=== PATIENT | male | born 1955 | race Caucasian/White ===

== ENCOUNTER 2022-07-05 11:23 | Outpatient (CLI) | payer MEDICARE, BC, SELFPAY | END 2022-07-05 11:24 | disposition home or self-care (01) | PROVIDERS: PCP Family Medicine; Visit Provider Family Medicine | DX: Z00.00 Encounter for general adult medical examination without abnormal findings (principal); E78.5 Hyperlipidemia, unspecified; E66.01 Morbid (severe) obesity due to excess calories; I10 Essential (primary) hypertension; I73.9 Peripheral vascular disease, unspecified; Z86.39 Personal history of other endocrine, nutritional and metabolic disease | CPT/HCPCS: 80053; 80061; 82043; 82306; 82570; 82607; 84153 ==

== ENCOUNTER 2022-07-08 10:19 | Inpatient (IN) | payer BC, MEDICARE, SELFPAY ==
[2022-07-08] VITALS (32 sets, daily range): BP systolic 74–146; BP diastolic 32–101; PULSE 98–122; RESP 20–30; TEMP 35.9–37.9; O2SAT 88–95; BMI 48.8; BMI 51.2
--- NOTE | 2022-07-08 10:34 | ED_ITS ---
HPI - General Adult General Time Seen by Provider: 10:43 Date Seen: 07/08/22 Chief complaint: Extremity Pain/Injury, Lower Stated complaint: Infection in R leg Time Seen by Provider: 07/08/22 10:34 Source: patient, family, RN notes reviewed and old records reviewed Mode of arrival: ambulatory Limitations: no limitations History of Present Illness HPI narrative: Patient is a 67-year-old male brought in by family member with concern right lower extremity swelling and pain. He also has had some respiratory symptoms recently. On Sunday of this past week, today is Sunday, he started feeling like he was getting the flu. By that he meant that he got some chest congestion low-grade fevers and achy. He has had diminished appetite but no nausea vomiting or diarrhea. He does have underlying COPD and feels like it may be a bit exacerbated. He feels when he takes his inhalers he has maybe just not breathing as good as usually would. He has had some sputum production but nothing more than baseline. Over last couple days his right lower extremity has become significantly more swollen, red and painful. He states that is twice the size it normally is. They are wondering about infection in his leg. He does take an aspirin but no other blood thinners. Others in the household have had similar respiratory symptoms. He did do a home COVID test within this illness and was negative. Related Data Home Medications Medication Instructions Recorded Confirmed albuterol sulfate 90 mcg/actuation 2 puff inhalation Q4H PRN 04/21/22 07/08/22 aerosol inhaler ipratropium 0.5 mg-albuterol 3 mg 3 ml inhalation Q6H PRN 04/21/22 07/08/22 (2.5 mg base)/3 mL nebulization soln aspirin 81 mg tablet,delayed 81 mg PO DAILY 05/01/22 07/08/22 release fluticasone fur. 200 mcg-umeclid 1 inh inhalation DAILY 06/12/22 07/08/22 62.5 mcg-vilant 25 mcg inhalat.powder (Trelegy Ellipta) furosemide 40 mg tablet 40 mg PO DAILY 06/12/22 07/08/22 metoprolol succinate 25 mg 25 mg PO DAILY 06/12/22 07/08/22 tablet,extended release 24 hr omeprazole 40 mg capsule,delayed 40 mg PO DAILY 06/12/22 07/08/22 release rosuvastatin 40 mg tablet 40 mg PO DAILY 07/08/22 07/08/22 Previous Rx's Medication Instructions Recorded montelukast 10 mg tablet 10 mg PO QHS #90 tabs 05/01/22 cilostazol 100 mg tablet 100 mg PO BID #180 tabs 07/05/22 doxycycline hyclate 100 mg tablet 100 mg PO BID 7 days #14 tabs 07/05/22 semaglutide 0.25 mg or 0.5 mg (2 0.25 mg (0.2 mL) subcut QWEEK 4 07/07/22 mg/1.5 mL) subcutaneous pen weeks #0.8 mL injector (Dejamor) Allergies Allergy/AdvReac Type Severity Reaction Status Date / Time No Known Drug Allergies Allergy Verified 07/05/22 10:42 Review of Systems Status of ROS: Reports: 10 or more systems reviewed and unremarkable except as noted in History and below [facility] Medical History (Updated 07/09/22 @ 12:06 by Lisandro Correa MD) Bilateral lumbar radiculopathy Cellulitis of right leg (~02/2016) Clostridium difficile colitis (~2017) COPD (chronic obstructive pulmonary disease) Diverticulosis Dyslipidemia Elevated C-reactive protein (CRP) GERD (gastroesophageal reflux disease) H/O myocardial infarction, greater than 8 weeks History of methamphetamine abuse History of vitamin D deficiency Hx of acute renal failure Hx of colonic polyp Hx of deep venous thrombosis Lower GI bleed (~05/2020) Lymphedema Morbidly obese Obstructive sleep apnea hypopnea, severe PAD (peripheral artery disease) Peripheral vascular disease of extremity with claudication Postoperative anemia Prediabetes Presence of stent in coronary artery in patient with coronary artery disease Primary hypertension Spinal stenosis of lumbar region with neurogenic claudication Surgical History (Updated 07/08/22 @ 15:15 by Bree Moreno MD) Femur fracture, right H/O angioplasty (12/07/11) H/O coronary angioplasty (~11/2011) Hip fracture Hx of colonoscopy Hx of esophagogastroduodenoscopy Previous back surgery (10/03/18) S/P insertion of iliac artery stent (06/06/21) Family History (Updated 07/08/22 @ 15:16 by Bree Moreno MD) Maternal Grandfather Heart disease Mother Heart disease Father Myocardial infarction Heart disease Maternal Grandmother Diabetes Cancer of kidney Social History (Updated 07/08/22 @ 17:03 by Bree Moreno MD) Narrative: . 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 Quit tobacco use in july 2015. EtOH 2-3 beers 3 times a week, more in the summer. Denies recreational drugs. 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 He had meth for a few years because he had so many things going on at work and he was renovating a house and felt like there were just not enough hours in the day. Full code, does not want prison life support. Highest level of school completed/degree received: GED or equivalent Smoking Status: Former smoker What tobacco products do you use: cigarettes Smoking packs per day: 0.5 Smoking cigarettes per day: 10.0 Years smoked: 42 Smoking pack-years: 21.00 Smoking quit date/years: <= 15 years ago Do you use any of these nicotine containing products: None Nicotine containing products detail: quit 7 years ago Second hand tobacco smoke exposure: Yes How often do you have a drink containing alcohol: 2-3 times a week Alcohol type: beer How many standard drinks containing alcohol do you have on a typical day: 1 or 2 How often do you have six or more drinks on one occasion: Never AUDIT-C Alcohol total score: 3 Non-prescribed substance use: denies use Caffeine: Yes (3-4 cups daily) Little interest or pleasure in doing things: not at all Feeling down, depressed, or hopeless: not at all service: Yes Exam Const: Vital Signs, click to edit/add: Vital Signs - 24 hr 07/08/22 13:30 07/08/22 13:36 07/08/22 13:38 Temperature Pulse Rate 115 H 112 H 112 H Pulse Rate [Pulse Oximeter] Respiratory Rate Blood Pressure 74/61 L 108/84 Blood Pressure [Le ft Arm] Pulse Oximetry 91 93 94 Oxygen Delivery Me thod Oxygen Flow Rate 07/08/22 14:00 07/08/22 14:01 07/08/22 14:56 Temperature 97.2 F L Pulse Rate 114 H 112 H Pulse Rate [Pulse Oximeter] 122 H Respiratory Rate 30 H Blood Pressure 127/60 Blood Pressure [Le ft Arm] 133/95 H Pulse Oximetry 93 95 95 Oxygen Delivery Me thod Nasal Cannula Oxygen Flow Rate 2 07/08/22 15:28 07/08/22 16:00 Temperature 100.3 F H Pulse Rate Pulse Rate [Pulse Oximeter] 112 H Respiratory Rate 22 30 H Blood Pressure Blood Pressure [Le ft Arm] 140/80 H Pulse Oximetry 92 92 Oxygen Delivery Me thod Nasal Cannula Room Air Oxygen Flow Rate 2 Documenting provider has reviewed patient's vital signs: yes Common normals: oriented x3 General appearance: cooperative, comfortable, disheveled and frail appearing Nutritional appearance: obese Orientation/consciousness: Yes awake, Yes oriented to person, Yes oriented to place and Yes oriented to time HENMT: Common normals: normocephalic, head/scalp atraumatic, hearing grossly normal bilaterally and external ears normal Head and scalp: normocephalic and atraumatic External ear: external ears normal Other: Oral mucosa is dry. Note his initial blood pressure in triage was 87 systolic but recheck as soon as he is in his bed in the ER, systolic was 147 without any intervention. Eye: Common normals: PERRL, EOMs intact bilaterally, conjunctivae normal and no scleral icterus Conjunctiva: conjunctiva(e) normal Pupil: PERRL Neck & C-Spine: Common normals: full ROM, no lymphadenopathy, supple, no meningeal signs and thyroid normal Thyroid: thyroid normal Other: Neck is thick, has a zhong, difficult to assess JVD. Resp: Common normals: normal respiratory effort, no retractions, no use of accessory muscles and clear to auscultation bilaterally Auscultation: clear to auscultation bilaterally Other: Does not overall seem tachypneic but is really only able to speak in phrases. Cardio: Common normals: regular rate, regular rhythm, S1 normal heart sound, S2 normal heart sound, no gallops, no clicks and no murmurs Rate: regular rate Rhythm: regular rhythm Heart sounds: S1 normal and S2 normal GI: Common normals: Normal to inspection, nondistended, normoactive bowel sounds present, soft to palpation, non-tender, no hepatosplenomegaly and no masses Palpation: soft and no hepatosplenomegaly Extremity: Other: Has thickened left lower extremity/edema without any erythema. His right lower extremity is confluency red and about twice the size of his left leg. It is grossly enlarged in the calf and edematous. This extremity feels warm as well. Neuro: Common normals: oriented x3, moves all extremities and no focal motor deficits Sensorium/orientation: awake, oriented to person, oriented to place and oriented to time Meningeal signs: no meningeal signs Course Course Hospital Course: We have a patient reporting a respiratory illness with underlying COPD and worsening right lower extremity swelling and pain. We need to consider COVID and other respiratory pathogens, COPD exacerbation, pneumonia, cardiopulmonary possibilities. Thromboembolic disease is also a possibility here. I am going to ultrasound his calf but will still get a D-dimer. Clinically, even if his D- dimer were normal, looking at this leg would still feel that we need to ultrasound it. Will watch his blood pressures closely. We need to consider the possibility of a sepsis like illness. I am not sure if that was just in Rho knee us 1 time blood pressure but will watch him closely. He will be on cardiac monitoring and pulse oximetry. Will get 2 blood cultures and a full complement of labs. Reevaluation(s) Reevaluation #1: Dr. Forbes did check on the patient for me, patient's troponin was elevated at 10. She ascertained that he had had an episode of left shoulder pain 2 days ago. With his prior episode of ischemic disease requiring cardiac stenting, had bilateral shoulder pain. Patient has no pain in his shoulder or chest currently. She did do a subsequent lab order for a troponin to see where was trending. Time: 12:25 Reevaluation #2: Ordered vancomycin and Ancef for this patient. His Doppler is negative in his legs for venous thrombo embolic disease. He most certainly has cellulitis. He is meeting criteria for sepsis. I have ordered subsequent fluids. Given his COPD and underlying cardiac condition, do think we need to proceed cautiously with him and monitor him closely. Fluid overload could be quite detrimental for him. Besides his initial 500 mL fluid bolus, I have ordered a subsequent L of fluids. Will re-evaluate him before ordering further fluids. Time: 12:37 Consultations Consultation #1: Spoke with Cardiology on-call Dr. Goldsmith at [facility]. With a stability of the troponin and patient being asymptomatic, he thought patient could stay here and have an echo tomorrow and trend troponins. With recurrent symptomatology, concern for escalation of ischemic disease, contact them for potential transfer. Time: 13:44 Consultation #2: Spoke with our hospitalist Dr. Correa. He does accept this patient. In review of the case, he would want to get a chest CT PE protocol and have subsequently ordered it. Time: 13:50 Vital Signs Vital signs: Initial Vital Signs Temperature 96.6 F L 07/08/22 10:22 Temperature Source Temporal Artery Scan 07/08/22 10:22 Pulse Rate 117 H 07/08/22 10:22 Respiratory Rate 26 H 07/08/22 10:22 Blood Pressure 87/32 L 07/08/22 10:22 Blood Pressure Mean 50 07/08/22 10:22 Blood Pressure Position Supine 07/08/22 10:22 Pulse Oximetry 92 07/08/22 10:22 Oxygen Delivery Method 07/08/22 10:22 Vital Signs Temperature 96.6 F L 07/08/22 10:22 Pulse Rate 117 H 07/08/22 10:22 Respiratory Rate 26 H 07/08/22 10:22 Blood Pressure 87/32 L 07/08/22 10:22 Pulse Oximetry 92 07/08/22 10:22 Oxygen Delivery Method 07/08/22 10:22 Temperature 98.7 F 07/09/22 11:00 Pulse Rate 96 07/09/22 11:00 Respiratory Rate 20 07/09/22 08:30 Blood Pressure 142/83 H 07/09/22 11:00 Pulse Oximetry 89 07/09/22 11:00 Oxygen Delivery Method 07/09/22 11:00 Oxygen Flow Rate 2.5 07/09/22 11:00 Medical Decision Making Lab Data Lab results reviewed: Yes I reviewed the patient's lab results Labs: Lab Results 07/08/22 07/08/22 07/08/22 Range/Units 10:50 10:50 10:50 WBC 14.87 H (4.50-11.00) K/uL RBC 4.69 (4.30-5.90) m/uL Hgb 12.8 L (13.5-17.5) gm/dL Hct 40.2 (37.0-53.0) % MCV 86 (80-100) fL MCH 27 (26-34) pg MCHC 32 (32-36) gm/dL RDW Coeff of Dinora 15.7 H (11.5-15.5) % Plt Count 248 (140-440) K/uL Neut % (Auto) 91.4 H (42.0-72.0) % Lymph % (Auto) 4.6 L (20-44) % [place] % (Auto) 3.5 (0.0-11.0) % Eos % (Auto) 0.0 (0.0-7.0) % Baso % (Auto) 0.1 (0.0-3.0) % Neut # (Auto) 13.60 H (1.7-7.0) K/uL Lymph # (Auto) 0.70 L (0.90-2.90) K/uL [place] # (Auto) 0.50 (0.00-0.90) K/UL Eos # (Auto) 0.00 (0.00-0.50) K/uL Baso # (Auto) 0.00 (0.00-0.30) K/uL ESR 72 H (2-15) mm/hr D-Dimer Quant (PE/DVT) 3.02 H (0.00-0.50) ug/ml VBG pH (7.32-7.43) VBG pCO2 (40-50) mmHG VBG pO2 (25-47) mmHG VBG HCO3 (21-28) mmol/L Sodium (135-149) mmol/L Potassium (3.6-5.1) mmol/L Chloride (96-114) mmol/L Carbon Dioxide (20-32) mmol/L BUN (7-30) mg/dL Creatinine (0.5-1.5) mg/dL Estimated Creat Clear Estimated GFR ml/min Glucose (60-115) mg/dL Lactate (0.5-1.9) mmol/L Calcium (8.4-10.6) mg/dL Total Bilirubin (0.1-1.5) mg/dL AST (12-35) U/L ALT (4-50) U/L Alkaline Phosphatase (40-150) U/L Troponin I (0.01-0.04) ng/mL C-Reactive Protein (0.5-1.0) mg/dL NT-Pro-B Natriuret Pep pg/mL Total Protein (6.0-8.3) g/dL Albumin (3.3-5.0) g/dL Procalcitonin (<0.50) ng/mL SARS-CoV-2 (PCR) (Negative) Influenza Type A (PCR) (Negative) Influenza Type B (PCR) (Negative) RSV (PCR) (Negative) POC Troponin I (0.01-0.04) ng/ml 07/08/22 07/08/22 07/08/22 Range/Units 10:50 10:50 10:50 WBC (4.50-11.00) K/uL RBC (4.30-5.90) m/uL Hgb (13.5-17.5) gm/dL Hct (37.0-53.0) % MCV (80-100) fL MCH (26-34) pg MCHC (32-36) gm/dL RDW Coeff of Dinora (11.5-15.5) % Plt Count (140-440) K/uL Neut % (Auto) (42.0-72.0) % Lymph % (Auto) (20-44) % [place] % (Auto) (0.0-11.0) % Eos % (Auto) (0.0-7.0) % Baso % (Auto) (0.0-3.0) % Neut # (Auto) (1.7-7.0) K/uL Lymph # (Auto) (0.90-2.90) K/uL [place] # (Auto) (0.00-0.90) K/UL Eos # (Auto) (0.00-0.50) K/uL Baso # (Auto) (0.00-0.30) K/uL ESR (2-15) mm/hr D-Dimer Quant (PE/DVT) (0.00-0.50) ug/ml VBG pH (7.32-7.43) VBG pCO2 (40-50) mmHG VBG pO2 (25-47) mmHG VBG HCO3 (21-28) mmol/L Sodium 134 L (135-149) mmol/L Potassium 3.9 (3.6-5.1) mmol/L Chloride 97 (96-114) mmol/L Carbon Dioxide 29 (20-32) mmol/L BUN 20 (7-30) mg/dL Creatinine 1.3 (0.5-1.5) mg/dL Estimated Creat Clear 55.37 Estimated GFR 59 ml/min Glucose 198 H (60-115) mg/dL Lactate (0.5-1.9) mmol/L Calcium 8.3 L (8.4-10.6) mg/dL Total Bilirubin 1.2 (0.1-1.5) mg/dL AST 97 H (12-35) U/L ALT 35 (4-50) U/L Alkaline Phosphatase 78 (40-150) U/L Troponin I 10.80 H* (0.01-0.04) ng/mL C-Reactive Protein 40.1 H (0.5-1.0) mg/dL NT-Pro-B Natriuret Pep 2790 pg/mL Total Protein 7.4 (6.0-8.3) g/dL Albumin 3.7 (3.3-5.0) g/dL Procalcitonin 17.80 H (<0.50) ng/mL SARS-CoV-2 (PCR) Negative SARS-CoV-2 (Negative) Influenza Type A (PCR) Negative PCR FLU A (Negative) Influenza Type B (PCR) Negative PCR FLU B (Negative) RSV (PCR) Negative PCR RSV (Negative) POC Troponin I (0.01-0.04) ng/ml 07/08/22 07/08/22 07/08/22 Range/Units 10:50 12:25 15:52 WBC (4.50-11.00) K/uL RBC (4.30-5.90) m/uL Hgb (13.5-17.5) gm/dL Hct (37.0-53.0) % MCV (80-100) fL MCH (26-34) pg MCHC (32-36) gm/dL RDW Coeff of Dinora (11.5-15.5) % Plt Count (140-440) K/uL Neut % (Auto) (42.0-72.0) % Lymph % (Auto) (20-44) % [place] % (Auto) (0.0-11.0) % Eos % (Auto) (0.0-7.0) % Baso % (Auto) (0.0-3.0) % Neut # (Auto) (1.7-7.0) K/uL Lymph # (Auto) (0.90-2.90) K/uL [place] # (Auto) (0.00-0.90) K/UL Eos # (Auto) (0.00-0.50) K/uL Baso # (Auto) (0.00-0.30) K/uL ESR (2-15) mm/hr D-Dimer Quant (PE/DVT) (0.00-0.50) ug/ml VBG pH 7.321 (7.32-7.43) VBG pCO2 56 H (40-50) mmHG VBG pO2 21.1 L (25-47) mmHG VBG HCO3 29 H (21-28) mmol/L Sodium (135-149) mmol/L Potassium (3.6-5.1) mmol/L Chloride (96-114) mmol/L Carbon Dioxide (20-32) mmol/L BUN (7-30) mg/dL Creatinine (0.5-1.5) mg/dL Estimated Creat Clear Estimated GFR ml/min Glucose (60-115) mg/dL Lactate 3.4 H (0.5-1.9) mmol/L Calcium (8.4-10.6) mg/dL Total Bilirubin (0.1-1.5) mg/dL AST (12-35) U/L ALT (4-50) U/L Alkaline Phosphatase (40-150) U/L Troponin I 9.72 H* (0.01-0.04) ng/mL C-Reactive Protein (0.5-1.0) mg/dL NT-Pro-B Natriuret Pep pg/mL Total Protein (6.0-8.3) g/dL Albumin (3.3-5.0) g/dL Procalcitonin (<0.50) ng/mL SARS-CoV-2 (PCR) (Negative) Influenza Type A (PCR) (Negative) Influenza Type B (PCR) (Negative) RSV (PCR) (Negative) POC Troponin I 9.25 H (0.01-0.04) ng/ml 07/08/22 Range/Units 15:52 WBC (4.50-11.00) K/uL RBC (4.30-5.90) m/uL Hgb (13.5-17.5) gm/dL Hct (37.0-53.0) % MCV (80-100) fL MCH (26-34) pg MCHC (32-36) gm/dL RDW Coeff of Dinora (11.5-15.5) % Plt Count (140-440) K/uL Neut % (Auto) (42.0-72.0) % Lymph % (Auto) (20-44) % [place] % (Auto) (0.0-11.0) % Eos % (Auto) (0.0-7.0) % Baso % (Auto) (0.0-3.0) % Neut # (Auto) (1.7-7.0) K/uL Lymph # (Auto) (0.90-2.90) K/uL [place] # (Auto) (0.00-0.90) K/UL Eos # (Auto) (0.00-0.50) K/uL Baso # (Auto) (0.00-0.30) K/uL ESR (2-15) mm/hr D-Dimer Quant (PE/DVT) (0.00-0.50) ug/ml VBG pH (7.32-7.43) VBG pCO2 (40-50) mmHG VBG pO2 (25-47) mmHG VBG HCO3 (21-28) mmol/L Sodium (135-149) mmol/L Potassium (3.6-5.1) mmol/L Chloride (96-114) mmol/L Carbon Dioxide (20-32) mmol/L BUN (7-30) mg/dL Creatinine (0.5-1.5) mg/dL Estimated Creat Clear Estimated GFR ml/min Glucose (60-115) mg/dL Lactate 1.7 (0.5-1.9) mmol/L Calcium (8.4-10.6) mg/dL Total Bilirubin (0.1-1.5) mg/dL AST (12-35) U/L ALT (4-50) U/L Alkaline Phosphatase (40-150) U/L Troponin I (0.01-0.04) ng/mL C-Reactive Protein (0.5-1.0) mg/dL NT-Pro-B Natriuret Pep pg/mL Total Protein (6.0-8.3) g/dL Albumin (3.3-5.0) g/dL Procalcitonin (<0.50) ng/mL SARS-CoV-2 (PCR) (Negative) Influenza Type A (PCR) (Negative) Influenza Type B (PCR) (Negative) RSV (PCR) (Negative) POC Troponin I (0.01-0.04) ng/ml Imaging Data Chest x-ray: Attestation: I have reviewed the pertinent imaging results. Radiologist's impression: Patient: [facility] Facility:?[facility] Patient ID:?[id number] Site Patient ID:?[id number]. Site :?[id number] Study:?XRay Chest 1 VIEW PORTABLE-07/08/2022 11:59:02 AM Ordering Physician:Viola Rodrigez Final Report: INDICATION: Cough with fever. TECHNIQUE: Chest 1 view. COMPARISON: 21 April 2022 FINDINGS: Cardiovascular and mediastinum: Heart size and vasculature are normal in caliber and appearance. Mediastinum is within normal limits. Lungs and pleural space: Lungs are clear. No sign of infiltrate or mass. No sign of pleural effusion. No pneumothorax. Bones and soft tissues: No significant findings. IMPRESSION: Unremarkable chest. Dictated by Drew Greene MD @ 07/08/2022 12:39:13 PM (Electronic Signature) Venous US: Attestation: I have reviewed the pertinent imaging results. Radiologist's impression: Patient: [facility] Facility:?[facility] Patient ID:?[id number] Site Patient ID:?[id number]. Site :?[id number] Study:?US Extremity Right lower leg venous-07/08/2022 11:57:30 AM Ordering Physician:Viola Rodrigez Final Report: CLINICAL HISTORY: Right leg swelling with pain and redness. TECHNIQUE: A compression venous ultrasound exam was performed of the right lower extremity using pierson-scale imaging, color Doppler and spectral Doppler analysis. Limitation in image quality due to body habitus. FINDINGS: Sonographic imaging of the right lower extremity demonstrates normal compressibility and color Doppler venous blood flow within the common femoral vein, deep femoral vein, and the proximal greater saphenous vein. Within the thigh, the femoral vein is patent and compressible. At a lower level, the popliteal and posterior tibial veins also show normal compressibility and color Doppler venous blood flow. Limited imaging of the contralateral groin demonstrates a normal spectral waveform and color Doppler venous blood flow within the left common femoral vein. IMPRESSION: Normal venous ultrasound exam. No evidence of deep vein thrombosis within the right lower extremity. Limitation of image quality and diagnostic sensitivity due to body habitus. Dictated by Drew Greene MD @ 07/08/2022 12:37:17 PM (Electronic Signature) ECG Data Attestation: I personally reviewed and interpreted this ECG as follows: (Sinus tachycardia, 111 beats per minute, PVCs. Q-waves inferiorly. No acute ST segment changes indicative of active ischemia.) Prior ECG tracings: not available for review
--- NOTE | 2022-07-08 10:41 | CRLHL7_ITS ---
For Patients: As a result of the Cures Act, medical imaging exams and procedure reports are released immediately into your electronic medical record. You may view this report before your referring provider. If you have questions, please contact your health care provider. INDICATION: Cough with fever. TECHNIQUE: Chest 1 view. COMPARISON: 21 April 2022 FINDINGS: Cardiovascular and mediastinum: Heart size and vasculature are normal in caliber and appearance. Mediastinum is within normal limits. Lungs and pleural space: Lungs are clear. No sign of infiltrate or mass. No sign of pleural effusion. No pneumothorax. Bones and soft tissues: No significant findings. IMPRESSION: Unremarkable chest. Dictated by Drew Greene MD @ 07/08/2022 12:39:13 PM (Electronically Signed)
--- NOTE | 2022-07-08 10:44 | CRLHL7_ITS ---
For Patients: As a result of the Cures Act, medical imaging exams and procedure reports are released immediately into your electronic medical record. You may view this report before your referring provider. If you have questions, please contact your health care provider. CLINICAL HISTORY: Right leg swelling with pain and redness. TECHNIQUE: A compression venous ultrasound exam was performed of the right lower extremity using pierson-scale imaging, color Doppler and spectral Doppler analysis. Limitation in image quality due to body habitus. FINDINGS: Sonographic imaging of the right lower extremity demonstrates normal compressibility and color Doppler venous blood flow within the common femoral vein, deep femoral vein, and the proximal greater saphenous vein. Within the thigh, the femoral vein is patent and compressible. At a lower level, the popliteal and posterior tibial veins also show normal compressibility and color Doppler venous blood flow. Limited imaging of the contralateral groin demonstrates a normal spectral waveform and color Doppler venous blood flow within the left common femoral vein. IMPRESSION: Normal venous ultrasound exam. No evidence of deep vein thrombosis within the right lower extremity. Limitation of image quality and diagnostic sensitivity due to body habitus. Dictated by Drew Greene MD @ 07/08/2022 12:37:17 PM (Electronically Signed)
[2022-07-08 10:59] LABS: HCO3 VBG 29 mmol/L (21-28); Lactate* 3.4 mmol/L (0.5-1.9); PCO2 VBG 56 mmHG (40-50); PO2 VBG 21.1 mmHG (25-47); pH VBG 7.321 (7.32-7.43)
[2022-07-08 11:01] LABS: Basophils Percent Auto 0.1 % (0.0-3.0); Hematocrit 40.2 % (37.0-53.0); Hemoglobin* 12.8 gm/dL (13.5-17.5); Immature Granulocytes Pct Auto 0.4 %; Lymphocytes Percent Auto 4.6 % (20-44); Mean Corpuscular HGB Conc 32 gm/dL (32-36); Mean Corpuscular Hemoglobin 27 pg (26-34); Mean Corpuscular Volume 86 fL (80-100); Monocytes Percent Auto 3.5 % (0.0-11.0); Neutrophils Percent Auto 91.4 % (42.0-72.0); Platelet Count* 248 K/uL (140-440); RDW Coefficient of Variation % 15.7 % (11.5-15.5); Red Blood Count 4.69 m/uL (4.30-5.90); White Blood Count* 14.87 K/uL (4.50-11.00)
[2022-07-08 11:07] LABS: Slide Review Reflex No
[2022-07-08 11:17] LABS: Albumin* 3.7 g/dL (3.3-5.0); Chloride* 97 mmol/L (96-114); Sodium* 134 mmol/L (135-149)
[2022-07-08 11:18] LABS: Potassium* 3.9 mmol/L (3.6-5.1)
[2022-07-08 11:20] LABS: Alkaline Phosphatase* 78 U/L (40-150); Aspartate Amino Transferase* 97 U/L (12-35); Bilirubin Total* 1.2 mg/dL (0.1-1.5); Carbon Dioxide* 29 mmol/L (20-32); Creatinine* 1.3 mg/dL (0.5-1.5); Est. Creatinine Clearance* 55.37; Estimated Glomerular Filt Rate 59 ml/min; Total Protein* 7.4 g/dL (6.0-8.3)
[2022-07-08 11:21] LABS: Alanine Aminotransferase* 35 U/L (4-50); Blood Urea Nitrogen* 20 mg/dL (7-30); Calcium* 8.3 mg/dL (8.4-10.6); Glucose* 198 mg/dL (60-115)
[2022-07-08 11:27] LABS: D Dimer Quantitative* 3.02 ug/ml (0.00-0.50)
[2022-07-08] MEDS: 0.9 % SODIUM CHLORIDE 500 ML 500 ML IV (11:36)
[2022-07-08 11:41] LABS: PCR FLU A Negative PCR FLU A (Negative); PCR FLU B Negative PCR FLU B (Negative); PCR RSV Negative PCR RSV (Negative)
[2022-07-08 11:44] LABS: SARS PCR* Negative SARS-CoV-2 (Negative)
[2022-07-08 11:45] LABS: NT Pro B Type NatriureticPept* 2790 pg/mL
[2022-07-08 11:55] LABS: Erythrocyte SedimentationRate* 72 mm/hr (2-15)
[2022-07-08 12:11] LABS: C Reactive Protein* 40.1 mg/dL (0.5-1.0)
--- NOTE | 2022-07-08 12:14 | PC.NURSE ---
pt denies chest pain, does report shortness of breath that has increased over the last 1-2 days
[2022-07-08] MEDS: 0.9 % SODIUM CHLORIDE 1000 ml 1,000 ML IV (12:40)
[2022-07-08 12:46] LABS: Troponin, Point-of-Care* 9.25 ng/ml (0.01-0.04)
[2022-07-08] MEDS: CEFAZOLIN 2 GM in 0.9 % SODIUM CHLORIDE Mini-bag 100 ML IVPB ×2 (13:24→20:34)
--- NOTE | 2022-07-08 13:56 | CRLHL7_ITS ---
For Patients: As a result of the Century Cures Act, medical imaging exams and procedure reports are released immediately into your electronic medical record. You may view this report before your referring provider. If you have questions, please contact your health care provider. Indication: Tachycardia Comparison: None available Technique: Contiguous axial images were obtained from the neck base through the upper abdomen following the uncomplicated administration of intravenous of mL IV . Findings: Inadequate contrast bolus without obvious evidence of central pulmonary embolism. Unable to evaluate the segmental and subsegmental pulmonary arteries due to motion artifact, and opacification. Low lung volumes and motion also markedly limits evaluation of lung parenchyma. There are some areas of atelectasis in bilateral lower lobes, with linear posterior opacities and volume loss. Mild emphysema, upper lobe predominant. No focal area of airspace consolidation. Central airways appear patent. No chest adenopathy. Atherosclerotic disease. No thoracic aortic aneurysm. Coronary artery calcification. No pericardial effusion. No pleural effusion or pneumothorax. No obvious adenopathy in the neck base. The thyroid appears unremarkable. In the visualized upper abdomen the adrenal glands appear unremarkable. The spleen is normal in size. Hepatic steatosis and hepatomegaly. No aggressive appearing osseous lesion. Impression: 1. Inadequate contrast bolus without obvious evidence of central pulmonary embolism. 2. Mild emphysema, and areas of atelectasis, with low lung volumes. 3. Coronary artery calcification. 4. Hepatic steatosis and hepatomegaly. Please note that all CT scans at this facility use dose modulation, iterative reconstruction, and/or weight-based dosing when appropriate to reduce radiation dose to as low as reasonably achievable. Dictated by Yaron Ospina MD @ 07/08/2022 3:30:07 PM (Electronically Signed)
--- NOTE | 2022-07-08 15:26 | PM.IMHP1 ---
Hospitalist- H&P: HPI History of Present Illness Time Seen by Provider: 15:27 Date Seen: 07/08/22 Chief complaint: Infection in R leg Narrative: Ajith Warren is a 67 year old male with a complicated PMH including CAD, CHANTEL requiring temporary dialysis, and chronic right lower extremity lymphedema who presented through the emergency department today for right lower extremity pain and swelling. Ajith has had several episodes right lower extremity cellulitis and has chronic lymphedema of that leg for which he wears compression stockings. He knows he is supposed to elevate his legs, but is unable to do so due to orthopnea. On Sunday he used the hot tub at [address], which he usually does once or twice a week. He usually wears his compression stockings 24 hours a day 7 days a week, and when he saw Dr. Roth on Sunday, he says she told him that he should take them off to wash them once in a while. He took them off after seeing her on Sunday and did not put them on that night. He noticed some swelling Sunday evening and I am morning on his right lower extremity was painful and red. He noticed increased pain with walking. By night he felt generally unwell. He noticed that the redness was creeping up his leg. It had started on the lateral side of his right foot and up into both sides of his calf, but was up to his thigh Th night. He felt very feverish, chilled, having cold sweats, and then developed left shoulder pain. It was reminiscent of the pain he had with a myocardial infarction several years ago when he felt like his shoulders were pulling back trying to had each other from behind. He was just sitting in a chair resting when all of this came on. He had no chest pain or chest discomfort and denies any shortness of breath at that time. He went to bed, but it was very hard to sleep because of the left shoulder pain and he does not think he got any sleep that night. By Sunday morning he was still having left shoulder pain, but it slowly resolved by midmorning. His right lower extremity continued to get more red and painful. Today his breathing was difficult. His is not with him today because she is home sick with flu-like symptoms. His son, Kobi, and granddaughter, Crystal, or there when I 1st arrived to this patient's room, and left shortly after a introduced myself. In reviewing medications with him, he seemed very unsure about what he is actually taking. I read to him from a list that have been updated by Dr. Roth a few days ago, but there were several of them that he says he does not take at all, and he had said he took Ozempic, but when I asked him what day of the week he took that, he said what you mean? I told him it was an injectable medication and he said he does not take injectables. He also does not know the time of day he takes least 3 of his medications. Says he either takes them in the morning or night, but basically sets them all out in a pillbox and takes half of in the morning and half of them at night. He also occasionally takes his 's OxyContin and does not know the dose of that. He tells me he was recently prescribed the doxycycline that it says was picked up by him at the pharmacy on 07/05/2022 by a dye room helper, and it was supposed to be used as a rescue medicine for COPD exacerbations, but his started taking it for a tooth infection. I spoke with Ajith's , Tracy, around 5:30 p.m.. She had asked that I call to give her an update. She notes that he usually gets delirium when septic. We discussed sepsis, antibiotics, cellulitis, NSTEMI, acute kidney injury, and medications. She said that he usually knows his medications very well and thinks that mild delirium is causing him to not be able to give accurate information about his medications. She said that he was recently prescribed Olzempic for pre diabetes and had not started it yet. Review of Systems Status of ROS: Reports: 10 or more systems reviewed and unremarkable except as noted in History and below [facility] Medical History (Updated 07/08/22 @ 17:57 by Bree Moreno MD) Bilateral lumbar radiculopathy Cellulitis of right leg (~02/2016) Clostridium difficile colitis (~2018) COPD (chronic obstructive pulmonary disease) Diverticulosis Dyslipidemia Elevated C-reactive protein (CRP) GERD (gastroesophageal reflux disease) H/O myocardial infarction, greater than 8 weeks History of methamphetamine abuse History of vitamin D deficiency Hx of acute renal failure Hx of colonic polyp Hx of deep venous thrombosis Lower GI bleed (~05/2020) Lymphedema Morbidly obese Obstructive sleep apnea hypopnea, severe PAD (peripheral artery disease) Peripheral vascular disease of extremity with claudication Postoperative anemia Prediabetes Presence of stent in coronary artery in patient with coronary artery disease Primary hypertension Spinal stenosis of lumbar region with neurogenic claudication Surgical History (Updated 07/08/22 @ 15:15 by Bree Moreno MD) Femur fracture, right H/O angioplasty (12/07/11) H/O coronary angioplasty (~11/2011) Hip fracture Hx of colonoscopy Hx of esophagogastroduodenoscopy Previous back surgery (10/03/18) S/P insertion of iliac artery stent (06/06/21) Family History (Updated 07/08/22 @ 15:16 by Bree Moreno MD) Maternal Grandfather Heart disease Mother Heart disease Father Myocardial infarction Heart disease Maternal Grandmother Diabetes Cancer of kidney Social History (Updated 07/08/22 @ 17:03 by Bree Moreno MD) Narrative: . 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 Quit tobacco use in july 2015. EtOH 2-3 beers 3 times a week, more in the summer. Denies recreational drugs. 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 He had meth for a few years because he had so many things going on at work and he was renovating a house and felt like there were just not enough hours in the day. Full code, does not want manager long term care life support. Highest level of school completed/degree received: GED or equivalent Smoking Status: Former smoker What tobacco products do you use: cigarettes Smoking packs per day: 0.5 Smoking cigarettes per day: 10.0 Years smoked: 42 Smoking pack-years: 21.00 Smoking quit date/years: <= 15 years ago Do you use any of these nicotine containing products: None Nicotine containing products detail: quit 7 years ago Second hand tobacco smoke exposure: Yes How often do you have a drink containing alcohol: 2-3 times a week Alcohol type: beer How many standard drinks containing alcohol do you have on a typical day: 1 or 2 How often do you have six or more drinks on one occasion: Never AUDIT-C Alcohol total score: 3 Non-prescribed substance use: denies use Caffeine: Yes (3-4 cups daily) Little interest or pleasure in doing things: not at all Feeling down, depressed, or hopeless: not at all service: Yes Meds Home Medications and Allergies Home Medications Medication Instructions Recorded Confirmed Type albuterol sulfate 90 mcg/actuation 2 puff inhalation Q4H PRN 04/21/22 07/08/22 History aerosol inhaler ipratropium 0.5 mg-albuterol 3 mg 3 ml inhalation Q6H PRN 04/21/22 07/08/22 History (2.5 mg base)/3 mL nebulization soln aspirin 81 mg tablet,delayed 81 mg PO DAILY 05/01/22 07/08/22 History release fluticasone fur. 200 mcg-umeclid 1 inh inhalation DAILY 06/12/22 07/08/22 History 62.5 mcg-vilant 25 mcg inhalat.powder (Trelegy Ellipta) furosemide 40 mg tablet 40 mg PO DAILY 06/12/22 07/08/22 History metoprolol succinate 25 mg 25 mg PO DAILY 06/12/22 07/08/22 History tablet,extended release 24 hr omeprazole 40 mg capsule,delayed 40 mg PO DAILY 06/12/22 07/08/22 History release rosuvastatin 40 mg tablet 40 mg PO DAILY 07/08/22 07/08/22 History Home Medication Comments: Not very knowledgeable about medicines. He says he puts them into a weekly pill box himself. Also please see HPI. Allergies Allergy/AdvReac Type Severity Reaction Status Date / Time No Known Drug Allergies Allergy Verified 07/05/22 10:42 Exam Narrative: Exam Narrative: General: No acute distress. Mild respiratory distress, occasionally heaving breaths and speaking in short sentences. Awake alert oriented x3. Morbidly obese. Sitting in the chair with legs on the floor. HEENT: Normocephalic atraumatic, pupils equally round and reactive to light and accommodation. Oropharynx clear. Mucous membranes are dry. No cervical lymphadenopathy, thyromegaly or carotid bruits. Cardiovascular: Regular rate and rhythm. No murmurs, gallops, or rubs. Chest: Poor and shallow inspiratory efforts. Diminished breath sounds at bases. No crackles or wheezes. Abdomen: Bowel sounds present. Soft, nondistended, nontender. No hepatosplenomegaly or masses. Extremities: Massive right lower extremity edema with erythema encompassing entire lower part of the right lower extremity from above the knee down and the medial half of the inner thigh ending just before the groin. There was only 1 small area of serous drainage from the middle anterior reynolds. No other open areas or ulceration. No bruising or abrasions or signs of injury or abscess. Genitourinary: Normal male genitalia with no erythema or edema. Skin: As above. No other rashes noted. Const: Vital Signs, click to edit/add: Vital Signs - 24 hr 07/08/22 10:22 07/08/22 11:13 07/08/22 11:15 Temperature 96.6 F L Pulse Rate 117 H 117 H Pulse Rate [Pulse Oximeter] 117 H Respiratory Rate 26 H Blood Pressure 139/61 Blood Pressure [Le ft Arm] Blood Pressure [Ri ght Forearm] 87/32 L Pulse Oximetry 92 95 95 Oxygen Delivery Me thod Room Air Oxygen Flow Rate 07/08/22 11:30 07/08/22 11:32 07/08/22 12:00 Temperature Pulse Rate 117 H 115 H 112 H Pulse Rate [Pulse Oximeter] Respiratory Rate Blood Pressure 128/101 H Blood Pressure [Le ft Arm] Blood Pressure [Ri ght Forearm] Pulse Oximetry 93 93 92 Oxygen Delivery Me thod Oxygen Flow Rate 07/08/22 12:02 07/08/22 12:11 07/08/22 12:30 Temperature Pulse Rate 114 H 113 H 112 H Pulse Rate [Pulse Oximeter] Respiratory Rate Blood Pressure 97/81 91/58 L Blood Pressure [Le ft Arm] Blood Pressure [Ri ght Forearm] Pulse Oximetry 91 93 92 Oxygen Delivery Me thod Oxygen Flow Rate 07/08/22 12:31 07/08/22 13:00 07/08/22 13:02 Temperature Pulse Rate 113 H 112 H 111 H Pulse Rate [Pulse Oximeter] Respiratory Rate Blood Pressure 117/69 106/75 Blood Pressure [Le ft Arm] Blood Pressure [Ri ght Forearm] Pulse Oximetry 93 95 92 Oxygen Delivery Me thod Oxygen Flow Rate 07/08/22 13:30 07/08/22 13:36 07/08/22 13:38 Temperature Pulse Rate 115 H 112 H 112 H Pulse Rate [Pulse Oximeter] Respiratory Rate Blood Pressure 74/61 L 108/84 Blood Pressure [Le ft Arm] Blood Pressure [Ri ght Forearm] Pulse Oximetry 91 93 94 Oxygen Delivery Me thod Oxygen Flow Rate 07/08/22 14:00 07/08/22 14:01 07/08/22 14:56 Temperature 97.2 F L Pulse Rate 114 H 112 H Pulse Rate [Pulse Oximeter] 122 H Respiratory Rate 30 H Blood Pressure 127/60 Blood Pressure [Le ft Arm] 133/95 H Blood Pressure [Ri ght Forearm] Pulse Oximetry 93 95 95 Oxygen Delivery Me thod Nasal Cannula Oxygen Flow Rate 2 Documenting provider has reviewed patient's vital signs: yes Common normals: no apparent distress, oriented x3, no limitations, healthy appearing, alert and well nourished General appearance: cooperative and comfortable; not in distress Orientation/consciousness: Yes awake, Yes oriented to person, Yes oriented to place and Yes oriented to time HENMT: Common normals: normocephalic, head/scalp atraumatic, hearing grossly normal bilaterally, TM's normal bilaterally, external nose normal and nasal mucous membranes and turbinates normal Head and scalp: normal to inspection, normocephalic and atraumatic Nose: external nose normal and nasal mucous membranes and turbinates normal Tympanic membrane: TM's normal bilaterally Mouth: oral and palatal mucosa normal Throat: posterior oropharynx normal Eye: Common normals: PERRL and EOMs intact bilaterally General eye: normal appearance of both eyes Pupil: PERRL Neck & C-Spine: Common normals: full ROM, no lymphadenopathy and supple Resp: Common normals: normal respiratory effort, no use of accessory muscles and clear to auscultation bilaterally Effort & inspection: able to speak in complete sentences; no respiratory distress Auscultation: clear to auscultation bilaterally; no crackles and no wheezes Cardio: Common normals: regular rate, regular rhythm, S1 normal heart sound, S2 normal heart sound, no gallops, no murmurs and peripheral pulses 2+ throughout Rate: regular rate Rhythm: regular rhythm Heart sounds: S1 normal and S2 normal Peripheral pulses: pulses 2+ throughout GI: Common normals: Normal to inspection, nondistended, normoactive bowel sounds present, soft to palpation and non-tender Palpation: soft Extremity: Common normals: normal to inspection, full ROM and normal capillary refill Neuro: Common normals: oriented x3, CN's II-XII intact bilaterally, moves all extremities, no focal motor deficits and no sensory deficits noted Sensorium/orientation: awake, alert, oriented to person, oriented to place and oriented to time Speech: speech normal Gait (neuro): normal gait Motor exam: strength 5/5 throughout Psych: Common normals: mental status grossly normal, thought process normal, speech normal and activity/motor behavior normal Appearance: grossly normal Attitude: calm Speech: normal speech Thought process: normal thought process Thought content: normal thought content Attention/concentration: attention grossly intact Memory/cognition: memory grossly intact Insight: insight good Judgement: judgment good Skin: Common normals: no rashes or lesions noted General skin exam: no rashes or lesions noted Hospitalist - H&P: Result Labs Labs: Short CBC 07/08/22 Range/Units 10:50 WBC 14.87 H (4.50-11.00) K/uL Hgb 12.8 L (13.5-17.5) gm/dL Hct 40.2 (37.0-53.0) % Plt Count 248 (140-440) K/uL BMP 07/08/22 10:50 Sodium 134 L Potassium 3.9 Chloride 97 Carbon Dioxide 29 BUN 20 Creatinine 1.3 Glucose 198 H Calcium 8.3 L Cardiac Enzymes 07/08/22 Range/Units 10:50 Troponin I 10.80 H* (0.01-0.04) ng/mL Liver Function 07/08/22 Range/Units 10:50 Total Bilirubin 1.2 (0.1-1.5) mg/dL AST 97 H (12-35) U/L ALT 35 (4-50) U/L Alkaline Phosphatase 78 (40-150) U/L Albumin 3.7 (3.3-5.0) g/dL Ordering Physician: Rain Leigh M.D. Date of Service: 07/08/22 Procedure(s): XR chest 1V portable Accession Number(s): [id number] cc: Rain Leigh M.D.; Qiana Roth D.O.~ For Patients: As a result of the Century Cures Act, medical imaging exams and procedure reports are released immediately into your electronic medical record. You may view this report before your referring provider. If you have questions, please contact your health care provider. INDICATION: Cough with fever. TECHNIQUE: Chest 1 view. COMPARISON: 21 April 2022 FINDINGS: Cardiovascular and mediastinum: Heart size and vasculature are normal in caliber and appearance. Mediastinum is within normal limits. Lungs and pleural space: Lungs are clear. No sign of infiltrate or mass. No sign of pleural effusion. No pneumothorax. Bones and soft tissues: No significant findings. IMPRESSION: Unremarkable chest. Dictated by Drew Greene MD @ 07/08/2022 12:39:13 PM (Electronically Signed) Ordering Physician: Rain Leigh M.D. Date of Service: 07/08/22 Procedure(s): US venous LE RT Accession Number(s): [id number] cc: Rain Leigh M.D.; Qiana Roth D.O.~ For Patients: As a result of the Cures Act, medical imaging exams and procedure reports are released immediately into your electronic medical record. You may view this report before your referring provider. If you have questions, please contact your health care provider. CLINICAL HISTORY: Right leg swelling with pain and redness. TECHNIQUE: A compression venous ultrasound exam was performed of the right lower extremity using pierson-scale imaging, color Doppler and spectral Doppler analysis. Limitation in image quality due to body habitus. FINDINGS: Sonographic imaging of the right lower extremity demonstrates normal compressibility and color Doppler venous blood flow within the common femoral vein, deep femoral vein, and the proximal greater saphenous vein. Within the thigh, the femoral vein is patent and compressible. At a lower level, the popliteal and posterior tibial veins also show normal compressibility and color Doppler venous blood flow. Limited imaging of the contralateral groin demonstrates a normal spectral waveform and color Doppler venous blood flow within the left common femoral vein. IMPRESSION: Normal venous ultrasound exam. No evidence of deep vein thrombosis within the right lower extremity. Limitation of image quality and diagnostic sensitivity due to body habitus. Dictated by Drew Greene MD @ 07/08/2022 12:37:17 PM (Electronically Signed) Ordering Physician: Rain Leigh M.D. Date of Service: 07/08/22 Procedure(s): CT angio chest PE protocol Accession Number(s): [id number] cc: Rain Leigh M.D.; Qiana Roth D.O.~ For Patients: As a result of the Century Cures Act, medical imaging exams and procedure reports are released immediately into your electronic medical record. You may view this report before your referring provider. If you have questions, please contact your health care provider. Indication: Tachycardia Comparison: None available Technique: Contiguous axial images were obtained from the neck base through the upper abdomen following the uncomplicated administration of intravenous of mL IV . Findings: Inadequate contrast bolus without obvious evidence of central pulmonary embolism. Unable to evaluate the segmental and subsegmental pulmonary arteries due to motion artifact, and opacification. Low lung volumes and motion also markedly limits evaluation of lung parenchyma. There are some areas of atelectasis in bilateral lower lobes, with linear posterior opacities and volume loss. Mild emphysema, upper lobe predominant. No focal area of airspace consolidation. Central airways appear patent. No chest adenopathy. Atherosclerotic disease. No thoracic aortic aneurysm. Coronary artery calcification. No pericardial effusion. No pleural effusion or pneumothorax. No obvious adenopathy in the neck base. The thyroid appears unremarkable. In the visualized upper abdomen the adrenal glands appear unremarkable. The spleen is normal in size. Hepatic steatosis and hepatomegaly. No aggressive appearing osseous lesion. Impression: 1. Inadequate contrast bolus without obvious evidence of central pulmonary embolism. 2. Mild emphysema, and areas of atelectasis, with low lung volumes. 3. Coronary artery calcification. 4. Hepatic steatosis and hepatomegaly. Please note that all CT scans at this facility use dose modulation, iterative reconstruction, and/or weight-based dosing when appropriate to reduce radiation dose to as low as reasonably achievable. Dictated by Yaron Ospina MD @ 07/08/2022 3:30:07 PM (Electronically Signed) 07/08/2022 11:48 a.m. EKG: Sinus tachycardia with frequent PVCs. 111 beats per minute. Inferior infarct, age undetermined. Cannot rule out anterior infarct, age undetermined. Assessment and Plan Assessment and plan (1) Cellulitis of right lower extremity: Status: Acute (2) NSTEMI (non-ST elevated myocardial infarction): Problem comment: - peak trop on presentation, 10.8, suspect demand ischemia due to sepsis. - h/o PA in 2012, 2 stents Status: Acute (3) Acute kidney injury: Problem comment: Cr 1.3. Baseline 0.9. - h/o CHANTEL requiring dialysis after sepsis and treatment with antibiotics in 2018. Status: Acute (4) COPD (chronic obstructive pulmonary disease): Status: Chronic (5) Morbidly obese: Status: Acute (6) Obstructive sleep apnea hypopnea, severe: Problem comment: On CPAP 08/14/2021 AHI- 125 Status: Acute (7) Noncompliance with medications: Problem comment: Reports taking 's oxycontin and allowing her to take his doxycycline. Unclear, but also may be noncompliant with other prescribed medications. Status: Acute (8) Acute hypoxemic respiratory failure: Status: Acute Plan This is a 67-year-old male who has a right lower extremity cellulitis causing septic shock. He is no longer hypotensive. This and the elevated lactate have resolved. His heart rate remains mildly elevated, in sinus tachycardia. I have admitted him to the CCU and he had blood cultures drawn in the emergency department. He was given Ancef and vancomycin. He has no risk factors for MRSA since he has no recent hospitalizations, but does have a risk of severe acute kidney injury and a history of C difficile, so I think starting him on Ancef alone is adequate. Again he has already gotten 1 dose of vancomycin and if he is not looking better by tomorrow, this could be continued. Since his condition has improved and he is no longer hypotensive, I do not think he needs broad-spectrum antibiotics or one-to-one nursing care at this time. He was given IV fluids in the emergency department and I will hold off on further IV fluids since his lactate has normalized and I think he has likely been in heart failure exacerbation over the last month or so. I have held his metoprolol due to hypotension upon presentation and Lasix due to acute kidney injury and hypotension upon presentation, but if hypotension remains resolved and acute kidney injury improves, these could be restarted tomorrow. It is possible he is in acute kidney injury due to volume overload/cardiorenal syndrome, but at this point I think it is safer to assume this was secondary to sepsis and to treat as such. With regards to the non STEMI, I think this was likely demand ischemia secondary to sepsis. It likely happened night into Sunday morning as his troponin is trending downward. Doctor Perez spoke with a principal systems architect who recommended medical management. I will continue his daily baby aspirin. Metoprolol is on hold as above. Continue rosuvastatin. Have ordered p.r.n. oxycodone for pain control. Due to history of C diff, I will also order lactobacillus prophylactically. I have asked PT and OT to consult and I would like OT to do a [place] when he is no longer at risk for delirium. CT chest is negative for central PE. Ultrasound of lower extremity was negative for DVT. I will treat him as high risk for VTE, but I do not think he needs therapeutic treatment for a PE. I think his acute hypoxemic respiratory failure is likely multifactorial secondary to volume overload, obesity hypoventilation syndrome, COPD, and obstructive sleep apnea. When he is no longer septic, diurese. I spoke with Ajith about medication noncompliance and have recommended to him that he stop using in sharing medications with his .
--- NOTE | 2022-07-08 15:30 | RESP.RT ---
Patient up in chair, appears comfortable, on Nasal Cannula 2 Lpm, SaO2 92%, breathing regular/easy. Patient states SOB with any activity. Bilateral breath sound diminished, more so in both bases, no wheezing or grunting noted. Patient has COPD-Chronic mucopurulent Bronchitis, Home Respiratory medications of Albuterol, Trelegy Ellipta, DuoNeb. Patient has Home CPAP, has been non-compliant X 6 months, but wants to start using again. Son will bring it in this evening, Oxygen bleed in port in room to be used with Home CPAP if needed. Goal maintain SaO2 >90% keeping patient comfortable with breathing.
[2022-07-08 15:56] LABS: Lactate* 1.7 mmol/L (0.5-1.9)
[2022-07-08] MEDS: OXYCODONE 5 MG TABLET PO ×2 (16:03→20:29)
[2022-07-08 16:29] LABS: Troponin I* 9.72 ng/mL (0.01-0.04)
[2022-07-08] MEDS: LACTOBACILLUS ACIDOPHILUS 1 TABLET 1 TAB PO (18:31)
[2022-07-08] MEDS: ACETAMINOPHEN 325 MG TABLET 650 MG PO (18:31)
[2022-07-08] MEDS: ENOXAPARIN 30 MG/0.3ML INJ SUBCUT (18:31)
--- NOTE | 2022-07-08 18:37 | PC.NURSE ---
Admission-- Pleasant and cooperative, alert and oriented patient was admitted to CCU this afternoon. VSS, though pt is mildly hypertensive, tachycardic with HR in 110's and tachypneic with RR from 24-30. Highest temp this shift 100.3F and pt was given Tylenol per standing orders. O2 sats maintained >88% on 2-4L per n.c. while awake. Sats noted to drop as low as 80% on CPAP. O2 was bled in. Pt c/o pain which he rated as high as 8 out of 10 in right leg that appears well managed with Oxycodone. Pt SOB at rest, but increased with exertion. Unable to lie flat. Accessory muscles and abdominal breathing noted. LS diminished with faint expiratory wheezes noted. He c/o an occasional dry cough. Telemetry shows sinus tachycardia. 2-3+ pitting edema noted in bilateral LE, increased on right side. RLE also reddened and warm to touch. He denied nausea and tolerated a heart healthy diet, though ate only 25% and stated appetite was poor. Blood sugar 143. He voided 600ml of clear, straw colored urine. Family was at bedside and appear loving and supportive. Report to CARLOS EDUARDO Burnham.
[2022-07-08] MEDS: 0.9 % SODIUM CHLORIDE 250 ml IV (20:34)
[2022-07-08] MEDS: SODIUM CHLORIDE 0.9 % (FLUSH) 10 ML SYRINGE 5 ML IVF (20:38)
[2022-07-09] VITALS (15 sets, daily range): BP systolic 121–148; BP diastolic 66–112; PULSE 89–107; RESP 16–20; TEMP 36.2–37.5; O2SAT 88–92
[2022-07-09] MEDS: OXYCODONE 5 MG TABLET PO ×3 (04:04→13:45)
[2022-07-09] MEDS: CEFAZOLIN 2 GM in 0.9 % SODIUM CHLORIDE Mini-bag 100 ML IVPB ×3 (04:25→20:18)
--- NOTE | 2022-07-09 04:51 | PC.NURSE ---
[id number] pt pleasant and cooperative during shift, Vitally stable. maintains O2 sats 82-92% using home CPAP with 1-2LPM O2. Denies sob at rest but visibly sob with activity. Used urinal while standing at bedside, did not tolerate ambulating due to increased pain to RLE, pain controlled with prn medication. RLE elevated during shift, erythema outlined, edematous and warm to touch.
[2022-07-09] MEDS: ENOXAPARIN 30 MG/0.3ML INJ SUBCUT ×2 (07:08→17:40)
[2022-07-09 07:10] LABS: Basophils Percent Auto 0.1 % (0.0-3.0); Eosinophils Percent Auto 0.2 % (0.0-7.0); Hematocrit 37.8 % (37.0-53.0); Hemoglobin* 11.9 gm/dL (13.5-17.5); Immature Granulocytes Pct Auto 0.2 %; Lymphocytes Percent Auto 3.8 % (20-44); Mean Corpuscular HGB Conc 32 gm/dL (32-36); Mean Corpuscular Hemoglobin 27 pg (26-34); Mean Corpuscular Volume 87 fL (80-100); Monocytes Percent Auto 3.5 % (0.0-11.0); Neutrophils Percent Auto 92.2 % (42.0-72.0); Platelet Count* 225 K/uL (140-440); Red Blood Count 4.37 m/uL (4.30-5.90); White Blood Count* 12.36 K/uL (4.50-11.00)
[2022-07-09 07:11] LABS: Albumin* 3.4 g/dL (3.3-5.0); Chloride* 96 mmol/L (96-114)
[2022-07-09 07:12] LABS: Potassium* 3.7 mmol/L (3.6-5.1); Sodium* 131 mmol/L (135-149)
[2022-07-09 07:13] LABS: Slide Review Reflex No
[2022-07-09 07:14] LABS: Carbon Dioxide* 29 mmol/L (20-32); Creatinine* 1.1 mg/dL (0.5-1.5); Est. Creatinine Clearance* 65.44; Estimated Glomerular Filt Rate 73 ml/min
[2022-07-09 07:15] LABS: Alanine Aminotransferase* 28 U/L (4-50); Alkaline Phosphatase* 91 U/L (40-150); Aspartate Amino Transferase* 58 U/L (12-35); Bilirubin Total* 0.6 mg/dL (0.1-1.5); Blood Urea Nitrogen* 14 mg/dL (7-30); Calcium* 7.9 mg/dL (8.4-10.6); Glucose* 150 mg/dL (60-115)
[2022-07-09 07:47] LABS: C Reactive Protein* 38.2 mg/dL (0.5-1.0)
[2022-07-09] MEDS: ACETAMINOPHEN 325 MG TABLET 650 MG PO ×3 (08:03→23:21)
[2022-07-09 08:23] LABS: Troponin I* 6.11 ng/mL (0.01-0.04)
[2022-07-09 08:31] LABS: Magnesium* 2.1 mg/dL (1.5-2.6)
[2022-07-09] MEDS: ROSUVASTATIN CALCIUM 10 MG TABLET 40 MG PO (08:40)
[2022-07-09] MEDS: POTASSIUM CHLORIDE 10 MEQ CAPSULE ER 20 MEQ PO (08:40)
[2022-07-09] MEDS: OMEPRAZOLE 20 MG CAPSULE DR 40 MG PO (08:41)
[2022-07-09] MEDS: LACTOBACILLUS ACIDOPHILUS 1 TABLET 1 TAB PO ×3 (08:41→17:40)
[2022-07-09] MEDS: FUROSEMIDE 40 MG TABLET PO (08:41)
[2022-07-09] MEDS: ASPIRIN 81 MG TABLET EC PO (08:41)
[2022-07-09] MEDS: METOPROLOL SUCCINATE (XL) 25 MG TAB PO (08:41)
[2022-07-09] MEDS: Fluticasone-Umeclidin-Vilanter [Trelegy Ellipta] 200-62.5-25 mcg IH (09:10)
[2022-07-09] MEDS: cilostazoL 100 MG TABLET PO ×2 (10:01→20:19)
--- NOTE | 2022-07-09 10:29 | RESP.RT ---
Patient up to chair, appears comfortable, on Nasal cannula 2 Lpm, SaO2 92%, breathing regular/easy. BBS very fine crackles note all barrera, diminished all barrera, slightly more so in bases, patient is taking shallow breathes. Patient rested over night on Home Auto-CPAP with full face Mask interface, 1-2 Lpm Oxygen bleed in to maintain SaO2 >90%. Patient stated no issues during night with CPAP.
--- NOTE | 2022-07-09 10:32 | P.IMPN_ITS ---
Progress Note: A&P Assessment and plan (1) Sepsis: Problem details: Hypotensive and tachycardiac on presentation to the emergency department. Initially it was unclear whether this was sepsis from infection or related to his acute coronary syndrome. He responded well to fluid resuscitation and is now most likely this was sepsis from infection. Status: Acute (2) Cellulitis of right lower extremity: Problem details: Severe cellulitis in the context of chronic lymphedema. Ancef Status: Acute (3) NSTEMI (non-ST elevated myocardial infarction): Problem details: Likely had a non STEMI about 2 days prior to admission when he had shoulder pain. Status: Acute (4) Acute kidney injury: Problem details: Cr 1.3. Baseline 0.9. - h/o CHANTEL requiring dialysis after sepsis and treatment with antibiotics in 201 8. Status: Acute (5) COPD (chronic obstructive pulmonary disease): Status: Chronic (6) Morbidly obese: Status: Acute (7) Obstructive sleep apnea hypopnea, severe: Problem details: On CPAP. Non compliant with CPAP at home 08/14/2021 AHI- 125 Status: Acute (8) Noncompliance with medications: Problem details: Reports taking 's oxycontin and allowing her to take his doxycycline. Unclear, but also may be noncompliant with other prescribed medications. Also noncompliant with CPAP Status: Acute (9) Acute hypoxemic respiratory failure: Problem details: Multifactorial including sepsis, acute coronary syndrome, COPD, untreated sleep apnea. Also had elevated CO2/CO2 retention. Caution with oxygen supplementation Status: Acute (10) CO2 retention: Problem details: PCO2 56 with normal pH suggests chronic hypoventilation. Status: Acute (11) Hx of deep venous thrombosis: Problem details: Negative of DVT ultrasound on admission. Status: Acute (12) PAD (peripheral artery disease): Problem details: 12/07/2011 left SFA stent grafting for claudication via combined femoral and popliteal approach 05/17/2016 Drug eluting balloon angioplasty of right SFA stenosis and right TP trunk occlusion. Post intervention SOPHIE 0.84 with duplex evidence of uncorrected aortoiliac occlusive disease. No claudication symptoms post intervention. Status: Acute (13) Lymphedema: Problem details: Chronic. 10/02/2018. w/cellulitis. most recent infection led to ARF and temporary dialysis which has resolved. Resume compression and elevation Status: Acute Plan Patient has responded well to treatment for sepsis and cellulitis with antibiotics and fluids. He remains hypoxic her requiring oxygen. Troponin is trending down suggesting subacute event, 2-3 days ago, non STEMI. Echo is pending. Will transfer from CCU to floor care. Ongoing monitoring and management of multi-system disease Time Spent With Patient Total time spent: Total time spent today is 50 minutes in critical care evaluation and management Subjective Date Seen: 07/09/22 Interval history: 67-year-old male admitted to the CCU with several days of right leg pain and swelling and dyspnea. Approximately 2 days prior to admission he also had left shoulder pain. At the time of admission he was found to be septic with severe left leg cellulitis. He had a markedly elevated troponin which was going down consistent with suspected history of an acute OR 2 days prior to admission. Time of admission he was hypotensive and tachycardic but responded well to fluid bolus. His shoulder pain, anginal equivalent, is gone. He has not any chest pain. He thinks his fever is better. His breathing is improved. Still requiring supplemental oxygen. Vital signs are otherwise normal. Patient has CPAP for severe sleep apnea. He has not been consistently using at home but did use it last night. He has a history of heart failure, coronary artery disease, peripheral vascular disease, COPD. He has been relatively noncompliant with his medications at home. He shares his medications with his . Exam Narrative: Exam Narrative: He is alert and appears in no obvious distress. Respirations with decreased breath sounds but no marked wheezing. Fair air exchange in all lung barrera. No consolidation. Cardiovascular: S1, S2, regular rate and rhythm. Abdomen: Bowel sounds active. Abdomen is soft without tenderness or mass. Right lower extremity with massive edema and erythema. Skin changes consistent with chronic lymphedema. He is tender to touch over his entire right calf Left lower extremity with moderate lymphedema but no erythema. He has diminished but intact pedal pulses. Feet are warm to touch. Const: Vital Signs, click to edit/add: Vital Signs - 24 hr 07/08/22 11:13 07/08/22 11:15 07/08/22 11:30 Temperature Pulse Rate 117 H 117 H 117 H Pulse Rate [Pulse Oximeter] Respiratory Rate Blood Pressure 139/61 Blood Pressure [Le ft Arm] Pulse Oximetry 95 95 93 Oxygen Delivery Me thod Oxygen Flow Rate 07/08/22 11:32 07/08/22 12:00 07/08/22 12:02 Temperature Pulse Rate 115 H 112 H 114 H Pulse Rate [Pulse Oximeter] Respiratory Rate Blood Pressure 128/101 H 97/81 Blood Pressure [Le ft Arm] Pulse Oximetry 93 92 91 Oxygen Delivery Me thod Oxygen Flow Rate 07/08/22 12:11 07/08/22 12:30 07/08/22 12:31 Temperature Pulse Rate 113 H 112 H 113 H Pulse Rate [Pulse Oximeter] Respiratory Rate Blood Pressure 91/58 L 117/69 Blood Pressure [Le ft Arm] Pulse Oximetry 93 92 93 Oxygen Delivery Me thod Oxygen Flow Rate 07/08/22 13:00 07/08/22 13:02 07/08/22 13:30 Temperature Pulse Rate 112 H 111 H 115 H Pulse Rate [Pulse Oximeter] Respiratory Rate Blood Pressure 106/75 Blood Pressure [Le ft Arm] Pulse Oximetry 95 92 91 Oxygen Delivery Me thod Oxygen Flow Rate 07/08/22 13:36 07/08/22 13:38 07/08/22 14:00 Temperature Pulse Rate 112 H 112 H 114 H Pulse Rate [Pulse Oximeter] Respiratory Rate Blood Pressure 74/61 L 108/84 Blood Pressure [Le ft Arm] Pulse Oximetry 93 94 93 Oxygen Delivery Me thod Oxygen Flow Rate 07/08/22 14:01 07/08/22 14:56 07/08/22 10:50 Temperature 97.2 F L Pulse Rate 112 H Pulse Rate [Pulse Oximeter] 122 H Respiratory Rate 30 H Blood Pressure 127/60 Blood Pressure [Le ft Arm] 133/95 H Pulse Oximetry 95 95 92 Oxygen Delivery Me thod Nasal Cannula Oxygen Flow Rate 2 07/08/22 15:28 07/08/22 16:09 07/08/22 16:00 Temperature 100.3 F H Pulse Rate Pulse Rate [Pulse Oximeter] 112 H Respiratory Rate 22 30 H Blood Pressure Blood Pressure [Le ft Arm] 140/80 H Pulse Oximetry 92 92 92 Oxygen Delivery Me thod Nasal Cannula Room Air Oxygen Flow Rate 2 07/08/22 16:57 07/08/22 17:16 07/08/22 18:31 Temperature 100.3 F H Pulse Rate 111 H Pulse Rate [Pulse Oximeter] Respiratory Rate 30 H Blood Pressure Blood Pressure [Le ft Arm] Pulse Oximetry 89 Oxygen Delivery Me thod Nasal Cannula Oxygen Flow Rate 3 07/08/22 18:00 07/08/22 19:00 07/08/22 19:57 Temperature 100.3 F H 98.8 F Pulse Rate Pulse Rate [Pulse Oximeter] 111 H 101 H 100 Respiratory Rate 24 24 24 Blood Pressure Blood Pressure [Le ft Arm] 146/71 H 146/62 H Pulse Oximetry 88 91 Oxygen Delivery Me thod Nasal Cannula CPAP Oxygen Flow Rate 3 4 07/08/22 21:38 07/08/22 21:49 07/08/22 21:49 Temperature 98.3 F Pulse Rate Pulse Rate [Pulse Oximeter] 98 Respiratory Rate 20 20 20 Blood Pressure Blood Pressure [Le ft Arm] 137/75 Pulse Oximetry 92 92 Oxygen Delivery Me thod Nasal Cannula Nasal Cannula Oxygen Flow Rate 2 2 07/08/22 23:00 07/08/22 23:58 07/09/22 01:52 Temperature 97.0 F L 97.2 F L Pulse Rate 104 H Pulse Rate [Pulse Oximeter] 102 H 100 Respiratory Rate 20 16 Blood Pressure Blood Pressure [Le ft Arm] 139/65 136/66 Pulse Oximetry 94 92 Oxygen Delivery Me thod CPAP CPAP Oxygen Flow Rate 2 1 07/09/22 03:00 07/09/22 04:00 07/09/22 05:38 Temperature 98.3 F 98.1 F Pulse Rate Pulse Rate [Pulse Oximeter] 100 97 Respiratory Rate 16 20 20 Blood Pressure Blood Pressure [Le ft Arm] 121/75 148/67 H Pulse Oximetry 90 91 Oxygen Delivery Me thod CPAP CPAP Oxygen Flow Rate 1 2 07/09/22 07:27 07/09/22 07:00 07/09/22 08:00 Temperature 99.5 F 99.5 F Pulse Rate Pulse Rate [Pulse Oximeter] 107 H 107 H Respiratory Rate 18 18 18 Blood Pressure Blood Pressure [Le ft Arm] 123/76 123/76 Pulse Oximetry 92 88 92 Oxygen Delivery Me thod Nasal Cannula Nasal Cannula Nasal Cannula Oxygen Flow Rate 2.5 2.5 2.5 07/09/22 07:00 Temperature Pulse Rate 104 H Pulse Rate [Pulse Oximeter] Respiratory Rate Blood Pressure Blood Pressure [Le ft Arm] Pulse Oximetry Oxygen Delivery Me thod Oxygen Flow Rate Documenting provider has reviewed patient's vital signs: yes Labs Labs: Laboratory Results - last 24 hr 07/08/22 07/08/22 07/08/22 10:50 10:50 10:50 WBC 14.87 H RBC 4.69 Hgb 12.8 L Hct 40.2 MCV 86 MCH 27 MCHC 32 RDW Coeff of [place] 15.7 H Plt Count 248 Neut % (Auto) 91.4 H Lymph % (Auto) 4.6 L [place] % (Auto) 3.5 Eos % (Auto) 0.0 Baso % (Auto) 0.1 Neut # (Auto) 13.60 H Lymph # (Auto) 0.70 L [place] # (Auto) 0.50 Eos # (Auto) 0.00 Baso # (Auto) 0.00 ESR 72 H D-Dimer Quant (PE/DVT) 3.02 H VBG pH VBG pCO2 VBG pO2 VBG HCO3 Sodium Potassium Chloride Carbon Dioxide BUN Creatinine Estimated Creat Clear Estimated GFR Glucose Lactate Calcium Magnesium Total Bilirubin AST ALT Alkaline Phosphatase Troponin I C-Reactive Protein NT-Pro-B Natriuret Pep Total Protein Albumin Procalcitonin SARS-CoV-2 (PCR) Influenza Type A (PCR) Influenza Type B (PCR) RSV (PCR) POC Troponin I 07/08/22 07/08/22 07/08/22 10:50 10:50 10:50 WBC RBC Hgb Hct MCV MCH MCHC RDW Coeff of [place] Plt Count Neut % (Auto) Lymph % (Auto) [place] % (Auto) Eos % (Auto) Baso % (Auto) Neut # (Auto) Lymph # (Auto) [place] # (Auto) Eos # (Auto) Baso # (Auto) ESR D-Dimer Quant (PE/DVT) VBG pH VBG pCO2 VBG pO2 VBG HCO3 Sodium 134 L Potassium 3.9 Chloride 97 Carbon Dioxide 29 BUN 20 Creatinine 1.3 Estimated Creat Clear 55.37 Estimated GFR 59 Glucose 198 H Lactate Calcium 8.3 L Magnesium Total Bilirubin 1.2 AST 97 H ALT 35 Alkaline Phosphatase 78 Troponin I 10.80 H* C-Reactive Protein 40.1 H NT-Pro-B Natriuret Pep 2790 Total Protein 7.4 Albumin 3.7 Procalcitonin 17.80 H SARS-CoV-2 (PCR) Negative SARS-CoV-2 Influenza Type A (PCR) Negative PCR FLU A Influenza Type B (PCR) Negative PCR FLU B RSV (PCR) Negative PCR RSV POC Troponin I 07/08/22 07/08/22 07/08/22 10:50 12:25 15:52 WBC RBC Hgb Hct MCV MCH MCHC RDW Coeff of [place] Plt Count Neut % (Auto) Lymph % (Auto) [place] % (Auto) Eos % (Auto) Baso % (Auto) Neut # (Auto) Lymph # (Auto) [place] # (Auto) Eos # (Auto) Baso # (Auto) ESR D-Dimer Quant (PE/DVT) VBG pH 7.321 VBG pCO2 56 H VBG pO2 21.1 L VBG HCO3 29 H Sodium Potassium Chloride Carbon Dioxide BUN Creatinine Estimated Creat Clear Estimated GFR Glucose Lactate 3.4 H Calcium Magnesium Total Bilirubin AST ALT Alkaline Phosphatase Troponin I 9.72 H* C-Reactive Protein NT-Pro-B Natriuret Pep Total Protein Albumin Procalcitonin SARS-CoV-2 (PCR) Influenza Type A (PCR) Influenza Type B (PCR) RSV (PCR) POC Troponin I 9.25 H 07/08/22 07/09/22 07/09/22 15:52 06:15 06:15 WBC 12.36 H RBC 4.37 Hgb 11.9 L Hct 37.8 MCV 87 MCH 27 MCHC 32 RDW Coeff of [place] 16.0 H Plt Count 225 Neut % (Auto) 92.2 H Lymph % (Auto) 3.8 L [place] % (Auto) 3.5 Eos % (Auto) 0.2 Baso % (Auto) 0.1 Neut # (Auto) 11.40 H Lymph # (Auto) 0.50 L [place] # (Auto) 0.40 Eos # (Auto) 0.00 Baso # (Auto) 0.00 ESR D-Dimer Quant (PE/DVT) VBG pH VBG pCO2 VBG pO2 VBG HCO3 Sodium 131 L Potassium 3.7 Chloride 96 Carbon Dioxide 29 BUN 14 Creatinine 1.1 Estimated Creat Clear 65.44 Estimated GFR 73 Glucose 150 H Lactate 1.7 Calcium 7.9 L Magnesium 2.1 Total Bilirubin 0.6 AST 58 H ALT 28 Alkaline Phosphatase 91 Troponin I 6.11 H* C-Reactive Protein 38.2 H NT-Pro-B Natriuret Pep Total Protein 7.0 Albumin 3.4 Procalcitonin 11.60 H SARS-CoV-2 (PCR) Influenza Type A (PCR) Influenza Type B (PCR) RSV (PCR) POC Troponin I
[2022-07-09] MEDS: PERFLUTREN LIPID MICROSPHERES 2 ML VIAL IV (10:59)
[2022-07-09] MEDS: SODIUM CHLORIDE 0.9 % (FLUSH) 10 ML SYRINGE 5 ML IVF ×2 (10:59→20:20)
--- NOTE | 2022-07-09 12:05 | PC.NURSE ---
Pt currently napping on biapap.
--- NOTE | 2022-07-09 18:40 | PC.NURSE ---
End of shift-- Very pleasant and cooperative, alert and oriented patient. VSS and pt is afebrile. SPO2 maintained >88% on 3L per n.c. while awake and CPAP with 3L bled in while sleeping. Pain appears well managed with Tylenol and Oxycodone. RLE remains chronically edematous, and acutely reddened and warm to touch within previously drawn boundary, but does appear to be mildly improved. 3+ pitting edema on RLE and 2+ pitting edema on LLE. YANG bandage applied to RLE and Wilfrid stocking on LLE. Fine crackles auscultated in posterior right base of lungs and occasional inspiratory rhonchi noted that clears with coughing. LS otherwise CTA. He denied nausea and tolerated a heart healthy diet without difficulty. BS 140s. He was up to the chair and bathroom with SBA and tolerated it fair. Pt does become SOB with exertion. Son was at bedside this evening and appears loving and supportive.
[2022-07-09] MEDS: 0.9 % SODIUM CHLORIDE 250 ml IV (20:57)
[2022-07-10] VITALS (8 sets, daily range): BP systolic 116–174; BP diastolic 56–95; PULSE 84–106; RESP 18–20; TEMP 36.5–37.6; O2SAT 88–91
[2022-07-10] MEDS: CEFAZOLIN 2 GM in 0.9 % SODIUM CHLORIDE Mini-bag 100 ML IVPB ×3 (04:34→20:28)
[2022-07-10] MEDS: OXYCODONE 5 MG TABLET PO ×3 (04:51→20:29)
--- NOTE | 2022-07-10 05:05 | PC.NURSE ---
Shift 23-07: Pt alert, able to make needs known. Up to bedside w/ SBA and walker to use urinal. Rating pain to R leg 4-7/10, taking PRN Tylenol Q6h and trying to limit Oxycodone for breakthrough pain only. R thigh with only patchy redness now, where as below the knee remains bright red, swollen, and [id number]. Tele reads SR w/ BBB. Afebrile.
[2022-07-10] MEDS: ENOXAPARIN 30 MG/0.3ML INJ SUBCUT ×2 (06:33→17:37)
[2022-07-10] MEDS: OMEPRAZOLE 20 MG CAPSULE DR 40 MG PO (06:34)
[2022-07-10] MEDS: ACETAMINOPHEN 325 MG TABLET 650 MG PO ×3 (06:34→20:29)
[2022-07-10 07:22] LABS: HCO3 VBG 30 mmol/L (21-28); PCO2 VBG 54 mmHG (40-50); PO2 VBG 39.9 mmHG (25-47)
[2022-07-10 07:24] LABS: Basophils Absolute Auto 0.04 K/uL (0.00-0.30); Basophils Percent Auto 0.4 % (0.0-3.0); Eosinophils Absolute Auto 0.06 K/uL (0.00-0.50); Eosinophils Percent Auto 0.6 % (0.0-7.0); Hematocrit 38.7 % (37.0-53.0); Hemoglobin* 12.3 gm/dL (13.5-17.5); Immature Granulocytes Abs Auto 0.05 K/uL (0.00-0.30); Immature Granulocytes Pct Auto 0.5 %; Mean Corpuscular HGB Conc 32 gm/dL (32-36); Mean Corpuscular Hemoglobin 27 pg (26-34); Mean Corpuscular Volume 85 fL (80-100); Monocytes Percent Auto 5.6 % (0.0-11.0); Neutrophils Percent Auto 87.9 % (42.0-72.0); Platelet Count* 122 K/uL (140-440); RDW Coefficient of Variation % 15.7 % (11.5-15.5); Red Blood Count 4.53 m/uL (4.30-5.90); White Blood Count* 10.37 K/uL (4.50-11.00)
[2022-07-10 07:28] LABS: Slide Review Reflex No
[2022-07-10 07:43] LABS: Chloride* 96 mmol/L (96-114)
[2022-07-10 07:44] LABS: Potassium* 3.5 mmol/L (3.6-5.1); Sodium* 130 mmol/L (135-149)
[2022-07-10 07:46] LABS: Est. Creatinine Clearance* 71.99; Estimated Glomerular Filt Rate 81 ml/min
[2022-07-10 07:47] LABS: Blood Urea Nitrogen* 13 mg/dL (7-30); Calcium* 7.9 mg/dL (8.4-10.6); Carbon Dioxide* 31 mmol/L (20-32); Glucose* 163 mg/dL (60-115)
[2022-07-10 08:14] LABS: C Reactive Protein* 33.7 mg/dL (0.5-1.0)
[2022-07-10] MEDS: LACTOBACILLUS ACIDOPHILUS 1 TABLET 1 TAB PO ×3 (08:27→17:37)
[2022-07-10] MEDS: ASPIRIN 81 MG TABLET EC PO (08:27)
[2022-07-10] MEDS: cilostazoL 100 MG TABLET PO ×2 (08:27→20:30)
[2022-07-10] MEDS: FUROSEMIDE 40 MG TABLET PO (08:27)
[2022-07-10] MEDS: METOPROLOL SUCCINATE (XL) 25 MG TAB PO (08:27)
[2022-07-10] MEDS: POTASSIUM CHLORIDE 10 MEQ CAPSULE ER 20 MEQ PO (08:28)
[2022-07-10] MEDS: ROSUVASTATIN CALCIUM 10 MG TABLET 40 MG PO (08:28)
[2022-07-10] MEDS: Fluticasone-Umeclidin-Vilanter [Trelegy Ellipta] 200-62.5-25 mcg IH (08:28)
[2022-07-10] MEDS: SODIUM CHLORIDE 0.9 % (FLUSH) 10 ML SYRINGE 5 ML IVF ×2 (08:29→20:29)
[2022-07-10] MEDS: POTASSIUM BICARB 25 MEQ EFFERVESCENT TAB PO (11:06)
--- NOTE | 2022-07-10 13:12 | PM.IMPN1 ---
Progress Note: A&P Assessment and plan (1) Sepsis: Problem details: Hypotensive and tachycardiac on presentation to the emergency department. Initially it was unclear whether this was sepsis from infection or related to his acute coronary syndrome. He responded well to fluid resuscitation and is now most likely this was sepsis from infection. Status: Acute (2) Cellulitis of right lower extremity: Problem details: Severe cellulitis in the context of chronic lymphedema. Ancef. Slowly improving Status: Acute (3) NSTEMI (non-ST elevated myocardial infarction): Problem details: Likely had a non STEMI about 2 days prior to admission when he had shoulder pain. No ongoing symptoms. Status: Acute (4) Acute kidney injury: Problem details: Cr 1.3. Baseline 0.9. Continue supportive care and close monitoring. - h/o CHANTEL requiring dialysis after sepsis and treatment with antibiotics in 2018. Status: Acute (5) COPD (chronic obstructive pulmonary disease): Problem details: Continues to be mildly hypoxic. Does not have severe evidence of obstruction such as wheezing or marked decreased breath sounds Status: Chronic (6) Morbidly obese: Status: Acute (7) Obstructive sleep apnea hypopnea, severe: Problem details: On CPAP. Non compliant with CPAP at home. Using CPAP here with some success 08/14/2021 AHI- 125 Status: Acute (8) Noncompliance with medications: Problem details: Reports taking 's oxycontin and allowing her to take his doxycycline. Unclear, but also may be noncompliant with other prescribed medications. Also noncompliant with CPAP Status: Acute (9) Acute hypoxemic respiratory failure: Problem details: Multifactorial including sepsis, acute coronary syndrome, COPD, untreated sleep apnea. Also had elevated CO2/CO2 retention. Caution with oxygen supplementation Status: Acute (10) CO2 retention: Problem details: PCO2 56 with normal pH suggests chronic hypoventilation. Status: Acute (11) Hx of deep venous thrombosis: Problem details: Negative of DVT ultrasound on admission. Continue VT prophylaxis with enoxaparin Status: Acute (12) PAD (peripheral artery disease): Problem details: 12/07/2011 left SFA stent grafting for claudication via combined femoral and popliteal approach 05/17/2016 Drug eluting balloon angioplasty of right SFA stenosis and right TP trunk occlusion. Post intervention SOPHIE 0.84 with duplex evidence of uncorrected aortoiliac occlusive disease. No claudication symptoms post intervention. Status: Acute (13) Lymphedema: Problem details: Chronic. 10/02/2018. w/cellulitis. most recent infection led to ARF and temporary dialysis which has resolved. Resume compression and elevation Status: Acute Plan Continue in hospital for treatment of leg cellulitis. Continue supplemental oxygen and assessing respiratory status. Like him to wean off oxygen before discharge though may need chronic home O2. Optimally this would improve if he continues to use his CPAP as recommended Time Spent With Patient Total time spent: Total time spent today is 40 minutes, 30 minutes in coordination of care discussing with patient and other providers management of hypoxia, coronary disease, leg cellulitis, disabilities, sleep apnea Subjective Date Seen: 07/10/22 Interval history: 67-year-old male seen in followup of hospitalization for sepsis due to right leg cellulitis and acute CA. patient reports feeling a little better today. Feels like his breathing is better. He has been off oxygen for therapy and his maintain his O2 sats in the upper 80s and low 90s. He had a good breakfast. He reports ambulating on his right leg is still very painful but getting a little better. Exam Narrative: Exam Narrative: He is alert and appears in no distress. Mood and affect are bright. He is oriented to his circumstances. Respirations are clear to auscultation. Cardiovascular: S1, S2, regular rate and rhythm. No murmur gallop or rub. Abdomen: Bowel sounds active. Abdomen is soft without tenderness or mass. Abdomen is protuberant. Right lower extremity with massive edema and erythema which he is modestly improved on his right thigh. Left lower extremity with moderate edema and no erythema. Const: Vital Signs, click to edit/add: Vital Signs - 24 hr 07/09/22 15:00 07/09/22 15:00 07/09/22 15:00 Temperature 97.8 F Pulse Rate 91 Pulse Rate [Pulse Oximeter] 90 Respiratory Rate 20 20 Blood Pressure [Le ft Arm] 140/111 H Pulse Oximetry 88 90 Oxygen Delivery Me thod Nasal Cannula Nasal Cannula Oxygen Flow Rate 2.5 07/09/22 16:09 07/09/22 16:30 07/09/22 19:00 Temperature 97.3 F L Pulse Rate Pulse Rate [Pulse Oximeter] 90 94 Respiratory Rate 20 20 Blood Pressure [Le ft Arm] 148/96 H Pulse Oximetry 90 91 Oxygen Delivery Me thod Nasal Cannula Oxygen Flow Rate 3 07/09/22 23:00 07/10/22 00:00 07/10/22 04:30 Temperature 97.7 F 98.4 F Pulse Rate Pulse Rate [Pulse Oximeter] 94 90 Respiratory Rate 20 20 Blood Pressure [Le ft Arm] 136/112 H 116/67 Pulse Oximetry 90 90 91 Oxygen Delivery Me thod CPAP Nasal Cannula Oxygen Flow Rate 3 3 07/10/22 07:00 07/10/22 07:00 07/10/22 07:00 Temperature 97.7 F Pulse Rate Pulse Rate [Pulse Oximeter] 91 91 Respiratory Rate 20 20 20 Blood Pressure [Le ft Arm] 136/84 Pulse Oximetry 90 90 Oxygen Delivery Me thod Nasal Cannula Nasal Cannula Oxygen Flow Rate 3 3 07/10/22 07:00 07/10/22 11:00 Temperature 98.1 F Pulse Rate 84 Pulse Rate [Pulse Oximeter] 84 Respiratory Rate 18 Blood Pressure [Le ft Arm] 139/95 H Pulse Oximetry 91 Oxygen Delivery Me thod Nasal Cannula Oxygen Flow Rate 3 Documenting provider has reviewed patient's vital signs: yes Labs Labs: Laboratory Results - last 24 hr 07/10/22 07/10/22 07/10/22 06:42 07:04 07:04 WBC 10.37 RBC 4.53 Hgb 12.3 L Hct 38.7 MCV 85 MCH 27 MCHC 32 RDW Coeff of [place] 15.7 H Plt Count 122 L Neut % (Auto) 87.9 H Lymph % (Auto) 5.0 L [place] % (Auto) 5.6 Eos % (Auto) 0.6 Baso % (Auto) 0.4 Neut # (Auto) 9.10 H Lymph # (Auto) 0.50 L [place] # (Auto) 0.60 Eos # (Auto) 0.06 Baso # (Auto) 0.04 VBG pH 7.350 VBG pCO2 54 H VBG pO2 39.9 VBG HCO3 30 H Sodium 130 L Potassium 3.5 L Chloride 96 Carbon Dioxide 31 BUN 13 Creatinine 1.0 Estimated Creat Clear 71.99 Estimated GFR 81 Glucose 163 H Calcium 7.9 L C-Reactive Protein 33.7 H
[2022-07-10] MEDS: 0.9 % SODIUM CHLORIDE 250 ml IV (20:29)
--- NOTE | 2022-07-10 22:41 | PC.NURSE ---
End of Shift: Patient pleasant and cooperative. Temp max 99.7. Rating pain in right lower extremity 4-8/10 and PRN Oxycodone and Tylenol given x1. Right leg continues to be bright red, warm and swollen, elevated on pillows. Receding slightly from outline on thigh. Up to bedside to use urinal with SBA. Heart rate increased to 110-120 with activity, Updated MD. O2 sats 88-91% on 2L NC while awake. Tolerating regular diet with no nausea.
[2022-07-11] VITALS (12 sets, daily range): BP systolic 126–161; BP diastolic 60–68; PULSE 86–102; RESP 12–22; TEMP 36.4–38.2; O2SAT 85–95
[2022-07-11] MEDS: OXYCODONE 5 MG TABLET PO ×2 (03:09→17:44)
[2022-07-11] MEDS: CEFAZOLIN 2 GM in 0.9 % SODIUM CHLORIDE Mini-bag 100 ML IVPB ×3 (04:10→20:31)
[2022-07-11] MEDS: SODIUM CHLORIDE 0.9 % (FLUSH) 10 ML SYRINGE 5 ML IVF ×3 (04:11→20:32)
[2022-07-11] MEDS: ACETAMINOPHEN 325 MG TABLET 650 MG PO (04:15)
[2022-07-11 04:39] LABS: HCO3 VBG 34 mmol/L (21-28); PCO2 VBG 57 mmHG (40-50); PO2 VBG 46.9 mmHG (25-47); pH VBG 7.377 (7.32-7.43)
[2022-07-11 04:42] LABS: Basophils Absolute Auto 0.07 K/uL (0.00-0.30); Basophils Percent Auto 0.8 % (0.0-3.0); Eosinophils Absolute Auto 0.08 K/uL (0.00-0.50); Eosinophils Percent Auto 0.9 % (0.0-7.0); Hematocrit 33.4 % (37.0-53.0); Hemoglobin* 10.5 gm/dL (13.5-17.5); Immature Granulocytes Abs Auto 0.05 K/uL (0.00-0.30); Immature Granulocytes Pct Auto 0.6 %; Lymphocytes Percent Auto 6.7 % (20-44); Mean Corpuscular HGB Conc 31 gm/dL (32-36); Mean Corpuscular Hemoglobin 27 pg (26-34); Mean Corpuscular Volume 86 fL (80-100); Monocytes Percent Auto 6.9 % (0.0-11.0); Neutrophils Percent Auto 84.1 % (42.0-72.0); Platelet Count* 257 K/uL (140-440); RDW Coefficient of Variation % 15.7 % (11.5-15.5); White Blood Count* 8.99 K/uL (4.50-11.00)
[2022-07-11 04:43] LABS: Slide Review Reflex No
[2022-07-11 04:55] LABS: Chloride* 96 mmol/L (96-114); Potassium* 3.3 mmol/L (3.6-5.1); Sodium* 133 mmol/L (135-149)
[2022-07-11 04:58] LABS: Est. Creatinine Clearance* 71.99; Estimated Glomerular Filt Rate 81 ml/min
[2022-07-11 04:59] LABS: Blood Urea Nitrogen* 10 mg/dL (7-30); Calcium* 7.6 mg/dL (8.4-10.6); Carbon Dioxide* 35 mmol/L (20-32); Glucose* 156 mg/dL (60-115)
[2022-07-11 05:13] LABS: C Reactive Protein* 24.9 mg/dL (0.5-1.0)
--- NOTE | 2022-07-11 05:30 | PC.NURSE ---
[id number] Pt did not sleep well during night, c/o RLE and lower back pain, prn medication administered,repositioned pt and placed pillow behind back, minimal relief. Pt O2 sats fluctating between 77-89% entire night, did not tolerate cpap during night, placed on 2 LPM NC fo rmajority of night. Pt high temp 100.8, prn tylenol administered. Pt appears uncomfortable, said he was SOB at beginning of shift but resolved as night progressed, lung sounds clear but diminished, denies chest pain, shoulder pain or headache.
[2022-07-11] MEDS: OMEPRAZOLE 20 MG CAPSULE DR 40 MG PO (06:16)
[2022-07-11] MEDS: ENOXAPARIN 30 MG/0.3ML INJ SUBCUT ×2 (06:16→17:44)
--- NOTE | 2022-07-11 06:48 | CRLHL7_ITS ---
For Patients: As a result of the Century Cures Act, medical imaging exams and procedure reports are released immediately into your electronic medical record. You may view this report before your referring provider. If you have questions, please contact your health care provider. Indication: Hypoxia. Technique: Chest 1 view. Comparison: 07/08/2022. Findings/Impression: Cardiovascular and mediastinum: Heart size and vasculature are normal in caliber and appearance. Lungs and pleural space: Lungs are clear. No sign of infiltrate or mass. No sign of pleural effusion. No pneumothorax. No specific finding to explain hypoxia. Bones and soft tissues: No acute findings. Dictated by Amauri Murcia MD @ 07/11/2022 7:39:22 AM (Electronically Signed)
[2022-07-11] MEDS: LACTOBACILLUS ACIDOPHILUS 1 TABLET 1 TAB PO ×3 (08:11→17:44)
[2022-07-11] MEDS: METOPROLOL SUCCINATE (XL) 25 MG TAB PO (09:01)
[2022-07-11] MEDS: FUROSEMIDE 40 MG TABLET PO (09:02)
[2022-07-11] MEDS: ROSUVASTATIN CALCIUM 10 MG TABLET 40 MG PO (09:02)
[2022-07-11] MEDS: ASPIRIN 81 MG TABLET EC PO (09:02)
[2022-07-11] MEDS: cilostazoL 100 MG TABLET PO ×2 (09:03→20:31)
[2022-07-11] MEDS: POTASSIUM CHLORIDE 10 MEQ CAPSULE ER 20 MEQ PO (09:03)
[2022-07-11] MEDS: Fluticasone-Umeclidin-Vilanter [Trelegy Ellipta] 200-62.5-25 mcg IH (09:05)
--- NOTE | 2022-07-11 11:07 | PM.IMPN1 ---
Progress Note: A&P Assessment and plan (1) Sepsis: Problem details: Hypotensive and tachycardiac on presentation to the emergency department. Initially it was unclear whether this was sepsis from infection or related to his acute coronary syndrome. He responded well to fluid resuscitation and it appears he had sepsis from infection, now resolved. Status: Acute (2) Cellulitis of right lower extremity: Problem details: Severe cellulitis in the context of chronic lymphedema. Ancef. Slowly improving Status: Acute (3) NSTEMI (non-ST elevated myocardial infarction): Problem details: Likely had a non STEMI about 2 days prior to admission when he had shoulder pain. No ongoing symptoms. Status: Acute (4) Acute kidney injury: Problem details: Cr 1.0. Baseline 0.9. Continue supportive care and close monitoring. - h/o CHANTEL requiring dialysis after sepsis and treatment with antibiotics in 2018. Status: Acute (5) COPD (chronic obstructive pulmonary disease): Problem details: Continues to be mildly hypoxic. Does not have severe evidence of obstruction such as wheezing or marked decreased breath sounds. Status: Chronic (6) Morbidly obese: Status: Acute (7) Obstructive sleep apnea hypopnea, severe: Problem details: On CPAP. Non compliant with CPAP at home. Using CPAP here with some difficulties. 08/14/2021 AHI- 125 Status: Acute (8) Noncompliance with medications: Problem details: Reports taking 's oxycontin and allowing her to take his doxycycline. Unclear, but also may be noncompliant with other prescribed medications. Also noncompliant with CPAP Status: Acute (9) Acute hypoxemic respiratory failure: Problem details: Multifactorial including sepsis, acute coronary syndrome, COPD, untreated sleep apnea. Also had elevated CO2/CO2 retention. Caution with oxygen supplementation Status: Acute (10) CO2 retention: Problem details: PCO2 56 with normal pH suggests chronic hypoventilation. Status: Acute (11) Hx of deep venous thrombosis: Problem details: Negative of DVT ultrasound on admission. Continue VT prophylaxis with enoxaparin Status: Acute (12) PAD (peripheral artery disease): Problem details: 12/07/2011 left SFA stent grafting for claudication via combined femoral and popliteal approach 05/17/2016 Drug eluting balloon angioplasty of right SFA stenosis and right TP trunk occlusion. Post intervention SOPHIE 0.84 with duplex evidence of uncorrected aortoiliac occlusive disease. No claudication symptoms post intervention. Status: Acute (13) Lymphedema: Problem details: Chronic. 10/02/2018. w/cellulitis. most recent infection led to ARF and temporary dialysis which has resolved. Resume compression and elevation Status: Acute (14) Hypokalemia: Problem details: Replace and monitor. Status: Acute Plan Continue hospital treatment with IV antibiotics for cellulitis and sepsis, and ongoing respiratory evaluation and treatment for respiratory failure with hypoxia and hypoventilation. Time Spent With Patient Total time spent: Total time spent today is 40 minutes, 30 minutes in coordination of care and discussing with patient and other providers management of cellulitis and respiratory failure Subjective Date Seen: 07/11/22 Interval history: 67-year-old male seen in followup of hospitalization for sepsis from right lower extremity cellulitis, non STEMI, hypoxic and hypercarbic respiratory failure. Patient reports that he had some trouble last night with his CPAP. Did not consistent use during the night and even with supplemental oxygen flowing into his CPAP his O2 sats dropped into the 70s. He was placed on simple nasal cannula with 2 L per nasal cannula and his O2 sats were in the 80s for much of the night. He was not dyspneic with this. He has not had chest pain or significant coughing. He has not had any fever. His right leg continues to bother him quite a bit. It is difficult to walk on it. Exam Narrative: Exam Narrative: He is alert and appears in no distress. Oropharynx with small airway. Significant facial hair noted with regard to his CPAP mask. Respirations are clear to auscultation without wheezing rales or rhonchi. He has fair air exchange all lung barrera. No prolonged expiratory phase. Cardiovascular: S1, S2, regular rate and rhythm. No murmur gallop or rub. Abdomen: Bowel sounds active. Abdomen is soft without tenderness. Right lower extremity with massive lymphedema. His erythema is somewhat less intense and receding a little bit from his right thigh and proximal right leg. Intact pedal pulses. Good peripheral perfusion. Const: Vital Signs, click to edit/add: Vital Signs - 24 hr 07/10/22 15:00 07/10/22 15:00 07/10/22 15:00 Temperature 99.0 F Pulse Rate Pulse Rate [Pulse Oximeter] 91 91 Respiratory Rate 20 20 Blood Pressure [Le ft Arm] 127/56 L Pulse Oximetry 90 90 Oxygen Delivery Me thod Nasal Cannula Nasal Cannula Oxygen Flow Rate 2 2 07/10/22 15:00 07/10/22 19:00 07/10/22 21:00 Temperature 99.3 F 99.7 F H Pulse Rate 94 Pulse Rate [Pulse Oximeter] 102 H 106 H Respiratory Rate 20 Blood Pressure [Le ft Arm] 174/57 H 131/56 L Pulse Oximetry 91 Oxygen Delivery Me thod Nasal Cannula Oxygen Flow Rate 2 07/10/22 23:00 07/10/22 23:00 07/10/22 23:00 Temperature Pulse Rate 100 Pulse Rate [Pulse Oximeter] 100 Respiratory Rate 20 20 Blood Pressure [Le ft Arm] Pulse Oximetry 88 Oxygen Delivery Me thod CPAP Oxygen Flow Rate 2 07/10/22 23:00 07/11/22 00:00 07/11/22 04:15 Temperature 99.5 F 100.8 F H Pulse Rate Pulse Rate [Pulse Oximeter] 100 Respiratory Rate 20 Blood Pressure [Le ft Arm] 138/87 Pulse Oximetry 89 85 L Oxygen Delivery Me thod CPAP Oxygen Flow Rate 2 07/11/22 03:00 07/11/22 06:15 07/11/22 07:00 Temperature 100.8 F H 98.3 F Pulse Rate 89 Pulse Rate [Pulse Oximeter] 102 H Respiratory Rate 22 Blood Pressure [Le ft Arm] 138/62 Pulse Oximetry 85 L Oxygen Delivery Me thod Nasal Cannula Oxygen Flow Rate 2 07/11/22 07:00 07/11/22 08:00 07/11/22 08:00 Temperature 97.8 F Pulse Rate Pulse Rate [Pulse Oximeter] 92 Respiratory Rate 18 18 18 Blood Pressure [Le ft Arm] 138/68 Pulse Oximetry 90 90 Oxygen Delivery Me thod Nasal Cannula Nasal Cannula Oxygen Flow Rate 2 2 Documenting provider has reviewed patient's vital signs: yes Labs Labs: Laboratory Results - last 24 hr 07/11/22 07/11/22 07/11/22 04:35 04:35 04:35 WBC 8.99 RBC 3.90 L Hgb 10.5 L Hct 33.4 L MCV 86 MCH 27 MCHC 31 L RDW Coeff of Dinora 15.7 H Plt Count 257 Neut % (Auto) 84.1 H Lymph % (Auto) 6.[address] [place] % (Auto) 6.9 Eos % (Auto) 0.9 Baso % (Auto) 0.8 Neut # (Auto) 7.60 H Lymph # (Auto) 0.[address] [place] # (Auto) 0.60 Eos # (Auto) 0.08 Baso # (Auto) 0.07 VBG pH 7.377 VBG pCO2 57 H VBG pO2 46.9 VBG HCO3 34 H Sodium 133 L Potassium 3.3 L Chloride 96 Carbon Dioxide 35 H BUN 10 Creatinine 1.0 Estimated Creat Clear 71.99 Estimated GFR 81 Glucose 156 H Calcium 7.6 L C-Reactive Protein 24.9 H
[2022-07-11] MEDS: POTASSIUM BICARB 25 MEQ EFFERVESCENT TAB 50 MEQ PO (12:21)
--- NOTE | 2022-07-11 13:52 | PC.NURSE ---
End of Shift: Patient A&Ox3. Has reported no pain. R leg is bright pink and descending from original marking. Positive edema BLE. Patient complains of SOB. Respirations and O2 sats WNL. On 2L of O2. RT in to assess patient today. This am patient had dark drown with blood tinged sputum. MD aware. Encouraging patient to wear CPAP at rest and at HS.
--- NOTE | 2022-07-11 15:57 | RESP.RT ---
Worked with pt today on CPAP compliance. I'm afraid this is going to be an ongoing concern. Reviewed PT's sleep study from July 2021. Study had a good titration to 16cwp to minimize events, however he required a lot of attention during the night, which we are seeing at this time. Reviewed all of our concerns with him, and he does agree, however has a barrier for each of them. Attempted to mitigate them all, but in the end he removes mask after a period of time. Of note he does sleep straight up in a chair at home.
--- NOTE | 2022-07-11 18:15 | PC.NURSE ---
PATIENT PLEASANT AND COOPERATIVE, UP TO SIDE OF BED/CHAIR WITH MINIMAL ASSISTANCE, PATIENT ENCOURAGED TO WEAR CPAP WITH SLEEP AND DURING THE NIGHT, PATIENT VERBALIZED UNDERSTANDING, OXYGEN ON 2L VIA NC KEEPING SATS 88% AND GREATER, PATIENT EXPRESSED FEELING LESS SOB WITH ACTIVITY THIS AFTERNOON, OFFERED STOOL SOFTENER PATIENT DECLINED, ENCOURAGED PATIENT TO EAT MEALS, PATIENT EATING MINIMAL FOOD OR NOT ORDERING MEALS YOUR FOOD JUST DOES NOT TASTE GOOD, TELE SHOWING NSR WITH 1 DEGREE BLOCK, YANG WRAP TO RIGHT LE AND ZAID TO LEFT LE, REDNESS TO RIGHT LE THAT IS RECEDING FORM PREVIOUS OUTLINE.
[2022-07-11] MEDS: 0.9 % SODIUM CHLORIDE 250 ml IV (20:34)
[2022-07-12] VITALS (12 sets, daily range): BP systolic 133–157; BP diastolic 56–99; PULSE 85–100; RESP 12–24; TEMP 36.1–36.7; O2SAT 88–95
[2022-07-12] MEDS: OXYCODONE 5 MG TABLET PO ×3 (01:47→21:15)
--- NOTE | 2022-07-12 05:41 | PC.NURSE ---
Patient is alert and oriented x 4, keeping SATS above 88 remains challenging otherwise vital signs are stable. Patient remains on 2L O2 via O2 mask or CPAP, frequent reminders to wear either one are necessary as the patient forgets to put them on. Rated pain at 9/10 around 0100, gave 10mg of Oxycodone and patient fell asleep following that. Maurisio bandage removed from right leg with cellulitis and left leg ZAID was removed per protocol for around an hour, then both were reapplied. Right leg remains edematous, red in color and quite firm when palpated.
[2022-07-12 06:51] LABS: Basophils Absolute Auto 0.21 K/uL (0.00-0.30); Basophils Percent Auto 2.4 % (0.0-3.0); Eosinophils Absolute Auto 0.21 K/uL (0.00-0.50); Eosinophils Percent Auto 2.4 % (0.0-7.0); HCO3 VBG 35 mmol/L (21-28); Hematocrit 35.1 % (37.0-53.0); Hemoglobin* 11.1 gm/dL (13.5-17.5); Immature Granulocytes Abs Auto 0.12 K/uL (0.00-0.30); Immature Granulocytes Pct Auto 1.4 %; Lymphocytes Percent Auto 12.8 % (20-44); Mean Corpuscular HGB Conc 32 gm/dL (32-36); Mean Corpuscular Hemoglobin 27 pg (26-34); Mean Corpuscular Volume 86 fL (80-100); Monocytes Percent Auto 8.4 % (0.0-11.0); Neutrophils Percent Auto 72.6 % (42.0-72.0); PCO2 VBG 47 mmHG (40-50); PO2 VBG 51.9 mmHG (25-47); Platelet Count* 329 K/uL (140-440); RDW Coefficient of Variation % 15.8 % (11.5-15.5); Red Blood Count 4.07 m/uL (4.30-5.90); White Blood Count* 8.67 K/uL (4.50-11.00); pH VBG 7.483 (7.32-7.43)
[2022-07-12 07:27] LABS: Chloride* 94 mmol/L (96-114); Sodium* 131 mmol/L (135-149)
[2022-07-12 07:28] LABS: Potassium* 3.6 mmol/L (3.6-5.1)
[2022-07-12 07:30] LABS: Creatinine* 0.8 mg/dL (0.5-1.5); Est. Creatinine Clearance* 71.99; Estimated Glomerular Filt Rate 96 ml/min
[2022-07-12 07:31] LABS: Blood Urea Nitrogen* 9 mg/dL (7-30); Carbon Dioxide* 34 mmol/L (20-32); Glucose* 117 mg/dL (60-115)
[2022-07-12 07:46] LABS: Slide Review Reflex Yes
[2022-07-12 07:47] LABS: Slide Review Acceptable Review (Acceptable)
[2022-07-12 07:51] LABS: C Reactive Protein* 24.4 mg/dL (0.5-1.0)
[2022-07-12] MEDS: ENOXAPARIN 30 MG/0.3ML INJ SUBCUT ×2 (08:01→18:16)
[2022-07-12] MEDS: CEFAZOLIN 2 GM in 0.9 % SODIUM CHLORIDE Mini-bag 100 ML IVPB ×2 (08:02→16:56)
[2022-07-12] MEDS: LACTOBACILLUS ACIDOPHILUS 1 TABLET 1 TAB PO ×3 (08:17→18:16)
[2022-07-12] MEDS: OMEPRAZOLE 20 MG CAPSULE DR 40 MG PO (08:18)
[2022-07-12] MEDS: polyethylene glycoL 3350 17 GM PACK PO (08:18)
[2022-07-12] MEDS: ROSUVASTATIN CALCIUM 10 MG TABLET 40 MG PO (08:49)
[2022-07-12] MEDS: ASPIRIN 81 MG TABLET EC PO (08:49)
[2022-07-12] MEDS: SENNOSIDES 1 TAB TABLET 2 TAB PO ×2 (08:50→20:32)
[2022-07-12] MEDS: METOPROLOL SUCCINATE (XL) 25 MG TAB PO ×2 (08:50→11:18)
[2022-07-12] MEDS: POTASSIUM CHLORIDE 10 MEQ CAPSULE ER 20 MEQ PO ×2 (08:51→18:15)
[2022-07-12] MEDS: FUROSEMIDE 40 MG TABLET PO ×2 (08:51→14:10)
[2022-07-12] MEDS: cilostazoL 100 MG TABLET PO ×2 (08:52→20:33)
[2022-07-12] MEDS: Fluticasone-Umeclidin-Vilanter [Trelegy Ellipta] 200-62.5-25 mcg IH (08:53)
[2022-07-12] MEDS: SODIUM CHLORIDE 0.9 % (FLUSH) 10 ML SYRINGE 5 ML IVF ×2 (08:54→20:33)
--- NOTE | 2022-07-12 10:44 | P.IMPN_ITS ---
Progress Note: A&P Assessment and plan (1) Sepsis: Problem details: Hypotensive and tachycardiac on presentation to the emergency department. Initially it was unclear whether this was sepsis from infection or related to his acute coronary syndrome. He responded well to fluid resuscitation and it appears he had sepsis from infection, now resolved. Status: Acute (2) Cellulitis of right lower extremity: Problem details: Severe cellulitis in the context of chronic lymphedema. Ancef. Slowly improving Status: Acute (3) NSTEMI (non-ST elevated myocardial infarction): Problem details: Likely had a non STEMI about 2 days prior to admission when he had shoulder pain. No ongoing symptoms. Previously known coronary disease. Continue aspirin, statin, beta-val. Status: Acute (4) Acute kidney injury: Problem details: Cr 1.0. Baseline 0.9. Continue supportive care and close monitoring. - h/o CHANTEL requiring dialysis after sepsis and treatment with antibiotics in 2018. Status: Acute (5) COPD (chronic obstructive pulmonary disease): Problem details: Continues to be mildly hypoxic. Does not have severe evidence of obstruction such as wheezing or marked decreased breath sounds. Status: Chronic (6) Morbidly obese: Status: Acute (7) Obstructive sleep apnea hypopnea, severe: Problem details: On CPAP. Non compliant with CPAP at home. Using CPAP here with some difficulties. 08/14/2021 AHI- 125 Status: Acute (8) Noncompliance with medications: Problem details: Reports taking 's oxycontin and allowing her to take his doxycycline. Unclear, but also may be noncompliant with other prescribed medications. Also noncompliant with CPAP Status: Acute (9) Acute hypoxemic respiratory failure: Problem details: Multifactorial including sepsis, acute coronary syndrome, COPD, untreated sleep apnea. Also had elevated CO2/CO2 retention. Caution with oxygen supplementation Status: Acute (10) CO2 retention: Problem details: PCO2 56 with normal pH suggests chronic hypoventilation. Status: Acute (11) Hx of deep venous thrombosis: Problem details: Negative of DVT ultrasound on admission. Continue VT prophylaxis with enoxaparin Status: Acute (12) PAD (peripheral artery disease): Problem details: 12/07/2011 left SFA stent grafting for claudication via combined femoral and popliteal approach 05/17/2016 Drug eluting balloon angioplasty of right SFA stenosis and right TP trunk occlusion. Post intervention SOPHIE 0.84 with duplex evidence of uncorrected aortoiliac occlusive disease. No claudication symptoms post intervention. Status: Acute (13) Lymphedema: Problem details: Chronic. 10/02/2018. w/cellulitis. most recent infection led to ARF and temporary dialysis which has resolved. Resume compression and elevation Status: Acute (14) Hypokalemia: Problem details: Replace and monitor. Status: Acute Subjective Date Seen: 07/12/22 Interval history: 67-year-old male seen in followup of hospitalization for sepsis from right lower extremity cellulitis, non STEMI, hypoxic and hypercarbic respiratory failure. Patient continues to have some trouble with CPAP using it only part of the night. He was not dyspneic with this. His O2 sats have been commonly in the upper 80s even with CPAP. Still requiring supplemental oxygen while awake during the day to maintain O2 sats at 90%. He has not had chest pain or significant coughing. He has not had any fever. His right leg continues to bother him quite a bit. It is difficult to walk on it. Requiring some pain medication for this. He has not had a bowel movement since admission. Exam Narrative: Exam Narrative: He is alert and appears in no distress. He is oriented to his circumstances. Respirations are clear to auscultation. No wheezing. Cardiovascular: S1, S2, regular rate and rhythm. Abdomen: Bowel sounds active. Abdomen is soft without tenderness. Right lower extremity shows modest improvement in the erythema in his thigh as well as in his right leg. Right calf is still quite tender to touch. No obvious abscess. No open skin lesions. Const: Vital Signs, click to edit/add: Vital Signs - 24 hr 07/11/22 12:00 07/11/22 15:00 07/11/22 15:00 Temperature 98.5 F 98.1 F Pulse Rate Pulse Rate [Pulse Oximeter] 100 100 Respiratory Rate 18 18 18 Blood Pressure [Le ft Arm] 161/65 H 161/65 H Pulse Oximetry 92 92 92 Oxygen Delivery Me thod Nasal Cannula Nasal Cannula Nasal Cannula Oxygen Flow Rate 2 2 2 07/11/22 16:00 07/11/22 16:00 07/11/22 19:30 Temperature 97.7 F Pulse Rate 91 Pulse Rate [Pulse Oximeter] 100 86 Respiratory Rate 18 12 Blood Pressure [Le ft Arm] 155/61 H Pulse Oximetry 92 Oxygen Delivery Me thod CPAP Oxygen Flow Rate 07/11/22 22:20 07/11/22 22:24 07/11/22 22:34 Temperature 97.6 F Pulse Rate Pulse Rate [Pulse Oximeter] 97 Respiratory Rate 12 16 Blood Pressure [Le ft Arm] 126/60 Pulse Oximetry 95 Oxygen Delivery Me thod CPAP CPAP Oxygen Flow Rate 07/12/22 00:14 07/12/22 03:42 07/12/22 05:20 Temperature 97 F L Pulse Rate Pulse Rate [Pulse Oximeter] 85 Respiratory Rate 12 16 Blood Pressure [Le ft Arm] 133/82 Pulse Oximetry 95 89 Oxygen Delivery Me thod CPAP Oxygen Flow Rate 2 07/12/22 08:06 07/12/22 08:00 07/12/22 08:00 Temperature 98.1 F Pulse Rate 90 Pulse Rate [Pulse Oximeter] 95 Respiratory Rate 24 24 Blood Pressure [Le ft Arm] 153/66 H Pulse Oximetry 93 90 Oxygen Delivery Me thod Aerosol Mask OxyMask Oxygen Flow Rate 2 2 Labs Labs: Laboratory Results - last 24 hr 07/12/22 07/12/22 07/12/22 06:28 06:28 06:28 WBC 8.67 RBC 4.07 L Hgb 11.1 L Hct 35.1 L MCV 86 MCH 27 MCHC 32 RDW Coeff of Dinora 15.8 H Plt Count 329 Neut % (Auto) 72.6 H Lymph % (Auto) 12.8 L [place] % (Auto) 8.4 Eos % (Auto) 2.4 Baso % (Auto) 2.4 Neut # (Auto) 6.30 Lymph # (Auto) 1.10 [place] # (Auto) 0.70 Eos # (Auto) 0.21 Baso # (Auto) 0.21 Diff Slide Review Acceptable Review VBG pH 7.483 H VBG pCO2 47 VBG pO2 51.9 H VBG HCO3 35 H Sodium 131 L Potassium 3.6 Chloride 94 L Carbon Dioxide 34 H BUN 9 Creatinine 0.8 Estimated Creat Clear 71.99 Estimated GFR 96 Glucose 117 H Calcium 8.0 L C-Reactive Protein 24.4 H
--- NOTE | 2022-07-12 18:31 | PC.NURSE ---
shift note: pt up sba/walker. pt refused ambulation today due to rt l/e pain. pt rating rt l/e pain 7-8. pt's rt l/e red and hot to touch. mid reynolds on rt l/e dry patch noted. belkis wrap applied to rt l/e for 3+ pitting edema. unable to palpate rt foot PP due to edema. ice applied to back of rt knee for comfort. increased redness noted to back of rt thigh this afternoon compared to this a.m. LS very dim. pt requires 2 L pnc O2to keep sats >90%. Pt denies c.p or pressure. tele sinus rhythm. IV dc'd intact rt hand.
[2022-07-13] VITALS (10 sets, daily range): BP systolic 126–152; BP diastolic 59–81; PULSE 83–107; RESP 12–22; TEMP 36.4–37.1; O2SAT 89–91
[2022-07-13] MEDS: CEFAZOLIN 2 GM in 0.9 % SODIUM CHLORIDE Mini-bag 100 ML IVPB ×2 (00:04→08:11)
[2022-07-13] MEDS: 0.9 % SODIUM CHLORIDE 250 ml IV (00:05)
[2022-07-13] MEDS: OXYCODONE 5 MG TABLET PO ×3 (05:36→18:06)
[2022-07-13] MEDS: ENOXAPARIN 30 MG/0.3ML INJ SUBCUT ×2 (05:37→18:07)
--- NOTE | 2022-07-13 05:58 | PC.NURSE ---
Patient is alert and oriented x3, remains on 1.5-2L O2 via OxyMask or CPAP, vital signs stable with exception of O2. BLLE's both unwrapped/free of TEDS for 2 hours, then re-wrapped, RLE less edematous but remains very red. Patient did have a large BM late evening 07/12, soft-formed. Following BM lyndon-care completed, of note were large open sores on inner thighs, several were bleeding. Complained of 10/10 pain early childhood services coordinator, 10mg Oxy given at 0550.
[2022-07-13] MEDS: OMEPRAZOLE 20 MG CAPSULE DR 40 MG PO (06:41)
[2022-07-13 07:00] LABS: HCO3 VBG 36 mmol/L (21-28); PCO2 VBG 54 mmHG (40-50); PO2 VBG 52.4 mmHG (25-47); pH VBG 7.436 (7.32-7.43)
[2022-07-13 07:45] LABS: Chloride* 93 mmol/L (96-114); Potassium* 3.5 mmol/L (3.6-5.1); Sodium* 134 mmol/L (135-149)
[2022-07-13 07:48] LABS: Blood Urea Nitrogen* 9 mg/dL (7-30); Carbon Dioxide* 36 mmol/L (20-32); Creatinine* 0.8 mg/dL (0.5-1.5); Est. Creatinine Clearance* 71.99; Estimated Glomerular Filt Rate 96 ml/min; Glucose* 134 mg/dL (60-115)
[2022-07-13 07:49] LABS: Magnesium* 2.3 mg/dL (1.5-2.6)
[2022-07-13 07:56] LABS: Basophils Percent Auto 1.1 % (0.0-3.0); Eosinophils Absolute Auto 0.17 K/uL (0.00-0.50); Eosinophils Percent Auto 1.8 % (0.0-7.0); Hemoglobin* 11.4 gm/dL (13.5-17.5); Immature Granulocytes Abs Auto 0.17 K/uL (0.00-0.30); Immature Granulocytes Pct Auto 1.8 %; Lymphocytes Percent Auto 10.8 % (20-44); Mean Corpuscular HGB Conc 31 gm/dL (32-36); Mean Corpuscular Hemoglobin 27 pg (26-34); Mean Corpuscular Volume 87 fL (80-100); Monocytes Percent Auto 7.7 % (0.0-11.0); Neutrophils Percent Auto 76.8 % (42.0-72.0); Platelet Count* 415 K/uL (140-440); RDW Coefficient of Variation % 15.8 % (11.5-15.5); Red Blood Count 4.25 m/uL (4.30-5.90); White Blood Count* 9.19 K/uL (4.50-11.00)
[2022-07-13 08:00] LABS: Slide Review Reflex No
[2022-07-13] MEDS: LACTOBACILLUS ACIDOPHILUS 1 TABLET 1 TAB PO ×3 (08:08→18:06)
[2022-07-13] MEDS: POTASSIUM CHLORIDE 10 MEQ CAPSULE ER 20 MEQ PO ×3 (08:08→18:07)
[2022-07-13] MEDS: FUROSEMIDE 40 MG TABLET PO ×2 (08:09→15:13)
[2022-07-13] MEDS: METOPROLOL SUCCINATE (XL) 50 MG TAB PO (09:32)
[2022-07-13] MEDS: cilostazoL 100 MG TABLET PO ×2 (09:32→20:27)
[2022-07-13] MEDS: ASPIRIN 81 MG TABLET EC PO (09:33)
[2022-07-13] MEDS: ROSUVASTATIN CALCIUM 10 MG TABLET 40 MG PO (09:33)
[2022-07-13] MEDS: SENNOSIDES 1 TAB TABLET 2 TAB PO (09:34)
[2022-07-13] MEDS: Fluticasone-Umeclidin-Vilanter [Trelegy Ellipta] 200-62.5-25 mcg IH (09:35)
--- NOTE | 2022-07-13 11:05 | NUTR.NU ---
RDN with nutrition screen related to diet education. Patient admitted to hospital for leg infection, sepsis and Nonstemi, currently on a heart healthy diet. RDN visited with patient whom reports following a heart healthy diet at home. RDN offered heart healthy diet education, however patient declined saying he has multiple resources at home regarding this diet. He did accept diet educational materials on heart healthy diet. RDN's contact information was provided and patient was encouraged to call with questions. He had no questions or concerns at this time.
--- NOTE | 2022-07-13 13:01 | PM.IMPN1 ---
Progress Note: A&P Assessment and plan (1) Sepsis: Problem details: Hypotensive and tachycardiac on presentation to the emergency department. Initially it was unclear whether this was sepsis from infection or related to his acute coronary syndrome. He responded well to fluid resuscitation and it appears he had sepsis from infection, now resolved. Status: Acute (2) Cellulitis of right lower extremity: Problem details: Severe cellulitis in the context of chronic lymphedema. Slowly improving. He has had 5 days of Ancef with mild improvements. Going to switch to vancomycin due to the finding of blisters with cloudy fluid/abscess on his calf. Still more likely to be a strep species but will treat for MRSA as well. Status: Acute (3) NSTEMI (non-ST elevated myocardial infarction): Problem details: Likely had a non STEMI about 2 days prior to admission when he had shoulder pain. No ongoing symptoms. Previously known coronary disease. Continue aspirin, statin, beta-val. Status: Acute (4) Acute kidney injury: Problem details: Cr 1.0. Baseline 0.9. Continue supportive care and close monitoring. - h/o CHANTEL requiring dialysis after sepsis and treatment with antibiotics in 2018. Status: Acute (5) COPD (chronic obstructive pulmonary disease): Problem details: Continues to be mildly hypoxic. Does not have severe evidence of obstruction such as wheezing or marked decreased breath sounds. Status: Chronic (6) Morbidly obese: Status: Acute (7) Obstructive sleep apnea hypopnea, severe: Problem details: On CPAP. Non compliant with CPAP at home. Using CPAP here with some difficulties. 08/14/2021 AHI- 125 Status: Acute (8) Noncompliance with medications: Problem details: Reports taking 's oxycontin and allowing her to take his doxycycline. Unclear, but also may be noncompliant with other prescribed medications. Also noncompliant with CPAP Status: Acute (9) Acute hypoxemic respiratory failure: Problem details: Multifactorial including sepsis, acute coronary syndrome, COPD, untreated sleep apnea. Also had elevated CO2/CO2 retention. Caution with oxygen supplementation. Oxygen requirements are gradually decreasing Status: Acute (10) CO2 retention: Problem details: PCO2 56 with normal pH suggests chronic hypoventilation. Status: Acute (11) Hx of deep venous thrombosis: Problem details: Negative of DVT ultrasound on admission. Continue VT prophylaxis with enoxaparin Status: Acute (12) PAD (peripheral artery disease): Problem details: 12/07/2011 left SFA stent grafting for claudication via combined femoral and popliteal approach 05/17/2016 Drug eluting balloon angioplasty of right SFA stenosis and right TP trunk occlusion. Post intervention SOPHIE 0.84 with duplex evidence of uncorrected aortoiliac occlusive disease. No claudication symptoms post intervention. Status: Acute (13) Lymphedema: Problem details: Chronic. Resume compression and elevation. Status: Acute (14) Hypokalemia: Problem details: Replace and monitor. Status: Acute Plan Continue in hospital with IV antibiotics pending significant clinical improvement in his cellulitis as well as resolution of his hypoxia. Time Spent With Patient Total time spent: Total time spent today is 25 minutes, 20 minutes in coordination care and discussing with patient other providers ongoing management of hypoxia and leg cellulitis Subjective Date Seen: 07/13/22 Interval history: 67-year-old male seen in followup of hospitalization for sepsis from right lower extremity cellulitis, non STEMI, hypoxic and hypercarbic respiratory failure. Patient continues to have some trouble with CPAP, using it only part of the night. His O2 sats have been commonly in the upper 80s even with CPAP. He is not dyspneic. Still requiring supplemental oxygen while awake during the day to maintain O2 sats at 90%. Now down to 1 L per OxyMask. He has not had chest pain or significant coughing. He has not had any fever. His right leg continues to bother him quite a bit. It is difficult to walk on it. Requiring some pain medication for this. He has not had a bowel movement yesterday and today Exam Narrative: Exam Narrative: He is alert and appears in no distress. He is oriented to his circumstances. Respirations are clear to auscultation. Cardiovascular: S1, S2, regular rate and rhythm. Abdomen: Bowel sounds active. Abdomen is soft without tenderness. Lower extremities examined. Left lower extremity is normal with minimal edema. Right lower extremity has improved but still fairly severe lymphedema with acute and chronic findings and cellulitis with erythema now mostly below the knee but still some erythema on the posterior medial thigh. At about the distal 1/3 to 1/4 of his reynolds on the right he has a several cm area of subcutaneous blister with cloudy fluid. Similar finding on the posterior aspect of his calf is well. Today this can be palpated for fluctuance. It was less prominently present yesterday Const: Vital Signs, click to edit/add: Vital Signs - 24 hr 07/12/22 15:00 07/12/22 15:00 07/12/22 15:00 Temperature 98 F Pulse Rate 94 Pulse Rate [Pulse Oximeter] 100 Respiratory Rate 22 22 Blood Pressure [Le ft Arm] 143/77 H Pulse Oximetry 91 91 Oxygen Delivery Me thod OxyMask OxyMask Oxygen Flow Rate 2 2 07/12/22 19:00 07/12/22 22:06 07/12/22 22:10 Temperature 98 F Pulse Rate 91 Pulse Rate [Pulse Oximeter] 91 Respiratory Rate 12 12 Blood Pressure [Le ft Arm] 157/62 H Pulse Oximetry 93 93 Oxygen Delivery Me thod OxyMask OxyMask Oxygen Flow Rate 1.5 1.5 07/12/22 23:32 07/12/22 23:34 07/13/22 00:18 Temperature 97.8 F Pulse Rate 89 Pulse Rate [Pulse Oximeter] 87 Respiratory Rate 12 Blood Pressure [Le ft Arm] 134/56 L Pulse Oximetry 90 90 Oxygen Delivery Me thod OxyMask Oxygen Flow Rate 1.5 07/13/22 03:25 07/13/22 07:00 07/13/22 07:00 Temperature 97.5 F L Pulse Rate 90 Pulse Rate [Pulse Oximeter] 89 Respiratory Rate 12 22 Blood Pressure [Le ft Arm] 138/81 Pulse Oximetry 91 91 Oxygen Delivery Me thod CPAP OxyMask Oxygen Flow Rate 1.5 2 07/13/22 08:00 Temperature 97.8 F Pulse Rate Pulse Rate [Pulse Oximeter] 107 H Respiratory Rate 22 Blood Pressure [Le ft Arm] 145/66 H Pulse Oximetry 91 Oxygen Delivery Me thod OxyMask Oxygen Flow Rate 2 Documenting provider has reviewed patient's vital signs: yes Labs Labs: Laboratory Results - last 24 hr 07/13/22 06:45 WBC 9.19 RBC 4.25 L Hgb 11.4 L Hct 37.0 MCV 87 MCH 27 MCHC 31 L RDW Coeff of [place]ora 15.8 H Plt Count 415 Neut % (Auto) 76.8 H Lymph % (Auto) 10.8 L [place] % (Auto) 7.7 Eos % (Auto) 1.8 Baso % (Auto) 1.1 Neut # (Auto) 7.10 H Lymph # (Auto) 1.00 [place] # (Auto) 0.70 Eos # (Auto) 0.17 Baso # (Auto) 0.10 VBG pH 7.436 H VBG pCO2 54 H VBG pO2 52.4 H VBG HCO3 36 H Sodium 134 L Potassium 3.5 L Chloride 93 L Carbon Dioxide 36 H BUN 9 Creatinine 0.8 Estimated Creat Clear 71.99 Estimated GFR 96 Glucose 134 H Calcium 8.0 L Magnesium 2.3
--- NOTE | 2022-07-13 19:08 | PC.NURSE ---
shift note: pt up sba/walker. pt using urinal throughout the day indept. inner thighs bilat with open areas. mepilex applied to both sites. Rt l/e with continued redness and warmth. No change area covered by cellulitis. PP faint in rt foot; difficult to palpate due to edema in top of rt foot. Pt received oxycodone 10 mg x2 for 11/30 rt l/e pain. Ice brandy also applied for comfort on rt l/e. Pt states the food is terrible here. Pt encouraged to add protein in meal selections. Pt blood sugars monitored. IV restarted in Lt wrist. LS clr. pt on 1L per oxymask to keep sats > 89%.
--- NOTE | 2022-07-13 20:14 | PC.NURSE ---
07/13 HS BG was 170. Notified. Pt drinking 2 Regular Coke's. RN tried Diabetes Instruction with sugar, reenforcement needed. Pt does not wish to comply. No further action taken
[2022-07-13] MEDS: SODIUM CHLORIDE 0.9 % (FLUSH) 10 ML SYRINGE 5 ML IVF (20:27)
[2022-07-13] MEDS: ACETAMINOPHEN 325 MG TABLET 650 MG PO (20:28)
[2022-07-14] VITALS (7 sets, daily range): BP systolic 129–150; BP diastolic 59–70; PULSE 77–99; RESP 18–20; TEMP 36.1–36.6; O2SAT 87–95
[2022-07-14] MEDS: SODIUM CHLORIDE 0.9 % (FLUSH) 10 ML SYRINGE 5 ML IVF ×3 (00:19→20:14)
[2022-07-14] MEDS: OXYCODONE 5 MG TABLET PO ×3 (00:23→19:05)
[2022-07-14] MEDS: OMEPRAZOLE 20 MG CAPSULE DR 40 MG PO (06:34)
[2022-07-14] MEDS: ENOXAPARIN 30 MG/0.3ML INJ SUBCUT ×2 (06:35→18:21)
[2022-07-14 06:41] LABS: Basophils Absolute Auto 0.05 K/uL (0.00-0.30); Basophils Percent Auto 0.6 % (0.0-3.0); Eosinophils Absolute Auto 0.14 K/uL (0.00-0.50); Eosinophils Percent Auto 1.7 % (0.0-7.0); Hemoglobin* 11.5 gm/dL (13.5-17.5); Immature Granulocytes Abs Auto 0.22 K/uL (0.00-0.30); Immature Granulocytes Pct Auto 2.6 %; Lymphocytes Percent Auto 13.1 % (20-44); Mean Corpuscular HGB Conc 31 gm/dL (32-36); Mean Corpuscular Hemoglobin 27 pg (26-34); Mean Corpuscular Volume 87 fL (80-100); Monocytes Percent Auto 8.4 % (0.0-11.0); Neutrophils Percent Auto 73.6 % (42.0-72.0); Platelet Count* 503 K/uL (140-440); Red Blood Count 4.26 m/uL (4.30-5.90); White Blood Count* 8.32 K/uL (4.50-11.00)
[2022-07-14 06:50] LABS: Slide Review Reflex No
[2022-07-14 07:07] LABS: Chloride* 93 mmol/L (96-114); Potassium* 3.7 mmol/L (3.6-5.1); Sodium* 133 mmol/L (135-149)
[2022-07-14 07:10] LABS: Blood Urea Nitrogen* 10 mg/dL (7-30); Carbon Dioxide* 35 mmol/L (20-32); Creatinine* 0.8 mg/dL (0.5-1.5); Est. Creatinine Clearance* 71.99; Estimated Glomerular Filt Rate 96 ml/min
[2022-07-14 07:11] LABS: Calcium* 7.8 mg/dL (8.4-10.6); Glucose* 126 mg/dL (60-115)
[2022-07-14 07:26] LABS: C Reactive Protein* 18.5 mg/dL (0.5-1.0)
--- NOTE | 2022-07-14 07:45 | PC.NURSE ---
END OF SHIFT NOTE: PT PLEASANT AND COOPERATIVE. DENIES CP, SOB, N/V. AMBULATES WITH WALKER WITHIN ROOM. VSS ON CPAP WITH 2L O2 BLED INTO MACHINE; SPO2 @HIGH 80'S AND LOW 90'S; AFEBRILE. RIGHT LEG WRAPPED WITH YANG BANDAGE AND ELEVATED WITH PILLOWS. ICE PACK TO RIGHT CALF PER PT REQUEST. PT RATED RIGHT LEG/ANKLE PAIN 8/10 WITH RELIEF FROM OXYCODONE. CALL LIGHT WITHIN PT?S REACH.?
[2022-07-14] MEDS: POTASSIUM CHLORIDE 10 MEQ CAPSULE ER 20 MEQ PO ×3 (08:35→18:21)
[2022-07-14] MEDS: LACTOBACILLUS ACIDOPHILUS 1 TABLET 1 TAB PO ×3 (08:36→18:21)
[2022-07-14] MEDS: SENNOSIDES 1 TAB TABLET 2 TAB PO ×2 (08:36→20:13)
[2022-07-14] MEDS: ROSUVASTATIN CALCIUM 10 MG TABLET 40 MG PO (08:36)
[2022-07-14] MEDS: FUROSEMIDE 40 MG TABLET PO ×2 (08:37→14:06)
[2022-07-14] MEDS: ASPIRIN 81 MG TABLET EC PO (08:37)
[2022-07-14] MEDS: METOPROLOL SUCCINATE (XL) 50 MG TAB PO (08:37)
[2022-07-14] MEDS: Fluticasone-Umeclidin-Vilanter [Trelegy Ellipta] 200-62.5-25 mcg IH (08:38)
[2022-07-14] MEDS: cilostazoL 100 MG TABLET PO ×2 (09:52→20:13)
[2022-07-14] MEDS: ACETAMINOPHEN 325 MG TABLET 650 MG PO (10:27)
[2022-07-14] MEDS: 0.9 % SODIUM CHLORIDE 250 ml IV (12:32)
--- NOTE | 2022-07-14 12:53 | PM.IMPN1 ---
Progress Note: A&P Assessment and plan (1) Sepsis: Problem details: Hypotensive and tachycardiac on presentation to the emergency department. Initially it was unclear whether this was sepsis from infection or related to his acute coronary syndrome. He responded well to fluid resuscitation and it appears he had sepsis from infection. Infection persists but signs and symptoms of sepsis have resolved Status: Acute (2) Cellulitis of right lower extremity: Problem details: Severe cellulitis in the context of chronic lymphedema. Slowly improving. He has had 5 days of Ancef with mild improvements. Switch to vancomycin due to the finding of blisters with cloudy fluid/abscess on his calf. Still more likely to be a strep species but will treat for MRSA as well. Continued slow improvement. Consider imaging with MRI of the leg if not continuing to improve leg cellulitis over the next few days. Status: Acute (3) NSTEMI (non-ST elevated myocardial infarction): Problem details: Likely had a non STEMI about 2 days prior to admission when he had shoulder pain. No ongoing symptoms. Previously known coronary disease. Continue aspirin, statin, beta-val. Status: Acute (4) Acute kidney injury: Problem details: Cr 1.0. Baseline 0.9. Continue supportive care and close monitoring, especially on vancomycin. - h/o CHANTEL requiring dialysis after sepsis and treatment with antibiotics in 2018. Status: Acute (5) COPD (chronic obstructive pulmonary disease): Problem details: Continues to be mildly hypoxic. Does not have severe evidence of obstruction such as wheezing or marked decreased breath sounds. Status: Chronic (6) Morbidly obese: Status: Acute (7) Obstructive sleep apnea hypopnea, severe: Problem details: On CPAP. Non compliant with CPAP at home. Using CPAP here with some difficulties. 08/14/2021 AHI- 125 Status: Acute (8) Noncompliance with medications: Problem details: Reports taking 's oxycontin and allowing her to take his doxycycline. Unclear, but also may be noncompliant with other prescribed medications. Also noncompliant with CPAP Status: Acute (9) Acute hypoxemic respiratory failure: Problem details: Appears to have chronic hypoxic and hypercarbic respiratory failure, now worse but improving in the hospital Status: Acute (10) CO2 retention: Problem details: PCO2 56 with normal pH suggests chronic hypoventilation. Status: Acute (11) Hx of deep venous thrombosis: Problem details: Negative of DVT ultrasound on admission. Continue VT prophylaxis with enoxaparin Status: Acute (12) PAD (peripheral artery disease): Problem details: 12/07/2011 left SFA stent grafting for claudication via combined femoral and popliteal approach 05/17/2016 Drug eluting balloon angioplasty of right SFA stenosis and right TP trunk occlusion. Post intervention SOPHIE 0.84 with duplex evidence of uncorrected aortoiliac occlusive disease. No claudication symptoms post intervention. Status: Acute (13) Lymphedema: Problem details: Chronic. Resume compression and elevation. Status: Acute (14) Hypokalemia: Problem details: Replace and monitor. Status: Acute Plan Continue in hospital for antibiotic treatment of leg cellulitis. When clearly improved can be discharged home with outpatient oral antibiotics. At this point appears to need outpatient oxygen as well as CPAP. Time Spent With Patient Total time spent: Total time spent today is 40 minutes, 25 minutes in coordination of care and discussing with patient and other providers management of hypoxic and hypercarbic respiratory failure and leg cellulitis. Subjective Date Seen: 07/14/22 Interval history: 67-year-old male seen in followup of hospitalization for sepsis from right lower extremity cellulitis, non STEMI, hypoxic and hypercarbic respiratory failure. Patient continues to have some trouble with CPAP, using it only part of the night. He feels like his sleep is a little better. His O2 sats have been commonly in the upper 80s even with CPAP. He is not dyspneic at rest when he is hypoxic but he is dyspneic with any activity.. Still requiring supplemental oxygen while awake during the day to maintain O2 sats at 90%. He does not have any chest pain or cough. No orthopnea or fever. His appetite is good. His bowels are working. No abdominal pain. His right leg continues to bother him quite a bit. It is difficult to walk on it. Requiring some pain medication for this. Exam Narrative: Exam Narrative: He is alert and appears in no distress. Mood and affect are bright. Breathing is unlabored on with OxyMask. Respirations are clear to auscultation without wheezing rales or rhonchi. He has somewhat diminished breath sounds. Cardiovascular: S1, S2, regular rate and rhythm. No murmur gallop or rub. Distant heart sounds. Abdomen: Bowel sounds active. Abdomen is soft without tenderness or mass. Lower extremities notable for still moderate lymphedema the right lower extremity with moderate erythema. The erythema continues to be improving modestly day today. He has minimal erythema on his posterior right thigh and almost none on his anterior right thigh. He has circumferential erythema of the right leg below the knee. Cloudy blisters are present posterior and anteriorly over the distal calf. No significant drainage. He has tenderness over his calf with palpation. Left lower extremity is normal. Const: Vital Signs, click to edit/add: Vital Signs - 24 hr 07/13/22 15:00 07/13/22 15:00 07/13/22 18:11 Temperature 98 F Pulse Rate 95 Pulse Rate [Pulse Oximeter] 94 Respiratory Rate 20 20 Blood Pressure [Le ft Arm] 146/78 H Pulse Oximetry 91 89 Oxygen Delivery Me thod OxyMask OxyMask Oxygen Flow Rate 1 1 07/13/22 19:20 07/13/22 20:28 07/13/22 21:55 Temperature 98.8 F 98.8 F Pulse Rate Pulse Rate [Pulse Oximeter] 99 99 Respiratory Rate 16 20 Blood Pressure [Le ft Arm] 126/59 L Pulse Oximetry 90 Oxygen Delivery Me thod OxyMask Oxygen Flow Rate 2 07/14/22 00:00 07/14/22 00:00 07/14/22 00:00 Temperature 97.0 F L Pulse Rate 77 Pulse Rate [Pulse Oximeter] 87 Respiratory Rate 20 20 Blood Pressure [Le ft Arm] 147/70 H Pulse Oximetry 87 L 87 L Oxygen Delivery Me thod Room Air CPAP Room Air CPAP Oxygen Flow Rate 2 2 07/14/22 00:00 07/14/22 03:00 07/14/22 00:00 Temperature Pulse Rate Pulse Rate [Pulse Oximeter] 87 87 Respiratory Rate 18 20 Blood Pressure [Le ft Arm] Pulse Oximetry 87 L 89 Oxygen Delivery Me thod CPAP Oxygen Flow Rate 2 07/14/22 07:00 07/14/22 08:30 07/14/22 12:00 Temperature 97.7 F 97.8 F Pulse Rate Pulse Rate [Pulse Oximeter] 97 99 Respiratory Rate 18 18 Blood Pressure [Le ft Arm] 129/65 140/59 H Pulse Oximetry 92 92 95 Oxygen Delivery Me thod OxyMask OxyMask OxyMask Oxygen Flow Rate 2 2 2 Documenting provider has reviewed patient's vital signs: yes Labs Labs: Laboratory Results - last 24 hr 07/14/22 06:09 WBC 8.32 RBC 4.26 L Hgb 11.5 L Hct 37.0 MCV 87 MCH 27 MCHC 31 L RDW Coeff of Dinora 16.0 H Plt Count 503 H Neut % (Auto) 73.6 H Lymph % (Auto) 13.1 L Lynn % (Auto) 8.4 Eos % (Auto) 1.7 Baso % (Auto) 0.6 Neut # (Auto) 6.10 Lymph # (Auto) 1.10 Lynn # (Auto) 0.70 Eos # (Auto) 0.14 Baso # (Auto) 0.05 Sodium 133 L Potassium 3.7 Chloride 93 L Carbon Dioxide 35 H BUN 10 Creatinine 0.8 Estimated Creat Clear 71.99 Estimated GFR 96 Glucose 126 H Calcium 7.8 L C-Reactive Protein 18.5 H
--- NOTE | 2022-07-14 15:23 | PC.NURSE ---
End of Shift: A&O with O2 sats staying in the high 80s on 2L oxymask. Complained of 8/10 pain. PRN oxycodone was given with no relief. PRN Tylenol was given. Pain relief with repositioning per pt. Course crackles heard at bilateral bases. Pt noncompliant with diet. brings fast food in for pt. Ambulated from bed to chair with 1A. Needs encouragement with ambulation. Educated importance of elevated leg in chair and bed. YANG wrap to right leg, ZAID to left leg removed while in bed resting for 1H. Mepilex to inner R thigh intact, technical writer and editor did not remove it to assess skin. R leg redness receding from secondary marking placed 07/12. Per pt swelling has decreases in R leg but still unable to wear home support hose. Resting in bed.
--- NOTE | 2022-07-14 17:13 | PC.NURSE ---
Pt alert and oriented. Pt vss. Pt encouraged to walk, Pt refused. Pt refused to order supper but has a sub sandwich in fridge which he wants to eat later and will call for.
--- NOTE | 2022-07-14 18:27 | PC.NURSE ---
Pt walked around room with assist of one.
[2022-07-15] VITALS (7 sets, daily range): BP systolic 103–152; BP diastolic 60–76; PULSE 82–98; RESP 14–20; TEMP 35.9–36.3; O2SAT 90–98
[2022-07-15] MEDS: OXYCODONE 5 MG TABLET PO ×3 (00:18→16:18)
[2022-07-15] MEDS: OMEPRAZOLE 20 MG CAPSULE DR 40 MG PO (06:27)
[2022-07-15] MEDS: ENOXAPARIN 30 MG/0.3ML INJ SUBCUT ×2 (06:27→18:05)
--- NOTE | 2022-07-15 06:38 | PC.NURSE ---
Shift note: The pt has been c/o right leg pain- the pain has been managed with PRN Oxycodone ; redness to the right leg has been remained in the outline area. The pt was using CPAP with 2L of oxygen bleeding in to it; with spo2 in the 90s when sleeping and 2L of oxygen via OxyMask when awake . The pt has been denying chest pain and other acute distress throughout the night.
[2022-07-15 06:50] LABS: C Reactive Protein* 7.2 mg/dL (0.5-1.0)
--- NOTE | 2022-07-15 08:29 | PM.IMPN1 ---
Progress Note: A&P Assessment and plan (1) Cellulitis of right lower extremity: Problem details: Severe cellulitis in the context of chronic lymphedema. Improving nicely with the switch to Vanc. Has had 4 2gram doses. will check trough before next dose. likely will need 1-2 more days and then switch to oral. continue elevation, wraps. Status: Acute (2) Acute hypoxemic respiratory failure: Problem details: likely multifactorial: severe COPD, untreated DALILA at a baseline then septic with cellulitis; all improving now. still hypoxic requiring 2L will likely need home O2. Status: Acute (3) CO2 retention: Problem details: PCO2 50's with normal pH suggests chronic hypoventilation. Status: Acute (4) Lymphedema: Problem details: Chronic. Resume compression and elevation. Status: Acute (5) NSTEMI (non-ST elevated myocardial infarction): Problem details: Likely had a non STEMI about 2 days prior to admission when he had shoulder pain. No ongoing symptoms. Previously known coronary disease. Continue aspirin, statin, beta-val. Status: Acute (6) Sepsis: Problem details: Hypotensive and tachycardiac on presentation to the emergency department. Initially it was unclear whether this was sepsis from infection or related to his acute coronary syndrome. He responded well to fluid resuscitation and it appears he had sepsis from infection. Infection persists but signs and symptoms of sepsis have resolved Status: Acute (7) Noncompliance with medications: Problem details: Reports taking 's oxycontin and allowing her to take his doxycycline. Unclear, but also may be noncompliant with other prescribed medications. Also noncompliant with CPAP Status: Acute (8) COPD (chronic obstructive pulmonary disease): Problem details: Continues to be mildly hypoxic. Does not have severe evidence of obstruction such as wheezing or marked decreased breath sounds. Status: Chronic (9) Primary hypertension: Status: Acute (10) Morbidly obese: Status: Acute (11) Obstructive sleep apnea hypopnea, severe: Problem details: On CPAP. Non compliant with CPAP at home. Using CPAP here with better effort and compliance. 08/14/2021 AHI- 125 Status: Acute Subjective Date Seen: 07/15/22 Interval history: Daily Progress Note - Hospital Medicine #: 8 CC: right lower leg cellulitis; sepsis, NSTEMI OVERNIGHT UPDATES FROM STAFF & MED, LAB, IMAGING UPDATES -much better night. slept well with CPAP most of the night. -his subjective assessment of his right leg is much improved and seems in good spirits this am. Vitals reviewed. Blood pressure has come down overnight from 152/60 to 103/61. Pulse is 87. Respirations 20. Pulse ox 97% on 2 L. -did use CPAP most of the night. CBC not redrawn today. Hemoglobin, white blood cell count were all stable yesterday. VBG not recheck this morning Chemistries not rechecked this morning. C reactive protein is coming down nicely from 18.5 yesterday to 7.2 this morning I reviewed the troponin downtrending results from earlier in this hospitalization. I reviewed the echocardiogram. And I also reviewed the chest x-ray all done previously to my assumption of the service. Blood cultures finalized 5 days, negative. Echo completed on 07/09 shows a normal EF. Borderline wall thickness of the left ventricle. Limited exam secondary to body habitus. Mild dilated ascending aorta. 4.0 cm Objective: alert, copperative. Vitals: see above Lungs: Clear. no significant wheezes. Cardiac: S1S2. right lower extremity: Both LE appear chronically edematous with lymphedema. Closer inspection of the right LE - one taught blister on calf; otherwise these have resolved. thickened epidermis with stasis changes noted. erythema has retracted from original lines. Disposition/Potential discharge - Likely to return to previous living situation. Total time is 35 minutes with greater than 50% spent in counseling and coordination of care. Exam Const: Vital Signs, click to edit/add: Vital Signs - 24 hr 07/14/22 08:30 07/14/22 12:00 07/14/22 15:30 Temperature 97.7 F 97.8 F Pulse Rate [Pulse Oximeter] 97 99 Respiratory Rate 18 18 Blood Pressure [Le ft Arm] 129/65 140/59 H Pulse Oximetry 92 95 92 Oxygen Delivery Me thod OxyMask OxyMask Oxygen Flow Rate 2 2 07/14/22 15:30 07/14/22 15:30 07/14/22 15:30 Temperature 97.2 F L Pulse Rate [Pulse Oximeter] 86 86 Respiratory Rate 20 20 20 Blood Pressure [Le ft Arm] 148/65 H Pulse Oximetry 92 92 Oxygen Delivery Me thod OxyMask OxyMask Oxygen Flow Rate 2 2 07/14/22 20:00 07/15/22 01:28 07/15/22 01:28 Temperature 97.9 F Pulse Rate [Pulse Oximeter] 94 91 Respiratory Rate 20 20 Blood Pressure [Le ft Arm] 150/70 H Pulse Oximetry 90 90 Oxygen Delivery Me thod OxyMask Oxygen Flow Rate 2 07/15/22 01:28 07/15/22 01:28 07/15/22 05:00 Temperature 97.2 F L 97.2 F L Pulse Rate [Pulse Oximeter] 98 87 Respiratory Rate 20 20 20 Blood Pressure [Le ft Arm] 152/60 H 103/61 Pulse Oximetry 91 98 97 Oxygen Delivery Me thod CPAP CPAP CPAP Oxygen Flow Rate 2 2 2 Labs Labs: Laboratory Results - last 24 hr 07/15/22 05:45 C-Reactive Protein 7.2 H
[2022-07-15] MEDS: Fluticasone-Umeclidin-Vilanter [Trelegy Ellipta] 200-62.5-25 mcg IH (08:41)
[2022-07-15] MEDS: POTASSIUM CHLORIDE 10 MEQ CAPSULE ER 20 MEQ PO ×3 (08:41→18:04)
[2022-07-15] MEDS: METOPROLOL SUCCINATE (XL) 50 MG TAB PO (08:42)
[2022-07-15] MEDS: FUROSEMIDE 40 MG TABLET PO ×2 (08:42→13:50)
[2022-07-15] MEDS: cilostazoL 100 MG TABLET PO ×2 (08:42→21:31)
[2022-07-15] MEDS: SENNOSIDES 1 TAB TABLET 2 TAB PO ×2 (08:42→21:31)
[2022-07-15] MEDS: ASPIRIN 81 MG TABLET EC PO (08:42)
[2022-07-15] MEDS: LACTOBACILLUS ACIDOPHILUS 1 TABLET 1 TAB PO ×3 (08:42→18:04)
[2022-07-15] MEDS: ROSUVASTATIN CALCIUM 10 MG TABLET 40 MG PO (08:42)
[2022-07-15] MEDS: SODIUM CHLORIDE 0.9 % (FLUSH) 10 ML SYRINGE 5 ML IVF ×2 (08:46→21:31)
[2022-07-15 09:13] LABS: Chloride* 95 mmol/L (96-114); Sodium* 133 mmol/L (135-149)
[2022-07-15 09:16] LABS: Blood Urea Nitrogen* 9 mg/dL (7-30); Calcium* 8.2 mg/dL (8.4-10.6); Carbon Dioxide* 36 mmol/L (20-32); Creatinine* 0.9 mg/dL (0.5-1.5); Est. Creatinine Clearance* 71.99; Estimated Glomerular Filt Rate 92 ml/min; Glucose* 127 mg/dL (60-115)
--- NOTE | 2022-07-15 17:15 | PC.NURSE ---
Pt calm and cooperative during shift. Pt alert and oriented. Pt had pain ranging from 0-9. See EMAR for pharmacological interventions. Pt up to chair for part of shift. Pt walked the hallway with PT. Pt walked around the room multiple times. Pt on 2 liters via oxy mask. Pt educated on importance of using CPAP when sleeping including when napping. Pt only ordered breakfast tray and did so around 1030am. Pt had a good amount of output during the shift.?
[2022-07-15] MEDS: ACETAMINOPHEN 325 MG TABLET 650 MG PO (18:06)
[2022-07-16] MEDS: OXYCODONE 5 MG TABLET PO (03:15)
[2022-07-16 03:28] VITALS: BP 139/74; PULSE 85; RESP 16; TEMP 36.6; O2SAT 89
--- NOTE | 2022-07-16 05:18 | PC.NURSE ---
Shift note: The redness to the right leg has been remained in the outline area, x2 small open skin area noted on the right reynolds and draining small drain - covered with Kerlix. The pt has been c/o mild and moderate pain to the right leg- PRN pain medication with a good relief. The pt refused YANG wrap to the right leg at HS. The right leg has been elevated on the pillows. The pt has been using CPAP when sleeping with 2L of O2 bleeding into it and using 2L of oxygen via OxyMask when to sleeping; spo2 has been > 88%. The pt has been denying chest pain, and other acute distress throughout the shift.
[2022-07-16] MEDS: OMEPRAZOLE 20 MG CAPSULE DR 40 MG PO (06:13)
[2022-07-16] MEDS: ENOXAPARIN 30 MG/0.3ML INJ SUBCUT (06:13)
[2022-07-16 06:33] LABS: HCO3 VBG 35 mmol/L (21-28); PCO2 VBG 55 mmHG (40-50); PO2 VBG 43.9 mmHG (25-47); pH VBG 7.413 (7.32-7.43)
[2022-07-16 06:43] LABS: Hematocrit 36.3 % (37.0-53.0); Hemoglobin* 11.2 gm/dL (13.5-17.5); Mean Corpuscular HGB Conc 31 gm/dL (32-36); Mean Corpuscular Hemoglobin 27 pg (26-34); Mean Corpuscular Volume 87 fL (80-100); Platelet Count* 577 K/uL (140-440); Red Blood Count 4.16 m/uL (4.30-5.90)
[2022-07-16 06:45] LABS: Slide Review Reflex Yes
[2022-07-16 06:47] LABS: Slide Review Acceptable Review (Acceptable)
[2022-07-16 07:05] LABS: Chloride* 97 mmol/L (96-114); Potassium* 4.7 mmol/L (3.6-5.1); Sodium* 133 mmol/L (135-149)
[2022-07-16 07:08] LABS: Creatinine* 0.8 mg/dL (0.5-1.5); Est. Creatinine Clearance* 71.99; Estimated Glomerular Filt Rate 96 ml/min
[2022-07-16 07:09] LABS: Blood Urea Nitrogen* 9 mg/dL (7-30); Calcium* 7.9 mg/dL (8.4-10.6); Carbon Dioxide* 34 mmol/L (20-32); Glucose* 119 mg/dL (60-115); Magnesium* 2.5 mg/dL (1.5-2.6)
--- NOTE | 2022-07-16 07:11 | PM.IMPN1 ---
Progress Note: A&P Assessment and plan (1) Cellulitis of right lower extremity: Problem details: Severe cellulitis in the context of chronic lymphedema. Improving nicely with the switch to Vanc. We checked a trough 07/15 = 20. will decrease dosing to [id number]. continue elevation, wraps. Status: Acute (2) Acute hypoxemic respiratory failure: Problem details: likely multifactorial: severe COPD, untreated DALILA at a baseline then septic with cellulitis; all improving now. still hypoxic requiring 2L will likely need home O2. Status: Acute (3) CO2 retention: Problem details: PCO2 50's with normal pH suggests chronic hypoventilation. Status: Acute (4) Lymphedema: Problem details: Chronic. Resume compression and elevation. Status: Acute (5) NSTEMI (non-ST elevated myocardial infarction): Problem details: Likely had a non STEMI about 2 days prior to admission when he had shoulder pain. No ongoing symptoms. Previously known coronary disease. Continue aspirin, statin, beta-val. Status: Acute (6) Sepsis: Problem details: Hypotensive and tachycardiac on presentation to the emergency department. Initially it was unclear whether this was sepsis from infection or related to his acute coronary syndrome. He responded well to fluid resuscitation and it appears he had sepsis from infection. Infection persists but signs and symptoms of sepsis have resolved Status: Acute (7) Noncompliance with medications: Problem details: Reports taking 's oxycontin and allowing her to take his doxycycline. Unclear, but also may be noncompliant with other prescribed medications. Also noncompliant with CPAP Status: Acute (8) COPD (chronic obstructive pulmonary disease): Problem details: Continues to be mildly hypoxic. Does not have severe evidence of obstruction such as wheezing or marked decreased breath sounds. Status: Chronic (9) Primary hypertension: Status: Acute (10) Morbidly obese: Status: Acute (11) Obstructive sleep apnea hypopnea, severe: Problem details: On CPAP. Non compliant with CPAP at home. Using CPAP here with better effort and compliance. 08/14/2021 AHI- 125 Status: Acute Subjective Interval history: Daily Progress Note - Hospital Medicine Day #: 9 s/p 5 days of Ancef now day 4 of VANC CC: right lower leg cellulitis; sepsis, NSTEMI OVERNIGHT UPDATES FROM STAFF & MED, LAB, IMAGING UPDATES Vitals reviewed. Blood pressures have been acceptable with systolics in the 140s, currently 139. Diastolics 60s to 70s. He remains afebrile. His pulse is in the 80s. His respiratory rate is 16 and unlabored. His pulse ox is 91-89% on 2 L. -did use CPAP most of the night but remains on 2L bleed in and 2L oximask while awake. CBC VBG Chemistries C reactive protein I reviewed the troponin downtrending results from earlier in this hospitalization. I reviewed the echocardiogram. And I also reviewed the chest x-ray all done previously to my assumption of the service. Blood cultures finalized 5 days, negative. Echo completed on 07/09 shows a normal EF. Borderline wall thickness of the left ventricle. Limited exam secondary to body habitus. Mild dilated ascending aorta. 4.0 cm Objective: alert, copperative. Vitals: see above Lungs: Clear. no significant wheezes. Cardiac: S1S2. right lower extremity: Both LE appear chronically edematous with lymphedema. Closer inspection of the right LE - one taught blister on calf; otherwise these have resolved. thickened epidermis with stasis changes noted. erythema has retracted from original lines. Disposition/Potential discharge - Likely to return to previous living situation. Total time is 35 minutes with greater than 50% spent in counseling and coordination of care. Exam Const: Vital Signs, click to edit/add: Vital Signs - 24 hr 07/15/22 07:20 07/15/22 07:20 07/15/22 07:20 Temperature 97.2 F L Pulse Rate [Pulse Oximeter] 86 Respiratory Rate 14 Blood Pressure [Le ft Arm] 143/66 H Pulse Oximetry 93 91 91 Oxygen Delivery Me thod OxyMask OxyMask Oxygen Flow Rate 2 2 07/15/22 07:20 07/15/22 11:05 07/15/22 15:00 Temperature 97.2 F L Pulse Rate [Pulse Oximeter] 86 90 Respiratory Rate 14 16 Blood Pressure [Le ft Arm] 144/60 H Pulse Oximetry 90 91 Oxygen Delivery Me thod OxyMask Oxygen Flow Rate 2 07/15/22 15:00 07/15/22 15:00 07/15/22 15:00 Temperature 96.7 F L Pulse Rate [Pulse Oximeter] 85 85 Respiratory Rate 16 16 Blood Pressure [Le ft Arm] 149/76 H Pulse Oximetry 91 91 Oxygen Delivery Me thod OxyMask OxyMask Oxygen Flow Rate 2 2 07/15/22 19:40 07/15/22 23:10 07/15/22 23:10 Temperature 97 F L Pulse Rate [Pulse Oximeter] 83 82 Respiratory Rate 16 16 Blood Pressure [Le ft Arm] 152/65 H Pulse Oximetry 91 91 Oxygen Delivery Me thod CPAP Oxygen Flow Rate 2 07/15/22 23:10 07/15/22 23:10 07/16/22 03:28 Temperature 97.3 F L 98 F Pulse Rate [Pulse Oximeter] 82 85 Respiratory Rate 16 16 16 Blood Pressure [Le ft Arm] 142/62 H 139/74 Pulse Oximetry 91 91 89 Oxygen Delivery Me thod CPAP CPAP CPAP Oxygen Flow Rate 2 2 2 Labs Labs: Laboratory Results - last 24 hr 07/15/22 07/15/22 07/16/22 05:45 11:35 05:45 WBC 9.00 RBC 4.16 L Hgb 11.2 L Hct 36.3 L MCV 87 MCH 27 MCHC 31 L Plt Count 577 H Diff Slide Review Acceptable Review VBG pH 7.413 VBG pCO2 55 H VBG pO2 43.9 VBG HCO3 35 H Sodium 133 L Potassium 4.0 Chloride 95 L Carbon Dioxide 36 H BUN 9 Creatinine 0.9 Estimated Creat Clear 71.99 Estimated GFR 92 Glucose 127 H Calcium 8.2 L Vancomycin Trough 20.0
[2022-07-16 07:12] LABS: C Reactive Protein* 7.1 mg/dL (0.5-1.0)
[2022-07-16 07:27] VITALS: BP 141/76; PULSE 84; RESP 14; TEMP 36.1; O2SAT 94
[2022-07-16] MEDS: IPRAT-ALBUT 0.5-2.5 MG/3 ML NEB 1 NEB IH (08:15)
[2022-07-16] MEDS: POTASSIUM CHLORIDE 10 MEQ CAPSULE ER 20 MEQ PO (08:16)
[2022-07-16] MEDS: SENNOSIDES 1 TAB TABLET 2 TAB PO (08:17)
[2022-07-16] MEDS: cilostazoL 100 MG TABLET PO (08:18)
[2022-07-16] MEDS: ASPIRIN 81 MG TABLET EC PO (08:18)
[2022-07-16] MEDS: ROSUVASTATIN CALCIUM 10 MG TABLET 40 MG PO (08:18)
[2022-07-16] MEDS: LACTOBACILLUS ACIDOPHILUS 1 TABLET 1 TAB PO (08:18)
[2022-07-16] MEDS: METOPROLOL SUCCINATE (XL) 50 MG TAB PO (08:18)
[2022-07-16] MEDS: Fluticasone-Umeclidin-Vilanter [Trelegy Ellipta] 200-62.5-25 mcg IH (08:19)
[2022-07-16] MEDS: SODIUM CHLORIDE 0.9 % (FLUSH) 10 ML SYRINGE 5 ML IVF (08:23)
[2022-07-16] MEDS: FUROSEMIDE 40 MG TABLET PO (08:23)
[2022-07-16 08:56] VITALS: O2SAT 82; O2SAT 87; O2SAT 90
--- NOTE | 2022-07-16 09:00 | RESP.RT ---
Reviewed CPAP with patient last night before bed and again this morning. He brings up several barriers to him either having the correct equipment, insurance coverage, not feeling comfortable, amongst several others. We have tried to address these issues with him, but it does appear that compliance will continue to be an ongoing issue.
--- NOTE | 2022-07-16 09:03 | RESP.3PART ---
3 Part Home O2 Testing Summary RT 3 Part Home O2 Testing Summary Start: 07/16/22 08:56 Freq: Status: Active Protocol: Document 07/16/22 08:56 BRIE (Rec: 07/16/22 08:59 BRIE [id number]) 3 Part Home O2 Testing Summary The following is a summary of the 3 Part O2 Testing Evaluation Date/Time of Testing Date 07/16/22 Time 08:45 Insurance Policy Number [id number] Step 1 SAT on room air at rest (%) 87 Step 2 SAT on room air while exercising (%) 82 Step 3 SAT on supplemental O2 while exercising 90 (%) Liters of supplemental O2 needed while 2 exercising (L) O2 Delivery O2 delivered via Nasal Cannula Comments Comments Patient SAT on room air at rest is 87% and requires 1L NC to keep SAT at 90%. Patient SAT on room air with activity is 82% and requires 2L NC to keep SAT at 90%.
--- NOTE | 2022-07-16 09:11 | W.PM.HOT ---
Acute Home Oxygen Therapy Acute Home Oxygen Therapy Diagnosis for Oxygen Therapy (1) CO2 retention: Comment: PCO2 50's with normal pH suggests chronic hypoventilation. Code(s): E87.29 - Other acidosis (2) COPD (chronic obstructive pulmonary disease): Comment: Continues to be mildly hypoxic. Does not have severe evidence of obstruction such as wheezing or marked decreased breath sounds. Code(s): J44.9 - Chronic obstructive pulmonary disease, unspecified Qualifiers: COPD type: chronic bronchitis Chronic bronchitis type: mucopurulent Qualified Code(s): J41.1 - Mucopurulent chronic bronchitis (3) Obstructive sleep apnea hypopnea, severe: Comment: On CPAP. Non compliant with CPAP at home. Using CPAP here with better effort and compliance. 08/14/2021 AHI- 125 Code(s): G47.33 - Obstructive sleep apnea (adult) (pediatric) Provider Note Provider Note: Patient was admitted on 07/08/22 at 16:04 and will be discharging on 07/16/22 Patient is desaturating with SATs of 87% on room air at rest and SATs of 82% with activity due to COPD/DALILA. Alternative therapies have been attempted and have not been successful in maintaining the patient's saturation level above 88%. Supplemental O2 is required. This patient is mobile within the home and requires portability.
[2022-07-16 09:15] VITALS: BP 127/60; PULSE 77; RESP 14; TEMP 36.1
--- NOTE | 2022-07-16 09:17 | P.DS_ITS ---
DS: Providers Provider Date Seen: 07/16/22 Date of admission: 07/08/22 16:04 Primary care physician: Qiana Roth DO Admitting Clinician: Lisandro Correa MD Consults: 07/08/22 16:04 Consult to Respiratory Therapy [CONS] Routine Comment: Reason(s) for RT Consult:: Consult 07/08/22 16:10 Consult to Physical Therapy [CONS] Routine Comment: Reason(s) for PT Consult:: Evaluate and Treat Any Restrictions?:: No Restrictions 07/08/22 16:11 Consult to Occupational Therapy [CONS] Routine Comment: MOCA, does he need help with medications at home? Reason(s) for OT Consult:: Evaluate and Treat Any Restrictions?:: No Restrictions 07/13/22 07:41 Consult to Construction Stonemason [CONS] Routine Comment: Reason for Consult:: Discharge Planning Needs Attending Physician on discharge: Sophia Jo MD [facility] Date of Discharge: 07/16/22 DS: Diagnosis Discharge Diagnosis (1) Sepsis: Status: Acute Problem details: resolved with treatment from right lower leg cellulitis. (2) Acute hypoxemic respiratory failure: Status: Acute Problem details: likely multifactorial: severe COPD, untreated DALILA at a baseline then septic with cellulitis. We worked with the patient to be compliant with CPAP and he qualified for home oxygen on 07/16/22. He retains CO2 and has generalized decreased ability to walk and be active. Home PT eval and home health aide orde red. (3) Cellulitis of right lower extremity: Status: Acute Problem details: Severe cellulitis in the context of chronic lymphedema. Improved with IV antibiotics. Will continue outpatient Vanc 07/17 and 07/18 and then likely transition to oral abx. (4) NSTEMI (non-ST elevated myocardial infarction): Status: Acute Problem details: Likely had a non STEMI about 2 days prior to admission when he had shoulder pain. No ongoing symptoms. Previously known coronary disease. Continue aspirin, statin, beta-val. Echo, limited, stable. (5) COPD (chronic obstructive pulmonary disease): Status: Chronic Problem details: Continues to be mildly hypoxic. Does not have severe evidence of obstruction such as wheezing or marked decreased breath sounds. (6) Primary hypertension: Status: Acute (7) Morbidly obese: Status: Acute (8) Obstructive sleep apnea hypopnea, severe: Status: Acute Problem details: On CPAP. Non compliant with CPAP at home. Using CPAP here with better effort and compliance. 08/14/2021 AHI- 125 (9) CO2 retention: Status: Acute Problem details: PCO2 50's with normal pH suggests chronic hypoventilation. (10) Lymphedema: Status: Acute Problem details: Chronic. Resume compression and elevation. Will be evaluated by the lymphedema clinic. (11) Mild ascending aorta dilatation: Status: Acute Problem details: 4.0 cm found on inpatient echo. outpatient surveillance appropriate. DS: Summary Hospital Course Hospital Course: HOSPITALIST DISCHARGE SUMMARY ATTENDING PHYSICIAN: Sophia Jo MD FINAL DIAGNOSIS: Sepsis - Right Lower Leg Cellulitis Non-STEMI DALILA COPD, oxygen dependent CO2 retention CRP today aortic dilation, 4.0cm Morbid Obesity HOSPITAL FOLLOWUP ISSUES: 1. Lymphedema clinic 2. Outpatient IV Vanc for two more days 3. Home Health Referral - PT, Home Health Aide REFERRALS WHILE ADMITTED: PT OT REFERRALS AFTER DISCHARGE: Home Health BRIEF HOSPITAL COURSE: 67-year-old white male presented with sepsis. The source of this sepsis was right lower leg cellulitis. In addition to the cellulitis causing sepsis he also was recovering from a non STEMI. His symptoms had began 2 days prior to admission. His troponin was elevated without EKG change on admission. His troponin down trended. We obtained an echocardiogram, which was stable with preserved EF and no acute findings. He was found to have a small aortic dilation of 4.0 cm. This can be followed as an outpatient. He was treated with IV antibiotics. He had a slow response to IV Ancef so he was switched to IV vancomycin. There were no wound cultures obtained. Blood cultures were negative. He was hypoxic which was felt to be multifactorial. He has underlying untreated severe DALILA, COPD, recent non STEMI all in the setting of sepsis. By discharge his sepsis had resolved. We encouraged and championed his use of CPAP. We qualified him for home O2 and home health and PT. SUBSTANTIVE NOTATIONS ON IMAGING, LAB, MICROBIOLOGY/PATHOLOGY STUDIES: Max white blood cell count was on the day of admission, 14.8 Hemoglobin has stabilized between 10.5 and 11.4 Platelets were mildly reactive the of discharge. PH upon discharge 7.4, CO2 retention has been 55-60. His electrolytes were all reassuring on the day of discharge. His renal function was normal. His blood glucose was well managed. His C reactive protein had down trended nicely. On the day of admission it was 40.1, discharge 7.1. Procalcitonin down trended from 17.8-11.6. On 07/15 his vancomycin trough was 20. CTA on admission showed coronary artery calcification, hepatomegaly, fatty liver, mild emphysema, atelectasis. No PE. Venous duplex ultrasound of the right lower extremity was negative for acute clock. The echocardiogram done on 07/09 showed a normal LV size. EF 60-65%. This was a technically limited exam. Ascending aorta is dilated to 4.0 cm DISCHARGE MEDICATIONS: See Reconciled list - SIGNIFICANT CHANGES: We increased his metoprolol from 25-50 mg of the sustained release. We will continue him on Lasix and potassium, which was started in the inpatient setting REVIEW OF SYSTEMS No new chest pain or dyspnea Pain controlled No voiding difficulties Tolerating diet challenge PHYSICAL EXAM: CONSTITUTIONAL: Alert. Insightful. Agrees and feels ready for discharge. VITAL SIGNS: see record. HEENT: Normocephalic, atraumatic. PERRL, EOMI, conjunctivae pink, no scleral icterus. Ears and nose externally normal. Pharynx normal. NECK: No JVD. No carotid bruit, no thyromegaly, no adenopathy. CHEST: Clear to auscultation bilaterally. HEART: S1 and S2 normal. Edema. 2+. ABDOMEN: Soft, nontender. Normal bowel sounds. MUSCULOSKELETAL: No gross joint deformity or swelling. NEURO: Cranial nerves intact. Grossly intact. No asymmetric findings. SKIN: Serial exams of the right lower extremity showed decreasing erythema. A couple of his talk blisters have opened draining clear fluid. Underlying skin looks healthy. No new bulla. PSYCHIATRIC: Mood euthymic. DISPOSITION: Home with . Home health ordered. PT eval ordered. PCP follow-up ordered. Time spent on discharge 37 minutes. Status at Discharge Functional status at discharge: uses cane/walker Overall status at discharge: patient is progressing back to baseline Time Spent with Patient Time attestation: Total time spent providing and/or coordinating discharge services: Time spent: Greater than 30 minutes Exam Const: Vital Signs, click to edit/add: Vital Signs - 24 hr 07/15/22 11:05 07/15/22 15:00 07/15/22 15:00 Temperature 97.2 F L Pulse Rate Pulse Rate [Pulse Oximeter] 90 Respiratory Rate 16 16 Blood Pressure Blood Pressure [Le ft Arm] 144/60 H Pulse Oximetry 90 91 91 Oxygen Delivery Me thod OxyMask OxyMask Oxygen Flow Rate 2 2 07/15/22 15:00 07/15/22 15:00 07/15/22 19:40 Temperature 96.7 F L 97 F L Pulse Rate Pulse Rate [Pulse Oximeter] 85 85 83 Respiratory Rate 16 16 Blood Pressure Blood Pressure [Le ft Arm] 149/76 H 152/65 H Pulse Oximetry 91 91 Oxygen Delivery Me thod OxyMask CPAP Oxygen Flow Rate 2 2 07/15/22 23:10 07/15/22 23:10 07/15/22 23:10 Temperature Pulse Rate Pulse Rate [Pulse Oximeter] 82 Respiratory Rate 16 16 Blood Pressure Blood Pressure [Le ft Arm] Pulse Oximetry 91 91 Oxygen Delivery Me thod CPAP Oxygen Flow Rate 2 07/15/22 23:10 07/16/22 03:28 07/16/22 07:27 Temperature 97.3 F L 98 F Pulse Rate Pulse Rate [Pulse Oximeter] 82 85 Respiratory Rate 16 16 Blood Pressure Blood Pressure [Le ft Arm] 142/62 H 139/74 Pulse Oximetry 91 89 94 Oxygen Delivery Me thod CPAP CPAP Oxygen Flow Rate 2 2 07/16/22 07:27 07/16/22 07:27 07/16/22 07:27 Temperature 97.0 F L Pulse Rate Pulse Rate [Pulse Oximeter] 84 84 Respiratory Rate 14 14 14 Blood Pressure Blood Pressure [Le ft Arm] 141/76 H Pulse Oximetry 94 94 Oxygen Delivery Me thod OxyMask OxyMask Oxygen Flow Rate 2 2 07/16/22 09:15 Temperature 97.0 F L Pulse Rate 77 Pulse Rate [Pulse Oximeter] Respiratory Rate 14 Blood Pressure 127/60 Blood Pressure [Le ft Arm] Pulse Oximetry Oxygen Delivery Me thod Oxygen Flow Rate DS: Data Data Completed and Pending Labs on day of discharge: Labs from last 24 hours 07/16/22 07/15/22 07/15/22 05:45 11:35 05:45 WBC 9.00 RBC 4.16 L Hgb 11.2 L Hct 36.3 L MCV 87 MCH 27 MCHC 31 L Plt Count 577 H Diff Slide Review Acceptable Review VBG pH 7.413 VBG pCO2 55 H VBG pO2 43.9 VBG HCO3 35 H Sodium 133 L 133 L Potassium 4.7 4.0 Chloride 97 95 L Carbon Dioxide 34 H 36 H BUN 9 9 Creatinine 0.8 0.9 Estimated Creat Clear 71.99 71.99 Estimated GFR 96 92 Glucose 119 H 127 H Calcium 7.9 L 8.2 L Magnesium 2.5 C-Reactive Protein 7.1 H Vancomycin Trough 20.0 Discharge Plan Discharge Disposition: Home w/ Parent or Adult Date of Admission: 07/08/22 16:04 Attending Provider on Discharge: Sophia Jo Primary Care Provider: Qiana Roth Anticipated Discharge Date/Time: 07/16/22 08:43 Discharge Medications: New oxycodone 5 mg Tablet 5 - 10 mg PO Q6H PRNQty: 20 0RF potassium chloride [K-Tab] 20 mEq tablet extended release 40 meq PO DAILY Qty: 60 0RF Continued Trelegy Ellipta 200-62.5-25 mcg blister with device 1 inh inhalation DAILY albuterol sulfate 90 mcg/actuation HFA aerosol inhaler 2 puff inhalation Q4H PRN ipratropium-albuterol 0.5 mg-3 mg(2.5 mg base)/3 mL solution for nebulization 3 ml inhalation Q6H PRN Patient Comments: USE 3 ML VIA NEBULIZER EVERY 6 HOURS NEEDED FOR SHORTNESS OF BREATH furosemide 40 mg tablet 40 mg PO DAILY omeprazole 40 mg capsule,delayed release(DR/EC) 40 mg PO DAILY aspirin 81 mg tablet,delayed release (DR/EC) 81 mg PO DAILY cilostazol 100 mg tablet 100 mg PO BID Qty: 180 3RF Rx Instructions: Patient not to take with omeprazole. rosuvastatin 40 mg tablet 40 mg PO DAILY Changed metoprolol succinate 25 mg tablet extended release 24 hr 50 mg PO DAILY Qty: 60 0RF Discontinued montelukast 10 mg tablet 10 mg PO QHS Qty: 90 3RF doxycycline hyclate 100 mg tablet 100 mg PO BID 7 Days Qty: 14 0RF Hold Instructions: took it for a toothache instead of him Ozempic 0.25 mg or 0.5 mg(2 mg/1.5 mL) pen injector 0.25 mg subcut QWEEK 28 Days Qty: 0.8 0RF Discharge Orders: Discharge Order (Routine); Ordered 07/16/22 Ordered By: Sophia Jo Patient Education: Potassium Chloride (By mouth), Oxycodone, Rapid Release (By mouth), Heart Attack (GEN), Cellulitis (GEN), Foot Care for People with Diabetes (DC), Type 2 Diabetes in the Older Adult (DC) Additional Instructions: 1. Please wear your CPAP every night. This affects many aspects of your health. Your mood, your leg swelling, your breathing, your energy. 2. Wear your home oxygen during the day, following your pulse oximetry. Its okay to be 88-92%, you don't want to be greater than 95%. You can actually cause yourself harm by during up your oxygen past 3L and/or keeping your sats >95%. You retain carbon dioxide because of COPD. When you intake too much oxygen, the carbon dioxide will go up and cause harm to your lungs, brain. People will feel sleepy and wonder why they feel crappy and their sats are ok. PLEASE KEEP OXYGEN LEVELS BETWEEN 88-94% AND NO MORE THAN 3L. Come to the ED if this isn't working at home. 3. We will see you tomorrow morning for your antibiotic infusion - just check in at the ED but you will be seen up here. I'll take a look at your leg each day. 4. I'm ordering PT and home health aide to assist in your continued convalescence. Activity Level: Activity as Tolerated Discharge Diet: Low Fat/Low Cholesterol and Heart Healthy (2 gm sodium, low fat) Follow Up Appointments: Qiana Roth DO [Primary Care Provider] - 07/26/22 (Patient will need to make his own follow up appointment. [facility] is close on the weekends.) Forms: [employer] Info Instructions
[2022-07-16 10:53] VITALS: BP 175/80; PULSE 87; RESP 14; TEMP 36.4; O2SAT 94
--- NOTE | 2022-07-16 12:30 | PC.NURSE ---
Pt calm and cooperative during shift. Pt alert and oriented. Pt on 2 liters via nasal canula. Pt had a shower with OT. Pt had a new IV placed. Pt to discharge home with family. Pt sent home with home O2. Pt has had no pain during shift.?
== END 2022-07-16 12:20 | disposition home or self-care (01) | DRG 720 ==
LOC: ED 10:54 → MEDSURG 14:31
PROVIDERS: Emergency Medicine; Family Medicine; Admitting Provider Family Medicine; Emergency Provider Family Medicine; PCP Family Medicine; Visit Provider Family Medicine
DX: A41.9 Sepsis, unspecified organism (principal); I21.4 Non-ST elevation (NSTEMI) myocardial infarction; R65.21 Severe sepsis with septic shock; J96.01 Acute respiratory failure with hypoxia; J96.02 Acute respiratory failure with hypercapnia; L03.115 Cellulitis of right lower limb; N17.9 Acute kidney failure, unspecified; E87.29 Other acidosis; Z68.42 Body mass index [BMI] 45.0-49.9, adult; I89.0 Lymphedema, not elsewhere classified; G47.33 Obstructive sleep apnea (adult) (pediatric); E66.01 Morbid (severe) obesity due to excess calories; Z91.14 Patient's other noncompliance with medication regimen; Z91.199 Patient's noncompliance with other medical treatment and regimen due to unspecified reason; I73.9 Peripheral vascular disease, unspecified; M48.062 Spinal stenosis, lumbar region with neurogenic claudication; M54.16 Radiculopathy, lumbar region; I25.10 Atherosclerotic heart disease of native coronary artery without angina pectoris; E87.6 Hypokalemia; E78.5 Hyperlipidemia, unspecified; K21.9 Gastro-esophageal reflux disease without esophagitis; Z86.718 Personal history of other venous thrombosis and embolism; J41.1 Mucopurulent chronic bronchitis
CPT/HCPCS: 36415; 71045; 71260; 80048; 80053; 80061; 80202; 82043; 82306; 82570; 82607; 82803; 82962; 83605; 83735; 83880; 84145; 84153; 84484; 85025; 85027; 85379; 85651; 86140; 87040; 87502; 87634; 87635; 93005; 93306; 93971; 94640; 94761; 97110; 97116; 97161; 97166; 97530; 97535; 99284; 99285; 99291; A9270; J0690; J1650; J3370; J7030; J7050; J7120; Q9957; Q9967

== ENCOUNTER 2022-07-19 08:47 | Outpatient (RCR) | payer BC, MEDICARE, SELFPAY ==
[2022-07-17 10:22] VITALS: BP 167/70; PULSE 86; RESP 18; TEMP 36.5; O2SAT 95
--- NOTE | 2022-07-17 13:29 | PC.NURSE ---
Dressing change to right lower extremity completed. Dr. Jo assessed wound. IV vanco administered per orders, patient tolerated well with no adverse signs or symptoms. Saline lock in place to right forearm IV.
--- NOTE | 2022-07-18 09:02 | PC.SOCIAL ---
Pt. had an order for home care at discharge from the hospital. Per physician PT is now not needed. Pt. was at baseline with therapies.
[2022-07-18 10:46] VITALS: BP 137/59; PULSE 79; RESP 20; TEMP 35.8; O2SAT 94
--- NOTE | 2022-07-18 13:43 | PC.NURSE ---
Client returned for IV antibiotic and dressing change. Wound assessed by Dr. Jo, she would like patient to receive one more dose of IV antibiotics tomorrow. Right reynolds continues to have a blister that has opened, redness periwound and edematous. Client does report discomfort to LE. Discussed with MD that patients medications have not been filled, Dr. Jo addressed issue. Dressing to right lower extremity, cleansed with vashe, covered with non adherent, ABD pad, wrapped with Kerlix and belkis wrap. New IV placed in left forearm due to previous site leaking and no longer patent. Patient tolerated well without complaints.
[2022-07-19 09:05] VITALS: BP 124/71; PULSE 91; RESP 22; TEMP 36.6; O2SAT 93
[2022-07-19 09:32] LABS: Basophils Absolute Auto 0.02 K/uL (0.00-0.30); Basophils Percent Auto 0.3 % (0.0-3.0); Eosinophils Absolute Auto 0.16 K/uL (0.00-0.50); Eosinophils Percent Auto 2.1 % (0.0-7.0); Hematocrit 37.8 % (37.0-53.0); Hemoglobin* 11.7 gm/dL (13.5-17.5); Immature Granulocytes Abs Auto 0.03 K/uL (0.00-0.30); Immature Granulocytes Pct Auto 0.4 %; Lymphocytes Percent Auto 14.2 % (20-44); Mean Corpuscular HGB Conc 31 gm/dL (32-36); Mean Corpuscular Hemoglobin 27 pg (26-34); Mean Corpuscular Volume 86 fL (80-100); Monocytes Percent Auto 8.2 % (0.0-11.0); Neutrophils Percent Auto 74.8 % (42.0-72.0); Platelet Count* 643 K/uL (140-440); RDW Coefficient of Variation % 15.7 % (11.5-15.5); Red Blood Count 4.39 m/uL (4.30-5.90); White Blood Count* 7.68 K/uL (4.50-11.00)
[2022-07-19 09:44] LABS: Slide Review Reflex No
[2022-07-19 09:46] LABS: Chloride* 100 mmol/L (96-114); Potassium* 4.2 mmol/L (3.6-5.1); Sodium* 136 mmol/L (135-149)
[2022-07-19 09:49] LABS: Creatinine* 0.9 mg/dL (0.5-1.5); Estimated Glomerular Filt Rate 92 ml/min
[2022-07-19 09:50] LABS: Blood Urea Nitrogen* 10 mg/dL (7-30); Calcium* 8.3 mg/dL (8.4-10.6); Carbon Dioxide* 29 mmol/L (20-32); Glucose* 151 mg/dL (60-115)
[2022-07-19 09:53] LABS: C Reactive Protein* 5.6 mg/dL (0.5-1.0)
--- NOTE | 2022-07-19 10:38 | W.PM.CROSSCO ---
Subjective Subjective Date Seen: 07/19/22 Interval history: has completed 7 days of IV vanc - prior to that was 3 days of ANCEF, so 10 days total of IV ABX. crp and other labs all improved. clinically - he's not keeping his leg up enough and there is slightly more swelling about the top of foot and ankle HOWEVER the wounds (blisters that broke) and overall impression is a slow healing process continues. emphasized continued compression, elevation. stop smoking, loose weight. he will f/u with the lymphedema clinic and PCP as planned. toneveline start Zyvox 600mg bid until seen by PCP.
--- NOTE | 2022-07-19 12:22 | PC.NURSE ---
Pt arrived for Vencomycin infusion by 9am, alert and oriented, vitals stable, on 1L of O2 at baseline. saw pt at bedside, ordered pt to start on oral antibiotics, pt aware. Pt tolerated Vancomycin infusion well, no complications noted. Wound care done to RLE, some additional wound cares supplies and instructions given to pt and his daughter who states she will be doing his wound care, follow up w/ PCP scheduled, pt aware. IV removed after Vanomycin infusion complete, IV catheter intact. Pt given wheelchair ride out to daughter's car, dc'ing back home at 1205pm.
== END 2022-07-19 12:03 | disposition home or self-care (01) ==
LOC: MS OUT 08:47
PROVIDERS: PCP Family Medicine; Visit Provider Family Medicine
DX: L03.90 Cellulitis, unspecified (principal); J44.9 Chronic obstructive pulmonary disease, unspecified; R09.02 Hypoxemia; Z51.89 Encounter for other specified aftercare
CPT/HCPCS: 36415; 80048; 80202; 85025; 86140; 96365; 96366; 99211; J3370; J7120

== ENCOUNTER 2022-07-26 10:34 | Outpatient (CLI) | payer BC, MEDICARE, SELFPAY ==
[2022-07-26 11:33] LABS: Basophils Absolute Auto 0.06 K/uL (0.00-0.30); Basophils Percent Auto 0.7 % (0.0-3.0); Eosinophils Absolute Auto 0.26 K/uL (0.00-0.50); Eosinophils Percent Auto 2.9 % (0.0-7.0); Hematocrit 42.7 % (37.0-53.0); Mean Corpuscular HGB Conc 30 gm/dL (32-36); Mean Corpuscular Hemoglobin 27 pg (26-34); Mean Corpuscular Volume 88 fL (80-100); Monocytes Absolute Auto 0.67 K/UL (0.00-0.90); Monocytes Percent Auto 7.4 % (0.0-11.0); Neutrophils Absolute Auto 6.49 K/uL (1.7-7.0); Platelet Count* 641 K/uL (140-440); Red Blood Count 4.86 m/uL (4.30-5.90); White Blood Count* 9.01 K/uL (4.50-11.00)
[2022-07-26 11:40] LABS: Slide Review Reflex No
[2022-07-26 14:45] LABS: Albumin* 4.1 g/dL (3.3-5.0); Chloride* 102 mmol/L (96-114)
[2022-07-26 14:46] LABS: Potassium* 5.3 mmol/L (3.6-5.1); Sodium* 140 mmol/L (135-149)
[2022-07-26 14:48] LABS: Aspartate Amino Transferase* 28 U/L (12-35); Bilirubin Total* 0.5 mg/dL (0.1-1.5); Carbon Dioxide* 25 mmol/L (20-32); Creatinine* 1.1 mg/dL (0.5-1.5); Estimated Glomerular Filt Rate 73 ml/min; Total Protein* 9.2 g/dL (6.0-8.3)
[2022-07-26 14:49] LABS: Alanine Aminotransferase* 24 U/L (4-50); Alkaline Phosphatase* 92 U/L (40-150); Blood Urea Nitrogen* 13 mg/dL (7-30); Calcium* 9.5 mg/dL (8.4-10.6); Glucose* 118 mg/dL (60-115)
[2022-07-27 23:57] LABS: CRP, High Sensitivity 14.4 mg/L (<=3.0)
== END 2022-07-26 10:35 | disposition home or self-care (01) ==
PROVIDERS: PCP Family Medicine; Visit Provider Family Medicine
DX: L03.115 Cellulitis of right lower limb (principal); J41.1 Mucopurulent chronic bronchitis; E66.9 Obesity, unspecified; R73.03 Prediabetes; I10 Essential (primary) hypertension
CPT/HCPCS: 80053; 85025; 85651; 86141

== ENCOUNTER 2022-08-01 12:52 | Outpatient (CLI) | payer BC, MEDICARE, SELFPAY ==
--- NOTE | 2022-08-01 13:00 | CRLHL7_ITS ---
For Patients: As a result of the Century Cures Act, medical imaging exams and procedure reports are released immediately into your electronic medical record. You may view this report before your referring provider. If you have questions, please contact your health care provider. CLINICAL HISTORY: Right lower extremity pain and swelling. TECHNIQUE: Ayala scale, color Doppler, and compression sonography of the right lower extremity deep venous system was performed. COMPARISON: 07/08/2022 FINDINGS: There is no evidence for DVT in the right lower extremity. Color flow, compressibility, and respiratory variation are seen in the right lower extremity deep venous system. There is no intraluminal echogenic material within these veins to suggest thrombus. IMPRESSION: No evidence of DVT in the right lower extremity. Dictated by Valentin Pichardo MD @ 08/01/2022 1:56:39 PM (Electronically Signed)
== END 2022-08-01 12:53 | disposition home or self-care (01) ==
LOC: US 12:54
PROVIDERS: PCP Family Medicine; Visit Provider Family Medicine
DX: L03.115 Cellulitis of right lower limb (principal); M79.604 Pain in right leg
CPT/HCPCS: 93971

== ENCOUNTER 2022-10-09 08:43 | Outpatient (CLI) | payer BC, MEDICARE, SELFPAY ==
--- OUTSIDE RECORDS SUMMARY | 2022-10-10 18:01 | XMS_ITS | Continuity of Care Document ---
Author Name Unknown Organization [facility] Address [address] [place] [address] Phone Care Team Providers Care Broadcaster Name Role Phone Rikki MOISE, PhD, Austyn Unavailable Unavai lable Allergies, Adverse Reactions, Alerts Substance Reaction Status Criticality No Known Allergies Active No Inform ation Medications Medication Instructions Dosage Effective Dates (start - stop) Status Comments BALANCED B-COMPLEX (unknown strength) Not Available - Active CETIRIZINE HCL (unknown strength) Not Available - Active CILOSTAZOL (unknown strength) Not Available - Active CLOPIDOGREL (unknown strength) Not Available - Active METOPROLOL SUCCINATE (unknown strength) Not Available - Active OMEPRAZOLE (unknown strength) Not Available - Active ROSUVASTATIN CALCIUM (unknown strength) Not Available - Active Procedures Procedure Date Office/Outpatient Visit,Est, Low 2018 Postop Followup Visit Remove Intraspinal Lesion, Lumbar Remove Lumbar Spine Lamina, 1 Seg X3 Mod ifier Remove Intraspinal Lesion, Lumbar Remove Lumbar Spine Lamina, 1 Seg Office/Outpatient Visit,Est, Mod 2018 X-Ray Exam Lwr Spine, Min 4 Views Office/Outpatient Visit,New, Mod 2017 Advance Directives Directive Yes / No Effective Date File Name No Information Encounters Encounter Description Practice Location Reason(s) For Visit Diagnoses Date Provider Providers Copied on Encounter [facility], [address], [place], [id number], tel:[phone] [facility] No Information Rikki Zaman. [facility], [address], [place], [address], [place]. tel:[phone] Office/Outpat ient Visit,Est, Low [facility], [address], [place], [place], [id number], [place] tel:[phone] [facility] Encounter for other specified surgical aftercare Rikki Zaman. [facility], [address], [place], [address], [place]. [phone] Referring Provider: Drew Tobin [address], [address]. tel:[phone] [facility], [address], [place], [place], [id number], [place] tel:[phone] [facility] Encounter for other specified surgical aftercare Rikki Zaman. [facility], [address], [place], [address], [place]. [phone] Referring Provider: Manish Mcnally[address], [address]. tel:[phone] [facility], [address], [place], [place], [id number], [place] tel:[phone] [facility] No Information Gonzales Goodman. [facility], [address], [place], [place], [id number] , [place]. tel:[phone] Referring Provider: Drew [facility]in [facility] [address] [place], [address]. tel:[phone] [facility], [address], [place], [place], [id number], [place] tel:[phone] [facility] No Information Rikki Zaman. [facility], [address], [place], [address], [place]. [phone] Referring Provider: Drew Tobin [address], [address]. tel:[phone] Office/Outpat ient Visit,Est, Mod [facility], [address], [place], [place], [id number], [place] tel:[phone] [facility] Other intervertebral disc displacement, lumbar region Rikki Zaman. [facility], [address], [place], [address], [place]. [phone] Referring Provider: Drew Tobin [address], [address]. tel:[phone] Office/Outpat ient Visit,New, Mod [facility], [address], [place], [place], [id number], [place] tel:[phone] [facility] Spinal stenosis, lumbar region with neurogenic claudication Rikki aZman. [facility], [address], [place], [address], [place]. [phone] Referring Provider: Drew Tobin [address], [address]. tel:[phone] [facility], [address], [place], [id number], [place] tel:[phone] [facility] Radiculopathy, lumbar regionSpinal stenosis, lumbosacral region [address] [facility], [address], [place], [address], [place]. [phone] Family History Family Member Type Diagnosis Age At Onset No Information Payers Payer name Insurance type Covered alliance party ID Authornicolea tiloc(s) [facility] [id number] Medicare MB [id number] Social History Type Description Quantity Date Captured Comments Sex Male Smoking Status No Information Chief Complaint And Reason For Visit No Information Reason For Referral Reason For Referral No Information Plan Of Treatment Date Type Action Status Future Order: Radiology Order AP -Fpn-[id number] Lum ([id number]), Ordered on: Ordered History Of Present Illness Encounter Date Complaint History Of Prese nt Illness No Information Functional Status Date Functional Assessmen t No Information Instructions Date Instruction Additional Infor mation No Information Assessments Type Assessment Date No Information Patient Care Teams Name Effective Dates (start - stop) Status Members No Information
== END 2022-10-09 08:44 | disposition home or self-care (01) ==
LOC: NFLDREF 10-10 18:00
PROVIDERS: PCP Family Medicine; Referring Provider Family Medicine; Visit Provider Family Medicine
DX: E66.01 Morbid (severe) obesity due to excess calories (principal); E78.5 Hyperlipidemia, unspecified; I10 Essential (primary) hypertension; R73.03 Prediabetes; Z12.5 Encounter for screening for malignant neoplasm of prostate; Z86.39 Personal history of other endocrine, nutritional and metabolic disease
CPT/HCPCS: 80048; 80061; 82306; 84153

== ENCOUNTER 2023-02-01 11:14 | Outpatient (CLI) | payer BC, MEDICARE, SELFPAY ==
--- OUTSIDE RECORDS SUMMARY | 2023-02-01 11:17 | XMS_ITS | Continuity of Care Document ---
Author Name Unknown Organization [facility] Address [address] [place] [address] Phone Care Team Providers Care Equipment Processor Name Role Phone Rikki MOISE, PhD, Austyn [...] Copied on Encounter [facility], [address], [place], [id number], tel:[phone] [facility] No Information Rikki Zaman. [facility], [address], [place], [address], [place]. tel:[phone] Office/Outpat ient Visit,Est, Low [facility], [address], [place], [id number], [place] tel:[phone] [facility] Encounter for other specified surgical aftercare Rikki Zaman. [facility], [address], [place], [address], [place]. [phone] Referring Provider: Drew Tobin [address], [address]. tel:[phone] [facility], [address], [place], [id number], [place] tel:[phone] [facility] Encounter for other specified surgical aftercare Rikki Zaman. [facility], [address], [place], [address], [place]. [phone] Referring Provider: Manish Mcnally[address], [address]. tel:[phone] [facility], [address], [place], [id number], [place] tel:[phone] [facility] No Information Gonzales Goodman. [facility], [address], [place], [place], [id number] , [place]. tel:[phone] Referring Provider: Drew Tobin [facility] [address] [place], [address]. tel:[phone] [facility], [address], [place], [id number], [place] tel:[phone] [facility] No Information Rikki Zaman. [facility], [address], [place], [address], [place]. [phone] Referring Provider: Drew Tobin [address], [address]. tel:[phone] Office/Outpat ient Visit,Est, Mod [facility], [address], [place], [id number], [place] tel:[phone] [facility] - [facility] Other intervertebral disc displacement, lumbar region Rikki Zaman. [facility], [address], [facility] [place], [address], [place]. [phone] Referring Provider: Drew Tobin [address], [address]. tel:[phone] Office/Outpat ient Visit,New, Mod [facility], [address], [place], [place], [id number], [place] tel:[phone] [facility] Spinal stenosis, lumbar region with neurogenic claudication Rikki Zaman. [facility] [place], [address], [facility] [place], [address], [place]. [phone] Referring Provider: Drew Tobin [address], [address]. tel:[phone] [facility], [address], [place], [id number], [place] tel:[phone] [facility] - [facility] Radiculopathy, lumbar regionSpinal stenosis, lumbosacral region 8 Rikki Zaman. [facility] [place], [address], [facility] [place], [address], [place]. [phone] Family History Family Member Type Diagnosis Age At Onset No Information Payers Payer name Insurance type Covered republican ID Authornicolea tiloc(s) [facility] [id number] Medicare MB [id number] Social History Type Description Quantity Date Captured Comments Sex Male Smoking Status No Information Chief Complaint And Reason For Visit No Information Reason For Referral Reason For Referral No Information Plan Of Treatment Date Type Action Status Future Order: Radiology Order AP -Mky-Rpng-Dws Lum (APLatFlExL), Ordered on: Ordered History Of Present Illness Encounter Date Complaint History Of Prese nt Illness No Information Functional Status Date Functional Assessmen t No Information Instructions Date Instruction Additional Infor mation No Information Assessments Type Assessment Date No Information Patient Care Teams Name Effective Dates (start - stop) Status Members No Information
== END 2023-02-01 11:15 | disposition home or self-care (01) ==
PROVIDERS: PCP Family Medicine; Visit Provider Family Medicine
DX: E55.9 Vitamin D deficiency, unspecified (principal); R73.03 Prediabetes; E66.01 Morbid (severe) obesity due to excess calories; E78.5 Hyperlipidemia, unspecified; I10 Essential (primary) hypertension
CPT/HCPCS: 80053; 82306

== ENCOUNTER 2023-03-22 10:30 | Outpatient (CLI) | payer BC, MEDICARE, SELFPAY ==
--- OUTSIDE RECORDS SUMMARY | 2023-03-22 10:36 | XMS_ITS | Continuity of Care Document ---
Author Name Unknown Organization [facility] Address [address] [place] [address] Phone Care Team Providers Care Miller Wood Flour Name Role Phone Rikki MOISE, PhD, Austyn [...] Copied on Encounter [facility], [address], [place], [id number], tel:[phone] [facility] No Information Rikki Zaman. [facility], [address], [place], [address], [place]. tel:[phone] Office/Outpat ient Visit,Est, Low [facility], [address], [place], [id number], [place] tel:[phone] [facility] Encounter for other specified surgical aftercare Rikki Zaman. [facility], [address], [place], [address], [place]. [phone] Referring Provider: Drew Tobin [address], [address]. tel:[phone] [facility], [address], [place], [id number], [place] tel:[phone] [facility] Encounter for other specified surgical aftercare Rikki Zaman. [facility], [address], [place], [address], [place]. [phone] Referring Provider: Manish Mcnally[address], [address]. tel:[phone] [facility], [address], [place], [id number], [place] tel:[phone] [facility] No Information Gonzales Goodman. [facility], [address], [place], [place], [id number] , [place]. tel:[phone] Referring Provider: Drew Tobin [facility] [address] [place], [address]. tel:[phone] [facility], [address], [place], [id number], [place] tel:[phone] [facility] No Information Rikki Zaman. [facility], [address], [place], [address], [place]. [phone] Referring Provider: Drew Tobin [address], [address]. tel:[phone] Office/Outpat ient Visit,Est, Mod [facility], [address], [place], [address], [place] tel:[phone] [facility] - [facility] Other intervertebral disc displacement, lumbar region Rikki Zaman. [facility], [address], [place], [address], [place]. [phone] Referring Provider: Drew Tobin [address], [address]. tel:[phone] Office/Outpat ient Visit,New, Mod [facility], [address], [place], [address], [place] tel:[phone] [facility] Spinal stenosis, lumbar region with neurogenic claudication Rikki Zaman. [facility] [place], [address], [place], [address], [place]. [phone] Referring Provider: Drew Tobin [address], [address]. tel:[phone] [facility], [address], [place], [id number], [place] tel:[phone] [facility] - [facility] Radiculopathy, lumbar regionSpinal stenosis, lumbosacral region 8 Rikki Zaman. [facility] [place], [address], [place], [address], [place]. [phone] Family History Family Member Type Diagnosis Age At Onset No Information Payers Payer name Insurance type Covered libertarian ID Authornicolea tiloc(s) [facility] [id number] Medicare MB [id number] Social History Type Description Quantity Date Captured Comments Sex Male Smoking Status No Information Chief Complaint And Reason For Visit No Information Reason For Referral Reason For Referral No Information Plan Of Treatment Date Type Action Status Future Order: Radiology Order AP -Nap-Nzwe-Cpu Lum (APLatFlExL), Ordered on: Ordered History Of Present Illness Encounter Date Complaint History Of Prese nt Illness No Information Functional Status Date Functional Assessmen t No Information Instructions Date Instruction Additional Infor mation No Information Assessments Type Assessment Date No Information Patient Care Teams Name Effective Dates (start - stop) Status Members No Information
== END 2023-03-22 10:31 | disposition home or self-care (01) ==
PROVIDERS: PCP Family Medicine; Visit Provider Family Medicine
DX: J21.0 Acute bronchiolitis due to respiratory syncytial virus (principal); I89.0 Lymphedema, not elsewhere classified; R06.02 Shortness of breath; I11.9 Hypertensive heart disease without heart failure; I25.10 Atherosclerotic heart disease of native coronary artery without angina pectoris; I25.2 Old myocardial infarction; R07.9 Chest pain, unspecified; J44.9 Chronic obstructive pulmonary disease, unspecified; R73.03 Prediabetes; E55.9 Vitamin D deficiency, unspecified
CPT/HCPCS: 82803; 83880; 86769

== ENCOUNTER 2023-04-06 09:19 | Outpatient (CLI) | payer BC, MEDICARE, SELFPAY ==
--- OUTSIDE RECORDS SUMMARY | 2023-04-06 09:23 | XMS_ITS | Continuity of Care Document ---
Author Name Unknown Organization [facility] Address [address] [place] [address] Phone Care Team Providers Care Air Sealing Technician Name Role Phone Rikki MOISE, PhD, Austyn Unavailable Unavai lable Allergies, Adverse Reactions, Alerts Substance Reaction Status Criticality No Known Allergies Active No Inform ation Medications Medication Instructions Dosage Effective Dates (start - stop) Status Comments ROSUVASTATIN CALCIUM (unknown strength) Not Available - Active OMEPRAZOLE (unknown strength) Not Available - Active METOPROLOL SUCCINATE (unknown strength) Not Available - Active CLOPIDOGREL (unknown strength) Not Available - Active CILOSTAZOL (unknown strength) Not Available - Active CETIRIZINE HCL (unknown strength) Not Available - Active BALANCED B-COMPLEX (unknown strength) Not Available - Active Procedures [...] Copied on Encounter [facility], [address], [place], [id number], tel:[phone] [facility] No Information Rikki Zaman. [facility], [address], [place], [address], [place]. tel:[phone] Office/Outpat ient Visit,Est, Low [facility], [address], [place], [id number], [place] tel:[phone] [facility] Encounter for other specified surgical aftercare Rikki Zaman. [facility], [address], [place], [address], [place]. [phone] Referring Provider: Drew Tobin [address], [address]. tel:[phone] [facility], [address], [place], [id number], [place] tel:[phone] [facility] Encounter for other specified surgical aftercare Rikki Zaman. [facility], [address], [place], [address], [place]. [phone] Referring Provider: Manish Mcnally[address], [address]. tel:[phone] [facility], [address], [place], [id number], [place] tel:[phone] [facility] No Information Gonzales Goodman. [facility], [address], [place], [place], [address] , [place]. tel:[phone] Referring Provider: Drew Tobin [facility] [address] [place], [address]. tel:[phone] [facility], [address], [place], [id number], [place] tel:[phone] [facility] No Information Rikki Zaman. [facility], [address], [place], [address], [place]. [phone] Referring Provider: Drew Tobin [address], [address]. tel:[phone] Office/Outpat ient Visit,Est, Mod [facility], [address], [place], [id number], [place] tel:[phone] [facility] - [facility] Other intervertebral disc displacement, lumbar region Rikki Zaman. [facility], [address], [place], [address], [place]. [phone] Referring Provider: Drew Tobin [address], [address]. tel:[phone] Office/Outpat ient Visit,New, Mod [facility], [address], [place], [address], [place] tel:[phone] [facility] Spinal stenosis, lumbar region with neurogenic claudication Rikki Zaman. [facility] [place], [address], [place], [address], [place]. [phone] Referring Provider: Drew Tobin [address], [address]. tel:[phone] [facility], [address], [place], [place], [id number], [place] tel:[phone] [facility] - [facility] Radiculopathy, lumbar regionSpinal stenosis, lumbosacral region 8 Rikki Zaman. [facility] [place], [address], [place], [address], [place]. [phone] Family History Family Member Type Diagnosis Age At Onset No Information Payers Payer name Insurance type Covered libertarian ID Authornicolea tiloc(s) [facility] [id number] Medicare MB [id number] Social History Type Description Quantity Date Captured Comments Sex Male Smoking Status No Information Chief Complaint And Reason For Visit No Information Reason For Referral Reason For Referral No Information Plan Of Treatment Date Type Action Status Future Order: Radiology Order AP -Ydp-Awhf-Bxi Lum (APLatFlExL), Ordered on: Ordered History Of Present Illness Encounter Date Complaint History Of Prese nt Illness No Information Functional Status Date Functional Assessmen t No Information Instructions Date Instruction Additional Infor mation No Information Assessments Type Assessment Date No Information Patient Care Teams Name Effective Dates (start - stop) Status Members No Information
--- NOTE | 2023-04-06 10:13 | W.ANESCHARGE ---
Anesthesia Charges Start Date/Time Anesthesia Start Date: 04/06/23 Anesthesia Start Time: 09:55 Stop Date/Time Anesthesia Stop Date: 04/06/23 Anesthesia Stop Time: 10:18
--- NOTE | 2023-04-06 10:21 | W.ANESCHARGE ---
Anesthesia Charges Start Date/Time Anesthesia Start Date: 04/06/23 Anesthesia Start Time: 09:55 Stop Date/Time Anesthesia Stop Date: 04/06/23 Anesthesia Stop Time: 10:18
== END 2023-04-06 09:20 | disposition home or self-care (01) ==
LOC: OP CLINIC 09:20
PROVIDERS: PCP Family Medicine; Visit Provider Internal Medicine
DX: Z86.010 Personal history of colon polyps (principal); K63.5 Polyp of colon; K62.1 Rectal polyp; K64.8 Other hemorrhoids; K57.30 Diverticulosis of large intestine without perforation or abscess without bleeding
CPT/HCPCS: 00811; 45380; 88305; J2704

== ENCOUNTER 2023-05-28 09:24 | Outpatient (CLI) | payer BC, SELFPAY ==
--- OUTSIDE RECORDS SUMMARY | 2023-05-28 09:33 | XMS_ITS | Encounter Summary ---
Author Name Unknown Organization [facility] Address [address] [place] [address] Care Team Providers Care Financial Foundations Associate Name Role Phone Elsewhere, Pcp Primary Care Provider Unavailabl e Reason for Visit * Reason Comments Med Refill Encounter Details Date Type Department Care Team (Late st Contact Info) Description 05/09/2023 Refill Department of Family Medicine, [facility], in [address] [phone] Geovanna Hernandez APRN, C.N.P., D.N.P. [address] [place] [phone] Med Refill Social History Tobacco Use Types Packs/Day Years Used Date Smoking Tobacco: Former Cigarettes Smokeless Tobacco: Never PHQ-2 Answer Date Recorded PHQ-2 Score 0 03/23/2022 Nutrition Answer Date Recorded Nutrition: EVOO Fat Source Unknown 06/24 Nutrition: Servings of Fruits/Vegetables per Day Not on file 06/24/2020 Dental Answer Date Recorded Dental: Regular Dentist Unknown 06/25/19 21 Sex and Gender Information Value Date Recorded Sex Assigned at Not on file Gender Identity Not on file Sexual Orientation Not on file documented as of this encounter Miscellaneous Notes * Telephone Encounter - Cheryl West - 05/10/2023 8:46 AM CST Care Elsewhere L PELLER documented in this encounter Plan of Treatment Not on file documented as of this encounter Visit Diagnoses Not on filedocumented in this encounter Care Teams Financial Foundations Associate Relationship Specialty Start Date End Date Elsewhere, Pcp PCP - General 05/12/19 documented as of this encounter
--- OUTSIDE RECORDS SUMMARY | 2023-05-28 09:33 | XMS_ITS | Encounter Summary ---
Author Name Unknown Organization [facility] Address [address] [place] [address]. [place] [address] Care Team Providers Care Grinder Hardboard Name Role Phone Wiliam, Ebony Anne Primary Care Provider Reason for Visit * Rehab Therapy Integrated Services (Routine) - Closed Specialty Diagnoses / Procedures Referred By Irving turner Referred To Contact Diagnoses Peripheral vascular disease, unspecified (H24) Lymphedema [address] [address] Referral ID Status Reason Start Date Expiration Date Visits Re quested Visits Authorized [id number] Closed 08/01/2022 04/22/2023 365 365 Encounter Details Date Type Department Care Team (Late st Contact Info) Description 09/07/2022 7:30 AM CDT Therapy Visit [address] [address] [place] [address] [facility] [address] [place] [address] Lymphedema (Primary Dx) Social History Tobacco Use Types Packs/Day Years Used Date Smoking Tobacco: Former Cigarettes 0 40 Q uit: 07/19/2015 Smokeless Tobacco: Never Alcohol Use Standard Drinks/Week Comments Yes 0 (1 standard drink = 0.6 oz pur e alcohol) beer 4-6/day less now Sex and Gender Information Value Date Recorded Sex Assigned at Not on file Gender Identity Not on file Sexual Orientation Not on file COVID-19 Exposure Response Date Recorded In the last 10 days, have yo u been in contact with someone who was confirmed or suspected to have Coronavirus/COVID-19? No / Unsure 09/07/2022 7:12 AM CDT documented as of this encounter Plan of Treatment Not on file documented as of this encounter Visit Diagnoses Diagnosis Lymphedema- Primary Other lymphedema documented in this encounter Care Teams Grinder Hardboard Relationship Specialty Start Date End Date [facility], [address] [address] PCP - General 08/02/16 documented as of this encounter
--- OUTSIDE RECORDS SUMMARY | 2023-05-28 09:33 | XMS_ITS | Encounter Summary ---
Author Name Unknown Organization [facility] Address [address] [place] [address]. [place] [address] Care Team Providers Care Lunchroom Monitor Name Role Phone [facility] Primary Care Provider Encounter Details Date Type Department Care Team (Latest Contact Info) Description 09/14/2022 Travel Social History Tobacco Use Types Packs/Day Years [...] suspected to have Coronavirus/COVID-19? No / Unsure 09/14/2022 10:22 AM CDT documented as of this encounter Plan of Treatment Not on file documented as of this encounter Visit Diagnoses Not on filedocumented in this encounter Care Teams Lunchroom Monitor Relationship Specialty Start Date End Date [facility] [address] [place] [address] PCP - General 08/02/16 documented as of this encounter
--- OUTSIDE RECORDS SUMMARY | 2023-05-28 09:33 | XMS_ITS | Clinical Summary ---
Author Name Unknown Organization [facility] Address [address] [place] [address] Care Team Providers Care Composing Machine Operator/Tender Name Role Phone Elsewhere, Pcp Primary Care Provider Unavailabl e Source Comments Patient records contain information from all sites at [facility]. For routine questions regarding patient records, call [phone] during business hours, M-F 8:00 AM - 5:00 PM Central Time. Record requests for emergency care only can be directed to [phone] at any time.[facility] Allergies No known active allergies Medications Medication Sig Dispensed Refills Start Date End Date Status cetirizine (ZyrTEC) 10 mg tablet Take 1 tablet by mouth daily as needed. 0 11/22/2016 Active ipratropium-albuter oL (DUONEB) 0.5-2.5 mg/3 mL nebulizer solution Inhale 3 mL. 0 08/22/[address] tablet Take 81 mg by mouth. 0 08/17/2020 Active polyethylene glycol-electrolytes (GoLYTELY) 236-22.74-6.74 -5.86 gram solution Drink 1st portion of prep at 6 PM the evening before. 2nd portion must be started 3 hours before and finished 2 hours prior to report time 4000 mL 0 03/23/2022 Active rosuvastatin (CRESTOR) 40 mg tablet Take 1 tablet (40 mg total) by mouth at bedtime. 90 tablet 3 03/23/2022 Active omeprazole (PriLOSEC) [address] capsule Take 1 capsule (40 mg total) by mouth every morning before breakfast. 90 capsule 3 03/23/2022 Active metoprolol succinate (TOPROL-XL) 25 mg 24 hr tablet Take 1 tablet (25 mg total) by mouth daily. 90 tablet 3 03/23/2022 Active cilostazoL (PLETAL) 100 mg tablet Take 1 tablet (100 mg total) by mouth 2 (two) times a day. 180 tablet 3 03/23/2022 Active furosemide (LASIX) 40 mg tablet Take 1 tablet (40 mg total) by mouth daily. 90 tablet 3 03/23/2022 Active albuterol 90 mcg/actuation inhaler Inhale 2 puffs every 4 (four) hours as needed for wheezing. 18 g 11 03/23/2022 Active gabapentin (NEURONTIN) 300 mg capsule Take 1 capsule (300 mg total) by mouth 3 (three) times a day. 270 capsule 3 03/23/2022 Active fluticasone furoate-vilanteroL (BREO ELLIPTA DISKUS) 200-25 mcg/act inhaler INHALE 1 PUFF BY MOUTH DAILY 180 each 1 03/23/2022 Active cyanocobalamin (vitamin B-12) 1,000 mcg tablet Take 1 tablet (1,000 mcg total) by mouth daily. 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 03/23/2022 Neuropathy Peripheral 03/23/2022 Lymphedema 03/23/2022 Fracture Femur Neck Base Dis placed Closed Subsequent With Nonunion Right 05/14/2017 Overview: Added automatically from request for surgery [id number] Positive Anticardiolipin Antibody Immunoglobulin M 05/07/2017 Primary Osteoarthritis Hip Right 04/05/2017 Overview: Added automatically from request for surgery [id number] Morbid Obesity 11/27/2016 Overview: Morbid Obesity Body Mass Index (BMI) > 40 Adult\.br\per external records Atherosclerotic Heart Diseas e Of [place] Coronary Artery Without Angina Pectoris 11/27/2016 Overview: Coronary Artery Disease (CAD) NOS\.br\per external records Peripheral Arterial Disease 11/27/2016 Overview: Peripheral Arterial Disease (PAD)\.br\per external records Hypertension 11/27/2016 Overview: Hypertension (HTN)\.br\per external records Arthroplasty Total Hip Replacement Status Post R ight Pain Low Back Unspecified Resolved Problems Problem Noted Date Diagnosed Date Resolved Date Body Mass Index 40.0 To 44.9 Adult 11/24/2016 03/23/2022 Overview: Body mass index (BMI) 40.0-44.9, adult\.br\Rule activated problem due to BMI 40- 44 posted on 11/24 at 04:39 CDT. Encounters Date Type Department Care Team Description 05/17/2023 Refill Department of [facility] [place], [facility], [address] [address] Geovanna Hernandez APRN C.N.P., D.N.P. Med Refill 05/09/2023 Refill Department of [facility] Medicine, [facility], [address] [address] Geovanna Hernandez APRN, C.N.P., D.N.P. Med Refill 04/15/2023 Refill Department of [facility] [place], [facility], [address] [address] Geovanna Hernandez APRN, C.N.P., D.N.P. Med Refill from Last 3 Months Immunizations Name Administration Dates Next Due HZV (ZOSTAVAX) 09/29/2014 Influenza TIV (IM) 03/04/2019,02/05/2015 Influenza, Quadrivalent, Adj uvanted, Preservative Free 02/22/2021,02/17/2020 Influenza, Seasonal, Injectable 02/05/2015 Influenza, Unspecified 02/14/2016 PCV13 07/30/2018 PPSV23(Discontinued) 02/17/2020,02/05/2015 RZV (SHINGRIX) 11/28/2018,08/22/2018 Tdap 08/18/2011 influenza vaccine quad (FLUZ ONE/FLUARIX) (6 months and older)(PF) 01/22/2018,04/12/2017,02/14/2016 Family History Medical History Relation Name Comments Heart attack Father Heart disease Grandfather maternal Diabetes Grandmother maternal Kidney cancer Grandmother maternal Heart disease Mother Relation Name Status Comments Father Grandfather maternal Grandmother maternal Mother Social History Tobacco Use Types Packs/Day Years Used Date Smoking Tobacco: Former Cigarettes Smokeless Tobacco: Never Tobacco Cessation:Counseling Given: Not Answered PHQ-2 Answer Date Recorded PHQ-2 Score 0 03/23/2022 Nutrition Answer Date Recorded Nutrition: EVOO Fat Source Unknown 06/24 Nutrition: Servings of Fruits/Vegetables per Day Not on file 06/24/2020 Dental Answer Date Recorded Dental: Regular Dentist Unknown 06/25/19 21 Sex and Gender Information Value Date Recorded Sex Assigned at Not on file Gender Identity Not on file Sexual Orientation Not on file Last Filed Vital Signs Vital Sign Reading Time Taken Comments Blood Pressure 134/85 03/23/2022 7:15 AM FREIGHT CAR CLEANER DELTA SYSTEM Pulse 86 03/23/2022 7:12 AM FREIGHT CAR CLEANER DELTA SYSTEM Temperature 36.1 ??C (97 ??F) 03/23/2022 7:12 AM FREIGHT CAR CLEANER DELTA SYSTEM Respiratory Rate 17 03/23/2022 7:12 AM FREIGHT CAR CLEANER DELTA SYSTEM Oxygen Saturation 95% 03/23/2022 7:12 AM FREIGHT CAR CLEANER DELTA SYSTEM Inhaled Oxygen Concentration - - Weight 154 kg (339 lb 8.1 oz) 03/23/2022 7:12 AM FREIGHT CAR CLEANER DELTA SYSTEM Height 177.8 cm (5' 10) 03/23/2022 7:12 AM FREIGHT CAR CLEANER DELTA SYSTEM Body Mass Index 48.71 03/23/2022 7:12 AM FREIGHT CAR CLEANER DELTA SYSTEM Plan of Treatment Health Maintenance Due Date Last Done Comments CT Colonography 1953 Cologuard 1955 Colonoscopy 1955 Colorectal Cancer Screening 1955 FIT 1955 Hepatitis C Screening 1955 DTaP,Tdap,and Td Vaccines (2 - Td or Tdap) 08/17/2021 08/18/2011 COVID-19 Vaccine (2022-2 4 season) 2022 09/14/2021, 03/31/2021, 07/20/2020, Additional history exists Lipid (Cholesterol) Screening 03/23/2023, 09/14/2021, 08/17/2020, Additional history exists Office Visit for Blood Press ure Check / Re-check 03/23/2023 03/23/2022 Depression Screening (Annual PHQ-2) 04/23/2023 Fall Risk Screen (Annual) 04/23/2023 Fasting Glucose for Diabetes Screening 07/10/2025 07/10/2022, 03/23/2022, 03/23/2022, Additional history exists Abdominal Aortic Aneurysm (A AA) Screen Completed 07/02/2018, 11/22/2016 Zoster Vaccines Completed 11/28/2018, 05/2018, 09/29/2014 Pneumococcal vaccine (65+ years) Completed 02/17/2020, 07/30/2018, 02/05/2015 Influenza Vaccine Completed 02/01/2023, , 02/17/2020, Additional history exists Medical Devices Implanted Type Area Equipment Validation Specialist Device Identifier Shelf Expiration Date Model / Serial / Lot Cardiac Stent Cardiac Stent Heart Scrw Pnn Acet Ft 6.5x30 - [id number] Implanted:Qty : 1 on 05/23/2017 by Radha Beckman M.D. at [facility] Hardware e.g. pins/screws /rods Right: Hip Depuy Synthes [id number] 02/20/2026 1217-30-5 00 / / [id number] Hip Implant Hip Implant Femur Description:Hardware Right F emur Fem Hd Art Ez [employer] +5x36 - [id number] Implanted:Qty : 1 on 05/23/2017 by Radha Beckman M.D. at [facility] Hip Implant Right: Hip Depuy Synthes [id number] 02/20/2021 1365-36-3 3552948 Stent Other Stent Other Left: Femur Description:Arterial stent i n left femur area Advance Directives For more information, please contact: [phone] Latest Code Status on File Code Status Date Activated Date Inactivated Comments Full Code 05/23/2017 5:01 PM 2017 8:36 PM Question Answer Comments Full Code: Not Discussed Due to: Patient not available Code Status History Code Status Date Activated Date Inactivated Comments Full Code 05/23/2017 6:48 AM 05/23/2017 5:01 PM Question Answer Comments Full Code: Not Discussed Due to: Patient not available Full Code 05/07/2017 6:41 AM 05/23/2017 6:48 AM Question Answer Comments Full Code: Not Discussed Due to: Patient not available Care Teams Composing Machine Operator/Tender Relationship Specialty Start Date End Date Elsewhere, Pcp PCP - General 05/12/19
--- OUTSIDE RECORDS SUMMARY | 2023-05-28 09:33 | XMS_ITS | Encounter Summary ---
Author Name Unknown Organization [facility] Address [address] [place] [address]. [place] [address] Care Team Providers Care Structural Engineer Name Role Phone Wiliam, Ebony Anne Primary Care Provider Reason for Visit * Rehab Therapy Integrated Services (Routine) - Closed Specialty Diagnoses / Procedures Referred By Irving turner Referred To Contact Diagnoses Peripheral vascular disease, unspecified (H24) Lymphedema [address] [address] Referral ID Status Reason Start Date Expiration Date Visits Re quested Visits Authorized [id number] Closed 08/01/2022 04/22/2023 365 365 Encounter Details Date Type Department Care Team (Late st Contact Info) Description 09/14/2022 10:30 AM CDT Therapy Visit [address] [address] [place] [address] [facility] [address] [place] [address] Lymphedema (Primary Dx) Social History Tobacco Use [...] lymphedema documented in this encounter Care Teams Structural Engineer Relationship Specialty Start Date End Date [facility], [address] [address] PCP - General 08/02/16 documented as of this encounter
--- OUTSIDE RECORDS SUMMARY | 2023-05-28 09:33 | XMS_ITS | Encounter Summary ---
Author Name Unknown Organization [facility] Address [address] [place] [address]. [place] [address] Care Team Providers Care Timber Hewer Name Role Phone Wiliam, Ebony Anne Primary Care Provider Reason for Visit * Rehab Therapy Integrated Services (Routine) - Closed Specialty Diagnoses / Procedures Referred By Irving turner Referred To Contact Diagnoses Peripheral vascular disease, unspecified (H24) Lymphedema [address] [address] Referral ID Status Reason Start Date Expiration Date Visits Re quested Visits Authorized [id number] Closed 08/01/2022 04/22/2023 365 365 Encounter Details Date Type Department Care Team (Late st Contact Info) Description 09/12/2022 8:30 AM CDT Therapy Visit [address] [address] [place] [address] Holli Gutierrez, OTR [address] [place] [address] Lymphedema (Primary Dx) Social History Tobacco Use [...] suspected to have Coronavirus/COVID-19? No / Unsure 09/12/2022 8:27 AM CDT documented as of this encounter Plan of Treatment Not on file documented as of this encounter Visit Diagnoses Diagnosis Lymphedema- Primary Other lymphedema documented in this encounter Care Teams Timber Hewer Relationship Specialty Start Date End Date [facility], [address] [address] PCP - General 08/02/16 documented as of this encounter
--- OUTSIDE RECORDS SUMMARY | 2023-05-28 09:33 | XMS_ITS | Referral Summary ---
Author Name Unknown Organization [facility] Address [address] [place] [address]. [place] [address] Care Team Providers Care Surg Rn Name Role Phone Wiliam, Ebony Anne Primary Care Provider Allergies Active Allergy Reactions Criticality Noted Date Comments No Known Drug Allergy 06/23/2008 Medications Medication Sig Dispensed Refills Start Date End Date Status LISINOPRIL PO Take 20 mg by mouth daily 0 Active CLOPIDOGREL BISULFATE POIndications:hold for 7 days post op. Take 75 mg by mouth daily 0 Active CILOSTAZOL PO Take 100 mg by mouth 0 Active OMEPRAZOLE PO Take 20 mg by mouth every morning 0 Active METOPROLOL SUCCINATE ER PO Take 50 mg by mouth daily 0 Active ROSUVASTATIN CALCIUM PO Take 40 mg by mouth daily 0 Active multivitamin w/minerals (THERA-VIT-M) tablet Take 1 tablet by mouth daily 0 Active oxyCODONE (ROXICODONE) 5 MG tabletIndications:Dys plastic rectal polyp Take 1 tablet (5 mg) by mouth every 6 hours as needed for moderate to severe pain 6 tablet 0 05/26/2020 Active Active Problems No known active problems Social History Tobacco Use Types Packs/Day Years Used Date Smoking Tobacco: Former Cigarettes 0 40 Q uit: 07/19/2015 Smokeless Tobacco: Never Alcohol Use Standard Drinks/Week Comments Yes 0 (1 standard drink = 0.6 oz pur e alcohol) beer 4-6/day less now Adolescent Education Answer Date Record ed Getting School Help Needed Not on file 01/28 Sex and Gender Information Value Date Recorded Sex Assigned at Not on file Gender Identity Not on file Sexual Orientation Not on file Last Filed Vital Signs Vital Sign Reading Time Taken Comments Blood Pressure 123/63 05/26/2020 6:00 PM FACE CLEANER Pulse 70 05/26/2020 4:38 PM FACE CLEANER Temperature 36.6 ??C (97.9 ??F) 05/26/2020 6:19 PM CS T Respiratory Rate 16 05/26/2020 6:19 PM FACE CLEANER Oxygen Saturation 94% 05/26/2020 6:19 PM FACE CLEANER Inhaled Oxygen Concentration - - Weight 148.3 kg (327 lb) 05/26/2020 11:45 AM FACE CLEANER Height 180.3 cm (5' 11) 05/26/2020 11:45 AM FACE CLEANER Body Mass Index 45.61 05/26/2020 11:45 AM FACE CLEANER Plan of Treatment Not on file Care Teams Surg Rn Relationship Specialty Start Date End Date [facility], [address] [address] PCP - General 08/02/16
--- OUTSIDE RECORDS SUMMARY | 2023-05-28 09:33 | XMS_ITS | Referral Summary ---
Author Name Unknown Organization [facility] Address [address] [place] [address] Care Team Providers Care Fountain Operator Name Role Phone Elsewhere, Pcp Primary Care Provider Unavailabl e Source Comments Patient records contain information from all sites at [facility]. For routine questions regarding patient records, call [phone] during business hours, M-F 8:00 AM - 5:00 PM Central Time. Record requests for emergency care only can be directed to [phone] at any time.[facility] Encounters Date Type Department Care Team Description 05/17/2023 Refill Department of Family Medicine, [facility], in [address] [address] Geovanna Hernandez APRN, C.N.P., D.N.P. Med Refill 05/09/2023 Refill Department of Family Medicine, [facility], [address] [address] Geovanna Hernandez APRN, C.N.P., D.N.P. Med Refill 04/15/2023 Refill Department of Family Medicine, [facility], [address] [address] Geovanna Hernandez APRN, C.N.P., D.N.P. Med Refill from Last 3 Months Allergies No known active allergies Medications Medication [...] Overview: Added automatically from request for surgery [id number] Positive Anticardiolipin Antibody Immunoglobulin M 05/07/2017 Primary Osteoarthritis Hip Right 04/05/2017 Overview: Added automatically from request for surgery [id number] Morbid Obesity 11/27/2016 Overview: Morbid Obesity Body Mass Index (BMI) > 40 Adult\.br\per external records Atherosclerotic Heart Diseas e Of [place] Coronary Artery Without Angina Pectoris 11/27/2016 Overview: [...] 44 posted on 11/24 at 04:39 CDT. Immunizations Name Administration Dates Next Due HZV (ZOSTAVAX) 09/29/2014 Influenza TIV (IM) 03/04/2019,02/05/2015 Influenza, Quadrivalent, Adj uvanted, Preservative Free 02/22/2021,02/17/2020 Influenza, Seasonal, Injectable 02/05/2015 Influenza, Unspecified 02/14/2016 PCV13 07/30/2018 PPSV23(Discontinued) 02/17/2020,02/05/2015 RZV (SHINGRIX) 11/28/2018,08/22/2018 Tdap 08/18/2011 influenza vaccine quad (FLUZ ONE/FLUARIX) (6 months and older)(PF) 01/22/2018,04/12/2017,02/14/2016 Social History Tobacco Use Types Packs/Day Years Used Date Smoking Tobacco: Former Cigarettes Smokeless Tobacco: Never Tobacco Cessation:Counseling Given: Not Answered PHQ-2 Answer Date Recorded PHQ-2 Score 0 03/23/2022 Nutrition Answer Date Recorded Nutrition: EVOO Fat Source Unknown 06/24 Nutrition: Servings of Fruits/Vegetables per Day Not on file 06/24/2020 Dental Answer Date Recorded Dental: Regular Dentist Unknown 06/25/19 Sex and Gender Information Value Date Recorded Sex Assigned at Not on file Gender Identity Not on file Sexual Orientation Not on file Last Filed Vital Signs Vital Sign Reading Time Taken Comments Blood Pressure 134/85 03/23/2022 7:15 AM NET ARCHITECT Pulse 86 03/23/2022 7:12 AM NET ARCHITECT Temperature 36.1 ??C (97 ??F) 03/23/2022 7:12 AM NET ARCHITECT Respiratory Rate 17 03/23/2022 7:12 AM NET ARCHITECT Oxygen Saturation 95% 03/23/2022 7:12 AM NET ARCHITECT Inhaled Oxygen Concentration - - Weight 154 kg (339 lb 8.1 oz) 03/23/2022 7:12 AM NET ARCHITECT Height 177.8 cm (5' 10) 03/23/2022 7:12 AM NET ARCHITECT Body Mass Index 48.71 03/23/2022 7:12 AM NET ARCHITECT Plan of Treatment Not on file Medical Devices Implanted Type Area Fibre Optics Jointer Device Identifier Shelf Expiration Date Model / Serial / Lot Cardiac Stent Cardiac Stent Heart Scrw Pnn Acet Ft 6.5x30 - [id number] Implanted:Qty : 1 on 05/23/2017 by Radha Beckman M.D. at [facility] Hardware e.g. pins/screws /rods Right: Hip Depuy Synthes [id number] 02/20/2026 1217-30-5 00 / / [id number] Hip Implant Hip Implant Femur Description:Hardware Right F emur Fem Hd Art Ez [employer] [facility] +5x36 - [id number] Implanted:Qty : 1 on 05/23/2017 by Radha Beckman M.D. at [facility] Hip Implant Right: Hip Depuy Synthes [id number] 02/20/2021 1365-36-3 [id number] Stent Other Stent Other Left: Femur Description:Arterial stent i n left femur area Advance Directives For more information, please contact: [phone] Latest Code Status on File Code Status [...] Due to: Patient not available Care Teams Fountain Operator Relationship Specialty Start Date End Date Elsewhere, Pcp PCP - General 05/12/19
--- OUTSIDE RECORDS SUMMARY | 2023-05-28 09:33 | XMS_ITS | Encounter Summary ---
Author Name Unknown Organization [facility] Address [address] [place] [address]. [place] [address] Care Team Providers Care Law Enforcement Director Name Role Phone [facility] Primary Care Provider Encounter Details Date Type Department Care Team (Latest Contact Info) Description 09/12/2022 Travel Social History Tobacco Use Types Packs/Day [...] on filedocumented in this encounter Care Teams Law Enforcement Director Relationship Specialty Start Date End Date [facility] [address] [place] [address] PCP - General 08/02/16 documented as of this encounter
--- OUTSIDE RECORDS SUMMARY | 2023-05-28 09:33 | XMS_ITS ---
Author Name Unknown Organization [facility] Address [address] [place] [address] Care Team Providers Care Maintenance And Operations Supervisor Name Role Phone Unavailable Unavailable Unavailable Surgery Details Not on file Complications Check Surgery Details section. Procedure Estimated Blood Loss Check Surgery Details section. Procedure Findings Check Surgery Details section. Procedure Specimens Taken Check Surgery Details section.
--- OUTSIDE RECORDS SUMMARY | 2023-05-28 09:33 | XMS_ITS | Clinical Summary ---
Author Name Unknown Organization [facility] Address [address] [place] [address]. [place] [address] Care Team Providers Care Quantitative Researcher Name Role Phone Wiliam, Ebony Anne Primary [...] Comments Blood Pressure 123/63 05/26/2020 6:00 PM TECHNICAL ACCOUNT MANAGER Pulse 70 05/26/2020 4:38 PM TECHNICAL ACCOUNT MANAGER Temperature 36.6 ??C (97.9 ??F) 05/26/2020 6:19 PM CS T Respiratory Rate 16 05/26/2020 6:19 PM TECHNICAL ACCOUNT MANAGER Oxygen Saturation 94% 05/26/2020 6:19 PM TECHNICAL ACCOUNT MANAGER Inhaled Oxygen Concentration - - Weight 148.3 kg (327 lb) 05/26/2020 11:45 AM TECHNICAL ACCOUNT MANAGER Height 180.3 cm (5' 11) 05/26/2020 11:45 AM TECHNICAL ACCOUNT MANAGER Body Mass Index 45.61 05/26/2020 11:45 AM TECHNICAL ACCOUNT MANAGER Plan of Treatment Health Maintenance Due Date Last Done Comments ADVANCE CARE PLANNING 1955 ANNUAL REVIEW OF HM ORDERS 1953 CT COLONOGRAPHY 1953 FIT 1955 GLUCOSE 1953 sDNA (Cologuard) 1953 HEPATITIS C SCREENING 1971 LIPID 1993 RSV VACCINE ( & 60+) (1 - 1-dose 60+ series) 2013 FALL RISK ASSESSMENT 2018 MEDICARE ANNUAL WELLNESS VISIT 2018 LUNG CANCER SCREENING 07/06/2019 07/05/2018, 017 DTAP/TDAP/TD IMMUNIZATION (2 - Td or Tdap) 08/17/2021 08/18/2011 COVID-19 Vaccine ( season) 2022 09/14/2021, 03/31/2021, 07/20/2020, Additional history exists INFLUENZA VACCINE (#1) 2022 , 02/22/2021, 02/17/2020, Additional history exists PHQ-2 (once per calendar year) 2023 FLEX SIG 05/26/2025 05/26/2020, 07/22, 08/02/2016 COLONOSCOPY 04/01/2030 04/01/2020 COLORECTAL CANCER SCREENING 04/01/2030 ZOSTER IMMUNIZATION Completed 11/28/2018, 08/22/2018, 09/29/2014 Pneumococcal Vaccine: 65+ Years Completed 02/17/2020, 07/30/2018, 02/05/2015 HPV IMMUNIZATION Aged Out No longer e ligible based on patient's age to complete this topic IPV IMMUNIZATION Aged Out No longer e ligible based on patient's age to complete this topic MENINGITIS IMMUNIZATION Aged Out No l onger eligible based on patient's age to complete this topic RSV MONOCLONAL ANTIBODY Aged Out No l onger eligible based on patient's age to complete this topic Care Teams Quantitative Researcher Relationship Specialty Start Date End Date Clinic, [facility] [address] [place] [address] PCP - General 08/02/16
--- OUTSIDE RECORDS SUMMARY | 2023-05-28 09:33 | XMS_ITS | Encounter Summary ---
Author Name Unknown Organization [facility] Address [address] [place] [address]. [place] [address] Care Team Providers Care Pan Shover Name Role Phone Ebony Swain Primary Care Provider Reason for Visit * Rehab Therapy Integrated Services (Routine) - Closed Specialty Diagnoses / Procedures Referred By Irving turner Referred To Contact Diagnoses Peripheral vascular disease, unspecified (H24) Lymphedema [address] [phone] Referral ID Status Reason Start Date Expiration Date Visits Re quested Visits Authorized [id number] Closed 08/01/2022 04/22/2023 365 365 Encounter Details Date Type Department Care Team (Late st Contact Info) Description 10/12/2022 9:30 AM CDT Therapy Visit [address] [phone] Qiana Roth MD [facility] [address] [place] [address] [facility] [address] [place] [address] Lymphedema (Primary Dx) Social History Tobacco Use [...] suspected to have Coronavirus/COVID-19? No / Unsure 10/12/2022 9:07 AM CDT documented as of this encounter Progress Notes * Michael Salazar Anisa - 10/12/2022 10:03 AM CDT 10/12/22 0500 Appointment Info Treating Provider Jordon Salazar OTR/L; CLT-KALEB Visits Used 10/30 ([place]; Medicare-cert; [facility] Fed-cert) Medical Diagnosis lymphedema OT Tx Diagnosis lymphedema Quick Add Certification Progress Note/Certification Start Of Care Date 08/08/22 Onset of Illness/Injury or Date of Surgery 07/10/22 Therapy Frequency 3x/wk; 2x/wk Predicted Duration 10-12 weeks Certification date from 08/08/22 Certification date to 11/07/22 Progress Note Due Date (10th visit) Goals OT Goals 1;2;3;4;5;6 OT Goal 1 Goal Identifier Ed Goal Description Pt will report understanding differences between s/s lymphedema vs s/s cellulitis for safety and I with home management RLE/BLE lymphedema Target Date 11/03/22 Date Met 09/14/22 OT Goal 2 Goal Identifier GCB Wearing Goal Description Tolerate gradient compression bandaging/wearing compression garments 23 hrs/day toprevent re-acccumulation of extracellular fluid for max reductions in RLE lymphedema needed to reduce risk recurrent infections and reduce weight in leg for improved walking Target Date 11/03/22 Date Met 09/08/22 OT Goal 3 Goal Identifier GCB Donning Goal Description Demonstrate independence in applying gradient compression bandages to build I withhome management of RLE lymphedema needed to reduce risk skin infections and promote improvements inwalking with less weight in RLE. Target Date 11/03/22 Date Met 09/08/22 OT Goal 4 Goal Identifier MLLD/HEP Goal Description Demonstrate independence in performing prescribed exercises to facilate the lymph system and muscle pumping ssytems for max reductions in RLE lymphedema needed to reduce risk recurrent infections and reduce weight in leg for improved walking Target Date 11/03/22 Date Met 09/14/22 OT Goal 5 Goal Identifier Garments Goal Description Be independent in donning/doffing, wearing schedule, and care of compression garments to build I with home management of RLE/BLE lymphedema needed to reduce risk skin infections and promote improvements in walking with less weight in RLE. Target Date 11/03/22 Date Met 10/12/22 OT Goal 6 Goal Identifier Reductions Goal Description Pt will reduce RLE total volume reduciton of .25L+ for reductions needed to reducerisk skin infections and promote less weight in leg for better walking Target Date 11/03/22 Date Met 09/08/22 Treatment Interventions (OT) Interventions Manual Therapy Manual Therapy Manual Therapy Minutes (22356) 25 Skilled Intervention ed; measurements; LLIS Manual Therapy 1 - Details Pt returns today for follow up. Pt wearing custom stockings from fitter daily and velcro on RLE at night. BLE measured and RLE fairly well maintained and managed from satrtservices but LLE has regained fluid nearly back to baseline. Ed its probably lack reducing compression being used LLE as we saw reductions when he used GCBs. Pt has no goals to address LLE any further than stocking use at this time. Ed he could get velcro for night if wanted in future. Ed when to replace garments. LLIS issued-score 9. Pt appropriate to d/c and manage BLE lymphedema from home Education Learner/Method Patient Readiness Acceptance Plan Plan for next session discharge Total Session Time Timed Code Treatment Minutes 25 Total Treatment Time (sum of timed and untimed services) 25 DISCHARGE Reason for Discharge: Patient has met all goals. Pt I with use compression, MLD, and HEP and has reduced RLE lymphedema. Pt to manage from home; discharge pt. No further expectation of progress. Equipment Issued: Discharge Plan: Patient to continue home program. Referring Provider: Qiana Hernandez* documented in this encounter Plan of Treatment Not on file documented as of this encounter Visit Diagnoses Diagnosis Lymphedema- Primary Other lymphedema documented in this encounter Care Teams Pan Shover Relationship Specialty Start Date End Date [facility], [place] [address] PCP - General 08/02/16 documented as of this encounter
--- OUTSIDE RECORDS SUMMARY | 2023-05-28 09:33 | XMS_ITS | Encounter Summary ---
Author Name Unknown Organization [facility] Address [address] [place] [address]. [place] [address] Care Team Providers Care Appointment Coordinator Name Role Phone [facility] Primary Care Provider Encounter Details Date Type Department Care Team (Latest Contact Info) Description 09/07/2022 Travel Social History Tobacco Use Types Packs/Day [...] on filedocumented in this encounter Care Teams Appointment Coordinator Relationship Specialty Start Date End Date [facility] [address] [place] [address] PCP - General 08/02/16 documented as of this encounter
--- OUTSIDE RECORDS SUMMARY | 2023-05-28 09:33 | XMS_ITS | Encounter Summary ---
Author Name Unknown Organization [facility] Address [address] [place] [address] Care Team Providers Care Phone Specialist Name Role Phone Elsewhere, Pcp Primary Care Provider Unavailabl e Reason for Visit * Reason Comments Med Refill Encounter Details Date Type Department Care Team (Late st Contact Info) Description 05/17/2023 Refill Department of Family Medicine, [facility], in [address] [phone] Geovanna Hernandez APRN, C.N.P., D.N.P. [address] [place] [phone] Med Refill Social History Tobacco Use Types [...] encounter Miscellaneous Notes * Telephone Encounter - Esme Del Cid - 05/17/2023 12:51 PM CST PCP elsewhere LE END SEWER documented in this encounter Plan of Treatment Not on file documented as of this encounter Visit Diagnoses Not on filedocumented in this encounter Care Teams Phone Specialist Relationship Specialty Start Date End Date Elsewhere, Pcp PCP - General 05/12/19 documented as of this encounter
--- OUTSIDE RECORDS SUMMARY | 2023-05-28 09:33 | XMS_ITS | Encounter Summary ---
Author Name Unknown Organization [facility] Address [address] [place] [address]. [place] [address] Care Team Providers Care Packer Fuser Name Role Phone Wiliam, Ebony Anne Primary Care Provider Reason for Visit * Rehab Therapy Integrated Services (Routine) - Closed Specialty Diagnoses / Procedures Referred By Irving turner Referred To Contact Diagnoses Peripheral vascular disease, unspecified (H24) Lymphedema [address] [phone] Referral ID Status Reason Start Date Expiration Date Visits Re quested Visits Authorized [id number] Closed 08/01/2022 04/22/2023 365 365 Encounter Details Date Type Department Care Team (Late st Contact Info) Description 09/08/2022 8:30 AM CDT Therapy Visit [address] [phone] [place] [address] [facility] [address] [place] [address] Lymphedema (Primary Dx) Social History Tobacco Use [...] lymphedema documented in this encounter Care Teams Packer Fuser Relationship Specialty Start Date End Date [facility], [address] [address] PCP - General 08/02/16 documented as of this encounter
--- OUTSIDE RECORDS SUMMARY | 2023-05-28 09:33 | XMS_ITS | Encounter Summary ---
Author Name Unknown Organization [facility] Address [address] [place] [address]. [place] [address] Care Team Providers Care A&P Mechanic Name Role Phone [facility] Primary Care Provider Encounter Details Date Type Department Care Team (Latest Contact Info) Description 09/04/2022 Travel Social History Tobacco Use Types Packs/Day [...] suspected to have Coronavirus/COVID-19? No / Unsure 09/04/2022 2:24 PM CDT documented as of this encounter Plan of Treatment Not on file documented as of this encounter Visit Diagnoses Not on filedocumented in this encounter Care Teams A&P Mechanic Relationship Specialty Start Date End Date [facility] [address] [place] [address] PCP - General 08/02/16 documented as of this encounter
--- OUTSIDE RECORDS SUMMARY | 2023-05-28 09:33 | XMS_ITS | Encounter Summary ---
Author Name Unknown Organization [facility] Address [address] [place] [address] Care Team Providers Care Client Services Director Name Role Phone Elsewhere, Pcp Primary Care Provider Unavailabl e Reason for Visit * Reason Comments Med Refill Encounter Details Date Type Department Care Team (Late st Contact Info) Description 04/15/2023 Refill Department of Family Medicine, [facility], in [address] [phone] Geovanna Hernandez APRN, C.N.P., D.N.P. [address] [place] [phone] Med Refill Social History Tobacco Use Types [...] encounter Miscellaneous Notes * Telephone Encounter - Margo Beckwith - 04/18/2023 7:09 AM CST Pt seen elsewhere L FINANCIAL SPECIALIST documented in this encounter Plan of Treatment Not on file documented as of this encounter Visit Diagnoses Not on filedocumented in this encounter Care Teams Client Services Director Relationship Specialty Start Date End Date Elsewhere, Pcp PCP - General 05/12/19 documented as of this encounter
--- OUTSIDE RECORDS SUMMARY | 2023-05-28 09:33 | XMS_ITS | Encounter Summary ---
Author Name Unknown Organization [facility] Address [address] [place] [address]. [place] [address] Care Team Providers Care Reception Name Role Phone [facility] Primary Care Provider Encounter Details Date Type Department Care Team (Latest Contact Info) Description 10/12/2022 Travel Social History Tobacco Use Types Packs/Day [...] on filedocumented in this encounter Care Teams Reception Relationship Specialty Start Date End Date [facility] [address] [place] [address] PCP - General 08/02/16 documented as of this encounter
--- OUTSIDE RECORDS SUMMARY | 2023-05-28 09:33 | XMS_ITS | Continuity of Care Document ---
Author Name Unknown Organization [facility] Address [address] [place] [address] Phone Care Team Providers Care Electronic Page Makeup System Operator Name Role Phone Rikki MOISE, PhD, Austyn [...] Copied on Encounter [facility], [address], [place], [id number], tel:[phone] [facility] No Information 9 Rikki Zaamn. [facility], [address], [place], [address], [place]. [phone] Office/Outpat ient Visit,Est, Low [facility], [address], [place], [place], [id number], [place] tel:[phone] [facility] Encounter for other specified surgical aftercare 9 Rikki Zaman. [facility], [address], [place], [address], [place]. tel:[phone] Referring Provider: [address], [place], [address]. tel:[phone] [facility], [address], [place], [place], [id number], [place] tel:[phone] [facility] Encounter for other specified surgical aftercare 9 Rikki Zaman. [facility], [address], [place], [address], [place]. [phone] Referring Provider: [address], [place], [address]. tel:[phone] [facility], [address], [place], [place], [id number], [place] tel:[phone] [facility] No Information 9 Gonzales Goodman. [facility], [address], [place], [place], [id number] , [place]. [phone] Referring Provider: [address], [place], [address]. tel:[phone] [facility], [address], [place], [id number], [place] tel:[phone] [facility] No Information Rikki Zaman. [facility], [address], [place], [address], [place]. [phone] Referring Provider: Drew Weldon, [employer] [address] [facility], [place], [address]. tel:[phone] Office/Outpat ient Visit,Est, Mod [facility], [address], [place], [place], [id number], [place] tel:[phone] [facility] Other intervertebral disc displacement, lumbar region 9 Rikki Zaman. [facility], [address], [place], [address], [place]. [phone] Referring Provider: Drew Weldon, [employer] [address] [facility], [place], [address]. tel:[phone] Office/Outpat ient Visit,New, Mod [facility], [address], [place], [id number], [place] tel:[phone] [facility] Spinal stenosis, lumbar region with neurogenic claudication 8 Rikki Zaman. [facility] [place], [address], [place], [address], [place]. [phone] Referring Provider: Drew Weldon, [employer] [address] [facility], [place], [address]. tel:[phone] [facility], [address], [place], [id number], [place] tel:[phone] [facility] Radiculopathy, lumbar regionSpinal stenosis, lumbosacral region 8 Rikki Zaman. [facility] [place], [address], [place], [address], [place]. tel:[phone] Family History Family Member Type Diagnosis Age At Onset No Information Payers Payer name Insurance type Covered constitution party ID Authorbelia villalta(s) [facility] [id number] Medicare MB [id number] Social History Type Description Quantity Date Captured Comments Sex Male Smoking Status No Information Chief Complaint And Reason For Visit No Information Reason For Referral Reason For Referral No Information Plan Of Treatment Date Type Action Status Future Order: Radiology Order AP -Pud-Lvqu-Vyr Lum (APLatFlExL), Ordered on: Ordered History Of Present Illness Encounter Date Complaint History Of Prese nt Illness No Information Functional Status Date Functional Assessmen t No Information Instructions Date Instruction Additional Infor mation No Information Assessments Type Assessment Date No Information Patient Care Teams Name Effective Dates (start - stop) Status Members No Information
--- OUTSIDE RECORDS SUMMARY | 2023-05-28 09:34 | XMS_ITS | Encounter Summary ---
Author Name Unknown Organization [facility] Address [address] [place] [address]. [place] [address] Care Team Providers Care Assistant Grocery Store Manager Name Role Phone Ebony Swain Primary Care Provider Reason for Visit * Rehab Therapy Integrated Services (Routine) - Closed Specialty Diagnoses / Procedures Referred By Irving turner Referred To Contact Diagnoses Peripheral vascular disease, unspecified (H24) Lymphedema [address] [phone] Referral ID Status Reason Start Date Expiration Date Visits Re quested Visits Authorized [id number] Closed 08/01/2022 04/22/2023 365 365 Encounter Details Date Type Department Care Team (Latest Contact Info) Description 09/04/2022 2:24 PM CDT - 09/04/2022 11:59 PM CDT Hospital Encounter [address] [phone] [place] [address] Holli Gutierrez, OTR [address] [place] [address] Discharge Disposition: Home or Self Care Social History Tobacco Use Types Packs/Day Years [...] PM CDT documented as of this encounter Medications at Time of Discharge Medication Sig Dispensed Refills Start Date End Date CILOSTAZOL PO Take 100 mg by mouth 0 CLOPIDOGREL BISULFATE POIndications:hold for 7 days post op. Take 75 mg by mouth daily 0 LISINOPRIL PO Take 20 mg by mouth daily 0 METOPROLOL SUCCINATE ER PO Take 50 mg by mouth daily 0 multivitamin w/minerals (THERA-VIT-M) tablet Take 1 tablet by mouth daily 0 OMEPRAZOLE PO Take 20 mg by mouth every morning 0 oxyCODONE (ROXICODONE) 5 MG tabletIndications:Dyspla stic rectal polyp Take 1 tablet (5 mg) by mouth every 6 hours as needed for moderate to severe pain 6 tablet 0 05/26/2020 ROSUVASTATIN CALCIUM PO Take 40 mg by mouth daily 0 documented as of this encounter Plan of Treatment Not on file documented as of this encounter Visit Diagnoses Not on filedocumented in this encounter Care Teams Assistant Grocery Store Manager Relationship Specialty Start Date End Date Ebony Swain [address] [place] [address] PCP - General 08/02/16 documented as of this encounter
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
--- OUTSIDE RECORDS SUMMARY | 2023-05-28 09:34 | XMS_ITS | Encounter Summary ---
Author Name Unknown Organization [facility] Address [address] [place] [address]. [place] [address] Care Team Providers Care Naphthalene Still Operator Name Role Phone [facility] Primary [facility] Provider Encounter Details Date Type Department Care Team (Latest Contact Info) Description 08/08/2022 Medical Correspondence [facility] [address] [place] [address] Outside, Provider [facility] Social History Tobacco Use Types Packs/Day Years [...] on filedocumented in this encounter Care Teams Naphthalene Still Operator Relationship Specialty Start Date End Date [facility] [address] [place] [address] PCP - General 08/02/16 documented as of this encounter
--- OUTSIDE RECORDS SUMMARY | 2023-05-28 09:34 | XMS_ITS | Encounter Summary ---
Author Name Unknown Organization [facility] Address [address] [place] [address]. [place] [address] Care Team Providers Care Nut Former Name Role Phone [facility] Primary Care Provider Encounter Details Date Type Department Care Team (Latest Contact Info) Description 08/08/2022 Travel Social History Tobacco Use Types Packs/Day [...] suspected to have Coronavirus/COVID-19? No / Unsure 08/08/2022 9:08 AM CDT documented as of this encounter Plan of Treatment Not on file documented as of this encounter Visit Diagnoses Not on filedocumented in this encounter Care Teams Nut Former Relationship Specialty Start Date End Date [facility] [address] [place] [address] PCP - General 08/02/16 documented as of this encounter
--- OUTSIDE RECORDS SUMMARY | 2023-05-28 09:34 | XMS_ITS | Encounter Summary ---
Author Name Unknown Organization [facility] Address [address] [place] [address]. [place] [address] Care Team Providers Care Fibre Optics Jointer Name Role Phone Eb[facility] Sw[facility] Primary Care Provider Reason for Referral * Rehab Therapy Integrated Services (Routine) - Closed Specialty Diagnoses / Procedures Referred By Irving turner Referred To Contact Diagnoses Peripheral vascular disease, unspecified (H24) Lymphedema [address] [address] Referral ID Status Reason Start Date Expiration Date Visits Re quested Visits Authorized [id number] Closed 08/01/2022 04/22/2023 365 365 Question Answer Preferred Location: [facility] Scheduling Instructions: If you have not heard from the scheduling office within 2 business days, please call [phone] for [facility], for [place] and [phone] for [place]. Course of Action PT or OT Evaluation and Treatment PT/OT Treatment Diagnosis Lymphedema Additional Information: Lymphedema management Comments If you have not heard from the scheduling office within 2 business days, please call [phone] for all locations, with the exception of [place], please call [phone] and [place], please call [phone]. Please be aware that coverage of these services is subject to the terms and limitations of your health insurance plan. Call member services at your health plan with any benefit or coverage questions. If you have not heard from the scheduling office within 2 business days, please call [phone] for [facility], for [place] and [phone] for [place]. Encounter Details Date Type Department Care Team (Late st Contact Info) Description 07/10/2022 Transcribe Orders GENERIC EXTERNAL DATA DEPARTMENT Qiana Roth MD [address] [place], [place] [id number] Peripheral vascular disease, unspecified (H) (Primary Dx); Lymphedema Social History Tobacco Use Types Packs/Day Years [...] on file documented as of this encounter Plan of Treatment Scheduled Referrals Name Type Priority Associated Diagnoses Orde r Schedule Lymphedema Therapy Referral Referral Routine Peripheral vascular disease, unspecified (H) Lymphedema Ordered: 07/10/2022 documented as of this encounter Visit Diagnoses Diagnosis Peripheral vascular disease, unspecified (H24)- Primary Peripheral vascular disease, unspecified Lymphedema Other lymphedema documented in this encounter Care Teams Fibre Optics Jointer Relationship Specialty Start Date End Date [address] [address] PCP - General 08/02/16 documented as of this encounter
--- OUTSIDE RECORDS SUMMARY | 2023-05-28 09:34 | XMS_ITS | Encounter Summary ---
Author Name Unknown Organization [facility] Address [address] [place] [address]. [place] [address] Care Team Providers Care Cigarette Package Examiner Name Role Phone Ebony Swain Primary Care Provider Reason for Visit * Rehab Therapy Integrated Services (Routine) - Closed Specialty Diagnoses / Procedures Referred By Irving turner Referred To Contact Diagnoses Peripheral vascular disease, unspecified (H24) Lymphedema [address] [address] Referral ID Status Reason Start Date Expiration Date Visits Re quested Visits Authorized [id number] Closed 08/01/2022 04/22/2023 365 365 Encounter Details Date Type Department Care Team (Latest Contact Info) Description 08/08/2022 9:17 AM CDT - 08/08/2022 11:59 PM CDT Hospital Encounter [address] [address] No Ref-Primary, Physician [facility] [address] [place] [id number] Discharge Disposition: Home or Self Care Social [...] AM CDT documented as of this encounter Medications [...] daily 0 documented as of this encounter Progress Notes * Michale Salazar Anisa - 08/08/2022 1:40 PM CDT Images from the original note were not included. [facility] OUTPATIENT OCCUPATIONAL THERAPY EDEMA EVALUATION PLAN OF TREATMENT FOR OUTPATIENT REHABILITATION (COMPLETE FOR INITIAL CLAIMS ONLY) Patient's Last Name, First Name, Ajith Gonzalez Provider???s Name: [facility] Start of Care Date: 08/08/22 Onset Date: 07/10/22 Type: OT Medical Diagnosis: lymphedema Therapy Diagnosis: lymphedema BLE/RLE Visits from SOC: 1 __ Plan of Treatment/Functional Goals: Manual lymph drainage, Gradient compression bandaging, Fit for compression garment, Exercises, Precautions to prevent infection / exacerbation, Education, Skin care / precautions, Home management program development GOALS 1. Goal description: Pt will report understanding differences between s/s lymphedema vs s/s cellulitis for safety and I with home management RLE/BLE lymphedema Target date: 11/03/22 2. Goal description: Tolerate gradient compression bandaging/wearing compression garments 23 hrs/day to prevent re-acccumulation of extracellular fluid for max reductions in RLE lymphedema needed to reduce risk recurrent infections and reduce weight in leg for improved walking Target date: 11/03/22 3. Goal description: Demonstrate independence in applying gradient compression bandages to build I with home management of RLE lymphedema needed to reduce risk skin infections and promote improvements in walking with less weight in RLE. Target date: 11/03/22 4. Goal description: Demonstrate independence in performing prescribed exercises to facilate the lymph system and muscle pumping ssytems for max reductions in RLE lymphedema needed to reduce risk recurrent infections and reduce weight in leg for improved walking Target date: 11/03/22 5. Goal description: Be independent in donning/doffing, wearing schedule, and care of compression garments to build I with home management of RLE/BLE lymphedema needed to reduce risk skin infections and promote improvements in walking with less weight in RLE. Target date: 11/03/22 6. Goal description: Pt will reduce RLE total volume reduciton of .25L+ for reductions needed to reduce risk skin infections and promote less weight in leg for better walking Target date: 11/03/22 7. 8. Treatment Frequency: 3x/week, 2x/week Treatment duration: 0x/wk x 1-3 weeks to get on schedule, then 3x/wk x 2 weeks, then 2x/wk x 1 week, then 0x/wk x 2-3 weeks, then 1x/wk x 1 week for follow up Michael Salazar I CERTIFY THE NEED FOR THESE SERVICES FURNISHED UNDER THIS PLAN OF TREATMENT AND WHILE UNDER MY CARE . Physician Signature Date X Certification date from: 08/08/22 Certification date to: 11/03/22 Referring physician: Qiana Roth Initial Assessment See Epic Evaluation- Start of care: 08/08/22 * Michael Salazar - 08/08/2022 1:40 PM CDT 08/08/22 1200 Quick Adds Quick Adds Certification Rehab Discipline Discipline OT Type of Visit Type of visit Initial Edema Evaluation General Information Start of care 08/08/22 Referring physician Qiana Roth Orders Evaluate and treat as indicated Order date 07/10/22 Medical diagnosis lymphedema Onset of illness / date of surgery 07/10/22 Edema onset 07/10/22 Affected body parts RLE;LLE (RLE>LLE) Edema etiology Infection (cardiac history; history PAD and endarctectomy bilaterally for arterial disease/claudication and stents were placed; CVI was ruled out per Dr notes) Edema etiology comments Pts BLE lymphedema/RLE lymphedema seems most related to history with cellulitis infections and past claudication and arterial issues. Pt note sindicate he had venous testing and it was ruled out to have any CVI. Pt does have history RI and CV disease and displays some VV's in BLE so unclear if venous componenet to BLE swelling but not CVI or if non factor. Pt less active recently and diminished muscle pumping 2/2 hip and knee pain (hips pain reduced following endarcectomy BLE and stent placement). Pertinent history of current problem (PT: include personal factors and/or comorbidities that impactthe POC; OT: include additional occupational profile info) PMH significant for B common femoral arterial disease treated with B endarcectomy and stenting for PAD. Pt has chart indicating HTN, hernia,joint replacements, neuropathy reported, and 3 cellulitis infections reported. Surgical / medical history reviewed Yes Edema special tests Ultrasound Prior level of functional mobility I Prior treatment Compression garments;Exercise;MLD;Gradient compression bandaging;Diuretics;Elevation Community support Family / friend caregiver (daughter in law familiar with wrapping) Patient role / employment history Retired Living environment [place] [facility] Fall Risk Screen Fall screen completed by OT Have you fallen 2 or more times in the past year? No Have you fallen and had an injury in the past year? No Is patient a fall risk? No Abuse Screen (yes response referral indicated) Feels Unsafe at Home or Work/School no Feels Threatened by Someone no Does Anyone Try to Keep You From Having Contact with Others or Doing Things Outside Your Home? no Physical Signs of Abuse Present no Patient needs abuse support services and resources No System Outcome Measures Lymphedema Life Impact Scale (score range 0-72). A higher score indicates greater impairment. 38 Subjective Report Patient report of symptoms recent cellulitis infections; larger but improved RLE Patient / Family Goals Patient / family goals statement to reduce swelling RLE following cellulitis infection Pain Patient currently in pain No;Yes Pain location R calf/lower leg Pain comments Pt has some pain to palpation and lateral mid calf RLE Cognitive Status Orientation Orientation to person, place and time Level of consciousness Alert Follows commands and answers questions 100% of the time Personal safety and judgement Intact Edema Exam / Assessment Skin condition Pitting;Hemosiderin deposits;Dryness Skin condition comments RLE 1-2+ pitting with tight taught skin ankle-knee crease; LLE mild to 1+ pitting-soft and lsser so than RLE Pitting 1+;2+ Capillary refill Symmetrical Dorsal pedal pulse comments did not palpate/assess Stemmer sign Positive;Negative Stemmer sign comments negative LLE and positive RLE portions ankle and calf Girth Measurements Girth Measurements Other (will obtain upon return for services) Range of Motion ROM comments BLE WFL Strength Strength comments NT'd Activities of Daily Living Activities of Daily Living I Bed Mobility Bed mobility I Transfers Transfers I Gait / Locomotion Gait / Locomotion I Sensory Sensory perception comments pt reports neuropathy symtposm on intake form Vascular Assessment Vascular Assessment Comments chart and notes indicate issues with claudication remediated with surgery and stent placement; notes indicate venous testing and ruled out CVI Coordination Coordination Gross motor coordination appropriate Muscle Tone Muscle tone No deficits were identified Planned Edema Interventions Planned edema interventions Manual lymph drainage;Gradient compression bandaging;Fit for compression garment;Exercises;Precautions to prevent infection / exacerbation;Education;Skin care / precautions;Home management program development Clinical Impression Criteria for skilled therapeutic intervention met Yes Therapy diagnosis lymphedema BLE/RLE Influenced by the following impairments / conditions Stage 1 Assessment of Occupational Performance 1-3 Performance Deficits Identified Performance Deficits infection risk; decreased functional mobility Clinical Decision Making (Complexity) Low complexity Treatment Frequency 3x/week;2x/week Treatment duration 0x/wk x 1-3 weeks to get on schedule, then 3x/wk x 2 weeks, then 2x/wk x 1 week,then 0x/wk x 2-3 weeks, then 1x/wk x 1 week for follow up Patient / family and/or staff in agreement with plan of care Yes Risks and benefits of therapy have been explained Yes Clinical impression comments Pt can benefit from skilled lymphedema services to reduce RLE/BLE lymphedema to reduce riskrecurrent skin infections and promote less pain in RLE for betetr walking and clothing fit. Goals Edema Eval Goals 1;2;3;4;5;6 Goal 1 Goal identifier Ed Goal description Pt will report understanding differences between s/s lymphedema vs s/s cellulitis for safety and I with home management RLE/BLE lymphedema Target date 11/03/22 Goal 2 Goal identifier GCB Wearing Goal description Tolerate gradient compression bandaging/wearing compression garments 23 hrs/day toprevent re-acccumulation of extracellular fluid for max reductions in RLE lymphedema needed to reduce risk recurrent infections and reduce weight in leg for improved walking Target date 11/03/22 Goal 3 Goal identifier GCB Donning Goal description Demonstrate independence in applying gradient compression bandages to build I withhome management of RLE lymphedema needed to reduce risk skin infections and promote improvements inwalking with less weight in RLE. Target date 11/03/22 Goal 4 Goal identifier MLD/HEP Goal description Demonstrate independence in performing prescribed exercises to facilate the lymph system and muscle pumping ssytems for max reductions in RLE lymphedema needed to reduce risk recurrent infections and reduce weight in leg for improved walking Target date 11/03/22 Goal 5 Goal identifier Garments Goal description Be independent in donning/doffing, wearing schedule, and care of compression garments to build I with home management of RLE/BLE lymphedema needed to reduce risk skin infections and promote improvements in walking with less weight in RLE. Target date 11/03/22 Goal 6 Goal identifier RLE reductions Goal description Pt will reduce RLE total volume reduciton of .25L+ for reductions needed to reducerisk skin infections and promote less weight in leg for better walking Target date 11/03/22 Total Evaluation Time OT Jim Rea Complexity Minutes ([id number]) 25 Certification Certification date from 08/08/22 Certification date to 11/03/22 Medical Diagnosis lymphedema Certification I certify the need for these services furnished under this plan of treatment and while under my care. (Physician co-signature of this document indicates review and certification of the therapy plan). documented in this encounter Plan of Treatment Scheduled Referrals Name Type Priority Associated Diagnoses Orde r Schedule Lymphedema Therapy Referral Referral Routine Peripheral vascular disease, unspecified (H) Lymphedema Ordered: 07/10/2022 documented as of this encounter Visit Diagnoses Not on filedocumented in this encounter Care Teams Cigarette Package Examiner Relationship Specialty Start Date End Date [facility], [address] [address] PCP - General 08/02/16 documented as of this encounter
== END 2023-05-28 09:25 | disposition home or self-care (01) ==
PROVIDERS: PCP Family Medicine; Visit Provider Family Medicine
DX: R73.03 Prediabetes (principal); I10 Essential (primary) hypertension; I21.4 Non-ST elevation (NSTEMI) myocardial infarction
CPT/HCPCS: 80048; 82043; 82570

== ENCOUNTER 2023-06-01 07:01 | Outpatient (CLI) | payer BC, MEDICARE, SELFPAY ==
--- OUTSIDE RECORDS SUMMARY | 2023-06-01 07:04 | XMS_ITS | Encounter Summary ---
Author Name Unknown Organization [facility] Address [address] [place] [address] Care Team Providers Care Senior Lead Software Engineer Name Role Phone Elsewhere, Pcp Primary Care Provider Unavailabl e Reason for Visit * Reason Comments Med Refill Encounter Details Date Type Department Care Team (Late st Contact Info) Description 04/15/2023 Refill Department of Family Medicine, [facility], in [address] [phone] Geovanna Hernandez APRN, C.N.P., D.N.P. [address] [place] [phone] Med Refill Social History Tobacco Use Types [...] 04/18/2023 7:09 AM CST Pt seen elsewhere ASSISTANT/PROGRAM DIRECTOR documented in this encounter Plan of Treatment Not on file documented as of this encounter Visit Diagnoses Not on filedocumented in this encounter Care Teams Senior Lead Software Engineer Relationship Specialty Start Date End Date Elsewhere, Pcp PCP - General 05/12/19 documented as of this encounter
--- OUTSIDE RECORDS SUMMARY | 2023-06-01 07:04 | XMS_ITS ---
Author Name Unknown Organization [facility] Address [address] [place] [address] Care Team Providers Care Medical Scribe Name Role Phone Unavailable Unavailable Unavailable Surgery Details Not on file Complications Check Surgery Details section. Procedure Estimated Blood Loss Check Surgery Details section. Procedure Findings Check Surgery Details section. Procedure Specimens Taken Check Surgery Details section.
--- OUTSIDE RECORDS SUMMARY | 2023-06-01 07:04 | XMS_ITS | Encounter Summary ---
Author Name Unknown Organization [facility] Address [address] [place] [address]. [place] [address] Care Team Providers Care Travel Agency Manager Name Role Phone [facility] Primary Care Provider Encounter Details Date Type [...] on filedocumented in this encounter Care Teams Travel Agency Manager Relationship Specialty Start Date End Date [facility] [address] [place] [address] PCP - General 08/02/16 documented as of this encounter
--- OUTSIDE RECORDS SUMMARY | 2023-06-01 07:04 | XMS_ITS | Clinical Summary ---
Author Name Unknown Organization [facility] Address [address] [place] [address] Care Team Providers Care Block Bolter Mule Operator Name Role Phone Elsewhere, Pcp Primary Care Provider Unavailabl e Source Comments Patient records contain information from all sites at [facility]. For routine questions regarding patient records, call [phone] during business hours, M-F 8:00 AM - 5:00 PM Central Time. 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 Med Refill 05/09/2023 Refill Department of [facility] Medicine, [facility], [address] [phone] Geovanna Hernandez APRN, C.N.P., D.N.P. Med Refill 04/15/2023 Refill Department of [facility], [facility], [address] [phone] Geovanna Hernandez APRN, C.N.P., D.N.P. Med Refill [...] Comments Blood Pressure 134/85 03/23/2022 7:15 AM MEAT LOINER Pulse 86 03/23/2022 7:12 AM MEAT LOINER Temperature 36.1 ??C (97 ??F) 03/23/2022 7:12 AM MEAT LOINER Respiratory Rate 17 03/23/2022 7:12 AM MEAT LOINER Oxygen Saturation 95% 03/23/2022 7:12 AM MEAT LOINER Inhaled Oxygen Concentration - - Weight 154 kg (339 lb 8.1 oz) 03/23/2022 7:12 AM MEAT LOINER Height 177.8 cm (5' 10) 03/23/2022 7:12 AM MEAT LOINER Body Mass Index 48.71 03/23/2022 7:12 AM MEAT LOINER Plan of Treatment Health Maintenance Due Date [...] history exists Medical Devices Implanted Type Area Clinical Account Liaison Device Identifier Shelf Expiration Date Model / Serial / Lot Cardiac Stent Cardiac Stent Heart Scrw Pnn Acet Ft 6.5x30 - [id number] Implanted:Qty : 1 on 05/23/2017 by Radha Beckman M.D. at [facility] Hardware e.g. pins/screws /rods Right: Hip Depuy Synthes [id number] 02/20/2026 1217-30-5 00 / / [id number] Hip Implant Hip Implant Femur Description:Hardware Right F emur Fem Hd Art Ez [employer] +5x36 - [id number] Implanted:Qty : 1 on 05/23/2017 by Radha Beckman M.D. at [facility] Hip Implant Right: Hip Depuy Synthes [id number] 02/20/2021 1365-36-3 8692265 Stent Other Stent Other Left: Femur Description:Arterial stent i n left femur area Advance Directives For more information, please contact: [phone] Latest Code Status on File Code Status [...] Due to: Patient not available Care Teams Block Bolter Mule Operator Relationship Specialty Start Date End Date Elsewhere, Pcp PCP - General 05/12/19
--- OUTSIDE RECORDS SUMMARY | 2023-06-01 07:04 | XMS_ITS | Encounter Summary ---
Author Name Unknown Organization [facility] Address [address] [place] [address]. [place] [address] Care Team Providers Care Industrial Cleaning Technician Name Role Phone Wiliam, Ebony Anne Primary Care Provider Reason for Visit * Rehab Therapy Integrated Services (Routine) - Closed Specialty Diagnoses / Procedures Referred By Irving turner Referred To Contact Diagnoses Peripheral vascular disease, unspecified (H24) Lymphedema [address] [phone] Referral ID Status Reason Start Date Expiration Date Visits Re quested Visits Authorized [id number] Closed 08/01/2022 04/22/2023 365 365 Encounter Details Date Type Department Care Team (Late st Contact Info) Description 09/12/2022 8:30 AM CDT Therapy Visit [address] [phone] [place] [address] Holli Gutierrez, OTR [address] [place] [address] Lymphedema (Primary Dx) Social History Tobacco Use [...] lymphedema documented in this encounter Care Teams Industrial Cleaning Technician Relationship Specialty Start Date End Date [facility], [address] [address] PCP - General 08/02/16 documented as of this encounter
--- OUTSIDE RECORDS SUMMARY | 2023-06-01 07:04 | XMS_ITS | Referral Summary ---
Author Name Unknown Organization [facility] Address [address] [place] [address] Care Team Providers Care Shake Cutter Name Role Phone Elsewhere, Pcp Primary Care Provider Unavailabl e Source Comments Patient records contain information from all sites at [facility]. For routine questions regarding patient records, call [phone] during business hours, M-F 8:00 AM - 5:00 PM Central Time. Record requests for emergency care only can be directed to [phone] at any time.[facility] Encounters Date Type Department Care Team Description 05/17/2023 Refill Department of Family Medicine, [facility], in [address] [phone] Geovanna Hernandez APRN, C.N.P., D.N.P. Med Refill 05/09/2023 Refill Department of Family Medicine, [facility], [address] [phone] Geovanna Hernandez APRN, C.N.P., D.N.P. Med Refill 04/15/2023 Refill Department of Family Medicine, [facility], [address] [phone] Geovanna Hernandez APRN, C.N.P., D.N.P. 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 Overview: Added automatically from request for surgery [id number] Morbid Obesity 11/27/2016 Overview: Morbid Obesity Body Mass Index (BMI) > 40 Adult\.br\per external records Atherosclerotic Heart Diseas e Of [place] Coronary Artery Without Angina Pectoris 11/27/2016 Overview: [...] Comments Blood Pressure 134/85 03/23/2022 7:15 AM REGULATORY SERVICES CONSULTANT Pulse 86 03/23/2022 7:12 AM REGULATORY SERVICES CONSULTANT Temperature 36.1 ??C (97 ??F) 03/23/2022 7:12 AM REGULATORY SERVICES CONSULTANT Respiratory Rate 17 03/23/2022 7:12 AM REGULATORY SERVICES CONSULTANT Oxygen Saturation 95% 03/23/2022 7:12 AM REGULATORY SERVICES CONSULTANT Inhaled Oxygen Concentration - - Weight 154 kg (339 lb 8.1 oz) 03/23/2022 7:12 AM REGULATORY SERVICES CONSULTANT Height 177.8 cm (5' 10) 03/23/2022 7:12 AM REGULATORY SERVICES CONSULTANT Body Mass Index 48.71 03/23/2022 7:12 AM REGULATORY SERVICES CONSULTANT Plan of Treatment Not on file Medical Devices Implanted Type Area Lead Tinner Device Identifier Shelf Expiration Date Model / Serial / Lot Cardiac Stent Cardiac Stent Heart Scrw Pnn Acet Ft 6.5x30 - [id number] Implanted:Qty : 1 on 05/23/2017 by Radha Beckman M.D. at [facility] Hardware e.g. pins/screws /rods Right: Hip Depuy Synthes [id number] 02/20/2026 1217-30-5 00 / / [id number] Hip Implant Hip Implant Femur Description:Hardware Right F emur Fem Hd Art Ez [employer] +5x36 - [id number] Implanted:Qty : 1 on 05/23/2017 by Radha Beckman M.D. at [facility] Hip Implant Right: Hip Depuy Synthes [id number] 02/20/2021 1365-36-3 [id number] Stent Other Stent Other Left: Femur Description:Arterial stent i n left femur area Advance Directives For more information, please contact: [phone] Latest Code Status on File Code Status [...] Due to: Patient not available Care Teams Shake Cutter Relationship Specialty Start Date End Date Elsewhere, Pcp PCP - General 05/12/19
--- OUTSIDE RECORDS SUMMARY | 2023-06-01 07:04 | XMS_ITS | Encounter Summary ---
Author Name Unknown Organization [facility] Address [address] [place] [address]. [place] [address] Care Team Providers Care Director Strategic Account Management Name Role Phone [facility] Primary Care Provider Encounter Details [...] on filedocumented in this encounter Care Teams Director Strategic Account Management Relationship Specialty Start Date End Date [facility] [address] [place] [address] PCP - General 08/02/16 documented as of this encounter
--- OUTSIDE RECORDS SUMMARY | 2023-06-01 07:04 | XMS_ITS | Clinical Summary ---
Author Name Unknown Organization [facility] Address [address] [place] [address]. [place] [address] Care Team Providers Care Safety Net Maker Name Role Phone Wiliam, Ebony Anne Primary [...] Comments Blood Pressure 123/63 05/26/2020 6:00 PM RING CUTTER LATHE OPERATOR Pulse 70 05/26/2020 4:38 PM RING CUTTER LATHE OPERATOR Temperature 36.6 ??C (97.9 ??F) 05/26/2020 6:19 PM CS T Respiratory Rate 16 05/26/2020 6:19 PM RING CUTTER LATHE OPERATOR Oxygen Saturation 94% 05/26/2020 6:19 PM RING CUTTER LATHE OPERATOR Inhaled Oxygen Concentration - - Weight 148.3 kg (327 lb) 05/26/2020 11:45 AM RING CUTTER LATHE OPERATOR Height 180.3 cm (5' 11) 05/26/2020 11:45 AM RING CUTTER LATHE OPERATOR Body Mass Index 45.61 05/26/2020 11:45 AM RING CUTTER LATHE OPERATOR Plan of Treatment Health Maintenance Due Date Last Done Comments ADVANCE CARE PLANNING 1955 ANNUAL REVIEW OF HM ORDERS [address] CT COLONOGRAPHY 1953 FIT 1955 GLUCOSE 1953 LIPID 1953 sDNA (Cologuard) 1955 HEPATITIS C SCREENING 1971 RSV VACCINE ( & 60+) (1 - [...] age to complete this topic Care Teams Safety Net Maker Relationship Specialty Start Date End Date Clinic, [facility] [address] [place] [address] PCP - General 08/02/16
--- OUTSIDE RECORDS SUMMARY | 2023-06-01 07:04 | XMS_ITS | Encounter Summary ---
Author Name Unknown Organization [facility] Address [address] [place] [address]. [place] [address] Care Team Providers Care Comb Tender Name Role Phone Ebony Swain Primary Care Provider Reason for Visit * Rehab Therapy Integrated Services (Routine) - Closed Specialty Diagnoses / Procedures Referred By Irving turner Referred To Contact Diagnoses Peripheral vascular disease, unspecified (H24) Lymphedema [address] [address] Referral ID Status Reason Start Date Expiration Date Visits Re quested Visits Authorized [id number] Closed 08/01/2022 04/22/2023 365 365 Encounter Details Date Type Department Care Team (Late st Contact Info) Description 10/12/2022 9:30 AM CDT Therapy Visit [address] [phone] Qiana Roth MD [facility] [address] [place] [address] [facility] [address] [place] [address] Lymphedema (Primary Dx) Social History Tobacco Use [...] CLT-KALEB Visits Used 10/30 (BS [place]; [place]-cert; [facility] Fed-cert) Medical Diagnosis lymphedema OT Tx Diagnosis [...] Manual Therapy Manual Therapy Manual Therapy Minutes (75755) 25 Skilled Intervention ed; measurements; LLIS Manual [...] lymphedema documented in this encounter Care Teams Comb Tender Relationship Specialty Start Date End Date [facility], [place] [address] PCP - General 08/02/16 documented as of this encounter
--- OUTSIDE RECORDS SUMMARY | 2023-06-01 07:04 | XMS_ITS | Continuity of Care Document ---
Author Name Unknown Organization [facility] Address [address] [place] [address] Phone Care Team Providers Care Knocker Out Name Role Phone Rikki MOISE, PhD, Austyn [...] Copied on Encounter [facility], [address], [place], [id number], tel:[phone] [facility] No Information 9 Rikki Zaman. [facility], [address], [place], [address], [place]. [phone] Office/Outpat ient Visit,Est, Low [facility], [address], [place], [id number], [place] tel:[phone] [facility] Encounter for other specified surgical aftercare 9 Rikki Zaman. [facility], [address], [place], [address], [place]. tel:[phone] Referring Provider: [address], [place], [address]. tel:[phone] [facility], [address], [place], [place], [id number], [place] tel:[phone] [facility] Encounter for other specified surgical aftercare 9 Rikki Zaman. [facility], [address], [place], [address], [place]. [phone] Referring Provider: [address], [place], [address]. tel:[phone] [facility], [address], [place], [id number], [place] tel:[phone] [facility] No Information 9 Gonzales Goodman. [facility], [address], [place], [place], [id number] , [place]. [phone] Referring Provider: [address], [place], [address]. tel:[phone] [facility], [address], [place], [id number], [place] tel:[phone] [facility] No Information Rikki Zaman. [facility], [address], [place], [address], [place]. [phone] Referring Provider: Drew Weldon, Manish[address] [facility], [place], [address]. tel:[phone] Office/Outpat ient Visit,Est, Mod [facility], [address], [place], [id number], [place] tel:[phone] [facility] Other intervertebral disc displacement, lumbar region 9 Rikki Zaman. [facility], [address], [place], [address], [place]. [phone] Referring Provider: Drew Weldon, ManishParko [address] [facility], [place], [address]. tel:[phone] Office/Outpat ient Visit,New, Mod [facility], [address], [place], [id number], [place] tel:[phone] [facility] Spinal stenosis, lumbar region with neurogenic claudication 8 Rikki Zaman. [facility], [address], [facility] [place], [address], [place]. [phone] Referring Provider: Drew Weldon, ManishParko [address] [facility], [place], [address]. tel:[phone] [facility], [address], [place], [id number], [place] tel:[phone] [facility] Radiculopathy, lumbar regionSpinal stenosis, lumbosacral region 8 Rikki Zaman. [facility], [address], [facility] [place], [address], [place]. tel:[phone] Family History Family Member Type Diagnosis Age At Onset No Information Payers Payer name Insurance type Covered constitution party ID Authorbelia villalta(s) [facility] [id number] Medicare MB [id number] Social History Type Description Quantity Date Captured Comments Sex Male Smoking Status No Information Chief Complaint And Reason For Visit No Information Reason For Referral Reason For Referral No Information Plan Of Treatment Date Type Action Status Future Order: Radiology Order AP -Bnd-Imis-Pvg Lum (APLatFlExL), Ordered on: Ordered History Of Present Illness Encounter Date Complaint History Of Prese nt Illness No Information Functional Status Date Functional Assessmen t No Information Instructions Date Instruction Additional Infor mation No Information Assessments Type Assessment Date No Information Patient Care Teams Name Effective Dates (start - stop) Status Members No Information
--- OUTSIDE RECORDS SUMMARY | 2023-06-01 07:04 | XMS_ITS | Encounter Summary ---
Author Name Unknown Organization [facility] Address [address] [place] [address]. [place] [address] Care Team Providers Care Chemistry Associate Name Role Phone Wiliam, Ebony Anne Primary Care Provider Reason for Visit * Rehab Therapy Integrated Services (Routine) - Closed Specialty Diagnoses / Procedures Referred By Irving turner Referred To Contact Diagnoses Peripheral vascular disease, unspecified (H24) Lymphedema [address] [address] Referral ID Status Reason Start Date Expiration Date Visits Re quested Visits Authorized [id number] Closed 08/01/2022 04/22/2023 365 365 Encounter Details Date Type Department Care Team (Late st Contact Info) Description 09/07/2022 7:30 AM CDT Therapy Visit [address] [phone] [place] [address] [facility] [address] [place] [address] Lymphedema (Primary Dx) Social History Tobacco Use [...] lymphedema documented in this encounter Care Teams Chemistry Associate Relationship Specialty Start Date End Date [facility], [address] [address] PCP - General 08/02/16 documented as of this encounter
--- OUTSIDE RECORDS SUMMARY | 2023-06-01 07:04 | XMS_ITS | Encounter Summary ---
Author Name Unknown Organization [facility] Address [address] [place] [address] Care Team Providers Care Land Management Forester Name Role Phone Elsewhere, Pcp Primary Care Provider Unavailabl e Reason for Visit * Reason Comments Med Refill Encounter Details Date Type Department Care Team (Late st Contact Info) Description 05/17/2023 Refill Department of Family Medicine, [facility], in [address] [phone] Geovanna Hernandez APRN, C.N.P., D.N.P. [address] [place] [phone] Med Refill Social History Tobacco Use Types [...] - 05/17/2023 12:51 PM CST PCP elsewhere ERSHIP DIRECTOR documented in this encounter Plan of Treatment Not on file documented as of this encounter Visit Diagnoses Not on filedocumented in this encounter Care Teams Land Management Forester Relationship Specialty Start Date End Date Elsewhere, Pcp PCP - General 05/12/19 documented as of this encounter
--- OUTSIDE RECORDS SUMMARY | 2023-06-01 07:04 | XMS_ITS | Referral Summary ---
Author Name Unknown Organization [facility] Address [address] [place] [address]. [place] [address] Care Team Providers Care Conduit Helper Name Role Phone Wiliam, Ebony Anne Primary [...] Comments Blood Pressure 123/63 05/26/2020 6:00 PM PASSENGER RATE CLERK Pulse 70 05/26/2020 4:38 PM PASSENGER RATE CLERK Temperature 36.6 ??C (97.9 ??F) 05/26/2020 6:19 PM CS T Respiratory Rate 16 05/26/2020 6:19 PM PASSENGER RATE CLERK Oxygen Saturation 94% 05/26/2020 6:19 PM PASSENGER RATE CLERK Inhaled Oxygen Concentration - - Weight 148.3 kg (327 lb) 05/26/2020 11:45 AM PASSENGER RATE CLERK Height 180.3 cm (5' 11) 05/26/2020 11:45 AM PASSENGER RATE CLERK Body Mass Index 45.61 05/26/2020 11:45 AM PASSENGER RATE CLERK Plan of Treatment Not on file Care Teams Conduit Helper Relationship Specialty Start Date End Date [facility], [address] [address] PCP - General 08/02/16
--- OUTSIDE RECORDS SUMMARY | 2023-06-01 07:04 | XMS_ITS | Encounter Summary ---
Author Name Unknown Organization [facility] Address [address] [place] [address]. [place] [address] Care Team Providers Care Unhairer Name Role Phone Wiliam, Ebony Anne Primary Care Provider Reason for Visit * Rehab Therapy Integrated Services (Routine) - Closed Specialty Diagnoses / Procedures Referred By Irving turner Referred To Contact Diagnoses Peripheral vascular disease, unspecified (H24) Lymphedema [address] [address] Referral ID Status Reason Start Date Expiration Date Visits Re quested Visits Authorized [id number] Closed 08/01/2022 04/22/2023 365 365 Encounter Details Date Type Department Care Team (Late st Contact Info) Description 09/08/2022 8:30 AM CDT Therapy Visit [address] [phone] [place] [address] [facility] [address] [place] [address] Lymphedema (Primary Dx) Social History Tobacco Use [...] lymphedema documented in this encounter Care Teams Unhairer Relationship Specialty Start Date End Date [facility], [address] [address] PCP - General 08/02/16 documented as of this encounter
--- OUTSIDE RECORDS SUMMARY | 2023-06-01 07:04 | XMS_ITS | Encounter Summary ---
Author Name Unknown Organization [facility] Address [address] [place] [address]. [place] [address] Care Team Providers Care Television Actor Name Role Phone [facility] Primary Care Provider Encounter Details Date [...] on filedocumented in this encounter Care Teams Television Actor Relationship Specialty Start Date End Date [facility] [address] [place] [address] PCP - General 08/02/16 documented as of this encounter
--- OUTSIDE RECORDS SUMMARY | 2023-06-01 07:04 | XMS_ITS | Encounter Summary ---
Author Name Unknown Organization [facility] Address [address] [place] [address]. [place] [address] Care Team Providers Care Business Office Representative Name Role Phone [facility] Primary Care Provider Encounter Details [...] on filedocumented in this encounter Care Teams Business Office Representative Relationship Specialty Start Date End Date [facility] [address] [place] [address] PCP - General 08/02/16 documented as of this encounter
--- OUTSIDE RECORDS SUMMARY | 2023-06-01 07:04 | XMS_ITS | Encounter Summary ---
Author Name Unknown Organization [facility] Address [address] [place] [address] Care Team Providers Care Disability Advocate Name Role Phone Elsewhere, Pcp Primary Care Provider Unavailabl e Reason for Visit * Reason Comments Med Refill Encounter Details Date Type Department Care Team (Late st Contact Info) Description 05/09/2023 Refill Department of Family Medicine, [facility], in [address] [phone] Geovanna Hernandez APRN, C.N.P., D.N.P. [address] [place] [phone] Med Refill Social History Tobacco Use Types [...] - 05/10/2023 8:46 AM CST Care Elsewhere BLE MEDICAL EQUIPMENT TECHNICIAN documented in this encounter Plan of Treatment Not on file documented as of this encounter Visit Diagnoses Not on filedocumented in this encounter Care Teams Disability Advocate Relationship Specialty Start Date End Date Elsewhere, Pcp PCP - General 05/12/19 documented as of this encounter
--- OUTSIDE RECORDS SUMMARY | 2023-06-01 07:04 | XMS_ITS | Encounter Summary ---
Author Name Unknown Organization [facility] Address [address] [place] [address]. [place] [address] Care Team Providers Care Restaurant Crew Person Name Role Phone [facility] Primary Care Provider Encounter Details [...] on filedocumented in this encounter Care Teams Restaurant Crew Person Relationship Specialty Start Date End Date [facility] [address] [place] [address] PCP - General 08/02/16 documented as of this encounter
--- OUTSIDE RECORDS SUMMARY | 2023-06-01 07:04 | XMS_ITS | Encounter Summary ---
Author Name Unknown Organization [facility] Address [address] [place] [address]. [place] [address] Care Team Providers Care Hydraulic Rockbreaker Operator Name Role Phone Wiliam, Ebony Anne Primary Care Provider Reason for Visit * Rehab Therapy Integrated Services (Routine) - Closed Specialty Diagnoses / Procedures Referred By Irving turner Referred To Contact Diagnoses Peripheral vascular disease, unspecified (H24) Lymphedema [address] [address] Referral ID Status Reason Start Date Expiration Date Visits Re quested Visits Authorized [id number] Closed 08/01/2022 04/22/2023 365 365 Encounter Details Date Type Department Care Team (Late st Contact Info) Description 09/14/2022 10:30 AM CDT Therapy Visit [address] [phone] [place] [address] [facility] [address] [place] [address] Lymphedema (Primary Dx) Social History Tobacco Use [...] lymphedema documented in this encounter Care Teams Hydraulic Rockbreaker Operator Relationship Specialty Start Date End Date [facility], [address] [address] PCP - General 08/02/16 documented as of this encounter
--- OUTSIDE RECORDS SUMMARY | 2023-06-01 07:05 | XMS_ITS | Encounter Summary ---
Author Name Unknown Organization [facility] Address [address] [place] [address]. [place] [address] Care Team Providers Care Stock Letterer Name Role Phone Ebony Swain Primary Care Provider Reason for Visit * Rehab Therapy Integrated Services (Routine) - Closed Specialty Diagnoses / Procedures Referred By Irving turner Referred To Contact Diagnoses Peripheral vascular disease, unspecified (H24) Lymphedema [address] [address] Referral ID Status Reason Start Date Expiration Date Visits Re quested Visits Authorized [id number] Closed 08/01/2022 04/22/2023 365 365 Encounter Details Date Type Department Care Team (Latest Contact Info) Description 08/08/2022 9:17 AM CDT - 08/08/2022 11:59 PM CDT Hospital Encounter [address] [phone] No Ref-Primary, Physician [facility] [address] [place] [address] Discharge Disposition: Home or Self Care Social [...] Progress Notes * [facility] Anisa - 08/08/2022 1:40 PM CDT Images from the original note were not included. [facility] OUTPATIENT OCCUPATIONAL THERAPY EDEMA EVALUATION PLAN OF TREATMENT FOR OUTPATIENT REHABILITATION (COMPLETE FOR INITIAL CLAIMS ONLY) Patient's Last Name, First Name, Ajith Gonzalez Provider???s Name: [facility] Start of Care Date: 08/08/22 Onset Date: [...] have any CVI. Pt does have history OR and CV disease and displays some VV's [...] role / employment history Retired Living environment [place] / [facility] Fall Risk Screen Fall screen completed [...] Evaluation Time OT Jim Rea Complexity Minutes (64[address]) 25 Certification Certification date from 08/08/22 Certification [...] on filedocumented in this encounter Care Teams Stock Letterer Relationship Specialty Start Date End Date [facility], [address] [address] PCP - General 08/02/16 documented as of this encounter
--- OUTSIDE RECORDS SUMMARY | 2023-06-01 07:05 | XMS_ITS | Encounter Summary ---
Author Name Unknown Organization [facility] Address [address] [place] [address]. [place] [address] Care Team Providers Care Plastic Tubing Insulation Supervisor Name Role Phone [facility] Primary Care Provider Encounter Details Date Type Department Care Team (Latest Contact Info) Description 08/08/[address] [facility] [address] [place] [phone] Outside, Provider PLAN TOM TREATMENT FOR [...] on filedocumented in this encounter Care Teams Plastic Tubing Insulation Supervisor Relationship Specialty Start Date End Date [facility], Ebony Anne [address] [place] [address] PCP - General 08/02/16 documented as of this encounter
--- OUTSIDE RECORDS SUMMARY | 2023-06-01 07:05 | XMS_ITS | Encounter Summary ---
Author Name Unknown Organization [facility] Address [address] [place] [address]. [place] [address] Care Team Providers Care Structural Shop Helper Name Role Phone Ebony Swain Primary Care Provider Reason for Referral * Rehab Therapy Integrated Services (Routine) - Closed Specialty Diagnoses / Procedures Referred By Irving turner Referred To Contact Diagnoses Peripheral vascular disease, unspecified (H24) Lymphedema [address] [phone] Referral ID Status Reason Start Date Expiration Date Visits Re quested Visits Authorized [id number] Closed 08/01/2022 04/22/2023 365 365 Question Answer Preferred Location: [facility] Scheduling Instructions: If you have not heard from the scheduling office within 2 business days, please call [phone] for [facility], for [place] and [phone] for [place]. Course of Action PT or OT Evaluation and Treatment PT/OT Treatment Diagnosis Lymphedema Additional Information: Lymphedema management Comments If you have not heard from the scheduling office within 2 business days, please call [phone] for all locations, with the exception of [place], please call [phone] and [place], please call [phone]. Please be aware that coverage of these services is subject to the terms and limitations of your health insurance plan. Call member services at your health plan with any benefit or coverage questions. If you have not heard from the scheduling office within 2 business days, please call [phone] for [facility], for [place] and [phone] for [place]. Encounter Details Date Type Department Care Team (Late st Contact Info) Description 07/10/2022 Transcribe Orders GENERIC EXTERNAL DATA DEPARTMENT Qiana Roth MD [address] [place], [place] [id number] Peripheral vascular disease, unspecified (H) (Primary Dx); [...] documented in this encounter Care Teams Structural Shop Helper Relationship Specialty Start Date End Date [address] [address] PCP - General 08/02/16 documented as of this encounter
--- OUTSIDE RECORDS SUMMARY | 2023-06-01 07:05 | XMS_ITS | Encounter Summary ---
Author Name Unknown Organization [facility] Address [address] [place] [address]. [place] [address] Care Team Providers Care Manager Income Tax Name Role Phone Ebony Swain Primary Care Provider Reason for Visit * Rehab Therapy Integrated Services (Routine) - Closed Specialty Diagnoses / Procedures Referred By Irving turner Referred To Contact Diagnoses Peripheral vascular disease, unspecified (H24) Lymphedema [address] [address] Referral ID Status Reason Start Date Expiration Date Visits Re quested Visits Authorized [id number] Closed 08/01/2022 04/22/2023 365 365 Encounter Details Date Type Department Care Team (Latest Contact Info) Description 09/04/2022 2:24 PM CDT - 09/04/2022 11:59 PM CDT Hospital Encounter [address] [phone] [place] [address] Holli Gutierrez, OTR [address] [place] [address] Discharge Disposition: Home or Self Care Social [...] on filedocumented in this encounter Care Teams Manager Income Tax Relationship Specialty Start Date End Date Ebony Swain [address] [place] [address] PCP - General 08/02/16 documented as of this encounter
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
--- OUTSIDE RECORDS SUMMARY | 2023-06-01 07:05 | XMS_ITS | Encounter Summary ---
Author Name Unknown Organization [facility] Address [address] [place] [address]. [place] [address] Care Team Providers Care Service Line Bus Cleaner Name Role Phone [facility] Primary Care Provider Encounter Details Date Type [...] on filedocumented in this encounter Care Teams Service Line Bus Cleaner Relationship Specialty Start Date End Date [facility] [address] [place] [address] PCP - General 08/02/16 documented as of this encounter
--- NOTE | 2023-06-01 07:15 | CRLHL7_ITS ---
For Patients: As a result of the Century Cures Act, medical imaging exams and procedure reports are released immediately into your electronic medical record. You may view this report before your referring provider. If you have questions, please contact your health care provider. Examination: US abdominal aorta Indication: Abdominal aortic aneurysm screening. Technique: Mccauley scale and color Doppler images of the aorta and common iliac arteries are obtained. Comparison: None Findings: Proximal aorta: 2.7 x 3.0 cm Mid aorta: 2.4 x 2.4 cm Distal aorta: 2.1 x 2.5 cm Right common iliac artery: 1.1 x 1.3 cm Left common iliac artery: 1.2 x 1.2 cm Recommended imaging interval for ectatic aorta: 3.0-3.4 cm: 3 years Impression: Ectatic proximal aorta measuring 3.0 cm. Dictated by Theodore Hatch MD @ 06/01/2023 10:57:33 AM (Electronically Signed)
== END 2023-06-01 07:02 | disposition home or self-care (01) ==
LOC: US 07:02
PROVIDERS: PCP Family Medicine; Visit Provider Family Medicine
DX: Z13.6 Encounter for screening for cardiovascular disorders (principal); I77.819 Aortic ectasia, unspecified site; Z87.891 Personal history of nicotine dependence
CPT/HCPCS: 76706

== ENCOUNTER 2023-06-28 09:27 | Outpatient (CLI) | payer BC, MEDICARE, SELFPAY | END 2023-06-28 09:28 | disposition home or self-care (01) | PROVIDERS: PCP Family Medicine; Visit Provider Family Medicine | DX: R06.02 Shortness of breath (principal); I25.2 Old myocardial infarction; R60.0 Localized edema | CPT/HCPCS: 80048; 83880 ==

== ENCOUNTER 2023-07-11 09:35 | Outpatient (CLI) | payer BC, MEDICARE, SELFPAY ==
--- NOTE | 2023-07-11 10:00 | CT_ITS ---
Patient: DENNYS YOUSIF JR Facility:?[facility] Patient ID:?[id number] Site Patient ID:?[id number]. Site :?1955 Study:?CT-Chest LOW DOSE SCREENING-07/11/2023 10:23:15 AM Ordering Physician:FLO Final Report: INDICATION: Lung cancer screening. History of smoking. High risk patient with greater than 20 pack-year smoking history. TECHNIQUE: Low-dose lung cancer screening non-contrast CT chest. Dose reduction techniques were used. COMPARISON: None. FINDINGS: NODULES: Ground-glass nodule right lower lobe measuring 5.9 millimeters, 3/72. Tiny nodular density within the right lower lobe measuring 4.2 millimeters, 3/101. Subtle nodular density within the left upper lobe measuring 5.1 millimeters, 3/49. Tiny nodule in the right middle lobe measuring 3.7 millimeters, 3/79. LUNGS AND PLEURA: Emphysema. MEDIASTINUM: Subcentimeter lymph nodes are present. Atherosclerotic changes. CORONARY ARTERY CALCIFICATION: Present. LIMITED UPPER ABDOMEN: Unremarkable. MUSCULOSKELETAL: No fracture. Minimal degenerative disc disease. IMPRESSION: Bilateral pulmonary nodules measuring up to 5.9 millimeters. LUNG-RADS CATEGORY: 2: Benign. RADIOLOGIST RECOMMENDATION: Continue annual screening with low-dose CT chest in 12 months. Please note that all CT scans at this facility use dose modulation, iterative reconstruction, and/or weight-based dosing when appropriate to reduce radiation dose to as low as reasonably achievable. Dictated by Theodore Hatch MD @ 07/11/2023 10:54:45 AM Signed by:?Theodore Hatch MD @07/11/2023 10:54:45 AM (Electronic Signature)
== END 2023-07-11 09:36 | disposition home or self-care (01) ==
LOC: CT 09:36
PROVIDERS: PCP Family Medicine; Visit Provider Family Medicine
DX: Z12.2 Encounter for screening for malignant neoplasm of respiratory organs (principal); R91.1 Solitary pulmonary nodule; Z87.891 Personal history of nicotine dependence
CPT/HCPCS: 71271

== ENCOUNTER 2023-10-22 11:09 | Outpatient (CLI) | payer BC, MEDICARE, SELFPAY ==
--- OUTSIDE RECORDS SUMMARY | 2023-10-22 11:22 | XMS_ITS | Continuity of Care Document ---
Author Organization [facility] Address [address] [place] [address] Phone Care Team Providers Care Volleyball Coach Name Role Phone Rikki MOISE, PhD, Austyn [...] Copied on Encounter [facility], [address], [place], [id number], [place] tel:[phone] [facility] No Information 9 Rikki Zaman. [facility], [address], [place], [address], [place]. tel:[phone] Office/Outpat ient Visit,Est, Low [facility], [address], [place], [place], [id number], [place] tel:[phone] [facility] Encounter for other specified surgical aftercare 9 Rikki Zaman. [facility], [address], [place], [address], [place]. tel:[phone] Referring Provider: [address], [place], [address]. tel:[phone] [facility], [address], [place], [place], [id number], [place] tel:[phone] [facility] Encounter for other specified surgical aftercare 9 Rikki Zaman. [facility], [address], [place], [address], [place]. tel:[phone] Referring Provider: [address], [place], [address]. tel:[phone] [facility], [address], [place], [place], [id number], [place] tel:[phone] [facility] No Information 9 Gonzales Goodman. [facility], [address], [place], [place], [id number] , [place]. tel:[phone] Referring Provider: [address], [place], [address]. tel:[phone] [facility], [address], [place], [id number], [place] tel:[phone] [facility] No Information Rikki Zaman. [facility], [address], [place], [address], [place]. [phone] Referring Provider: [facility] [address] [facility], [place], [address]. tel:[phone] Office/Outpat ient Visit,Est, Mod [facility], [address], [place], [place], [id number], [place] tel:[phone] [facility] Other intervertebral disc displacement, lumbar region 9 Rikki Zaman. [facility], [address], [place], [address], [place]. [phone] Referring Provider: [facility] [address] [facility], [place], [address]. tel:[phone] Office/Outpat ient Visit,New, Mod [facility], [address], [place], [id number], [place] tel:[phone] [facility] Spinal stenosis, lumbar region with neurogenic claudication 8 Rikki Zaman. [facility], [address], [place], [address], [place]. [phone] Referring Provider: Drew [facility] [address] [facility], [place], [address]. tel:[phone] [facility], [address], [place], [id number], [place] tel:[phone] [facility] Radiculopathy, lumbar regionSpinal stenosis, lumbosacral region 8 Rikki Zaman. [facility], [address], [place], [address], [place]. [phone] Family History Family Member Type Diagnosis Age At Onset No Information Payers Payer name Insurance type Covered green party ID Authornicolea pawan(s) [facility] [id number] Medicare MB [id number] Social History Type Description Quantity Date Captured Comments Sex Male Smoking Status No Information Chief Complaint And Reason For Visit No Information Reason For Referral Reason For Referral No Information Plan Of Treatment Date Type Action Status Future Order: Radiology Order AP -Acg-Sixm-Vqq Lum (APLatFlExL), Ordered on: Ordered History Of Present Illness Encounter Date Complaint History Of Prese nt Illness No Information Functional Status Date Functional Assessmen t No Information Instructions Date Instruction Additional Infor mation No Information Assessments Type Assessment Date No Information Patient Care Teams Name Effective Dates (start - stop) Status Members No Information
== END 2023-10-22 11:10 | disposition home or self-care (01) ==
PROVIDERS: PCP Family Medicine; Visit Provider Family Medicine
DX: E55.9 Vitamin D deficiency, unspecified (principal); I10 Essential (primary) hypertension; R73.03 Prediabetes; Z13.220 Encounter for screening for lipoid disorders; Z12.5 Encounter for screening for malignant neoplasm of prostate; Z11.59 Encounter for screening for other viral diseases
CPT/HCPCS: 80053; 80061; 82043; 82306; 82570; 86803; G0103

== ENCOUNTER 2024-07-11 08:40 | Outpatient (CLI) | payer BC, MEDICARE, SELFPAY ==
--- NOTE | 2024-07-11 09:00 | CRLHL7_ITS ---
For Patients: As a result of the Century Cures Act, medical imaging exams and procedure reports are released immediately into your electronic medical record. You may view this report before your referring provider. If you have questions, please contact your health care provider. INDICATION: Lung cancer screening. History of smoking. TECHNIQUE: Low-dose lung cancer screening non-contrast CT chest. Dose reduction techniques were used. COMPARISON: None FINDINGS: NODULES: 4 millimeter nodule right middle lobe, . Subsolid nodule measuring 6 millimeters, . Additional sub solid nodule within the right lower lobe measures 7.5 millimeters. LUNGS AND PLEURA: Emphysema. MEDIASTINUM: Visualized thyroid normal. Atherosclerotic changes. No adenopathy. Gwkld-bjsqwbl-osks-left subareolar gynecomastia. CORONARY ARTERY CALCIFICATION: Present. LIMITED UPPER ABDOMEN: Calcified stones in the gallbladder are present. Incidental splenule noted. No adrenal nodule. MUSCULOSKELETAL: No fracture. IMPRESSION: Subsolid nodules measuring up to 7.5 millimeters. LUNG-RADS CATEGORY: 4A: Suspicious. RADIOLOGIST RECOMMENDATION: Low-dose CT chest in 3 months. Please note that all CT scans at this facility use dose modulation, iterative reconstruction, and/or weight-based dosing when appropriate to reduce radiation dose to as low as reasonably achievable. Dictated by Theodore Hatch MD @ 07/11/2024 12:04:09 PM (Electronically Signed)
== END 2024-07-11 08:41 | disposition home or self-care (01) ==
LOC: CT 08:40
PROVIDERS: PCP Family Medicine; Visit Provider Family Medicine
DX: Z12.2 Encounter for screening for malignant neoplasm of respiratory organs (principal); R91.8 Other nonspecific abnormal finding of lung field; Z87.891 Personal history of nicotine dependence
CPT/HCPCS: 71271

== ENCOUNTER 2024-07-20 13:39 | Emergency (ER) | payer BC, MEDICARE, SELFPAY ==
--- OUTSIDE RECORDS SUMMARY | 2024-07-20 13:43 | XMS_ITS ---
Author Organization [facility] Address [address] [place] [address] [address] [place] [address] Care Team Providers Care Developmental Mathematics Instructor Name Role Phone Gonzales MOISE, Chacha Primary Care Provider Unav ailable Rahul Arthur Unavailable [phone] REASON FOR VISIT * Local * Bilateral L5-S1 TFEs Encounters Encounter Location Date Provider Diagnosis [address] [facility] [address] [facility] [address] [address] [place] [address] 09/18/2023 Rahul Arthur Radiculopathy, lumbosacral region M54.17 Assessments Encounter Date Diagnosis (ICD Code) Assessment Notes Treatment Notes Treatment Clinical Notes Section Notes 09/18/2023 Radiculopathy, lumbosacral region (ICD-10 - M54.17) Plan Of Treatment No Information Progress Notes * TYLERAshley Ajith Sanders JrDOB:05/1955 (68 yo M)Acc No.[id number]:09/18/2023 Patient: Alfonso Mcgarryfabricio Sanders Provider: Crispin Arthur M.D. :1955 A ge:68 Y S ex:Male Date:09/18/2023 Phone: Address:[address] [place], [place] Pcp:Chacha Rolon MD * Billing Information: * Visit Code: * Procedure Codes: 38160 Transforaminal L or S single. Modifiers: 50 A4209 5 cc - 19 cc gauge syringe. A4930 Gloves, size 8. A4215 Donna only Sterile any size each. A4550 Spinal Support Tray. S0020 Bupivicaine 0.5% mg/ml. Q9967 Omnipaque 300 mgl/mL. Units: 3.00. J3301 Kenalog 40 mg/ml. Units: 2.00. * Sign off status: Completed true * Provider: Crispin Arthur M.D. Date: 0 09/18/2023 Generated for Laura bueno/Aubree/Conradsmitting on: 0 07/20/2024 01:43 PM CDT
--- OUTSIDE RECORDS SUMMARY | 2024-07-20 13:43 | XMS_ITS ---
Author Organization [facility] Address [address] [place] [address] [address] [place] [address] Care Team Providers Care Middleware Architect Name Role Phone Gonzales MOISE, Chacha Primary Care Provider Unav ailable Woolrich, Rahul Unavailable [phone] Primitivo Aguila Unavailable [phone] REASON FOR VISIT *responded: Next steps Encounters Encounter Location Date Provider Diagnosis [facility] [address] [place] [address] 10/08/2023 Primitivo Aguila Plan Of Treatment No Information Progress Notes * Ajith YUOSIF JrDOB:05/1955 (68 yo M)Acc No.[id number]:10/08/2023 Patient: Clive dhaliwalboom Ajith Sanders :1955 A ge:68 Y S ex:Male Phone: Address:[address] [place] [address] * true * Date: Generated for Matthiasi myles/Aubree/eTransmitting on: 0 07/20/2024 01:42 PM CDT
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
--- OUTSIDE RECORDS SUMMARY | 2024-07-20 13:43 | XMS_ITS | Clinical Summary ---
Author Organization [facility] Address [address] [place] [address]. [place] [address] Care Team Providers Care Flute Polisher Name Role Phone [facility] [place] Primary Care Provider Krystyna Ramsey PA-C Unavailable Krystyna Ramsey PA-C Unavailable Allergies Active Allergy Reactions Criticality Noted Date Comments No Known Drug Allergy 06/23/2008 Medications LISINOPRIL PO Take 20 mg by mouth daily Active CLOPIDOGREL BISULFATE POIndications:ho ld for 7 days post op. Take 75 mg by mouth daily Active CILOSTAZOL PO Take 100 mg by mouth Active OMEPRAZOLE PO Take 20 mg by mouth every morning Active METOPROLOL SUCCINATE ER PO Take 50 mg by mouth daily Active ROSUVASTATIN CALCIUM PO Take 40 mg by mouth daily Active multivitamin w/minerals (THERA-VIT-M) tablet Take 1 tablet by mouth daily Active oxyCODONE (ROXICODONE) 5 MG tabletIndication s:Dysplastic rectal polyp Take 1 tablet (5 mg) by mouth every 6 hours as needed for moderate to severe pain 6 tablet 1 Active albuterol (PROAIR HFA/PROVENTIL HFA/VENTOLIN HFA) 108 (90 Base) MCG/ACT inhaler 2 puffs every 4 hours as needed for shortness of breath or wheezing. Active aspirin (ASA) 325 MG tablet Active celecoxib (CELEBREX) 50 MG capsule 4 Active fluticasone (FLONASE) 50 MCG/ACT nasal spray Active furosemide (LASIX) 40 MG tablet TAKE 1 TABLET BY MOUTH EVERY MORNING NEEDED FOR EDEMA Active ipratropium - albuterol 0.5 mg/2.5 mg/3 mL (DUONEB) 0.5-2.5 (3) MG/3ML neb solution Active WEGOVY 1.7 MG/0.75ML pen 4 Active TRELEGY ELLIPTA 200-62.5-25 MCG/ACT oral inhalerIndicatio ns:Pulmonary emphysema, unspecified emphysema type (H) Inhale 1 puff into the lungs daily. 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 Gender Identity Not on file Sexual Orientation Not on file Last Filed Vital Signs Vital Sign Reading Time Taken Comments Blood Pressure 96/63 01/29/2024 2:55 PM CDT Pulse 65 01/29/2024 2:55 PM CDT Temperature 36.6 C (97.9 F) 05/26/2020 6:19 PM ANTIQUE JEWELRY REPAIRER Respiratory Rate 24 01/29/2024 2:55 PM CDT Oxygen Saturation 96% 01/29/2024 2:55 PM CDT Inhaled Oxygen Concentration - - Weight 152 kg (335 lb) 01/29/2024 2:55 PM CDT Height 180.3 cm (5' 11) 05/26/2020 11:45 AM ANTIQUE JEWELRY REPAIRER Body Mass Index 46.72 05/26/2020 11:45 AM ANTIQUE JEWELRY REPAIRER Plan of Treatment Upcoming Encounters Date Type Department Care Team (Late st Contact Info) Description 01/30/2025 10:40 AM CDT Office Visit [address] [address] Krystyna Ramsey PA-C [address] [facility] [place] [address] Health Maintenance Due Date Last Done Comments ADVANCE CARE PLANNING 1955 ANNUAL REVIEW OF HM ORDERS 1955 COPD ACTION PLAN [address] COLONOGRAPHY 1955 FIT 1955 LIPID 1955 sDNA (Cologuard) 1955 HEPATITIS C SCREENING 1971 RSV VACCINE (1 - Risk 60-74 years 1-dose series) 2013 FALL RISK ASSESSMENT 2018 MEDICARE ANNUAL WELLNESS VISIT 2018 LUNG CANCER SCREENING 07/06/2019 07/05/2018, 017 COVID-19 Vaccine ( season) 2023 09/14/2021, 03/31/2021, 07/20/2020, Additional history exists INFLUENZA VACCINE (#1) 2023 , 02/22/2021, 02/22/2021, Additional history exists PHQ-2 (once per calendar year) 2024 01/29/2024 FLEX SIG 05/26/2025 05/26/2020, 07/22, 08/02/2016 DIABETES SCREENING 06/27/2026 06/28/2023, 07/10/2022 COLONOSCOPY 04/01/2030 04/01/2020 COLORECTAL CANCER SCREENING 04/01/2030 DTAP/TDAP/TD IMMUNIZATION (3 - Td or Tdap) 10/21/2033 10/22/2023, 08/18/2011 AORTIC ANEURYSM SCREENING (SYSTEM ASSIGNED) Completed 07/02/2018, 11/22/2016 ZOSTER IMMUNIZATION Completed 11/28/2018, 08/22/2018, 09/29/2014 Pneumococcal Vaccine: 50+ Years Completed 02/17/2020, 07/30/2018, 02/05/2015 SPIROMETRY Completed 01/29/2024, 11/2023, 01/29/2024, Additional history exists HPV IMMUNIZATION Aged Out No longer e ligible based on patient's age to complete this topic MENINGITIS IMMUNIZATION Aged Out No l onger eligible based on patient's age to complete this topic Procedures Procedure Name Priority Date/Time Associated Diagnosis Comments PFT GENERAL LAB TESTING Routine 01/29/2024 2:33 PM CDT Mucopurulent chronic bronchitis (H) COPD (chronic obstructive pulmonary disease) (H) GLUCOSE (EXTERNAL RESULT) Routine 06/28/2023 9:58 AM ANTIQUE JEWELRY REPAIRER FLEXIBLE SIGMOIDOSCOPY Routine 1:08 PM CDT from Last 3 Months or Most Recently Relevant to Health Maintenance Results * Pulmonary function test (01/29/2024 2:33 PM CDT) FVC-Pred 4.03 L [facility] FVC-Pre 3.78 L [facility] FVC-%Pred-Pre 93 % [facility] FEV1-Pre 2.67 L [facility] FEV1-%Pred-Pre 86 % [facility] [id number] 77 % [facility] [id number] 71 % [facility] FEFMax-Pred 8.52 L/sec [facility] FEFMax-Pre 8.78 L/sec [facility] FEFMax-%Pred-Pr e 103 % [facility] [id number] 2.35 L/sec [facility] [id number] 1.55 L/sec [facility] FWN6502-%Pred-P re 66 % [facility] ExpTime-Pre 9.64 sec [facility] FIFMax-Pre 6.02 L/sec [facility] VC-Pred 4.29 L [facility] VC-Pre 3.75 L [facility] VC-%Pred-Pre 87 % [facility] IC-Pred 3.02 L [facility] IC-Pre 3.08 L [facility] IC-%Pred-Pre 102 % [facility] ERV-Pred 1.51 L [facility] ERV-Pre 0.66 L [facility] ERV-%Pred-Pre 44 % [facility] [id number]-Qwxv 78 % [facility]FT [id number]-Zdx 76 % [facility]FT FRCPleth-Pred 3.77 L [facility]FT FRCPleth-Pre 3.81 L [facility] PFT FRCPleth-%Pred- Pre 101 % [facility]FT RVPleth-Pred 2.69 L [facility] PFT RVPleth-Pre 3.14 L [facility]FT RVPleth-%Pred-P re 116 % [facility]FT TLCPleth-Pred 7.33 L [facility] PFT TLCPleth-Pre 6.89 L [facility] PFT TLCPleth-%Pred- Pre 94 % [facility] DLCOunc-Pred 26.53 ml/min/mmHg [facility] DLCOunc-Pre 30.23 ml/min/mmHg [facility] DLCOunc-%Pred-P re 113 % [facility] VA-Pre 6.12 L [facility]FT VA-%Pred-Pre 92 % [facility] [id number]-Zizz 72 % [facility] [id number]-Duk 71 % [facility] 01/29/2024 2:33 PM CDT Narrative [facility] - 01/29/2024 4:00 PM CDT The FVC, FEV1 and the FEV1/FVC ratio are within normal limits. The inspiratory flow rates are within normal limits. Lung volumes are within normal limits. The diffusing capacity is normal. However, the diffusing capacity was not corrected for the patient's hemoglobin. IMPRESSION: Normal Pulmonary Function Miranda Connelly MD This interpretation has been electronically signed: MIRANDA CONNELLY 01/29/2024 03:42:53 PM us Krystyna Ramsey PA-C PFT ORDERABLES Final Result [facility] * Glucose (External Result) (06/28/2023 9:58 AM ANTIQUE JEWELRY REPAIRER) [facility] Glucose (External) 111 60 - 115 mg/dL [facility] Blood 06/28/2023 9:58 AM ANTIQUE JEWELRY REPAIRER Narrative [facility] - 06/28/2023 9:58 AM [facility]- External Lab Results us Provider Outside LAB - HIM EXTERNAL RESULT Final Result [facility] Yahaira Hansen [place], [place] [address], [facility] [phone] * FLEXIBLE SIGMOIDOSCOPY (08/02/2016 1:08 PM CDT) [facility] Patient Name: Boulder Newborg Procedure Date: 08/02/2016 1:08 PM Date of : 1955 Admit Type: Outpatient Age: 61 Gender: Male Attending MD: Antonia Naylor MD Total Sedation Time: Instrument Name: 124 Procedure: Flexible Sigmoidoscopy Indications: For therapy of rectal polyps Providers: Antonia Naylor MD (Doctor) Referring MD: Medicines: Monitored Anesthesia Care Complications: No immediate complications. Procedure: Pre-Anesthesia Assessment: - Prior to the procedure, a History and Physical was performed, and patient medications and allergies were reviewed. The patient is competent. The risks and benefits of the procedure and the sedation options and risks were discussed with the patient. All questions were answered and informed consent was obtained. Patient identification and proposed procedure were verified by the physician and the nurse in the procedure room. Mental Status Examination: alert and oriented. Airway Examination: normal oropharyngeal airway and neck mobility. Respiratory Examination: poor air movement. CV Examination: normal. Prophylactic Antibiotics: The patient does not require prophylactic antibiotics. Prior Anticoagulants: The patient has taken Plavix (clopidogrel), last dose was 7 days prior to procedure. ASA Grade Assessment: II - A patient with mild systemic disease. After reviewing the risks and benefits, the patient was deemed in satisfactory condition to undergo the procedure. The anesthesia plan was to use monitored anesthesia care (MAC). Immediately prior to administration of medications, the patient was re-assessed for adequacy to receive sedatives. The heart rate, respiratory rate, oxygen saturations, blood pressure, adequacy of pulmonary ventilation, and response to care were monitored throughout the procedure. The physical status of the patient was re-assessed after the procedure. After obtaining informed consent, the scope was passed under direct vision. The Olympus Adult Colonoscope Model #[id number], Endora#124, SN#[id number] was introduced through the anus and advanced to 40 cm from the anal verge. The flexible sigmoidoscopy was accomplished without difficulty. The patient tolerated the procedure well. The quality of the bowel preparation was excellent. Findings: Perianal examination was normal. Digital rectal exam revealed a 1.5 cm (diameter) soft rectal mass palpated 2 to 3 cm from the anal verge. The mass was non-circumferentia l and located predominantly at the right-posterolater al bowel wall. A sessile polyp was found in the sigmoid colon. The polyp was 5 mm in size. The polyp was removed with a hot snare. Resection and retrieval were complete. Estimated blood loss: none. A pedunculated polyp was found in the rectum. The polyp was 15 mm in size. The polyp was removed with a hot snare. Resection and retrieval were complete. Two hemostatic clips were successfully placed. This was done to prevent bleeding. The exam was otherwise without abnormality. Impression: - Rectal mass 2 to 3 cm from the anal verge. - One 5 mm polyp in the sigmoid colon. Resected and retrieved. - One 15 mm polyp in the rectum. Resected and retrieved. Clips were placed. - The examination was otherwise normal. Recommendation: - Repeat flexible sigmoidoscopy in 6-12 months for surveillance based on pathology results. Procedure Code(s): --- Professional --- 93246, Sigmoidoscopy, flexible; with removal of tumor(s), polyp(s), or other lesion(s) by snare technique Diagnosis Code(s): --- Professional --- K62.89, Other specified diseases of anus and rectum K62.1, Rectal polyp D12.5, Benign neoplasm of sigmoid colon CPT copyright 2013 [employer]. All rights reserved. The codes documented in this report are preliminary and upon asphalt tar and gravel roofer review may be revised to meet current compliance requirements. Antonia Naylor MD 08/02/2016 2:04 PM I was physically present for the entire viewing portion of the exam. Antonia Naylor MD Number of Addenda: 0 Note Initiated On: 08/02/2016 1:08 PM Procedure Date: 08/02/2016 1:08:34 PM Scope Withdrawal Time: 0 hours 0 minutes 0 seconds Total Procedure Duration: 0 hours 25 minutes 31 seconds Estimated Blood Loss: Scope In: 1:25:52 PM Scope Out: 1:51:23 PM RADIOLOGY RESULTS 08/02/2016 1:08 PM CDT us Antonia Naylor MD PROCEDURES Final Resu lt RADIOLOGY RESULTS from Last 3 Months or Most Recently Relevant to Health Maintenance Insurance [id number] [place] [id number] MEDICARE [facility] [employer] Care Teams Flute Polisher Relationship Specialty Start Date End Date [facility] [address] [place], [place] [id number] PCP - General 08/02/16 Krystyna Ramsey PA-C [address] [place] [address] Physician Mash Preparatory Operator Pulmonary Disease 01/30/24 Krystyna Ramsey PA-C [id number] [place] [address] [phone] Assigned Cancer Care Provider 02/13/24
--- OUTSIDE RECORDS SUMMARY | 2024-07-20 13:43 | XMS_ITS ---
Author Organization [facility] Address [address] [place] [address] [address] [place] [address] Care Team Providers Care Home Care Scheduler Name Role Phone Chacha Rolon MD Primary Care Provider Unav ailable Rahul Arthur Unavailable [phone] REASON FOR VISIT New Referral Request Encounters Encounter Location Date Provider Diagnosis [facility] [address] [place] [address] [address] [place] [address] 11/08/2023 Rahul Arthur Plan Of Treatment No Information Progress Notes * Ajith YOUSIF JrDOB:05/1955 (68 yo M)Acc No.[id number]:11/08/2023 Patient: Clive dhaliwalAjith nur :1955 A ge:68 Y S ex:Male Phone: Address:[address] [place] [address] * true * Date: Generated for Matthiasi myles/Aubree/eTransmitting on: 07/20/2024 01:43 PM CDT
--- OUTSIDE RECORDS SUMMARY | 2024-07-20 13:44 | XMS_ITS | Patient Health Record ---
Author Organization [facility] Address [address] [place] [address] [address] [place] [address] Care Team Providers Care Childcare Center Administrator Name Role Phone Gonzales MOISE, Chacha Primary Care Provider Unav lucretia Jungruchi Rahul Unavailable [phone] Primitivo Aguila Unavailable [phone] Allergies No Known Allergies Results Component Value Reference Range Notes MRI : Lumbar Reviewed date:09/04/2023 09:13:25 AM Interpretation: Performing Lab: Notes/Report: Original Report EXAM: MR LUMBAR SPINE WITHOUT CONTRAST CLINICAL INFORMATION: Low back pain with bilateral lower extremity pain. COMPARISON: Lumbar spine MRI 09/09/2018. TECHNICAL INFORMATION: 1.16 Torrie Open MRI. Multiplanar multisequence imaging obtained of the lumbar spine. CONTRAST: None. SEDATION: None. INTERPRETATION: Segmentation/Osseous Structures/Alignment: Nomenclature is based on 5 lumbar type vertebral bodies. Normal vertebral body heights and alignment. Mild L5-S1 Modic 2 marrow change. Normal visualized sacroiliac joints. No insufficiency fracture. Cord/Conus: Normal signal in the distal cord/conus medullaris. The conus tip is identified at L1-L2. Extra-spinal findings: Right total hip arthroplasty. Levels: L5-S1: Left laminotomy and microdiscectomy. Severe disc degeneration. Moderate bilateral foraminal stenoses with bilateral L5 impingement. No subarticular recess/central canal stenosis. Mild bilateral facet arthrosis. L4-5: Left laminotomy and microdiscectomy. Moderate disc degeneration. No foraminal stenosis. Moderate right subarticular recess stenosis with right L5 impingement. No central canal stenosis. Mild bilateral facet arthrosis. L3-4: Mild disc degeneration. No foraminal stenosis. Mild bilateral subarticular recess/central canal stenoses. Mild bilateral facet arthrosis. 2 mm anteromedially directed left synovial cyst. L2-3: Normal disc and facets. No stenosis or impingement. L1-2: Moderate disc degeneration. No stenosis or impingement. Normal facets. Visualized thoracic spine: Mild T11-12/T10-11 disc degeneration. No stenosis or impingement. Normal facets. CONCLUSION: L5-S1/L4-5 left laminotomies and microdiscectomies. Additional findings as follows: 1. L5-S1, moderate bilateral foraminal stenoses with bilateral L5 impingement. 2. L4-5, moderate right subarticular recess stenosis with right L5 impingement. 3. L3-4, mild subarticular recess/central canal stenoses without impingement. 4. Disc degeneration, severe L5-S1, moderate L4-5/L1-L2 and mild L3-4. 5. When compared to 09/09/2018, postsurgical changes at L4-5 and L5-S1 are new and the associated subarticular recesses have been decompressed. Right L4-5 subarticular recess and bilateral L5-S1 foraminal stenoses are unchanged. Read by: Federico Donato M.D. Reviewed and Electronically Signed by: Federico Donato M.D. - Original Report EXAM: MR LUMBAR SPIN E WITHOUT CONTRAST CLINICAL INFORMATION : Low back pain with bilateral lower extremity pain. COMPARISON: Lumbar s pine MRI 09/09/2018. TECHNICAL INFORMATIO N: 1.16 Torrie Open MRI. Multiplanar multisequence imaging obtained of the lumbar spine. CONTRAST: None. SEDATION: None. INTERPRETATION: Segmentation/Osseous Structures/Alignment: Nomenclature is based on 5 lumbar type vertebral jenny s. Normal vertebral body heights and alignment. Mild L5-S1 Modic 2 marrow chappell e. Normal visualized sacroiliac joints. No insufficiency fracture. Cord/Conus: Normal signal in the distal cord/conus medullaris. The conus tip is identified at L1-L2. Extra-spinal findings: Right total hip arthroplasty. Levels: L5-S1: Left laminoto my and microdiscectomy. Severe disc degeneration. Moderate bilateral foraminal stenoses with bilateral L5 impingement. No subarticular recess/central canal stenosis. Mild bilateral facet arthrosis. L4-5: Left laminotom y and microdiscectomy. Moderate disc degeneration. No foraminal stenosis. Moderate right subarticular recess stenosis with right L5 impingement. No cent ral canal stenosis. Mild bilateral facet arthrosis. L3-4: Mild disc dege neration. No foraminal stenosis. Mild bilateral subarticular recess/ central canal stenoses. Mild bilateral facet arthrosis. 2 mm anteromedially di rected left synovial cyst. L2-3: Normal disc an d facets. No stenosis or impingement. L1-2: Moderate disc degeneration. No stenosis or impingement. Normal facets. Visualized thoracic spine: Mild T11-12/T10-11 disc degeneration. No stenosis or impingement. Normal facets. CONCLUSION: L5-S1/L4 -5 left laminotomies and microdiscectomies. Additional findings as follows: 1. L5-S1, moderate b ilateral foraminal stenoses with bilateral L5 impingement. 2. L4-5, moderate ri ght subarticular recess stenosis with right L5 impingement. 3. L3-4, mild subart icular recess/central canal stenoses without impingement. 4. Disc degeneration , severe L5-S1, moderate L4-5/L1-L2 and mild L3-4. 5. When compared to 09/09/2018, postsurgical changes at L4-5 and L5-S1 are new and the associated s ubarticular recesses have been decompressed. Right L4-5 subarticular recess and bilateral L5-S1 foraminal stenoses are unchanged. Read by: Federico Donato M.D. Reviewed and Electro nically Signed by: Federico Donato M.D. Reason For Referral Reason Evaluate low back pa in with surgical consult; Dr. Hugo Brandt, patient prefers [place] location Call patient to schedule at [phone] Fax notes to [phone] Diagnosis 1 Radiculopathy, lumbo sacral region (M54.17) Diagnosis 2 Low back pain, unspe cified (M54.50) Referral Organization [facility] Referring Provider First Name Primitivo Referring Provider Last Name Ayla Referring Provider Speciality Physician Behavioral Health Case Manager Referred Provider Austyn Brandt Referred Provider Specialty Orthopedic S urgery General Notes Vanessa Buenrostro 024 11:40:22 AM >Please call the patient to schedule and fax back all notes to [phone]. If you need additional records for this referral, please call [phone]. Thanks! Referral Priority Routine Medications Medication SIG (Take, Route, Frequency, Duration) Notes Start Date End Date Status Cilostazol 100 MG 1 tablet 30 minutes before or 2 hours after breakfast and dinner Orally Twice a day Active Fluticasone Propionate 50 MCG/ACT 1 spray in each nostril Nasally Once a day Active Trelegy Ellipta 200-62.5-25 MCG/ACT 1 puff Inhalation Once a day Active Omeprazole 40 MG 1 capsule 30 minutes before morning meal Orally Once a day Active Montelukast Sodium 10 MG TAKE 1 TABLET B Y MOUTH EVERY EVENING Oral for 90 Days Active Rosuvastatin Calcium 40 MG 1 capsule Ora lly Once a day Active Albuterol Sulfate HFA 108 (90 Base) MCG/ACT 1 puff as needed Inhalation every 4 hrs Active Tamsulosin HCl 0.4 MG 1 capsule Orally O nce a day Active Aspirin 81 81 MG 1 tablet Orally Once a day Active Celecoxib 100 MG 1 capsule with food Orally BID Active Furosemide 40 MG 1 tablet Orally BID Active Wegovy 0.25 MG/0.5ML Subcutaneous for 28 Days Active Linezolid 600 MG 1 tablet Orally ever y 12 hrs Active BD Pen Needle Nathalie 2nd Gen 32G X 4 MM for 90 Days Active Lisinopril 5 MG 1 tablet Orally Once a day Active Azithromycin 250 MG Oral for 5 Days Active Metoprolol Succinate 50 MG 1 capsule Ora lly Once a day Active Metoprolol Succinate ER 25 MG TAKE 2 TABLETS BY MOUTH DAILY Oral for 90 Days Active Social History Tobacco Use: Social History Observation Description Date Details (start date - stop date) Former Smoker NA - 07/22/2016 Tobacco Use/Smoking: Question Answer Notes Are you a former smoker when did you quit smoking 07/22/2016 Alcohol Screen Question Answer Notes Did you have a drink contain ing alcohol in the past year? Yes How often did you have a dri nk containing alcohol in the past year? 2 to 4 times a month (2 points) How many drinks did you have on a typical day when you were drinking in the past year? 1 or 2 drinks (0 point) How often did you have 6 or more drinks on one occasion in the past year? Never (0 point) Points 2 Interpretation Negative Problems Problem Type SNOMED Code ICD Code Onset Dates Problem Status W/U Status Risk Notes Problem Chronic pain (53281947) Other chronic pain (G89.29) Active confirmed Problem Lumbosacral radiculopathy (7281195) Radiculopathy, lumbosacral region (M54.17) Active confirmed Problem Low back pain (818726564) Low back pain, unspecified (M54.50) Active confirmed Vital Signs Blood pressure diastolic 64 mm Hg 09/04/2023 Height 70 in 09/04/2023 Blood pressure systolic 124 mm Hg 09/04/2023 Weight 346 lbs 09/04/2023 BMI 49.64 kg/m2 09/04/2023 Procedures Procedure Date Ordered Date Performed Result Body Sit e Intervention: 09/04/2023 09/11/2023 sched 09/17 Encounters Encounter Location Date Provider Diagnosis [facility] [address] [place] [phone] 08/14/2023 Rahul Arthur Other chronic pain G89.29 and Low back pain, unspecified M54.50 [facility] [address] [place] [phone] 09/04/2023 Primitivo Aguila Other chronic pain G89.29 and Radiculopathy, lumbosacral region M54.17 [facility] [address] [place] [phone] 09/18/2023 Rahul Arthur Radiculopathy, lumbosacral region M54.17 [facility] [address] [place] [address] [address] [place] [address] 09/14/2023 Rahul Arthur [facility] [address] [place] [address] [address] [place] [address] 10/08/2023 Primitivo Aguila [facility] [address] [facility] [address] [place] [address] 11/08/2023 Rahul Arthur Assessments Encounter Date Diagnosis (ICD Code) Assessment Notes Treatment Notes Treatment Clinical Notes Section Notes 09/18/2023 Radiculopathy, lumbosacral region (ICD-10 - M54.17) 08/14/2023 Other chronic pain (ICD-10 - G89.29) Ajith presents to the clinic for an evaluation regarding his chronic low back, bilateral shoulder, and bilateral knee pain. I have reviewed his symptoms and current medications. I checked the [place] [employer] database and I did not find any inconsistencies. I will continue with a treatment plan consisting of conservative therapy. For further evaluation, I have ordered an open lumbar MRI without contrast to [place] [facility]. In the future, pending patient's imaging results and patient's condition, I will consider injection therapy. This treatment plan was reviewed with Ajith, and he was agreeable. He will return in two weeks for further evaluation or sooner if needed. I will continue to monitor his progress, adjusting his treatment plan as needed. Plan:1. Reviewed most recent imaging 2. Order Open Lumbar MRI w/o contrast to [place] [facility] 3. Consider injection therapy4. Follow up in 2 weeks for MRI review Discharge instructions reviewed verbally. The patient was instructed to return to the office as scheduled and call with any questions, problems or concerns. 08/14/2023 Low back pain, unspecified (ICD-10 - M54.50) 09/04/2023 Other chronic pain (ICD-10 - G89.29) Ajith presents to the clinic for an evaluation regarding his chronic low back, bilateral shoulder, and bilateral knee pain. I have reviewed his symptoms and current medications. I checked the [place] [employer] database and I did not find any inconsistencies. I will continue with a treatment plan consisting of conservative therapy. I have reviewed the open lumbar MRI from 08/30/23 with him today. Based on his imaging results, and clinical presentation, I have recommended a bilateral L5-S1 TFE. He expressed desire in proceeding with this, therefore orders were placed accordingly. We will consider a surgical referral if he does not get any relief from this injection. This treatment plan was reviewed with Ajith, and he was agreeable. He will return for further evaluation as needed. I will continue to monitor his progress, adjusting his treatment plan as needed. Plan:1. Reviewed Open Lumbar MRI2. Order bilateral L5-S1 TFE3. Consider surgical referral pending TFE relief4. Follow up as needed Discharge instructions reviewed verbally. The patient was instructed to return to the office as scheduled and call with any questions, problems or concerns. OPEN LUMBAR MRI WO CONSTRAST 08/30/23 (RAYUS)IMPRESSI ON: L5-S1/L4-5 left laminotomies and microdiscectomi es. Additional findings as follows:1. L5-S1, moderate bilateral foraminal stenoses with bilateral L5 impingement.2. L4-5, moderate right subarticular recess stenosis with right L5 impingement.3. L3-4, mild subarticular recess/central canal stenoses without impingement.4. Disc degeneration, severe L5-S1, moderate L4-5/L1-L2 and mild L3-4.5. When compared to 09/09/2018, postsurgical changes at L4-5 and L5-S1 are new and the associated subarticular recesses have been decompressed. Right L4-5 subarticular recess and bilateral L5-S1 foraminal stenoses are unchanged. 09/04/2023 Radiculopathy, lumbosacral region (ICD-10 - M54.17) 08/14/2023 Other Anoop Loera, am serving as a scribe to document services personally performed by Primitivo Aguila PA-C, based upon my observations and the provider's statements to me. All documentation has been reviewed by the aforementioned NADINE as well as Rahul Arthur MD, prior to being entered into the official medical record. I, Rahul Arthur MD attest that the above named individual is acting in scribe capacity, has observed Primitivo Aguila's performance of the services and has documented them in accordance with her direction. The documentation recorded by the scribe accurately reflects the service Primitivo Aguila PA-C and Rahul Arthur MD, personally performed and the decisions made by them. 09/04/2023 Other Evaristo, Luisito Peralta , am serving as a scribe to document services personally performed by Primitivo Aguila PA-C, based upon my observations and the provider's statements to me. All documentation has been reviewed by the aforementioned NADINE as well as Rahul Arthur MD, prior to being entered into the official medical record. I, Rahul Arthur MD attest that the above named individual is acting in scribe capacity, has observed Primitivo Ayla's performance of the services and has documented them in accordance with her direction. The documentation recorded by the scribe accurately reflects the service Primitivo Aguila PA-C, personally performed and the decisions made by her. Plan Of Treatment Pending Test Test Name Order Date MRI : Lumbar 08/14/2023 Insurance Providers Payer Name Payer Address Payer Phone Subscriber Number Group Number Insured Name Patient Relationship to Insured Coverage Start Date Coverage End Date [facility] [address] [address] [place] [phone] [id number] Tracy Ponce Spouse - patient is the spouse of the insured Medicare Part B 2nd Payer [employer] [address] [facility] [address] [id number] Ajith Warren Self - patient is the insured Medical (General) History Medical History History ICD Code COPD Peripheral vascular disease (2011 left SFA stent, 2016 right SFA angioplasty) Prediabetes Vitamin D deficiency Lymphedema [place] (2011 2 coronary stents) Hypertension Sleep Apnea GERD Surgical History Surgery Date(Month/Year) Unspecified lumbar spine surgery 09/2018 Iliac artery stent 05/2021 Coronary angioplasty, 2 stents 11/2011 Right SFA angioplasty 04/2016 Left SFA stent 11/2011
[2024-07-20 13:55] VITALS: BP 113/80; PULSE 89; RESP 18; O2SAT 96; BMI 46.7
--- NOTE | 2024-07-20 14:01 | CRLHL7_ITS ---
For Patients: As a result of the Century Cures Act, medical imaging exams and procedure reports are released immediately into your electronic medical record. You may view this report before your referring provider. If you have questions, please contact your health care provider. Indication: Injury. Technique: Right knee 3 views. Comparison: 10/26/2022. Findings/Impression: Bones: Alignment is normal. No fractures or bone lesions. No sign of acute injury. Joint spaces: Moderate arthritic changes. No sign of joint effusion. Soft tissues: Dense atherosclerosis. Generalized superficial swelling anterior to the knee and proximal tibia. Dictated by Amauri Murcia MD @ 07/20/2024 2:39:28 PM (Electronically Signed)
--- NOTE | 2024-07-20 14:03 | ED.GENADULT ---
HPI - General Adult General Chief complaint: Extremity Pain/Injury, Lower Stated complaint: R knee pain Time Seen by Provider: 07/20/24 13:51 History of Present Illness HPI narrative: Patient is a 69-year-old gentleman who comes in today after feeling a popping sensation in his right knee when getting in his vehicle. He has had no chest pain no shortness a breath orthopnea no PND. He is unable to bear weight on the knee. He has no calf pain or thigh pain. The knee is mildly swollen with no bruising or ecchymoses. He has had problems with osteoarthritis and actually has an appointment with an orthopedist this coming week. No other complaints or concerns. Patient did not fall. Related Data Home Medications ?Medication ?Instructions ?Recorded ?Confirmed aspirin 81 mg tablet,delayed 81 mg PO DAILY 05/01/22 07/14/24 release furosemide 40 mg tablet 80 mg PO QAM edema 07/14/24 Previous Rx's ?Medication ?Instructions ?Recorded albuterol sulfate 90 mcg/actuation 2 puff inhalation Q4H PRN 10/22/23 aerosol inhaler shortness of breath or wheezing #8.5 grams cilostazol 50 mg tablet 50 mg PO BID #180 tabs 10/22/23 fluticasone fur. 200 mcg-umeclid 1 inh inhalation DAILY #60 ea 10/22/23 62.5 mcg-vilant 25 mcg inhalat.powder (Trelegy Ellipta) ipratropium 0.5 mg-albuterol 3 mg 3 ml inhalation Q6H PRN shortness 10/22/23 (2.5 mg base)/3 mL nebulization of breath or wheezing #180 mL soln lisinopril 5 mg tablet 5 mg PO DAILY #90 tabs 10/22/23 montelukast 10 mg tablet 10 mg PO QPM #90 tabs 10/22/23 omeprazole 40 mg capsule,delayed 40 mg PO QAM #90 caps 10/22/23 release tamsulosin 0.4 mg capsule 0.4 mg PO QHS #90 caps 10/22/23 rosuvastatin 40 mg tablet 40 mg PO DAILY #90 tabs 02/25/24 tizanidine 4 mg capsule 4 mg PO BID PRN muscle spasticity 04/14/24 #180 caps fluticasone propionate 50 2 spray intranasal QDAY 3 months 06/25/24 mcg/actuation nasal #16 grams spray,suspension metoprolol succinate 50 mg 50 mg PO QDAY #90 tabs 07/08/24 tablet,extended release 24 hr oxycodone 5 mg tablet 5 mg PO BID PRN pain #10 tabs 07/14/24 tirzepatide (weight loss) 2.5 2.5 mg (0.5 mL) subcut QWEEK #2 mL 07/14/24 mg/0.5 mL subcutaneous pen injector (Zepbound) Allergies Allergy/AdvReac Type Severity Reaction Status Date / Time No Known Drug Allergies Allergy Verified 07/14/24 11:27 Review of Systems Status of ROS: Reports: 10 or more systems reviewed and unremarkable except as noted in History and below [facility] Medical History Morbid obesity with BMI of 45.0-49.9, adult ?E66.01 - Morbid (severe) obesity due to excess calories (ICD-10) ?Z68.42 - Body mass index [BMI] 45.0-49.9, adult (ICD-10) GERD (gastroesophageal reflux disease) ?K21.9 - Gastro-esophageal reflux disease without esophagitis (ICD-10) Obstructive sleep apnea hypopnea, severe ?G47.33 - Obstructive sleep apnea (adult) (pediatric) (ICD-10) Prediabetes ?R73.03 - Prediabetes (ICD-10) Mild ascending aorta dilatation ?I77.810 - Thoracic aortic ectasia (ICD-10) COPD (chronic obstructive pulmonary disease) ?J44.9 - Chronic obstructive pulmonary disease, unspecified (ICD-10) Lymphedema ?I89.0 - Lymphedema, not elsewhere classified (ICD-10) Primary hypertension ?I10 - Essential (primary) hypertension (ICD-10) NSTEMI (non-ST elevated myocardial infarction) ?I21.4 - Non-ST elevation (NSTEMI) myocardial infarction (ICD-10) Cellulitis of right lower extremity ?L03.115 - Cellulitis of right lower limb (ICD-10) Lower GI bleed (~05/2020) ?K92.2 - Gastrointestinal hemorrhage, unspecified (ICD-10) Spinal stenosis of lumbar region with neurogenic claudication ?M48.062 - Spinal stenosis, lumbar region with neurogenic claudication (ICD-10) Clostridium difficile colitis (~2018) ?A04.72 - Enterocolitis due to Clostridium difficile, not specified as recurrent (ICD-10) Diverticulosis ?K57.90 - Diverticulosis of intestine, part unspecified, without perforation or abscess without bleeding (ICD-10) History of methamphetamine abuse ?F15.11 - Other stimulant abuse, in remission (ICD-10) Bilateral lumbar radiculopathy ?M54.16 - Radiculopathy, lumbar region (ICD-10) Hx of acute renal failure ?Z87.448 - Personal history of other diseases of urinary system (ICD-10) PAD (peripheral artery disease) ?I73.9 - Peripheral vascular disease, unspecified (ICD-10) Presence of stent in coronary artery in patient with coronary artery disease ?I25.10 - Atherosclerotic heart disease of [place] coronary artery without angina pectoris (ICD-10) ?Z95.5 - Presence of coronary angioplasty implant and graft (ICD-10) Surgical History History of arthroscopy of left shoulder (03/02/21) ?Z98.890 - Other specified postprocedural states (ICD-10) H/O coronary angioplasty (~11/2011) ?Z98.61 - Coronary angioplasty status (ICD-10) H/O angioplasty (12/07/11) ?Z98.62 - Peripheral vascular angioplasty status (ICD-10) S/P insertion of iliac artery stent (06/06/21) ?Z95.828 - Presence of other vascular implants and grafts (ICD-10) Femur fracture, right ?S72.91XA - Unspecified fracture of right femur, initial encounter for closed fracture (ICD-10) Hip fracture ?S72.009A - Fracture of unspecified part of neck of unspecified femur, initial encounter for closed fracture (ICD-10) Previous back surgery (10/03/18) ?Z98.890 - Other specified postprocedural states (ICD-10) Family History Maternal Grandfather Heart disease Mother Heart disease Father Myocardial infarction Heart disease Maternal Grandmother Diabetes Cancer of kidney Social History Narrative: . 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 Quit tobacco use in july 2015. EtOH 2-3 beers 3 times a week, more in the summer. Denies recreational drugs. 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 He had meth for a few years because he had so many things going on at work and he was renovating a house and felt like there were just not enough hours in the day. Full code, does not want watermelon inspector life support. What is your current living situation?: I presently have a place to live Problems where you live: no known problems In the past 12 months, utilities in danger of being shut off: no In past 12 months, lack of transportation kept you from medical appts, meetings, work, or getting things needed for daily living: no In the past 12 mos, have been you worried that your food would run out before you had money to buy more?: never true In the past 12 mos, the food you bought just didn't last and you didn't have money to buy more?: never true Highest level of school completed/degree received: GED or equivalent Smoking Status: Never smoker Do you use any of these nicotine containing products: None Nicotine containing products detail: quit 7 years ago Second hand tobacco smoke exposure: Yes How often do you have a drink containing alcohol: 2-3 times a week Alcohol type: beer How many standard drinks containing alcohol do you have on a typical day: 1 or 2 How often do you have six or more drinks on one occasion: Never AUDIT-C Alcohol total score: 3 Non-prescribed substance use: denies use Caffeine: Yes (3-4 cups daily) How often does anyone, including family, friends and others, physically hurt you: never How often does anyone, including family, friends and others, insult or talk down to you: never How often does anyone, including family, friends and others, threaten you with harm: never How often does anyone, including family, friends and others, scream or curse at you: never service: Yes Exam Narrative: Exam Narrative: EXAM GENERAL: Patient appears comfortable and well. Overweight. EYES: No scleral icterus. LYMPH: No supraclavicular or cervical lymphadenopathy. SKIN: Visible skin seen during exam normal or with benign process only. EXT: Examination of the right knee shows mild swelling no pain to palpation limited range of motion. HEART: Regular rate and rhythm with no murmurs, rubs, or gallops. LUNGS: Clear to auscultation bilaterally with no crackles or wheezes. ABD: Soft, non tender, non distended. PSYCH: Good eye contact, speech is not pressured. Const: Vital Signs, click to edit/add: Vital Signs - 24 hr 07/20/24 13:55 Pulse Rate [Pulse Oximeter] 89 Respiratory Rate 18 Blood Pressure [Ri ght Upper Arm] 113/80 Pulse Oximetry 96 Oxygen Delivery Me thod Room Air Course Course ED Course: Patient seen and examined. X-ray of the right knee pending. Vital Signs Vital signs: Initial Vital Signs Pulse Rate 89 07/20/24 13:55 Respiratory Rate 18 07/20/24 13:55 Blood Pressure 113/80 07/20/24 13:55 Blood Pressure Mean 91 07/20/24 13:55 Blood Pressure Position Sitting 07/20/24 13:55 Pulse Oximetry 96 07/20/24 13:55 Oxygen Delivery Method Room Air 07/20/24 13:55 Vital Signs Pulse Rate 89 07/20/24 13:55 Respiratory Rate 18 07/20/24 13:55 Blood Pressure 113/80 07/20/24 13:55 Pulse Oximetry 96 07/20/24 13:55 Oxygen Delivery Method Room Air 07/20/24 13:55 Pulse Rate 89 07/20/24 13:55 Respiratory Rate 18 07/20/24 13:55 Blood Pressure 113/80 07/20/24 13:55 Pulse Oximetry 96 07/20/24 13:55 Oxygen Delivery Method Room Air 07/20/24 13:55 Medical Decision Making MDM Narrative Medical decision making narrative: Patient is a obese 69-year-old gentleman with multiple medical problems who twisted his right knee today. He is unable to bear weight. His right knee shows a mild effusion on my inspection but no other findings on x-ray. At at This point differential diagnosis includes but not limited to sprain strain occult fracture and torn meniscus. At this time would recommend rest ice compression elevation. Tylenol Motrin as needed. Follow-up with orthopedics cleared the week as previously scheduled. Discharge Plan Discharge Clinical Impression: Injury of knee Patient Disposition: Home, Self-Care Condition: Stable Instructions: Knee Sprain (ED) Additional Instructions: Tylenol Motrin Ice Compression Crutches Advanced activity as tolerated Follow-up with orthopedics this coming week. Activity Level: Activity as Tolerated Discharge Diet: Regular Prescriptions: No Action cilostazol 50 mg tablet 50 mg PO BID Qty: 180 3RF albuterol sulfate 90 mcg/actuation HFA aerosol inhaler 2 puff inhalation Q4H PRN (Reason: shortness of breath or wheezing) Qty: 8.5 3RF Trelegy Ellipta 200-62.5-25 mcg blister with device 1 inh inhalation DAILY Qty: 60 12RF ipratropium-albuterol 0.5 mg-3 mg(2.5 mg base)/3 mL solution for nebulization 3 ml inhalation Q6H PRN (Reason: shortness of breath or wheezing) Qty: 180 3RF lisinopril 5 mg tablet 5 mg PO DAILY Qty: 90 3RF montelukast 10 mg tablet 10 mg PO QPM Qty: 90 3RF omeprazole 40 mg capsule,delayed release(DR/EC) 40 mg PO QAM Qty: 90 3RF tamsulosin 0.4 mg capsule 0.4 mg PO QHS Qty: 90 4RF furosemide 40 mg tablet 80 mg PO QAM Zepbound 2.5 mg/0.5 mL pen injector 2.5 mg subcut QWEEK Qty: 2 0RF Rx Instructions: for 4 weeks oxycodone 5 mg tablet 5 mg PO BID PRN (Reason: pain) Qty: 10 0RF aspirin 81 mg tablet,delayed release (DR/EC) 81 mg PO DAILY tizanidine 4 mg capsule 4 mg PO BID PRN (Reason: muscle spasticity) Qty: 180 1RF rosuvastatin 40 mg tablet 40 mg PO DAILY Qty: 90 0RF fluticasone propionate 50 mcg/actuation spray,suspension 2 spray intranasal QDAY 90 Days Qty: 16 2RF Rx Instructions: administer into each nostril metoprolol succinate 50 mg tablet extended release 24 hr 50 mg PO QDAY Qty: 90 0RF Follow Up/Referrals: Chacha Rolon MD [Primary Care Provider] - Stand Alone Forms: [facility] Info Instructions
--- OUTSIDE RECORDS SUMMARY | 2024-07-20 14:13 | XMS_ITS | Clinical Summary ---
Author Organization [facility] Address [address] [place] [address]. 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 Gender Identity Not on file Sexual Orientation Not on file Last Filed Vital Signs Vital Sign Reading Time Taken Comments Blood Pressure 96/63 01/29/2024 2:55 PM CDT Pulse 65 01/29/2024 2:55 PM CDT Temperature 36.6 C (97.9 F) 05/26/2020 6:19 PM CYBER CRIME INVESTIGATOR Respiratory Rate 24 01/29/2024 2:55 PM CDT Oxygen Saturation 96% 01/29/2024 2:55 PM CDT Inhaled Oxygen Concentration - - Weight 152 kg (335 lb) 01/29/2024 2:55 PM CDT Height 180.3 cm (5' 11) 05/26/2020 11:45 AM CYBER CRIME INVESTIGATOR Body Mass Index 46.72 05/26/2020 11:45 AM CYBER CRIME INVESTIGATOR Plan of Treatment Upcoming Encounters Date Type Department Care Team (Late st Contact Info) Description 01/30/2025 10:40 AM CDT Office Visit [address] [id number] Krystyna Ramsey PA-C [address] [place] [address] Health Maintenance Due Date Last Done Comments [...] GLUCOSE (EXTERNAL RESULT) Routine 06/28/2023 9:58 AM CYBER CRIME INVESTIGATOR FLEXIBLE SIGMOIDOSCOPY Routine 1:08 PM CDT from Last 3 Months or Most Recently Relevant to Health Maintenance Results * Pulmonary function test (01/29/2024 2:33 PM CDT) FVC-Pred 4.03 L [facility] PFT FVC-Pre 3.78 L [facility] PFT FVC-%Pred-Pre 93 % [facility] FEV1-Pre 2.67 L [facility] PFT FEV1-%Pred-Pre 86 % [facility] PFT [id number] 77 % [facility]ZE PFT [id number] 71 % [facility]REEZE PFT FEFMax-Pred 8.52 L/sec [facility]REEZE PFT FEFMax-Pre 8.78 L/sec BREEZE PFT FEFMax-%Pred-Pr e 103 % [facility]ZE PFT [id number] 2.35 L/sec BREEZE PFT [id number] 1.55 L/sec BREEZE PFT WIF6232-%Pred-P re 66 % [facility]REEZE PFT ExpTime-Pre 9.64 sec BREEZE PFT FIFMax-Pre 6.02 L/sec BREEZE PFT VC-Pred 4.29 L [facility]ZE PFT VC-Pre 3.75 L [facility]REEZE PFT VC-%Pred-Pre 87 % [facility]ZE PFT IC-Pred 3.02 L [facility]ZE PFT IC-Pre 3.08 L [facility]REEZE PFT IC-%Pred-Pre 102 % [facility]ZE PFT ERV-Pred 1.51 L [facility]ZE PFT ERV-Pre 0.66 L [facility]ZE PFT ERV-%Pred-Pre 44 % [facility]ZE PFT [id number] 78 % [facility]REEZE PFT [id number]-Uuh 76 % BREEZE PFT FRCPleth-Pred 3.77 L [...] [facility]REEZE PFT VA-%Pred-Pre 92 % [facility]ZE PFT [id number] 72 % [facility]REEZE PFT [id number] 71 % [facility] PFT 01/29/2024 2:33 PM CDT Narrative [facility] - 01/29/2024 4:00 PM CDT The FVC, FEV1 and the FEV1/FVC ratio are within normal limits. The inspiratory flow rates are within normal limits. Lung volumes are within normal limits. The diffusing capacity is normal. However, the diffusing capacity was not corrected for the patient's hemoglobin. IMPRESSION: Normal Pulmonary Function Mrianda Connelly MD This interpretation has been electronically signed: MIRANDA CONNELLY 01/29/2024 03:42:53 PM us Krystyna Ramsey PA-C PFT ORDERABLES Final Result [facility] * Glucose (External Result) (06/28/2023 9:58 AM CYBER CRIME INVESTIGATOR) [facility] Glucose (External) 111 60 - 115 mg/dL [facility] Blood 06/28/2023 9:58 AM CYBER CRIME INVESTIGATOR Narrative [facility] - 06/28/2023 9:58 AM [facility]- External Lab Results us Provider Outside LAB - HIM EXTERNAL RESULT Final Result [facility] Yahaira Hansen [place], [place] [address], [facility] [phone] * FLEXIBLE SIGMOIDOSCOPY (08/02/2016 1:08 PM CDT) [facility] Patient Name: [place] Procedure Date: 08/02/2016 1:08 PM Date [...] direct vision. The Olympus Adult Colonoscope Model #[id number]-BY097X, [place]#124, SN#[id number] was introduced through the anus and advanced [...] pathology results. Procedure Code(s): --- Professional --- 57808, Sigmoidoscopy, flexible; with removal of tumor(s), polyp(s), or other lesion(s) by snare technique Diagnosis Code(s): --- Professional --- K62.89, Other specified diseases of anus and rectum K62.1, Rectal polyp D12.5, Benign neoplasm of sigmoid colon CPT copyright 2013 [employer]. All rights reserved. The codes documented in this report are preliminary and upon nursing surgical services director review may be revised to meet current [...] Most Recently Relevant to Health Maintenance Insurance [id number] [place] [id number] MEDICARE [facility] [employer] Care Teams [employer] Hazmat Tanker Driver Relationship Specialty Start Date End Date [facility] [address] [place], [place] [id number] PCP - General 08/02/16 Krystyna Ramsey PA-C [address] [place] [address] Physician Valve Tester Pulmonary Disease 01/30/24 Krystyna Ramsey PA-C [address] [place] [address] [phone] Assigned Cancer Care Provider 02/13/24
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
== END 2024-07-20 14:48 | disposition home or self-care (01) ==
PROVIDERS: Emergency Provider Internal Medicine; PCP Family Medicine
DX: S89.91XA Unspecified injury of right lower leg, initial encounter (principal)
CPT/HCPCS: 73562; 99283

== ENCOUNTER 2024-09-09 08:33 | Day surgery (SDC) | payer BC, MEDICARE, SELFPAY ==
[2024-09-09] VITALS (22 sets, daily range): BP systolic 101–155; BP diastolic 39–93; PULSE 58–91; RESP 14–18; TEMP 35.2–37.1; O2SAT 88–96; BMI 46.1
[2024-09-09] MEDS: SODIUM CHLORIDE 0.9 % (FLUSH) 10 ML SYRINGE IVF (09:00)
[2024-09-09] MEDS: OXYCODONE (CR) 10 MG TAB.ER.12H PO (09:00)
[2024-09-09] MEDS: ACETAMINOPHEN 500 MG TABLET 1000 MG PO ×3 (09:00→22:56)
--- NOTE | 2024-09-09 10:37 | SUR.PREOP ---
TIME?OUT:?1037 PT/RN/MDA?VERIFICATION?OF?SURGICAL?SITE,?PROCEDURE,?AND?CONSENT OBTAINED?PRIOR?TO?INVASIVE?PROCEDURE.
[2024-09-09] MEDS: fentaNYL 100 MCG/2 ML inj IVP (10:39)
[2024-09-09] MEDS: MIDAZOLAM HCL 1 MG/ML inj IVP (10:39)
[2024-09-09] MEDS: CEFAZOLIN 1 GM inj IVP (11:35)
[2024-09-09] MEDS: TRANEXAMIC ACID 100 MG/ML INJ 1000 MG IV (11:35)
[2024-09-09] MEDS: LACTATED RINGERS 1000 ML 1,000 ML 125 ML IV ×2 (11:55→13:45)
--- NOTE | 2024-09-09 11:56 | P.ANES_ITS ---
Anesthesia Charges Start Date/Time Anesthesia Start Date: 09/09/24 Anesthesia Start Time: 11:08 Stop Date/Time Anesthesia Stop Date: 09/09/24 Anesthesia Stop Time: 13:54 Summary Extremes of Age - Over 70 or under 1: MDA Coding CPT Codes CPT Codes: ANESTH KNEE ARTHROPLASTY - 89350 ([id number]) P3 - PATIENT W/SEVERE SYS DISEASE, QK - CLASS A REGIONAL TRUCK DRIVER 2-4 CNCRNT ANES PROC, QX - HIDE TRIMMER SVC W/ MD MED DIRECTION Additional Codes: Summary - Extremes of Age - Over 70 or under 1: MDA ([id number])
--- NOTE | 2024-09-09 11:56 | W.ANESCHARGE ---
Anesthesia Charges Start Date/Time Anesthesia Start Date: 09/09/24 Anesthesia Start Time: 11:08 Stop Date/Time Anesthesia Stop Date: 09/09/24 Anesthesia Stop Time: 13:54 Summary Extremes of Age - Over 70 or under 1: MDA Coding CPT Codes CPT Codes: ANESTH KNEE ARTHROPLASTY - 10919 ([id number]) P3 - PATIENT W/SEVERE SYS DISEASE, QK - DRYWALL APPLICATOR 2-4 CNCRNT ANES PROC, QX - POLY OPERATOR SVC W/ MD MED DIRECTION Additional Codes: Summary - Extremes of Age - Over 70 or under 1: MDA ([id number])
--- NOTE | 2024-09-09 11:56 | W.PM.NB ---
Nerve Block Nerve Block Time Seen by Provider: 10:42 Date Seen: 09/09/24 Type of block requested by surgeon for post-operative analgesia: adductor canal Side: right Time out performed: Yes Verification of patient name: Yes Verification of date of : Yes Site marking: site marked Name of person performing procedure: Bipin Continuous monitoring Was continuous monitoring of O2 sat, B/P, teletypesetter monitor, recorded every 15 minutes?: Yes Procedure Checklist: sterile prep, needles and gloves Ultrasound guided. Images saved: Yes Medications given in 5ml increments after negative aspiration: Marcaine %: 0.25 mL: 15 Needle gauge: 20 Precedex (mcg): 25 Patient tolerated procedure well: Yes Block Charges Block Charge (with Pro Fee): Femoral Nerve Use of Ultrasound Machine for Block: Yes- US Guidance/pain block
--- NOTE | 2024-09-09 11:57 | W.PM.NB ---
Nerve Block Nerve Block Time Seen by Provider: 10:42 Date Seen: 09/09/24 Type of block requested by surgeon for post-operative analgesia: geniculars Side: right Time out performed: Yes Verification of patient name: Yes Verification of date of : Yes Site marking: site marked Name of person performing procedure: Bipin Continuous monitoring Was continuous monitoring of O2 sat, B/P, tunnel mucker, recorded every 15 minutes?: Yes Procedure Checklist: sterile prep, needles and gloves Ultrasound guided. Images saved: Yes Medications given in 5ml increments after negative aspiration: Marcaine %: 0.25 mL: 9 Needle gauge: 25 Patient tolerated procedure well: Yes Block Charges Block Charge (with Pro Fee): Genicular Nerve Block
--- NOTE | 2024-09-09 13:31 | CRLHL7_ITS ---
For Patients: As a result of the Cures Act, medical imaging exams and procedure reports are released immediately into your electronic medical record. You may view this report before your referring provider. If you have questions, please contact your health care provider. Indication: Postop TKA Technique: Two views right knee Findings/Impression: Hardware from a right total knee arthroplasty is in satisfactory position. Bone alignment is normal. No sign of acute fracture. Postop changes are within normal limits. Dictated by Theodore Hatch MD @ 09/10/2024 9:52:04 AM (Electronically Signed)
--- NOTE | 2024-09-09 13:37 | P.ORPRC_ITS ---
Procedure Note Date of procedure: 09/09/24 Procedure: PREOPERATIVE DIAGNOSIS: Right knee osteoarthritis POSTOPERATIVE DIAGNOSIS: Right knee osteoarthritis NAME OF OPERATION: Right total knee arthroplasty SURGEON: Rudi Colunga MD MARSHMALLOW MAKER: CASSIE Maki ANESTHESIA: Spinal ESTIMATED BLOOD LOSS: 0 mL COMPLICATIONS: None SPECIMENS: None DRAINS: None PREOPERATIVE ANTIBIOTICS: Ancef 3 grams, antibiotic impregnated cement IMPLANTS: 1. J&J Attune revision CRS # 8 posterior stabilized femur, 14 mm x 50 mm cemented stem 2. # 8 revision CRS fixed-bearing tibia, 14 mm x 50 mm cemented stem 3. # 8 posterior stabilized, 5 mm fixed-bearing polyethylene 4. 41 patella INDICATIONS: The patient is a 69-year-old with a longstanding history of severe, unrelenting right knee pain secondary to end-stage (grade IV) right knee osteoarthritis. Despite appropriate nonoperative management, including activity modification, anti-inflammatories, [id number] pain medication, bracing, physical therapy, and injections they continue to have pain and disability. Operative intervention was offered. The risks, benefits and expected outcomes were discussed in detail. These included but were not limited to: Infection, bleeding, injury to blood vessel or nerve, venous thromboembolism. All questions were answered to their satisfaction. Use of an web production assistant was necessary throughout the case for patient positioning and safety, soft tissue retraction, and closure. A modifier 22 should be added to this case. Patient weighs 150 kg with a BMI of 46. The sheer size of the leg made it difficult to obtain exposure and implant the components. Additionally, given the high BMI stemmed components were used on both sides to decrease the risk of aseptic loosening. These factors added time and cost to complete the case. PROCEDURE: Spinal anesthesia was administered. The patient was placed supine on the operating table. The web production assistant made sure the patient was positioned appropriately. The lower extremity was prepped and draped in the usual sterile fashion. The limb was exsanguinated with the Federico bandage. The pneumatic tourniquet was inflated to 300 mmHg. A standard anterior incision was made with the knee in flexion. Subcutaneous dissection was sharply taken through fascial layer #1. Full-thickness medial and lateral flaps were elevated. The web production assistant retracted the soft tissues and protected them throughout the case. A standard subvastus approach was made. The patella was subluxed. The infrapatellar fat pad was debrided. The menisci and cruciate ligaments were sharply d?brided. Marginal osteophytes were d?brided with the rongeur. The drill was used to penetrate the femoral canal. The canal was aspirated and irrigated with pulse lavage. The intramedullary femoral guide was placed for a 5-degree valgus cut, removing 10 mm off the distal femur. The saw was used to make the cut. Whitesides line and the trans epicondylar axis were marked. The femoral sizing guide was pinned onto the distal femur. Three degrees of externa l rotation nicely parallels the transepicondylar axis. Pins were placed for posterior referencing. The four-in-one cutting guide was pinned onto the distal femur. The anterior, posterior, and chamfer cuts were made. The web production assistant protected the collateral ligaments. The revision trial was placed. The box cuts were made. The drill was used x2. The stemmed, boxed trial was placed and was an excellent fit. Attention was then turned to the proximal tibia. The extramedullary tibial guide was placed for a neutral varus/valgus cut with 5 degrees of posterior slope, removing 2 mm based off the medial tibial surface. The web production assistant protected the collateral ligaments and the neurovascular bundle. The saw was used to make the cut. Trial components were placed. The knee was nicely balanced in both flexion and extension. The trial components were removed. The tray was placed in appropriate rotation, parallel to our tibial cutting pins. It was pinned by the web production assistant and the drill x2 was used. The stemmed tibial trial was placed. The punch was used. The tray was removed. The punch was used again. Attention was then turned to the patella. [place] patellar thickness was 24 mm. The lobster claw resection guide was used with the 9.5 mm yoanna. The saw was used to make the cut. Drill holes were made by the web production assistant. The trial was placed and was an excellent fit. Cancellous surfaces were irrigated with pulse lavage and thoroughly dried by the web production assistant. We cemented the tibial component, then the femoral component. We impacted the 5 mm polyethylene onto the tibial tray. The knee was brought into full extension. We then cemented the patellar component. Excessive cement was removed. The cement was allowed to harden. The knee was taken through a range of motion and was found to be nicely balanced in both flexion and extension. The patella tracks centrally. The web production assistant did a three minute dilute Betadine solution soak. The web production assistant irrigated the wound with 3 liters of normal saline via pulse lavage. The web production assistant reapproximated the extensor mechanism with #1 Vicryl in an interrupted [id number]-qffjt fashion. The web production assistant then ran the extensor mechanism with a #1 PDO Stratafix. The web production assistant closed the subcutaneous tissues with a 3-0 Stratafix and the skin with a running 3-0 Stratafix in a subcuticular fashion. Glue was used to seal the skin. The web production assistant placed a dry dressing. Sponge and needle counts were correct x2. The patient tolerated the procedure well. There were no apparent complications. They were carefully transferred to the hospital bed and taken to the postanesthesia care unit in satisfactory condition. PLAN: The patient will be mobilized with physical therapy. Aspirin will be used for DVT prophylaxis. They will be discharged to home once medically appropriate.
--- NOTE | 2024-09-09 14:02 | P.ANES_ITS ---
Anesthesia Charges Start Date/Time Anesthesia Start Date: 09/09/24 Anesthesia Start Time: 11:08 Stop Date/Time Anesthesia Stop Date: 09/09/24 Anesthesia Stop Time: 13:54 Summary Extremes of Age - Over 70 or under 1: BINGO CHECKER Coding CPT Codes CPT Codes: ANESTH KNEE ARTHROPLASTY - 93471 ([id number]) P3 - PATIENT W/SEVERE SYS DISEASE, QK - DESIGN ASSEMBLER 2-4 CNCRNT ANES PROC, QX - BINGO CHECKER SVC W/ MD MED DIRECTION Additional Codes: Summary - Extremes of Age - Over 70 or under 1: BINGO CHECKER ([id number])
--- NOTE | 2024-09-09 14:02 | W.ANESCHARGE ---
Anesthesia Charges Start Date/Time Anesthesia Start Date: 09/09/24 Anesthesia Start Time: 11:08 Stop Date/Time Anesthesia Stop Date: 09/09/24 Anesthesia Stop Time: 13:54 Summary Extremes of Age - Over 70 or under 1: FILLER OPERATOR Coding CPT Codes CPT Codes: ANESTH KNEE ARTHROPLASTY - 74310 ([id number]) P3 - PATIENT W/SEVERE SYS DISEASE, QK - PATHOLOGIST 2-4 CNCRNT ANES PROC, QX - FILLER OPERATOR SVC W/ MD MED DIRECTION Additional Codes: Summary - Extremes of Age - Over 70 or under 1: FILLER OPERATOR ([id number])
[2024-09-09] MEDS: HYDROmorphone 0.5 mg/0.5 ml inj IVP (16:12)
--- NOTE | 2024-09-09 17:46 | P.IMCN_ITS ---
Date of Consult Consult date: 09/09/24 Requesting Physician: Orthopedics Primary Care Provider: Chacha Rolon MD Consult Narrative Narrative: HOSPITALIST CONSULT Procedure: Right total knee arthroplasty SURGEON: Rudi Colunga MD PULP BEATER: CASSIE Maki ANESTHESIA: Spinal ESTIMATED BLOOD LOSS: 0 mL COMPLICATIONS: None SPECIMENS: None DRAINS: None The hospital medicine team was asked by the orthopedic surgery team to manage the patient's coronary artery disease, peripheral artery disease, morbid obesity, DALILA, COPD, and hypertension. There have been no perioperative complications. I have updated and reviewed the active medical problems, past medical history, past surgical history, social history, allergies and medications in our electronic EMR. This includes a cross reference to care everywhere in [facility] and with [employer] [facility] databases. PHYSICAL EXAM: CODE STATUS: FULL CODE CONSTITUTIONAL: Conversive, good historian. A/O. Knows setting and context. VITAL SIGNS: see record. HEENT: Normocephalic, atraumatic. PERRL, EOMI, conjunctivae pink, no scleral icterus. Ears and nose externally normal. Pharynx normal. NECK: No JVD. No carotid bruit, no thyromegaly, no adenopathy. CHEST: Clear to auscultation bilaterally HEART: S1 and S2 normal. ABDOMEN: Flat, soft, nontender. Normal bowel sounds. Moderately obese. EXTREMITIES: No edema. MUSCULOSKELETAL: Right knee surgical dressing intact. NEURO: Cranial nerves intact. Mentation normal. Normal affect. SKIN: No rashes, petechiae, concerning changes PSYCHIATRIC: Mentation normal. INVESTIGATIONS: EMR Reviewed; Pre-OP Reviewed DISPOSITION: DVT: Aspirin b.i.d. GI: PO intake [facility] Medical History (Updated 09/09/24 @ 17:55 by Sophia Jo MD) Vitamin D deficiency ?E55.9 - Vitamin D deficiency, unspecified (ICD-10) Osteoarthritis of right knee ?M17.11 - Unilateral primary osteoarthritis, right knee (ICD-10) Chronic back pain ?M54.9 - Dorsalgia, unspecified (ICD-10) ?G89.29 - Other chronic pain (ICD-10) ASCVD (arteriosclerotic cardiovascular disease) ?I25.10 - Atherosclerotic heart disease of [place] coronary artery without angina pectoris (ICD-10) Lung nodules ?R91.8 - Other nonspecific abnormal finding of lung field (ICD-10) Osteoarthritis of left knee ?M17.12 - Unilateral primary osteoarthritis, left knee (ICD-10) Right knee injury ?S89.91XA - Unspecified injury of right lower leg, initial encounter (ICD-10) Tear of lateral meniscus of right knee ?S83.281A - Other tear of lateral meniscus, current injury, right knee, initial encounter (ICD-10) Tear of medial meniscus of right knee ?S83.241A - Other tear of medial meniscus, current injury, right knee, initial encounter (ICD-10) Morbid obesity with BMI of 45.0-49.9, adult ?E66.01 - Morbid (severe) obesity due to excess calories (ICD-10) ?Z68.42 - Body mass index [BMI] 45.0-49.9, adult (ICD-10) GERD (gastroesophageal reflux disease) ?K21.9 - Gastro-esophageal reflux disease without esophagitis (ICD-10) Obstructive sleep apnea hypopnea, severe ?G47.33 - Obstructive sleep apnea (adult) (pediatric) (ICD-10) Prediabetes ?R73.03 - Prediabetes (ICD-10) Mild ascending aorta dilatation ?I77.810 - Thoracic aortic ectasia (ICD-10) COPD (chronic obstructive pulmonary disease) ?J44.9 - Chronic obstructive pulmonary disease, unspecified (ICD-10) Lymphedema ?I89.0 - Lymphedema, not elsewhere classified (ICD-10) Primary hypertension ?I10 - Essential (primary) hypertension (ICD-10) NSTEMI (non-ST elevated myocardial infarction) ?I21.4 - Non-ST elevation (NSTEMI) myocardial infarction (ICD-10) Cellulitis of right lower extremity ?L03.115 - Cellulitis of right lower limb (ICD-10) Lower GI bleed (~05/2020) ?K92.2 - Gastrointestinal hemorrhage, unspecified (ICD-10) Spinal stenosis of lumbar region with neurogenic claudication ?M48.062 - Spinal stenosis, lumbar region with neurogenic claudication (ICD- 10) Clostridium difficile colitis (~2017) ?A04.72 - Enterocolitis due to Clostridium difficile, not specified as recurrent (ICD-10) Diverticulosis ?K57.90 - Diverticulosis of intestine, part unspecified, without perforation or abscess without bleeding (ICD-10) History of methamphetamine abuse ?F15.11 - Other stimulant abuse, in remission (ICD-10) Bilateral lumbar radiculopathy ?M54.16 - Radiculopathy, lumbar region (ICD-10) Hx of acute renal failure ?Z87.448 - Personal history of other diseases of urinary system (ICD-10) PAD (peripheral artery disease) ?I73.9 - Peripheral vascular disease, unspecified (ICD-10) Presence of stent in coronary artery in patient with coronary artery disease ?I25.10 - Atherosclerotic heart disease of [place] coronary artery without angina pectoris (ICD-10) ?Z95.5 - Presence of coronary angioplasty implant and graft (ICD-10) Surgical History (Updated 09/09/24 @ 17:55 by Sophia Jo MD) History of arthroplasty of right knee (09/09/24) ?Z96.651 - Presence of right artificial knee joint (ICD-10) History of arthroscopy of left shoulder (03/02/21) ?Z98.890 - Other specified postprocedural states (ICD-10) H/O coronary angioplasty (~11/2011) ?Z98.61 - Coronary angioplasty status (ICD-10) H/O angioplasty (12/07/11) ?Z98.62 - Peripheral vascular angioplasty status (ICD-10) S/P insertion of iliac artery stent (06/06/21) ?Z95.828 - Presence of other vascular implants and grafts (ICD-10) Femur fracture, right ?S72.91XA - Unspecified fracture of right femur, initial encounter for closed fracture (ICD-10) Hip fracture ?S72.009A - Fracture of unspecified part of neck of unspecified femur, initial encounter for closed fracture (ICD-10) Previous back surgery (10/03/18) ?Z98.890 - Other specified postprocedural states (ICD-10) Family History Maternal Grandfather Heart disease Mother Heart disease Father Myocardial infarction Heart disease Maternal Grandmother Diabetes Cancer of kidney Social History Narrative: . 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 Quit tobacco use in july 2015. EtOH 2-3 beers 3 times a week, more in the summer. Denies recreational drugs. 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 He had meth for a few years because he had so many things going on at work and he was renovating a house and felt like there were just not enough hours in the day. Full code, does not want manager terminal life support. What is your current living situation?: I presently have a place to live Problems where you live: no known problems In the past 12 months, utilities in danger of being shut off: no In past 12 months, lack of transportation kept you from medical appts, meetings, work, or getting things needed for daily living: no In the past 12 mos, have been you worried that your food would run out before you had money to buy more?: never true In the past 12 mos, the food you bought just didn't last and you didn't have money to buy more?: never true Highest level of school completed/degree received: GED or equivalent Smoking Status: Former smoker What tobacco products do you use: cigarettes Smoking packs per day: 2 Smoking cigarettes per day: 40.0 Years smoked: 40 Smoking pack-years: 80.00 Smoking quit date/years: <= 15 years ago Do you use any of these nicotine containing products: None Nicotine containing products detail: quit 7 years ago Second hand tobacco smoke exposure: No How often do you have a drink containing alcohol: 2-4 times a month Alcohol type: beer How many standard drinks containing alcohol do you have on a typical day: 3 or 4 How often do you have six or more drinks on one occasion: Never AUDIT-C Alcohol total score: 3 Non-prescribed substance use: denies use Caffeine: Yes How often does anyone, including family, friends and others, physically hurt you : never How often does anyone, including family, friends and others, insult or talk down to you: never How often does anyone, including family, friends and others, threaten you with harm: never How often does anyone, including family, friends and others, scream or curse at you: never service: Yes Meds Home Medications and Allergies Home Medications ?Medication ?Instructions ?Recorded ?Confirmed ?Type aspirin 81 mg tablet,delayed 81 mg PO DAILY 05/01/22 0 09/09/24 History release Held on 09/09/24. Instructions: Resume on 10/10/24. albuterol sulfate 90 mcg/actuation 2 puff inhalation Q 4H PRN 10/22/23 09/09/24 Rx aerosol inhaler shortness of breath or wheez ing #8.5 grams cilostazol 50 mg tablet 50 mg PO BID #180 tabs 10/2109/09/24 Rx fluticasone fur. 200 mcg-umeclid 1 inh inhalation TITUS Y #60 ea 10/22/23 09/09/24 Rx 62.5 mcg-vilant 25 mcg inhalat.powder (Trelegy Ellipta) ipratropium 0.5 mg-albuterol 3 mg 3 ml inhalation Q6H PRN shortness 10/22/23 09/09/24 Rx (2.5 mg base)/3 mL nebulization of breath or wheezing #180 mL soln lisinopril 5 mg tablet 5 mg PO DAILY #90 tabs 10/2109/09/24 Rx omeprazole 40 mg capsule,delayed 40 mg PO QAM #90 caps 10/22/23 09/09/24 Rx release rosuvastatin 40 mg tablet 40 mg PO DAILY #90 tabs 11/0 08/1409/09/24 Rx tizanidine 4 mg capsule 4 mg PO BID PRN muscle spast icity 04/14/24 09/09/24 Rx #180 caps furosemide 40 mg tablet 80 mg PO QAM edema 07/14/24 09/09/24 History oxycodone 5 mg tablet 5 mg PO BID PRN pain #10 tab s 08/25/24 09/09/24 Rx acetaminophen 500 mg capsule 500 - 1,000 mg (1 - 2 x 5 00 mg) PO 09/09/24 Rx Q6H PRN pain #100 caps aspirin 81 mg chewable tablet 81 mg PO BID for DVT pro phylaxis 09/09/24 Rx (Aspirin Childrens) 30 days #60 tabs fluticasone propionate 50 2 spray intranasal DAILY 09/09/24 History mcg/actuation nasal spray,suspension metoprolol succinate 50 mg 50 mg PO DAILY 09/09/24 History tablet,extended release 24 hr montelukast 10 mg tablet 10 mg PO HS 09/09/24 5 History oxycodone 5 mg tablet 2.5 - 5 mg (0.5 - 1 x 5 mg) PO 09/09/24 Rx Q4-6H PRN Pain #42 tabs sennosides 8.6 mg tablet (Senna 17.2 mg (2 x 8.6 mg) P O BID PRN 09/09/24 Rx Lax) constipation #100 tabs tamsulosin 0.4 mg capsule 0.4 mg PO HS 09/09/24 History Allergies Allergy/AdvReac Type Severity Reaction Status Date / Time No Known Drug Allergies Allergy Verified 09/09/24 10:37 Exam Const: Vital Signs, click to edit/add: Vital Signs - 24 hr 09/09/24 09:13 09/09/24 10:40 09/09/24 10:45 Temperature 98.7 F Pulse Rate 80 78 72 Respiratory Rate 16 16 16 Blood Pressure 113/63 137/93 H 121/71 Pulse Oximetry 93 92 93 Oxygen Delivery Me thod Room Air Nasal Cannula Nasal Cannula Oxygen Flow Rate 2 2 09/09/24 10:50 09/09/24 13:55 09/09/24 14:00 Temperature 97 F L Pulse Rate 71 74 71 Respiratory Rate 16 16 16 Blood Pressure 115/80 106/59 L 110/66 Pulse Oximetry 93 88 94 Oxygen Delivery Me thod Nasal Cannula Room Air Nasal Cannula Oxygen Flow Rate 2 2 09/09/24 14:05 09/09/24 14:10 09/09/24 14:15 Temperature Pulse Rate 70 68 69 Respiratory Rate 16 14 14 Blood Pressure 116/64 120/55 L 126/68 Pulse Oximetry 94 95 94 Oxygen Delivery Me thod Nasal Cannula Nasal Cannula Nasal Cannula Oxygen Flow Rate 2 2 2 09/09/24 14:20 09/09/24 14:25 09/09/24 14:35 Temperature 97 F L 95.4 F L Pulse Rate 66 64 62 Respiratory Rate 14 14 17 Blood Pressure 130/69 120/70 126/65 Pulse Oximetry 96 96 95 Oxygen Delivery Me thod Nasal Cannula Nasal Cannula Nasal Cannula Oxygen Flow Rate 2 2 1 09/09/24 14:35 09/09/24 14:45 09/09/24 15:00 Temperature 97.6 F 97.6 F Pulse Rate 62 60 60 Respiratory Rate 17 18 18 Blood Pressure 126/65 122/68 126/74 Pulse Oximetry 95 96 96 Oxygen Delivery Me thod Nasal Cannula Nasal Cannula Nasal Cannula Oxygen Flow Rate 1 1 1 09/09/24 15:15 09/09/24 16:00 09/09/24 16:00 Temperature 97.6 F Pulse Rate 58 L Respiratory Rate 18 18 Blood Pressure 146/71 H Pulse Oximetry 96 93 Oxygen Delivery Me thod Room Air Room Air Room Air Oxygen Flow Rate Assessment and Plan Assessment and plan (1) History of arthroplasty of right knee: Problem comment: Right total knee arthroplasty (09/09/2024, Dr. Colunga) Status: Acute Assessment and Plan: Hospital medicine team is happy to follow the patient through to discharge. We are expecting a routine postoperative course. I have reconciled home medications and completed our part of the discharge. -I will hold antihypertensives as indicated per our practice standard -I will place patient on telemetry w/hx of CAD, DALILA -I will spot check oxygen sats as there is a concern for hypoxia (anethesia, DALILA, COPD, etc) (2) ASCVD (arteriosclerotic cardiovascular disease): Problem comment: Stents 2011, x's 2, NSTEMI 06/2022 Status: Acute (3) PAD (peripheral artery disease): Problem comment: 12/07/2011 left SFA stent and bypass grafting for claudication via combined femoral and popliteal approach 05/17/2016 Drug eluting balloon angioplasty of right SFA stenosis and right TP trunk occlusion. Post intervention SOPHIE 0.84 with duplex evidence of uncorrected aortoiliac occlusive disease. No claudication symptoms post intervention. Status: Acute (4) Presence of stent in coronary artery in patient with coronary artery disease: Problem comment: RCA stent x2, NOEMY. 06/13/2011 Status: Acute (5) Obstructive sleep apnea hypopnea, severe: Problem comment: On CPAP. 08/14/2021 AHI- 125 Status: Acute (6) COPD (chronic obstructive pulmonary disease): Problem comment: chronic hypoventilation, CO2 retention Status: Chronic (7) Primary hypertension: Status: Acute (8) Morbid obesity with BMI of 45.0-49.9, adult: Status: Acute
[2024-09-09] MEDS: CEFAZOLIN 3 GM in 0.9 % SODIUM CHLORIDE Mini-bag 100 ML IVPB (17:48)
--- NOTE | 2024-09-09 18:50 | PC.NURSE ---
The patient is pleasant during cares. RTKA, dressing is CDI. The patient initially reported severe pain upon my initial assessment... medications were still being verified by pharmacy at this time. After administration the patient reported that his pain was well managed. Ice pack to R knee, the patient has voided and is now up in the chair. No N/V, and is using the I/S himself. Holly THIBODEAUX BSN
[2024-09-09] MEDS: cilostazoL 100 MG TABLET 50 MG PO (19:57)
[2024-09-09] MEDS: TAMSULOSIN HCL 0.4 MG CAPSULE PO (19:58)
[2024-09-09] MEDS: MONTELUKAST 10 MG TABLET PO (19:59)
[2024-09-09] MEDS: OXYCODONE 5 MG TABLET PO (19:59)
[2024-09-09] MEDS: SENNOSIDES 1 TAB TABLET 2 TAB PO (22:57)
[2024-09-09] MEDS: ASPIRIN 81 MG TABLET EC PO (22:57)
[2024-09-10 00:25] VITALS: BP 139/65; PULSE 72; RESP 16; TEMP 36.5; O2SAT 91
[2024-09-10] MEDS: OXYCODONE 5 MG TABLET PO ×3 (00:30→09:47)
[2024-09-10] MEDS: CEFAZOLIN 3 GM in 0.9 % SODIUM CHLORIDE Mini-bag 100 ML IVPB (00:35)
[2024-09-10 00:51] VITALS: PULSE 78
[2024-09-10] MEDS: ACETAMINOPHEN 500 MG TABLET 1000 MG PO (05:14)
[2024-09-10 05:20] VITALS: BP 165/75; PULSE 66; RESP 16; TEMP 36.6; O2SAT 94
--- NOTE | 2024-09-10 05:37 | PC.NURSE ---
Addendum entered by Kayy Nelson 09/10/24 06:34: Pt reports he is now passing gas Original Note: Pt is alert and oriented x3. Afebrile. Pt reports 7/10 pain in right knee, managed with cold pack, scheduled and PRN medications. Pt?s right knee dressing is CDI. Pt is up SBA with walker and gait belt, voiding, and tolerating a regular diet. Pt denies passing gas. Pt wore his?CPAP throughout night. ?
[2024-09-10 06:41] LABS: Basophils Absolute Auto 0.01 K/uL (0.00-0.30); Basophils Percent Auto 0.1 % (0.0-3.0); Eosinophils Absolute Auto 0.01 K/uL (0.00-0.50); Eosinophils Percent Auto 0.1 % (0.0-7.0); Hematocrit 40.7 % (37.0-53.0); Hemoglobin* 12.7 gm/dL (13.5-17.5); Immature Granulocytes Abs Auto 0.02 K/uL (0.00-0.30); Immature Granulocytes Pct Auto 0.2 %; Lymphocytes Percent Auto 8.3 % (20-44); Mean Corpuscular HGB Conc 31 gm/dL (32-36); Mean Corpuscular Hemoglobin 26 pg (26-34); Mean Corpuscular Volume 85 fL (80-100); Monocytes Percent Auto 8.3 % (0.0-11.0); Platelet Count* 289 K/uL (140-440); RDW Coefficient of Variation % 14.4 % (11.5-15.5); Red Blood Count 4.81 m/uL (4.30-5.90); White Blood Count* 9.01 K/uL (4.50-11.00)
[2024-09-10 06:52] LABS: Slide Review Reflex No
[2024-09-10 06:58] LABS: Potassium* 4.5 mmol/L (3.6-5.1)
[2024-09-10 07:01] LABS: Blood Urea Nitrogen* 16 mg/dL (7-30); Est. Creatinine Clearance* 72.16; Estimated Glomerular Filt Rate 80 ml/min; Sodium* 135 mmol/L (135-149)
[2024-09-10 08:11] VITALS: BP 157/69; PULSE 77; RESP 20; TEMP 36.6; O2SAT 96
[2024-09-10] MEDS: SENNOSIDES 1 TAB TABLET 2 TAB PO (08:13)
[2024-09-10] MEDS: ROSUVASTATIN CALCIUM 10 MG TABLET 40 MG PO (08:13)
[2024-09-10] MEDS: lisinopriL 5 MG TABLET PO (08:14)
[2024-09-10] MEDS: FUROSEMIDE 40 MG TABLET 80 MG PO (08:14)
[2024-09-10] MEDS: OMEPRAZOLE 20 MG CAPSULE DR 40 MG PO (08:14)
[2024-09-10] MEDS: ASPIRIN 81 MG TABLET EC PO (08:14)
[2024-09-10] MEDS: METOPROLOL SUCCINATE (XL) 50 MG TAB PO (08:14)
--- NOTE | 2024-09-10 08:19 | PM.ORPN ---
Subjective Subjective Time Seen by Provider: 07:15 Date Seen: 09/10/24 Principal diagnosis: Status post right knee replacement Interval history: Ajith is comfortable this morning. He is having breakfast. No nausea or vomiting. He will be discharging today to home. Ortho Exam Narrative Exam Narrative: Alert and oriented x3. Patient is in no acute distress. Converses without labored breathing. Hearing is grossly intact. Ambulates with a walker. He has lymphedema. Examination of the right lower extremity shows edema of the lower extremity, chronic about the ankle. Dressing is intact. No erythema or warmth or sign of infection. He is able to straight leg raise. He is able to flex his knee. CMS intact right lower extremity. Calf is soft and nontender. He can dorsiflex and plantar flex the ankle. Const Vital Signs, click to edit/add: Vital Signs - 24 hr 09/09/24 09:13 09/09/24 10:40 09/09/24 10:45 Temperature 98.7 F Pulse Rate 80 78 72 Pulse Rate [Left Pulse Oximeter] Respiratory Rate 16 16 16 Blood Pressure 113/63 137/93 H 121/71 Blood Pressure [Left Arm] Blood Pressure [Right Arm] Pulse Oximetry 93 92 93 Oxygen Delivery Method Room Air Nasal Cannula Nasal Cannula Oxygen Flow Rate 2 2 09/09/24 10:50 09/09/24 13:55 09/09/24 14:00 Temperature 97 F L Pulse Rate 71 74 71 Pulse Rate [Left Pulse Oximeter] Respiratory Rate 16 16 16 Blood Pressure 115/80 106/59 L 110/66 Blood Pressure [Left Arm] Blood Pressure [Right Arm] Pulse Oximetry 93 88 94 Oxygen Delivery Method Nasal Cannula Room Air Nasal Cannula Oxygen Flow Rate 2 2 09/09/24 14:05 09/09/24 14:10 09/09/24 14:15 Temperature Pulse Rate 70 68 69 Pulse Rate [Left Pulse Oximeter] Respiratory Rate 16 14 14 Blood Pressure 116/64 120/55 L 126/68 Blood Pressure [Left Arm] Blood Pressure [Right Arm] Pulse Oximetry 94 95 94 Oxygen Delivery Method Nasal Cannula Nasal Cannula Nasal Cannula Oxygen Flow Rate 2 2 2 09/09/24 14:20 09/09/24 14:25 09/09/24 14:35 Temperature 97 F L 95.4 F L Pulse Rate 66 64 62 Pulse Rate [Left Pulse Oximeter] Respiratory Rate 14 14 17 Blood Pressure 130/69 120/70 126/65 Blood Pressure [Left Arm] Blood Pressure [Right Arm] Pulse Oximetry 96 96 95 Oxygen Delivery Method Nasal Cannula Nasal Cannula Nasal Cannula Oxygen Flow Rate 2 2 1 09/09/24 14:35 09/09/24 14:45 09/09/24 15:00 Temperature 97.6 F 97.6 F Pulse Rate 62 60 60 Pulse Rate [Left Pulse Oximeter] Respiratory Rate 17 18 18 Blood Pressure 126/65 122/68 126/74 Blood Pressure [Left Arm] Blood Pressure [Right Arm] Pulse Oximetry 95 96 96 Oxygen Delivery Method Nasal Cannula Nasal Cannula Nasal Cannula Oxygen Flow Rate 1 1 1 09/09/24 15:15 09/09/24 15:30 09/09/24 16:00 Temperature 97.6 F 97.2 F L Pulse Rate 58 L 61 Pulse Rate [Left Pulse Oximeter] Respiratory Rate 18 18 Blood Pressure 146/71 H Blood Pressure [Left Arm] Blood Pressure [Right Arm] Pulse Oximetry 96 91 93 Oxygen Delivery Method Room Air Room Air Oxygen Flow Rate 09/09/24 16:00 09/09/24 16:00 09/09/24 16:30 Temperature 97.2 F L 97.5 F L Pulse Rate 64 67 Pulse Rate [Left Pulse Oximeter] Respiratory Rate 18 18 Blood Pressure 130/74 137/39 L Blood Pressure [Left Arm] Blood Pressure [Right Arm] Pulse Oximetry 90 91 Oxygen Delivery Method Room Air Oxygen Flow Rate 09/09/24 17:30 09/09/24 19:00 09/09/24 19:30 Temperature 97.5 F L Pulse Rate 68 91 Pulse Rate [Left Pulse Oximeter] 87 Respiratory Rate 18 18 Blood Pressure 155/67 H Blood Pressure [Left Arm] 139/59 L Blood Pressure [Right Arm] Pulse Oximetry 93 92 Oxygen Delivery Method Room Air Oxygen Flow Rate 09/09/24 21:36 09/10/24 00:25 09/10/24 00:25 Temperature 97.9 F Pulse Rate 83 Pulse Rate [Left Pulse Oximeter] 72 Respiratory Rate 16 16 Blood Pressure 101/65 Blood Pressure [Left Arm] Blood Pressure [Right Arm] Pulse Oximetry 93 91 Oxygen Delivery Method Room Air Room Air Oxygen Flow Rate 09/10/24 00:25 09/10/24 00:51 09/10/24 05:20 Temperature 97.7 F 97.8 F Pulse Rate 78 Pulse Rate [Left Pulse Oximeter] 72 66 Respiratory Rate 16 16 Blood Pressure Blood Pressure [Left Arm] Blood Pressure [Right Arm] 139/65 165/75 H Pulse Oximetry 91 94 Oxygen Delivery Method Room Air Room Air Oxygen Flow Rate 09/10/24 08:11 09/10/24 08:11 Temperature 97.8 F Pulse Rate Pulse Rate [Left Pulse Oximeter] 77 Respiratory Rate 20 20 Blood Pressure Blood Pressure [Left Arm] 157/69 H Blood Pressure [Right Arm] Pulse Oximetry 96 96 Oxygen Delivery Method Room Air Room Air Oxygen Flow Rate Assessment and Plan Assessment and plan (1) History of arthroplasty of right knee: Problem details: Right total knee arthroplasty (09/09/2024, Dr. Colunga) Status: Acute Assessment and Plan: Plan for discharge is today to home if they meet discharge criteria. DVT prophylaxis includes aspirin 81 mg twice daily x1 month, Compression stockings as needed for swelling. Frequent ambulation, every hour throughout the day. Remove dressing in 1 week. Observe wound and phone Orthopedics with any questions or concerns Return to clinic in 1 week for a wound check Return to clinic in 6 weeks with surgeon Minimize narcotic use. Wean off and discontinue soon as possible. Activities as tolerated. No strenuous activity. Outpatient physical therapy as scheduled. Ice and elevate the operative extremity. No restriction on ice.
[2024-09-10 09:42] VITALS: PULSE 82
[2024-09-10] MEDS: cilostazoL 100 MG TABLET 50 MG PO (09:48)
== END 2024-09-10 10:00 | disposition home or self-care (01) ==
LOC: OR 08:42 → MEDSURG 08:50
PROVIDERS: PCP Family Medicine; Visit Provider Orthopaedic Surgery
PROC: (CPT 27447; principal; 2024-09-09 10:30)
DX: M17.11 Unilateral primary osteoarthritis, right knee (principal); G89.18 Other acute postprocedural pain; Z68.42 Body mass index [BMI] 45.0-49.9, adult; E66.01 Morbid (severe) obesity due to excess calories; G47.33 Obstructive sleep apnea (adult) (pediatric); J44.9 Chronic obstructive pulmonary disease, unspecified; I10 Essential (primary) hypertension; I25.10 Atherosclerotic heart disease of native coronary artery without angina pectoris; I73.9 Peripheral vascular disease, unspecified; K21.9 Gastro-esophageal reflux disease without esophagitis; R73.03 Prediabetes; I89.0 Lymphedema, not elsewhere classified; I25.2 Old myocardial infarction; Z95.5 Presence of coronary angioplasty implant and graft; Z87.891 Personal history of nicotine dependence; Z79.82 Long term (current) use of aspirin
CPT/HCPCS: 27447; 01402; 36415; 64447; 64454; 73560; 76942; 82565; 84132; 84295; 84520; 85025; 85610; 97116; 97162; 97165; 97530; 99100; A9270; C1776; J0665; J0690; J1100; J1171; J2250; J2371; J2405; J2704; J3010; J7120

== ENCOUNTER 2024-10-14 09:40 | Outpatient (CLI) | payer BC, MEDICARE, SELFPAY ==
--- NOTE | 2024-10-14 10:00 | CRLHL7_ITS ---
For Patients: As a result of the Cures Act, medical imaging exams and procedure reports are released immediately into your electronic medical record. You may view this report before your referring provider. If you have questions, please contact your health care provider. INDICATION: 3 MONTH FOLLOW UP OF NODULE SEEN ON LUNG SCREENING DONE IN JUNE TECHNIQUE: Low-dose lung cancer screening non-contrast CT chest. Dose reduction techniques were used. COMPARISON: 07/11/2024 FINDINGS: NODULES: Stable 4 millimeter nodule in the right middle lobe, . Unchanged sub solid nodule within the posterior aspect right lower lobe measuring 8 millimeters. Stable sub solid nodule left upper lobe measures 6 millimeters, LUNGS AND PLEURA: COPD/emphysema. Dependent scarring. MEDIASTINUM: No adenopathy. CORONARY ARTERY CALCIFICATION: Severe. LIMITED UPPER ABDOMEN: Gallstones. MUSCULOSKELETAL: No fracture. IMPRESSION: Stable bilateral nodules. LUNG-RADS CATEGORY: 2: Benign. RADIOLOGIST RECOMMENDATION: Continue annual screening with low-dose CT chest in 12 months. Please note that all CT scans at this facility use dose modulation, iterative reconstruction, and/or weight-based dosing when appropriate to reduce radiation dose to as low as reasonably achievable. Dictated by Theodore Hatch MD @ 10/14/2024 10:30:34 AM (Electronically Signed)
--- OUTSIDE RECORDS SUMMARY | 2024-10-15 00:37 | XMS_ITS | Clinical Summary ---
Author Organization [facility] Address [address] [place] [address]. 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 Gender Identity Not on file Sexual Orientation Not on file Last Filed Vital Signs Vital Sign Reading Time Taken Comments Blood Pressure 96/63 01/29/2024 2:55 PM CDT Pulse 65 01/29/2024 2:55 PM CDT Temperature 36.6 C (97.9 F) 05/26/2020 6:19 PM CULLET CRUSHER AND WASHER Respiratory Rate 24 01/29/2024 2:55 PM CDT Oxygen Saturation 96% 01/29/2024 2:55 PM CDT Inhaled Oxygen Concentration - - Weight 152 kg (335 lb) 01/29/2024 2:55 PM CDT Height 180.3 cm (5' 11) 05/26/2020 11:45 AM CULLET CRUSHER AND WASHER Body Mass Index 46.72 05/26/2020 11:45 AM CULLET CRUSHER AND WASHER Plan of Treatment Upcoming Encounters Date Type Department Care Team (Late st Contact Info) Description 01/30/2025 10:40 AM CDT Office Visit [address] [id number] Krystyna Ramsey PA-C [address] [facility] [place] [address] Health Maintenance Due Date Last Done Comments ADVANCE CARE PLANNING 1955 ANNUAL REVIEW OF HM ORDERS 1953 COPD ACTION PLAN [address] CT COLONOGRAPHY 1953 FIT 1953 LIPID 1953 sDNA (Cologuard) 1953 HEPATITIS C SCREENING 1971 RSV VACCINE (1 - Risk 60-74 years 1-dose series) 2013 FALL RISK ASSESSMENT 2018 MEDICARE ANNUAL WELLNESS VISIT 2018 LUNG CANCER SCREENING 07/06/2019 07/05/2018, 017 COVID-19 VACCINE ( season) 2023 09/14/2021, 03/31/2021, 07/20/2020, Additional history exists PHQ-2 (once per calendar year) 2024 01/29/2024 INFLUENZA VACCINE (Season Ended) 2024 02/01/2023, 02/22/2021, 02/22/2021, Additional history exists FLEX SIG 05/26/2025 05/26/2020, 07/22, 08/02/2016 DIABETES SCREENING 06/27/2026 06/28/2023, 07/10/2022 COLONOSCOPY 04/01/2030 04/01/2020 COLORECTAL CANCER SCREENING 04/01/2030 DTAP/TDAP/TD VACCINE (3 - Td or Tdap) 10/21/2033 10/22/2023, 08/18/2011 AORTIC ANEURYSM SCREENING (SYSTEM ASSIGNED) Completed 07/02/2018, 11/22/2016 ZOSTER VACCINE Completed 11/28/2018, 05/2018, 09/29/2014 PNEUMOCOCCAL VACCINE 50+ YEARS Completed 02/17/2020, 07/30/2018, 02/05/2015 SPIROMETRY Completed 01/29/2024, 11/2023, 01/29/2024, Additional history exists HPV VACCINE Aged Out No longer eligi ble based on patient's age to complete this topic MENINGITIS VACCINE Aged Out No longer eligible based on patient's age to complete this topic Procedures Procedure Name Priority Date/Time Associated Diagnosis Comments PFT GENERAL LAB TESTING Routine 01/29/2024 2:33 PM CDT Mucopurulent chronic bronchitis (H) COPD (chronic obstructive pulmonary disease) (H) GLUCOSE (EXTERNAL RESULT) Routine 06/28/2023 9:58 AM CULLET CRUSHER AND WASHER FLEXIBLE SIGMOIDOSCOPY Routine 1:08 PM CDT from Last 3 Months or Most Recently Relevant to Health Maintenance Results * Pulmonary function test (01/29/2024 2:33 PM CDT) FVC-Pred 4.03 L BREEZE PFT FVC-Pre 3.78 L BREEZE PFT FVC-%Pred-Pre 93 % BREEZE PFT FEV1-Pre 2.67 L BREEZE PFT FEV1-%Pred-Pre 86 % BREEZE PFT [id number] 77 % BREEZE PFT [id number] 71 % BREEZE PFT FEFMax-Pred 8.52 L/sec BREEZE PFT FEFMax-Pre 8.78 L/sec BREEZE PFT FEFMax-%Pred-Pr e 103 % BREEZE PFT [id number] 2.35 L/sec BREEZE PFT [id number] 1.55 L/sec BREEZE PFT KHG3520-%Pred-P re 66 % BREEZE PFT ExpTime-Pre 9.64 sec BREEZE PFT FIFMax-Pre 6.02 L/sec BREEZE PFT VC-Pred 4.29 L BREEZE PFT VC-Pre 3.75 L BREEZE PFT VC-%Pred-Pre 87 % BREEZE PFT IC-Pred 3.02 L BREEZE PFT IC-Pre 3.08 L BREEZE PFT IC-%Pred-Pre 102 % BREEZE PFT ERV-Pred 1.51 L BREEZE PFT ERV-Pre 0.66 L BREEZE PFT ERV-%Pred-Pre 44 % BREEZE PFT [id number] 78 % BREEZE PFT [id number] 76 % BREEZE PFT FRCPleth-Pred 3.77 L [...] BREEZE PFT VA-%Pred-Pre 92 % BREEZE PFT [id number] 72 % BREEZE PFT [id number] 71 % BREEZE PFT 01/29/2024 2:33 PM [...] * Glucose (External Result) (06/28/2023 9:58 AM CULLET CRUSHER AND WASHER) [facility] Glucose (External) 111 60 - 115 mg/dL [facility] Blood 06/28/2023 9:58 AM CULLET CRUSHER AND WASHER Narrative [facility] - 06/28/2023 9:58 AM CULLET CRUSHER AND WASHER [facility]- External Lab Results us Provider Outside LAB - HIM EXTERNAL RESULT Final Result [facility] [address] [place], [place] [address], [place] [phone] * FLEXIBLE SIGMOIDOSCOPY (08/02/2016 1:08 PM CDT) Pathologist [facility] Patient Name: Shickshinny Newborg Procedure Date: 08/02/2016 1:08 PM Date [...] direct vision. The Olympus Adult Colonoscope Model #[id number]-UK651O, [place]#124, SN#[id number] was introduced through the anus and advanced [...] pathology results. Procedure Code(s): --- Professional --- 06699, Sigmoidoscopy, flexible; with removal of tumor(s), polyp(s), or other lesion(s) by snare technique Diagnosis Code(s): --- Professional --- K62.89, Other specified diseases of anus and rectum K62.1, Rectal polyp D12.5, Benign neoplasm of sigmoid colon CPT copyright 2013 [employer]. All rights reserved. The codes documented in this report are preliminary and upon design drafter review may be revised to meet current [...] PM RADIOLOGY RESULTS 08/02/2016 1:08 PM CDT Antonia Naylor MD PROCEDURES Final Resu lt RADIOLOGY RESULTS from Last 3 Months or Most Recently Relevant to Health Maintenance Insurance [id number] [place] [phone] MEDICARE [facility] [employer] Care Teams Tester Waste Disposal Leakage Relationship Specialty Start Date End Date [facility] [address] [place] [address] PCP - General 08/02/16 Krystyna Ramsey PA-C [address] [place] [address] Physician Ui Programmer Pulmonary Disease 01/30/24 Krystyna Ramsey PA-C [address] [place] [address] Assigned Cancer Care Provider 02/13/24
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
== END 2024-10-14 09:41 | disposition home or self-care (01) ==
LOC: CT 09:41
PROVIDERS: PCP Family Medicine; Visit Provider Family Medicine
DX: R91.8 Other nonspecific abnormal finding of lung field (principal)
CPT/HCPCS: 71250

== ENCOUNTER 2024-11-26 09:49 | Outpatient (CLI) | payer BC, MEDICARE, SELFPAY | END 2024-11-26 09:50 | disposition home or self-care (01) | LOC: NFLDREF 11-28 15:47 | PROVIDERS: PCP Family Medicine; Referring Provider Family Medicine; Visit Provider Family Medicine | DX: I10 Essential (primary) hypertension (principal); I25.10 Atherosclerotic heart disease of native coronary artery without angina pectoris; D64.9 Anemia, unspecified; E55.9 Vitamin D deficiency, unspecified; Z12.5 Encounter for screening for malignant neoplasm of prostate | CPT/HCPCS: 80053; 80061; 82043; 82306; 82570; G0103 ==

== ENCOUNTER 2025-04-21 09:26 | Outpatient (CLI) | payer BC, MEDICARE, SELFPAY | END 2025-04-21 09:27 | disposition home or self-care (01) | LOC: FRMREF 09:27 | PROVIDERS: PCP Family Medicine; Visit Provider Family Medicine | DX: Z01.818 Encounter for other preprocedural examination (principal); R73.03 Prediabetes; I10 Essential (primary) hypertension | CPT/HCPCS: 82043; 82570 ==